=== PATIENT | female | born 1960 | race Caucasian/White ===

== ENCOUNTER → 2016-05-19 | Outpatient (CLI) | payer OTHER, BC ==
[~2016-05-19] MED LIST: CALCTAB5 PO; HYDR-3124 PO; LACT10SO61 PO; LEVO75TA5 PO; MCRK20 PO; MULTTAB58 PO; NRT/25 PO; ONDA8TAB7 PO; OXGN; PROP40TA5 PO; TORS5TAB10 PO
[2016-05-19 12:09] LABS: BASO % 0.6 %; BASO ABS # 0.04 K/uL (0-0.2); COMPLETE YES; EOS % 6.1 %; HEMATOCRIT 42.5 % (37-47); IG% 0.2 %; LYMPH % 36.1 %; LYMPH ABS # 2.37 K/uL (1.2-3.4); MEAN CELL VOLUME 89.7 fL (80-100); MEAN CORPUSCULAR HGB CONC 33.4 g/dl (32-36); MEAN PLATELET VOLUME 10.2 fL (7.4-10.4); MONO % 13.9 %; NEUT % 43.1 %; PLATELET COUNT 235 K/uL (130-400); RED BLOOD COUNT 4.74 M/uL (4.2-5.4); WHITE BLOOD COUNT 6.56 K/uL (4.8-10.8)
[2016-05-19 12:16] LABS: ALT/SGPT 41 U/L (12-78); BLOOD UREA NITROGEN 11 mg/dl (7-18); BUN/CREATININE RATIO 11.1 (10-20); CALCIUM 8.8 mg/dl (8.5-10.1); CARBON DIOXIDE 28 mmol/L (21-32); CHLORIDE 104 mmol/L (98-107); CREATININE 0.98 mg/dl (0.60-1.20); GLUCOSE 102 mg/dl (70-99); INR 1.1 (0.9-1.1); POTASSIUM 3.8 mmol/L (3.5-5.1); PROTHROMBIN TIME (PATIENT) 11.4 SECONDS (9.0-12.0); SODIUM 141 mmol/L (136-145)
[2016-05-19 12:19] LABS: ALB/GLOB RATIO 0.8 (0.9-2); ALKALINE PHOSPHATASE 192 U/L (45-117); AST/SGOT 43 U/L (15-37)
[2016-05-22 13:51] LABS: AFP TUMOR MARKER SERUM 6.2 NG/ML (<6.1); HEPATITIS C VIRAL RNA BY PCR <15 NOT DETECTED IU/ML (<15); HEPATITIS C VIRAL RNA(LOG) PCR <1.18 NOT DETECTED LOG IU/ML (<1.18)
== END | disposition home or self-care (01) ==
LOC: C.LAB 11:02
PROVIDERS: ATTEND Internal Medicine
DX: K74.60 Unspecified cirrhosis of liver (principal)

== ENCOUNTER → 2016-06-19 | Outpatient (CLI) | payer OTHER, BC ==
[~2016-06-19] MED LIST changes: +ALEN5SOL; +ALEN70TA2 PO; +CALC-393 PO; +DMD20 PO; +HYDR-3419 PO; +HYDR1CRE TOP; +LEVO50TA6 PO; +ONDA4TAB46 PO; +POTA10CA28 PO; +TIOT1SPR INH; +ZOLP12.5 PO
--- NOTE | 2016-06-19 12:20 | DIAGNOSTIC IMAGING REPORT ---
ABDOMINAL ULTRASOUND COMPLETE HISTORY: Cirrhosis OF LIVER. COMPARISON: Abdominal ultrasound 12/14/2015. FINDINGS: Pancreas: The pancreas demonstrates a normal echotexture. Liver: Heterogeneous liver demonstrating a slightly nodular contour. This is consistent with cirrhosis. This remains unchanged. No hepatic masses. Gallbladder: No gallbladder wall thickening. No gallstones. A 3 mm gallbladder polyp. CBD: 4 mm. Kidneys: No hydronephrosis. Spleen: Normal in size. Aorta: Normal in caliber. IVC: Patent. IMPRESSION: 1. Mild cirrhotic change within the liver. This remains unchanged. 2. A 3 mm gallbladder polyp. Electronically signed by: Cristino Canas M.D. 06/19/2016 12:18 PM Dictated Date/Time: 06/19/2016 12:16 PM
== END | disposition home or self-care (01) ==
LOC: C.ULTRBC 11:15
PROVIDERS: ATTEND Internal Medicine
DX: K74.60 Unspecified cirrhosis of liver (principal); K82.4 Cholesterolosis of gallbladder

== ENCOUNTER → 2016-10-05 | Outpatient (CLI) | payer OTHER, BC ==
[~2016-10-05] MED LIST changes: -ALEN5SOL; -ALEN70TA2 PO; -CALC-393 PO; -DMD20 PO; -HYDR-3419 PO; -HYDR1CRE TOP; -LEVO50TA6 PO; -ONDA4TAB46 PO; -POTA10CA28 PO; -TIOT1SPR INH; -ZOLP12.5 PO
--- NOTE | 2016-10-06 13:21 | MAMMOGRAPHY REPORT ---
BILATERAL DIGITAL SCREENING MAMMOGRAM TOMOSYNTHESIS WITH CAD: 10/05/2016 CLINICAL HISTORY: Routine screening. Patient has no complaints. TECHNIQUE: Breast tomosynthesis in addition to standard 2D mammography was performed. Current study was also evaluated with a Computer Aided Detection (CAD) system. COMPARISON: Comparison is made to exams dated: 02/13/2014 mammogram, 06/02/2015 mammogram, 11/29/2010 mammogram, 08/30/2009 mammogram - [facility], 08/27/2008, and 08/27/2007. BREAST COMPOSITION: The tissue of both breasts is heterogeneously dense, which may obscure small mas ses. FINDINGS: No suspicious masses, calcifications, or areas of architectural distortion are noted in ei ther breast. There has been no significant interval change compared to prior exams. IMPRESSION: ACR BI-RADS CATEGORY 1: NEGATIVE There is no mammographic evidence of malignancy. A 1 year screening mammogram is recommended. The pa tient will receive written notification of the results. Approximately 10% of breast cancers are not detected with mammography. A negative mammographic report should not delay biopsy if a clinically suggestive mass is present. Melody Salmeron M.D. /:10/05/2016 16:09:32 Burnishing Machine Operator: Antonio Mirza M, [facility] letter sent: Normal 1/2 BI-RADS Code: ACR BI-RADS Category 1: Negative
== END | disposition home or self-care (01) ==
LOC: C.MAMM 14:23
PROVIDERS: ATTEND Obstetrics & Gynecology
DX: Z12.31 Encounter for screening mammogram for malignant neoplasm of breast (principal)

== ENCOUNTER → 2016-10-16 | Outpatient (CLI) | payer OTHER, BC | END | disposition home or self-care (01) | LOC: C.PAPS 15:57 | PROVIDERS: ATTEND Obstetrics & Gynecology | DX: Z01.419 Encounter for gynecological examination (general) (routine) without abnormal findings (principal) ==

== ENCOUNTER → 2016-12-15 | Outpatient (CLI) | payer OTHER, BC ==
[~2016-12-15] MED LIST changes: +ALEN5SOL; +ALEN70TA2 PO; +ZOLP12.5 PO
[2016-12-15 12:12] LABS: BASO % 0.7 %; BASO ABS # 0.07 K/uL (0-0.2); COMPLETE YES; EOS % 5.3 %; HEMATOCRIT 43.3 % (37-47); IG% 0.2 %; LYMPH % 34.3 %; LYMPH ABS # 3.21 K/uL (1.2-3.4); MEAN CELL VOLUME 93.7 fL (80-100); MEAN CORPUSCULAR HGB CONC 34.2 g/dl (32-36); MEAN PLATELET VOLUME 10.6 fL (7.4-10.4); MONO % 11.9 %; NEUT % 47.6 %; PLATELET COUNT 252 K/uL (130-400); RED BLOOD COUNT 4.62 M/uL (4.2-5.4); WHITE BLOOD COUNT 9.36 K/uL (4.8-10.8)
[2016-12-15 12:20] LABS: INR 1.1 (0.9-1.1); PROTHROMBIN TIME (PATIENT) 11.3 SECONDS (9.0-12.0)
[2016-12-15 12:32] LABS: ESTIMATED AVERAGE GLUCOSE 123 mg/dl; HA1C FLAG Normal (Normal)
[2016-12-15 12:48] LABS: ALT/SGPT 63 U/L (12-78); AST/SGOT 64 U/L (15-37); BLOOD UREA NITROGEN 18 mg/dl (7-18); BUN/CREATININE RATIO 14.8 (10-20); CARBON DIOXIDE 27 mmol/L (21-32); CHLORIDE 101 mmol/L (98-107); CHOLESTEROL 217 mg/dl (0-200); GLUCOSE 105 mg/dl (70-99); POTASSIUM 3.9 mmol/L (3.5-5.1); SODIUM 136 mmol/L (136-145); TRIGLYCERIDES 133 mg/dl (0-150); VERY LOW DENSITY LIPOPROT CALC 27 mg/dl
[2016-12-15 12:59] LABS: ALB/GLOB RATIO 0.8 (0.9-2); ALKALINE PHOSPHATASE 182 U/L (45-117); CHOLESTEROL/HDL RATIO 4.5; HDL CHOLESTEROL 48 mg/dl; LDL CHOLESTEROL CALCULATED 142 mg/dl
[2016-12-18 09:59] LABS: AFP TUMOR MARKER SERUM 5.9 NG/ML (<6.1)
== END | disposition home or self-care (01) ==
LOC: C.LAB1850 10:33
PROVIDERS: ATTEND Nurse Practitioner Adult Health
DX: Z00.00 Encounter for general adult medical examination without abnormal findings (principal); R73.9 Hyperglycemia, unspecified; E03.9 Hypothyroidism, unspecified; B19.20 Unspecified viral hepatitis C without hepatic coma

== ENCOUNTER → 2017-01-23 | Day surgery (SDC) | payer OTHER, BC ==
--- NOTE | 2017-01-17 12:58 | History and Physical ---
History & Physical Date of Service Jan 17, 2017. History & Physical Plan of care discussed with Dr. 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 HISTORY OF PRESENT ILLNESS: Mrs. 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 Patient was undergoing a C5-6 discectomy and there was a vascular event that compromised the spinal cord. Patient does have residual chronic neuropathic pain and dysfunction of the right lower extremity. Pain does remain in the cervical region, upper extremities, and right lower extremity. Patient has had an intrathecal pump implanted in 2004 which has been adequately controlling her symptoms. She is pleased with her results. No extremity weakness, constitutional complaints, falls. PAST MEDICAL HISTORY: 1. COPD 2. Oxygen dependent at night 3. Hypothyroidism 4. Hepatitis C 5. Chronic arthralgias 6. Cirrhosis PAST SURGICAL HISTORY: 1. Cervical surgeries 3 2. Carpal tunnel release 3. Intrathecal pump and catheter delivery system implant 2004 SOCIAL HISTORY: Patient is single and has no children. No alcohol use. Previous smoker, quit in 2003 ALLERGIES: Hyper Lowry, tazobactam MEDICATIONS: 1. Fosamax 70 mg 1 tab weekly 2. Calcium 600 mg twice daily 3. Hydroxyzine 25 mg every 4 hours as needed 4. Lactulose 15 mL daily 5. Levothyroxine sodium 75 mg daily 6. Multivitamin one tablet daily 7. Nortriptyline 25 mg at bedtime 8. Zofran 8 mg every 6 hours as needed 9. Oxygen 2 L via nasal cannula at bedtime. 10. Potassium chloride 80 mEq daily 11. Propranolol 40 mg daily 12. Torsemide 20 mg twice daily 13. Ambien 12.5 mg at bedtime as needed REVIEW OF SYSTEMS: Denies any constitutional, cardiac, pulmonary, neurological, GI, , extremity, endocrine, neuro, ENT, dermatological, or musculoskeletal complaints other than stated in HPI PHYSICAL EXAMINATION: VITAL SIGNS: Per admission GENERAL: Mrs. Mason is a 49 year old white female that appears her stated age. Well nourished; well appearing; in no acute distress. Cognition intact. Speech is appropriate. HEAD: Normocephalic; atraumatic. EYES: Pupils are round, equal, and reactive to light; EOM intact. ENT: No external ear discharge or lesions. No rhinorrhea or epistaxis. No mucosal lesions. NECK: Decreased ROM in all planes; anterior incision is well healed. Mild generalized tenderness of the cervical region. Mild bilateral trapezius muscle spasm. PULM: Clear to auscultation. No wheezes, rales, or rhonchi. CHEST: Regular chest respiration and excursion. ABDOMEN: Intrathecal pump is located in the LLQ. Pump is not mobile or tender. EXTREMTIES: 5/5 strength of the bilateral upper and lower extremities. No spasm noted. NEURO: CN II-XII grossly intact with no focal deficits noted. SKIN: No rashes, erythema, or lesions noted. ASSESSMENT: Chronic intractable pain secondary to spinal cord injury TREATMENT: Mrs. Mason is a 56-year-old white female that is well-known to the [facility] with chronic neuropathic pain of the right lower extremity secondary to spinal cord injury that occurred in 1998. Patient did have an intrathecal opioid pump implanted in 2004 which has been providing adequate pain relief for the patient. She is able to perform more of her daily activities without limitation. There is currently 6 months battery life on the current pump and it is recommended that it be replaced. Risks and benefits were reviewed with the patient. Procedure was explained to the patient and she understands. Patient would like to proceed with the operation.
[2017-01-18 10:01] VITALS: BMI 25.0
--- NOTE | 2017-01-18 10:41 | PAT Medication Instructions ---
Service Date Jan 18, 2017. Current Home Medication List Alendronate Sodium (Fosamax), 1 TAB PO WK Calcium Carbonate (Calcium), 1 TAB PO BID Home O2 Therapy (Oxygen), 2 LITERS NA PRN PRN for Shortness of Breath Hydrocortisone (Rectal) (Hydrocortisone), 1 DOSE TOP UD PRN for PSORASIS Hydroxyzine Hcl (Atarax), 25 MG PO Q4H PRN for Itching Lactulose (Encephalopathy) (Enulose), 15 ML PO BID Levothyroxine Sodium (Levothyroxine Sodium), 1 TAB PO QAM Multiple Vitamin (Multivitamin), 1 TAB PO QAM Nortriptyline Hcl (Pamelor), 25 MG PO HS Ondansetron Hcl (Zofran), 8 MG PO Q6 PRN for Nausea Potassium Chloride (Micro-K Ext Rel), 4 CAP PO BID Propranolol Hcl (Propranolol Hcl), 40 MG PO QAM Tiotropium [place] (Spiriva Respimat), 2 PUFF INH DAILY 1300 Torsemide (Torsemide), 1.5 TAB PO DAILY 1300 Zolpidem Tartrate (Ambien Cr), 1 TAB PO HS PRN for Sleep Medication Instructions For Your Scheduled Surgery - Hold the following medications 24 hours prior to surgery: Hydrocortisone (Rectal) (Hydrocortisone), 1 DOSE TOP UD PRN for PSORASIS - Hold the following medications the morning of surgery: Calcium Carbonate (Calcium), 1 TAB PO BID Alendronate Sodium (Fosamax), 1 TAB PO WK Potassium Chloride (Micro-K Ext Rel), 4 CAP PO BID Lactulose (Encephalopathy) (Enulose), 15 ML PO BID Torsemide (Torsemide), 1.5 TAB PO DAILY 1300 Multiple Vitamin (Multivitamin), 1 TAB PO QAM - Take the following medications the morning of surgery with a sip of water OTHERWISE NOTHING TO EAT OR DRINK AFTER MIDNIGHT: Ondansetron Hcl (Zofran), 8 MG PO Q6 PRN for Nausea Hydroxyzine Hcl (Atarax), 25 MG PO Q4H PRN for Itching Tiotropium [place] (Spiriva Respimat), 2 PUFF INH DAILY 1300 *Propranolol Hcl (Propranolol Hcl), 40 MG PO QAM *Levothyroxine Sodium (Levothyroxine Sodium), 1 TAB PO QAM - Take the following medications as scheduled the night before surgery: Calcium Carbonate (Calcium), 1 TAB PO BID Ondansetron Hcl (Zofran), 8 MG PO Q6 PRN for Nausea Hydroxyzine Hcl (Atarax), 25 MG PO Q4H PRN for Itching Nortriptyline Hcl (Pamelor), 25 MG PO HS Zolpidem Tartrate (Ambien Cr), 1 TAB PO HS PRN for Sleep Potassium Chloride (Micro-K Ext Rel), 4 CAP PO BID Lactulose (Encephalopathy) (Enulose), 15 ML PO BID If you have any questions please call us at [phone] or [phone] or [phone]
[2017-01-18 11:24] LABS: URINE APPEARANCE CLEAR (CLEAR); URINE BILIRUBIN NEG (NEG); URINE COLOR DK YELLOW; URINE EPITHELIAL CELL AUTO 20-30 /lpf (0-5); URINE NITRITE NEG (NEG); URINE PH 6.5 (4.5-7.5); URINE SPECIFIC GRAVITY 1.015 (1.000-1.030); UROBILINOGEN NEG (NEG)
[2017-01-18 11:25] LABS: MANUAL MICROSCOPIC REQUIRED? NO; REVIEW REQ? NO
[~2017-01-23] VITALS: Ht 160 cm; Wt 64.6 kg
[~2017-01-23] MED LIST changes: -ALEN5SOL; +ATROPINE SULFATE 0.1 MG/ML 5ML SYR IV PRN; +BACITRACIN 50000 UNIT VIAL ONE; +BUPIVACAINE/EPINEPHRINE 0.25% 1:200,000 30 ML VIAL ONE; +CALC-393 PO; -CALCTAB5 PO; +CEFAZOLIN 2000 MG/60 ML D5W 50 ML IV SCH; +CEFAZOLIN 2000MG IV PUSH 10 ML IV SCH; +DEXAMETHASONE SOD INJ 4 MG/ML VIAL ONE; +DMD20 PO; +EpHEDrine SULFATE 50MG/5ML SYR ONE; +FENTANYL CITRATE INJ 50 MCG/1 ML 2 ML VIAL ONE; +HYDR-3419 PO; +HYDR1CRE TOP; +HYDROCODONE/ACETAMOPHEN 5/325MG TAB PO PRN; +IOPAMIDOL INJ 61% 15 ML VIAL IV SCH; +LACTATED RINGER'S 1000ML 1,000 ML IV SCH; +LEVO50TA6 PO; -LEVO75TA5 PO; +LIDO 2%/EPINEPHRINE 1:100000 20 ML VIAL INFIL ONE; +LIDOCAINE HCL 2% 2 ML VIAL (20MG/ML) ONE; -MCRK20 PO; +MIDAZOLAM HCL 1 MG/ML 2ML VIAL ONE; +NEOMYCIN/POLYMYX/BACITR OINT 15 GM TUBE ONE; +ONDA4TAB46 PO; -ONDA8TAB7 PO; +ONDANSETRON INJ 2 MG/ML 2 ML VIAL IV PRN; +ONDANSETRON INJ 2 MG/ML 2 ML VIAL ONE; +PHENYLEPHRINE 100MCG/ML 5ML SYR ONE; +POTA10CA28 PO; +PROPOFOL IV EMULSION 10 MG/ML 20 ML VIAL IV ONE; +TIOT1SPR INH; -TORS5TAB10 PO
[2017-01-23 08:43] VITALS: BP 125/66; PULSE 86; TEMP 36.7; O2SAT 97; Ht 160 cm; Wt 64.6 kg
--- NOTE | 2017-01-23 10:02 | History & Physical Bridge Note ---
H&P Re-Evaluation Bridge Note: I have examined the patient, reviewed the History & Physical and in the interval since the performance of the History & Physical I have noted the following changes of clinical significance: No changes noted Patient's history was reviewed, and the physical examination was performed. Laboratory studies were reviewed. No change in her health nor her examination noted today. Laboratory studies acceptable to proceed. Possible risks and complications as well as the need to replace the intrathecal pump were discussed today again. Her questions were answered. She gives full informed consent to proceed.
--- NOTE | 2017-01-23 10:08 | Discharge Instructions ---
Discharge Instructions Date of Service Jan 23, 2017. Visit Reason for Visit: Replacement of intrathecal pump. Discharge Discharge Diagnosis / Problem: replacement of intrathecal pump. Discharge Goals Goal(s): Decrease discomfort, Improve function, Increase independence Medications Stopped Medications Name(s): none Activity Recommendations Activity Recommendations: No Limitations, no repetitive bending, no repetitive twists Exercise/Sports Limitations: none May Resume Sexual Activity: when tolerated Shower/Bathe: may shower/bathe in 3 days Driving or Machine Use: resume 3 days after discharge Anesthesia . Post Anesthesia Instructions: If you have had General Anesthesia or IV Sedation: * Do not drive today. * Resume driving when surgeon permits. * Do not make important decisions or sign legal documents today. * Call surgeon for: * Temperature elevations greater than 101 degrees F. * Uncontrollable pain. * Excessive bleeding. * Persistent nausea and vomiting. * Medication intolerance (nausea, vomiting or rash). * For nausea and vomiting use only clear liquids such as: tea, soda, bouillon until nausea subsides, then gradually increase diet as tolerated. * If you have any concerns or questions, call your surgeon's office. If physician is unavailable and it is an emergency, call 911 or go to the nearest emergency room. . Instructions Instructions / Follow-Up . * Change dressings daily. Apply sterile dry gauze. * Call [facility] [phone] or go to the nearest emergency room if he experience high fevers, new back pain, new neurological symptoms such as numbness or weakness in the lower extremity or new bowel bladder incontinence. Also of call if he experience a headache that is positional. * Wear abdominal binder. * No showers for 3 days. * Resume normal activity. No repetitive bending, twisting or reaching overhead for 2 weeks. Do not lift more than 5 pounds for 2 weeks. . Follow-Up Follow-Up: 1 week in office for wound check Diet Recommendations Home Diet: resume previous diet Procedures Procedures Performed: Replacement of intrathecal pump. Pending Studies Studies pending at discharge: no Medical Emergencies . Who to Call and When: Medical Emergencies: If at any time you feel your situation is an emergency, please call 911 immediately. . Non-Emergent Contact Non-Emergency issues call your: Primary Care Provider Call Non-Emergent contact if: temperature is above 101.5, your pain is not controlled, your pain is worsening, your pain is unusual for you, wound has increased drainage, wound has increased redness . . "Provider Documentation" section prepared by Jose G Mcgrath. . [place] Drug Monitoring Program Search Results: patient reviewed within database
--- NOTE | 2017-01-23 12:19 | [facility] Operative Report ---
Operative Report Operative Date Jan 23, 2017. Pre-Operative Diagnosis Chronic intractable pain secondary to spinal cord injury with depleted pain administration pump battery Post-Operative Diagnosis same as pre-operative Procedure(s) Performed Replacement of intrathecal pump. Surgeon Dr. Mcgrath Ring Maker Surgeon(s) none Estimated Blood Loss 5ml Findings See below Specimens A. explanted pain medication administration pump Drains none Anesthesia General Anesthesia Complication(s) None Disposition Recovery Room / PACU Indications Depleted intrathecal pump battery Description of Procedure INTRATHECAL PUMP REPLACEMENT PROCEDURE PERFORMED: Intrathecal pump replacement PREOPERATIVE DIAGNOSIS: End of life intrathecal pump POSTOPERATIVE DIAGNOSIS: Same. COMPLICATIONS: None. SURGEON: Dr. Evita Mcgrath. ANESTHESIA: General. MATERIAL FORWARDED TO THE LAB: Explanted pump. EBL: 5 ml IMPLANTED PUMP SIZE: 20 mL. MEDICATIONS PLACED IN THE PUMP: Baclofen 250 g, clonidine 250 g, hydromorphone 3 mg per mL concentration INDICATIONS: The patient had an end of life pump with less than 1 month prior to system failure, thus requiring replacement. The patient was explained the risks, benefits, alternatives of the procedure and agreed to proceed as above. Informed consent was obtained and witnessed. A time out was performed after the patient was brought into the Operating Room. Antibiotics were given. The patient was then induced with general anesthesia without complications and was placed in the supine. The skin was prepped with DuraPrep and Betadine and draped in sterile fashion. The existing pump was identified and using a scalpel , electro cautery, and blunt dissection, the existing pump was exposed. The four retaining sutures were removed and the old pump was explanted. The catheter was disconnected from the old pump and free flowing CSF was noted. CSF from the catheter was not attempted. The new pump was opened and prepared according to [employer] standards and was filled with 19.5 mL of new medication of same type and concentration. The pump catheter was secured to the new pump and secured. The catheter access port was accessed and revealed free flowing CSF. Next, the pocket was irrigated with sterile normal saline with bacitracin. Hemostasis was checked. The new pump was placed into the pocket in the 12 O'clock position. The intrathecal pump was anchored in the pocket with 4 -0 Prolene sutures. Both wounds were irrigated with bacitracin-containing normal saline. Both wounds were closed in similar fashion using continuous 0 V lock suture for deeper layer and running 3-0 V lock suture for subcuticular layer. Terrence isaac skin. 4 x 4 gauze and pressure dressing was applied to both sites. Abdominal binder was placed. At the conclusion of the procedure, the pump was re-interrogated and reprogrammed to deliver baclofen 25.25 g, clonidine 25.25 g and hydromorphone 0.3030 mg per day. The patient was allowed to emerge from general anesthesia and transported to the recovery room in stable condition uneventfully. The patient will follow up at [facility] pain clinic within 7 days for a wound check and then plan to have the glenn removed at day 14. Prescription for hydrocodone 5/325, 30 tablets with instructions to take one tablet every 4 hrs as needed for postoperative pain was given. I attest to the content of the Intraoperative Record and any orders documented therein. Any exceptions are noted below.
[2017-01-23] MEDS: FENTANYL CITRATE INJ 50 MCG/1 ML 2 ML VIAL IV PRN ×8 (12:22→13:00)
--- NOTE | 2017-01-23 13:08 | Anesthesiology Progress Note ---
Anesthesia Post Op Note Date & Time Jan 23, 2017 at 13:08 Vital Signs Pain Intensity: 4 Vital Signs Past 12 Hours Date Time Temp Pulse Resp B/P (MAP) Pulse Ox O2 Delivery O2 Flow Rate FiO2 01/23/17 13:00 87 13 125/85 100 Room Air 01/23/17 12:50 88 20 141/89 97 Room Air 01/23/17 12:40 90 14 126/89 97 Room Air 01/23/17 12:30 89 12 134/87 100 Oxymask 10 01/23/17 12:20 94 21 128/87 98 Oxymask 10 01/23/17 12:13 36.2 98 12 132/92 100 Oxymask 10 01/23/17 08:43 36.7 86 20 125/66 (85) 97 Room Air Notes Mental Status: alert / awake / arousable, participated in evaluation Pt Amnestic to Procedure: Yes Nausea / Vomiting: adequately controlled Pain: adequately controlled Airway Patency, RR, SpO2: stable & adequate BP & HR: stable & adequate Hydration State: stable & adequate Anesthetic Complications: no major complications apparent
[2017-01-23 13:25] VITALS: BP 101/65; PULSE 82; TEMP 36.4; O2SAT 95
[2017-01-23 13:55] VITALS: BP 108/82; PULSE 86; TEMP 36.4; O2SAT 98
[2017-01-23 14:25] VITALS: BP 104/80; PULSE 86; TEMP 36.4; O2SAT 98
== END | disposition home or self-care (01) ==
LOC: C.ACU 08:15
PROVIDERS: ATTEND Anesthesiology
DX: Z45.49 Encounter for adjustment and management of other implanted nervous system device (principal); G89.29 Other chronic pain; G57.91 Unspecified mononeuropathy of right lower limb; S14.109S Unspecified injury at unspecified level of cervical spinal cord, sequela; X58.XXXS Exposure to other specified factors, sequela; J44.9 Chronic obstructive pulmonary disease, unspecified; Z99.81 Dependence on supplemental oxygen; E03.9 Hypothyroidism, unspecified; K74.60 Unspecified cirrhosis of liver; B18.2 Chronic viral hepatitis C; Z87.891 Personal history of nicotine dependence; Z79.899 Other long term (current) drug therapy

== ENCOUNTER → 2017-02-14 | Outpatient (CLI) | payer OTHER, BC ==
[~2017-02-14] MED LIST changes: -ATROPINE SULFATE 0.1 MG/ML 5ML SYR IV PRN; -BACITRACIN 50000 UNIT VIAL ONE; -BUPIVACAINE/EPINEPHRINE 0.25% 1:200,000 30 ML VIAL ONE; -CEFAZOLIN 2000 MG/60 ML D5W 50 ML IV SCH; -CEFAZOLIN 2000MG IV PUSH 10 ML IV SCH; -DEXAMETHASONE SOD INJ 4 MG/ML VIAL ONE; -EpHEDrine SULFATE 50MG/5ML SYR ONE; -FENTANYL CITRATE INJ 50 MCG/1 ML 2 ML VIAL ONE; -HYDR-3419 PO; -HYDROCODONE/ACETAMOPHEN 5/325MG TAB PO PRN; -IOPAMIDOL INJ 61% 15 ML VIAL IV SCH; -LACTATED RINGER'S 1000ML 1,000 ML IV SCH; -LIDO 2%/EPINEPHRINE 1:100000 20 ML VIAL INFIL ONE; -LIDOCAINE HCL 2% 2 ML VIAL (20MG/ML) ONE; -MIDAZOLAM HCL 1 MG/ML 2ML VIAL ONE; -NEOMYCIN/POLYMYX/BACITR OINT 15 GM TUBE ONE; -ONDANSETRON INJ 2 MG/ML 2 ML VIAL IV PRN; -ONDANSETRON INJ 2 MG/ML 2 ML VIAL ONE; -PHENYLEPHRINE 100MCG/ML 5ML SYR ONE; -PROPOFOL IV EMULSION 10 MG/ML 20 ML VIAL IV ONE
[2017-02-14 17:49] LABS: THYROID STIMULATING HORMONE 1.45 uIu/ml (0.300-4.500)
== END | disposition home or self-care (01) ==
LOC: C.LABBC 14:59
PROVIDERS: ATTEND Nurse Practitioner Adult Health
DX: E03.9 Hypothyroidism, unspecified (principal)

== ENCOUNTER → 2017-06-25 | Outpatient (CLI) | payer OTHER, BC ==
[2017-06-25 14:35] LABS: BASO % 0.6 %; BASO ABS # 0.05 K/uL (0-0.2); EOS % 5.9 %; EOS ABS # 0.48 K/uL (0-0.5); HEMATOCRIT 40.2 % (37-47); HEMOGLOBIN 13.4 g/dL (12.0-16.0); IG# 0.02 K/uL (0.00-0.02); LYMPH % 42.3 %; LYMPH ABS # 3.43 K/uL (1.2-3.4); MEAN CELL VOLUME 92.8 fL (80-100); MEAN CORPUSCULAR HEMOGLOBIN 30.9 pg (25-34); MEAN CORPUSCULAR HGB CONC 33.3 g/dl (32-36); MEAN PLATELET VOLUME 9.6 fL (7.4-10.4); MONO % 15.7 %; MONO ABS # 1.27 K/uL (0.11-0.59); NEUT % 35.3 %; NEUT ABS # 2.86 K/uL (1.4-6.5); PLATELET COUNT 242 K/uL (130-400); RED CELL DISTRIBUTION WIDTH CV 12.7 % (11.5-14.5); RED CELL DISTRIBUTION WIDTH SD 43.4 fL (36.4-46.3); WHITE BLOOD COUNT 8.11 K/uL (4.8-10.8)
[2017-06-25 15:04] LABS: ALBUMIN 3.3 gm/dl (3.4-5.0); ALT/SGPT 32 U/L (12-78); AST/SGOT 41 U/L (15-37); BLOOD UREA NITROGEN 12 mg/dl (7-18); CALCIUM 8.7 mg/dl (8.5-10.1); CARBON DIOXIDE 27 mmol/L (21-32); CREATININE 1.17 mg/dl (0.60-1.20); GLUCOSE 98 mg/dl (70-99); POTASSIUM 4.3 mmol/L (3.5-5.1); SODIUM 138 mmol/L (136-145)
[2017-06-25 15:07] LABS: ALKALINE PHOSPHATASE 167 U/L (45-117); TOTAL PROTEIN 7.7 gm/dl (6.4-8.2)
== END | disposition home or self-care (01) ==
LOC: C.LAB 13:42
PROVIDERS: ATTEND Internal Medicine
DX: B19.20 Unspecified viral hepatitis C without hepatic coma (principal); K74.60 Unspecified cirrhosis of liver

== ENCOUNTER → 2017-07-24 | Outpatient (CLI) | payer OTHER, BC ==
[~2017-07-24] MED LIST changes: +tumeric
--- NOTE | 2017-07-24 11:08 | DIAGNOSTIC IMAGING REPORT ---
DUPLEX ULTRASOUND OF THE PORTAL AND HEPATIC VEINS CLINICAL HISTORY: CIRRHOSIS OF LIVER W/OUT ASCITES COMPARISON STUDY: Doppler ultrasound of the hepatic and portal veins FINDINGS: The hepatic, portal, and splenic veins are patent and demonstrate normal direction of flow. The IVC is also patent. IMPRESSION: Normal duplex ultrasound of the hepatic and portal veins. Electronically signed by: Cristino Canas M.D. 07/24/2017 11:06 AM Dictated Date/Time: 07/24/2017 11:04 AM
--- NOTE | 2017-07-24 11:14 | DIAGNOSTIC IMAGING REPORT ---
ULTRASOUND ABDOMEN COMPLETE CLINICAL HISTORY: Cirrhosis. COMPARISON STUDY: Abdominal CT dated 05/26/2015. TECHNIQUE: Real-time, grayscale, and color flow sonography of the abdomen was performed. Images are reviewed in the transverse and longitudinal planes. FINDINGS: Liver: The liver is cirrhotic in morphology and heterogeneous in echotexture. There is nodularity of the hepatic surface contour. There is no intrahepatic biliary ductal dilatation. The main portal vein is patent. Gallbladder: Tiny gallbladder polyps are suggested. The gallbladder is otherwise normal in appearance. No gallstones are identified. There is no gallbladder wall thickening or pericholecystic fluid. A sonographic Wilkerson's sign is reportedly absent. The common bile duct measures up to 0.4 cm in diameter. Pancreas: Visualized portions of the pancreatic head and body are normal in appearance. Spleen: The spleen is normal in size and echotexture, measuring 7.8 cm in length. Kidneys: The kidneys demonstrate mild cortical atrophy and are normal in echotexture. There is no hydronephrosis. The right kidney measures 7.8 cm in length and the left kidney measures 9.0 cm in length. No shadowing calculi are identified. Abdominal vasculature: Visualized portions of the abdominal aorta are normal in caliber noting moderate atherosclerotic irregularity. The IVC is normal as visualized. Ascites: None. IMPRESSION: 1. The liver is cirrhotic in morphology and heterogeneous in echotexture. 2. The spleen is normal in size. 3. No gallstones are identified. Electronically signed by: Franco Hutchison M.D. 07/24/2017 11:13 AM Dictated Date/Time: 07/24/2017 11:11 AM
== END | disposition home or self-care (01) ==
LOC: C.ULTRBC 09:42
PROVIDERS: ATTEND Internal Medicine
DX: K74.60 Unspecified cirrhosis of liver (principal); E78.5 Hyperlipidemia, unspecified; E03.9 Hypothyroidism, unspecified

== ENCOUNTER 2018-11-22 18:16 | Inpatient (IN) ==
[2018-11-22 18:59] LABS: Basophils # (auto) 0.02 K/uL (0-0.2); Basophils % (auto) 0.1 %; Eosinophils # (auto) 0.28 K/uL (0-0.5); Eosinophils % (auto) 1.6 %; Hematocrit (blood only) 44.8 % (37-47); Hemoglobin 15.6 g/dL (12.0-16.0); Immature Granulocytes # (auto) 0.11 K/uL (0.00-0.02); Immature Granulocytes % (auto) 0.6 %; Lymphocytes # (auto) 2.97 K/uL (1.2-3.4); Mean Corpuscular Hemoglobin 32.7 pg (25-34); Mean Corpuscular Hgb Conc 34.8 g/dL (32-36); Mean Corpuscular Volume 93.9 fL (80-100); Mean Platelet Volume 10.9 fL (7.4-10.4); Monocytes % (auto) 14.3 %; Neutrophils # (auto) 11.62 K/uL (1.4-6.5); Neutrophils % (auto) 66.4 %; Platelet Count 173 K/uL (130-400); RDW Standard Deviation 44.8 fL (36.4-46.3); Red Blood Count 4.77 M/uL (4.2-5.4)
[2018-11-22 19:05] LABS: Appearance Urine Clear (Clear); Bacteria Urine Automated Negative (Negative); Bilirubin Urine Negative (Negative); Blood Urine Trace (Negative); Color Urine Yellow; Epithelial Cell Urine Auto >30 /lpf (0-5); Glucose Urine UA Negative (Negative); Ketones Urine Negative (Negative); Leukocyte Esterase Urine Trace (Negative); Nitrite Urine Negative (Negative); Protein Urine Negative (Negative); Specific Gravity Urine 1.016 (1.000-1.030); Urobilinogen Urine Positive (Negative); pH Urine 8.5 (4.5-7.5)
[2018-11-22 19:23] LABS: Albumin Level 3.5 gm/dl (3.4-5.0); BUN Creatinine Ratio 19.7 (10-20); Calcium 9.4 mg/dl (8.5-10.1); Creatinine Clr Calc Pharmacy 46.7 ml/min; Est GFR (African American) 66.1; Potassium 2.9 mmol/L (3.5-5.1)
[2018-11-22 19:26] LABS: Albumin Globulin Ratio 0.8 (0.9-2); Globulin 4.5 gm/dl (2.5-4.0)
[2018-11-22] MEDS ORDERED: SODIUM CHLORIDE 0.9% 1000ML 1,000 ML IV ONE (19:29)
[2018-11-22] MEDS ORDERED: ONDANSETRON INJ 2 MG/ML 2 ML VIAL IV STA (19:29)
[2018-11-22] MEDS ORDERED: MoRPHine SULFATE 2 MG/ML CARP IV STA (19:31)
[2018-11-22] MEDS ORDERED: FAMOTIDINE 20MG/5ML IV PUSH IV STA (19:33)
[2018-11-22] MEDS ORDERED: MoRPHine SULFATE 2 MG/ML CARP IV PRN (19:33)
[2018-11-22] MEDS ORDERED: POTASSIUM CHLORIDE / WTR 10 MEQ/100 ML PLCT IV ONE (19:43)
[2018-11-22] MEDS ORDERED: IOVERSOL 100ml IV PRN (20:16)
[2018-11-22 20:20] LABS: Troponin I 2.43 ng/ml (0-0.045)
[2018-11-22] MEDS ORDERED: ASPIRIN CHEW 324 MG PO STA (20:25)
[2018-11-22] MEDS ORDERED: NITROGLYCERIN 2% OINTMENT 30GM TUBE EXT STA (20:25)
--- NOTE | 2018-11-22 20:37 | CT Scan Report ---
CT abd pelvis IV con only CLINICAL HISTORY: 58 years-old Female presenting with upper abd pain, poss obtruc or gb. TECHNIQUE: Multidetector CT of the abdomen and pelvis was performed after the administration of intra venous contrast. IV contrast: 93 mL of Optiray 320. One or more dose lowering techniques were used co nsistent with the principles of ALARA (as low as reasonably achievable), including automatic exposure control, mA or kV adjustment to individual patient size, and/or use of iterative reconstruction. COMPARISON: 05/26/2015. CT DOSE (mGy.cm): The estimated cumulative dose is 272.44 mGy.cm. FINDINGS: [employer] topogram: Medical implanted device projects over the left abdomen with a catheter coursing to t he lumbar spine. Lung bases: Normal heart size. No pericardial or pleural effusion. Minimal dependent changes likely a telectasis. Liver: Nodular morphology of the liver compatible with cirrhosis. No focal lesion allowing for the si ngle phase of contrast. Patent hepatic vasculature. Biliary: No intrahepatic or extrahepatic biliary ductal dilatation, however, there is bile duct wall thickening and enhancement that is suggested. Gallbladder wall thickening and/or pericholecystic flui d is likely secondary to the presence of cirrhosis. Pancreas: Mild parenchymal atrophy. Spleen: Normal. Adrenal glands: Normal. Kidneys and ureters: Normal. No hydronephrosis. Bladder: The configuration of the bladder suggests pelvic ligamentous laxity. Bladder otherwise agustin l. Pelvic organs: Uterus and ovaries normal. Bowel: Moderate stool burden throughout normal caliber colon. Significant wall thickening of the prox imal to mid transverse colon and to a lesser extent the ascending colon and cecum. The appendix is no rmal. No bowel obstruction. Mucosal hyperemia of the stomach. Peritoneal cavity: Small volume free fluid in the pelvis. No free intraperitoneal gas. Lymph nodes: No enlarged lymph nodes in the abdomen or pelvis. Vasculature: Atherosclerosis of the normal caliber abdominal aorta. IVC patent. Abdominal wall: Implanted veterinary medical officer in the subcutaneous tissue of the left anterior abdominal wa ll with a catheter coursing to the lumbar region. The catheter enters the spinal canal at L3-4 and te rminates at L1-2. Musculoskeletal: Degenerative changes of the spine. IMPRESSION: 1. Evidence of colitis in the proximal transverse colon and to a lesser extent the ascending colon a nd cecum. This is likely on an infectious basis. 2. Hyperenhancement of gastric mucosa suggests gastritis, which is likely related. 3. Bile duct enhancement and mild wall thickening could suggest cholangitis. Correlate with clinical symptomatology and lab values. Alternatively, the appearance could be secondary to venolymphatic con gestive changes related to cirrhosis. 4. Cirrhosis. Electronically signed by: Dustin Henao M.D. 11/22/2018 8:35 PM
[2018-11-22] MEDS ORDERED: PIPERACILLIN/TAZOBACTAM 4.5 GM/120 ML BAG IV ONE (20:43)
[2018-11-22] MEDS ORDERED: HYDROmorphone INJ 1 MG/ML SYRINGE IV STA (20:43)
--- NOTE | 2018-11-22 22:03 | History & Physical Report ---
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 Abdominal pain, ?colitis ?cholangitis - Morphine IV 2mg Q1H PRN pain - NPO at this time - Cipro 400 BID w/ renal adjust, Flagyl 500 Q8H - WBC elevated to 17.5. Will repeat AM. - CMP AM. Elevated troponin - Repeat trop now (10PM) and Q4H until last at 10AM - Cardiology aware, consult if trops continue to uptrend. - Home asa now, consider heparin if trops continue uptrend. - TTE ordered for AM. - EKG without ST changes. No active chest pain however abdominal pain. - NOT continuing torsemide as pt is getting fluids and do not want to diurese at the same time. Hypothyroidism - continue home levothyroxine 50mcg daily. GERD - started pantoprazole 40mg BID. DLD - pt not on statin outpatient, will defer to PCP. Cirrhosis - continue lactulose. 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 In ED CTAbdomen showed colitis, possible cholangitis, gastritis. Elevated white count to 17.5 with mild elevation of LFTs from baseline, hypokalemia, UA negative for infection. Elevated troponin to 2.430 noted, cardiology called and likely due to demand ischemia from ongoing gastrointestinal problems. Hgb normal to 15.6. On interview pt reports two days of constant abdominal pain alleviated only by holding in a deep breath and for about thirty minutes following eating. However has had decreased appetite due to nausea and vomiting and pain. Points to epigastric area when asked to show where pain is. No subjective fevers or chills. No SOB, CP, dizziness, presyncope. No changes in bowels or bladder, no bloody stools or emesis. Reports that her pain pump in her abdomen "has not been touching the pain". Allergies Allergy/AdvReac Type Severity Reaction Status Date / Time No Known Drug Allergies Allergy Unknown Verified 11/22/18 20:19 Home Medications Home Medications Medication Instructions Recorded Confirmed Type calcium carbonate 600 mg calcium 600 mg PO BID tab 12/31/17 11/22/18 History (1,500 mg) tablet hydroxyzine HCl 25 mg tablet 25 mg PO Q4H PRN tab 12/31/17 11/22/18 History lactulose 10 gram/15 mL oral 15 ml PO DAILY 12/31/17 11/22/18 History solution multivitamin tablet 1 tab PO DAILY 12/31/17 11/22/18 History potassium chloride ER 10 mEq 40 meq PO BID cap 12/31/17 11/22/18 History capsule,extended release torsemide 20 mg tablet 30 mg PO DAILY tab 12/31/17 11/22/18 History levothyroxine 50 mcg tablet 50 mcg PO DAILY #90 tab 09/02/18 11/22/18 Rx naloxone 4 mg/actuation nasal spray 1 sprays INTNAS Q3M PRN #2 ea 10/02/18 11/22/18 Rx alendronate 70 mg tablet 70 mg PO WK #12 tab 10/15/18 11/22/18 Rx propranolol ER 120 mg capsule,24 120 mg PO DAILY 10/19/18 11/22/18 History hr,extended release umeclidinium 62.5 mcg/actuation 1 puffs INH DAILY 10/19/18 11/22/18 History blister powder for inhalation ondansetron HCl 8 mg tablet 8 mg PO TID PRN #30 tab 10/22/18 11/22/18 Rx zaleplon 5 mg capsule 5 mg PO DAILY #14 cap 10/22/18 11/22/18 Rx nortriptyline 25 mg capsule 25 mg PO HS #90 cap 11/19/18 11/22/18 Rx Pain Pump 0 mg NOT APPLICABLE UD 09/20/19 09/20/19 History albuterol sulfate 2 puff INHALATION Q6H PRN 11/22/18 11/22/18 History tramadol 50 mg PO TID PRN 11/22/18 11/22/18 History Past Med/Surg History Social History Preferred Language: [place] Communication Ability: Effective Visual Impairment: Limited Hearing Ability: Normal Beliefs That Will Affect Care: None marital status: Current Living Situation: Parent current occupational status: disabled Other Information That Helps Us Care for You: No Feels Safe at Home: Yes Safety Concerns: Feels Safe At This Time Smoking Status: Former smoker Do You Dip or Chew Tobacco: No ; Second Hand Exposure: No ; Hx Alcohol Use: No Hx Substance Use: No Review of Systems Constitutional: + malaise; no fever and no chills Respiratory: no cough, no dyspnea and no wheezing Cardiovascular: no chest pain, no palpitations, no syncope and no edema Gastrointestinal: + abdominal pain, + nausea and + vomiting; no hematemesis, no constipation, no diarrhea/loose stools and no blood in stools Genitourinary: no dysuria and no hematuria Musculoskeletal: + back pain (radiated from abdomen) Physical Exam Constitutional: WD/WN, vitals as above Neck: 5cm scar right middle neck where pt reports they "came from the front to repair her disk in her neck". Respiratory: normal respiratory effort, lungs clear to auscultation Cardiovascular: RRR, no murmur, no edema Gastrointestinal (Abdomen): Inspection/Auscultation: abdomen not distended Percussion/Palpation: + abdomen tender (epigastric. No TTP lower quadrants. ) and abdomen soft; no abdominal mass able to palpate pain pump in left middle abdomen. No guarding or rebound. Skin: no rashes, warm and dry Psychiatric: A+Ox3, euthymic affect Results & Data Vital Signs (Past 12 Hours) Vital Signs Temp Pulse Resp BP Pulse Ox 11/22/18 21:00 84 17 165/100 H 97 11/22/18 18:24 36.8 C 80 16 177/98 H 96 Laboratory Results Laboratory Results - last 24 hr 11/22/18 11/22/18 11/22/18 18:43 18:43 18:43 WBC 17.50 H RBC 4.77 Hgb 15.6 Hct 44.8 MCV 93.9 MCH 32.7 MCHC 34.8 RDW Std Deviation 44.8 RDW Coeff of Elin 13.0 Plt Count 173 MPV 10.9 H Immature Gran % (Auto) 0.6 Neut % (Auto) 66.4 Lymph % (Auto) 17.0 Falls % (Auto) 14.3 Eos % (Auto) 1.6 Baso % (Auto) 0.1 Immature Gran # (Auto) 0.11 H Neut # (Auto) 11.62 H Lymph # (Auto) 2.97 Falls # (Auto) 2.50 H Eos # (Auto) 0.28 Baso # (Auto) 0.02 Sodium 135 L Potassium 2.9 L Chloride 92 L Carbon Dioxide 35 H Anion Gap 8.0 BUN 21 H Creatinine 1.06 Est Cr Clr Drug Dosing 46.7 Est GFR ( Amer) 66.1 Est GFR (Non-Af Amer) 57.0 BUN/Creatinine Ratio 19.7 Glucose 95 Calcium 9.4 Total Bilirubin 1.0 AST 105 H ALT 90 H Alkaline Phosphatase 160 H Troponin I 2.430 H* Total Protein 8.0 Albumin 3.5 Globulin 4.5 H Albumin/Globulin Ratio 0.8 L Lipase 205 Urine Color Yellow Urine Appearance Clear Urine pH 8.5 H Ur Specific Harvey 1.016 Urine Protein Negative Urine Glucose (UA) Negative Urine Ketones Negative Urine Blood Trace H Urine Nitrite Negative Urine Bilirubin Negative Urine Urobilinogen Positive H Ur Leukocyte Esterase Trace H Urine WBC (Auto) 1-5 Urine RBC (Auto) 5-10 H U Hyaline Cast (Auto) 1-5 U Epithel Cells (Auto) >30 H Urine Bacteria (Auto) Negative Diagnostic Findings CTAbdomen 11/22/18: IMPRESSION: 1. Evidence of colitis in the proximal transverse colon and to a lesser extent the ascending colon and cecum. This is likely on an infectious basis. 2. Hyperenhancement of gastric mucosa suggests gastritis, which is likely related. 3. Bile duct enhancement and mild wall thickening could suggest cholangitis. Correlate with clinical symptomatology and lab values. Alternatively, the appearance could be secondary to venolymphatic congestive changes related to cirrhosis. 4. Cirrhosis. Code Status & VTE Plan Code Status DNR/DNI VTE Prophylaxis Plan VTE Prophylaxis will be ordered: Yes Supervising Physician Co-Signing Physician Notes Attending addendum: I have supervised the medical residents activities, and agree with the H&P unless as otherwise noted. Assessment and Plan: Abdominal pain- Differential including cholangitis, colitis, anginal equivalent. Cipro 400 mg IV twice daily. Flagyl 500 mg IV every 8 hours. Serial CBC with differential and chemistry profile. N.p.o. status. Elevated troponin- The patient will be admitted to telemetry for serial cardiac enzymes, serial EKG's, cardiac rhythm monitoring and a 2-D echocardiogram with Dopplers. Likely supply demand mismatch, type II. Remainder orders notations as noted. PG Care Time/CCT Total # of Minutes Spent Total Time Spent with Patient: Total time spent is greater than 50% in coordination of care (as documented) at patient's floor/unit and/or counseling patient: Resident Activity Tracking Resident Involvement: Resident Care Provided Care Provided: Adult Hospital Medicine (1) Hypothyroidism Hypothyroidism type: unspecified Qualified Code(s): E03.9 - Hypothyroidism, unspecified (2) Abdominal pain Abdominal location: epigastric Qualified Code(s): R10.13 - Epigastric pain
--- NOTE | 2018-11-22 22:33 | Communication Note ---
Date of Service: November 22, 2018 I personally interviewed and examined the patient. I agree with history of present illness and physical exam mentioned above, I also performed my own history taking and examination. Past medical history and review of system has been obtained by myself I reviewed all pertinent labs and studies Reviewed current medications I discussed and formulated of the assessment and plan mentioned above. Please refer to the Summary mentioned below. 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 Was in her regular state of health until about 10 days ago when she started having generalized abdominal pain associated with nausea and vomiting, she said that she had a little bit of loose stool in the beginning but not anymore, CT scan abdomen showed possible colitis versus cholangitis, her white blood Cell count was 17, troponin was 2.[address] Leonel Turpin who believes that she does have she does have demand ischemia rather than an acute ischemic episode. Patient is completely chest pain-free. Will be admitted for further evaluation and management Review of system as mentioned in HPI abdominal pain/nausea/vomiting/slight loose stool in the beginning rest of the review systems negative Assessment Sepsis present on admission secondary to below Likely gastro enteritis/colitis slight bump in her liver enzymes then Baseline due to cirrhosis, slight thickening and enhancement in her gallbladder and bile duct system, pericholecystic fluid is likely secondary to her moderate cirrhosis. CT scan abdomen also noted Mucosal hyperemia of the stomach. And patient gives history of relief for her abdominal pain when she eats Hence we will start her on a small dose Protonix We will initiate Cipro/Flagyl Consult GI services Pain management. Further recommendation will follow General Appearance: not in acute distress Eyes: normal Sclerae, extraocular muscle intact ENT: hearing grossly normal Neck: supple Respiratory/Chest: normal air entry bilateral ,no respiratory distress, no accessory muscle use Cardiovascular: regular rate, rhythm, no murmur Abdomen: minimal tender, soft, no masses Extremities: no edema musculoskeletal: no significant swelling or inflammation in any joint Neurologic/Psychiatric: Awake alert oriented times place and person moves all extremities sensation intact cranial nerves II-12 appear to be intact Skin: normal color, warm/dry, no rash Jose Miguel Cordero MD, [facility]
[2018-11-22] MEDS ORDERED: MAGNESIUM HYDROXIDE SUSP 30 ML UDC PO PRN (22:39)
[2018-11-22] MEDS ORDERED: ACETAMINOPHEN 325 MG TAB PO PRN (22:39)
[2018-11-22] MEDS ORDERED: DILAUDID PAIN PUMP SCH (22:39)
[2018-11-22] MEDS ORDERED: NITROGLYCERIN SL 0.4 MG/TAB TAB SL PRN (22:39)
[2018-11-22] MEDS ORDERED: ONDANSETRON 8 MG TABLET PO PRN (22:39)
[2018-11-22] MEDS ORDERED: POLYETHYLENE (MIRALAX) 17 GM PACK PO PRN (22:39)
[2018-11-22] MEDS ORDERED: ALUMINUM/MAGNESIUM SUSP 30 ML UDC PO PRN (22:39)
[2018-11-22] MEDS ORDERED: ALBUTEROL HFA 8 GM INHALER INH PRN (22:39)
[2018-11-22] MEDS ORDERED: POTASSIUM CHLORIDE 40 MEQ in SODIUM CHLORIDE 0.9% 1000ML 1,000 ML IV SCH (23:00)
[2018-11-22] MEDS: CIPROFLOXACIN 400 MG/200 ML BAG IV SCH (23:24)
[2018-11-22] MEDS: TRAMADOL HCL 50 MG TABLET PO PRN (23:29)
--- NOTE | 2018-11-22 23:36 | Emergency Department Note ---
Entered by Ally Echevarria acting as a scribe for Franco Herman MD History of Present Illness General Chief complaint: Nausea Stated complaint: NAUSEA, VOMITING Time Seen by Provider: 11/22/18 19:16 Source: patient History of Present Illness Onset (ago): day(s) 3 Location: abdomen (center of abdomen) Radiation: back Pain Consistency: + other (worsening) Maximum Pain Intensity: 8 Current Pain Intensity: 9 Associated symptoms: + denies other symptoms (urinary symptoms), + loss of appetite and + nausea/vomiting The patient is a 58 year old F who presents to the Emergency Room with complaints of worsening abdominal pain that started 3 days ago. The patient states that her pain is located in the center of her abdomen and radiates to her back. She rates her pain as 9 out of 10. She notes that she is currently experiencing a loss of appetite, vomiting, and nausea. She denies experiencing any urinary symptoms. She states that she took Zofran for her nausea and vomiting. She denies taking any pain medications. She notes that she has a history of cirrhosis and fluid buildup. She adds that she had her tooth pulled last week. She denies a history of abdominal surgeries but notes that she does have a pain pump in place. She also denies a history of gallstones. She notes that she does not have any new medication changes. Home Medications Home Medications Medication Instructions Recorded Confirmed Type calcium carbonate 600 mg calcium 600 mg PO BID tab 12/31/17 11/22/18 History (1,500 mg) tablet hydroxyzine HCl 25 mg tablet 25 mg PO Q4H PRN tab 12/31/17 11/22/18 History lactulose 10 gram/15 mL oral 15 ml PO DAILY 12/31/17 11/22/18 History solution multivitamin tablet 1 tab PO DAILY 12/31/17 11/22/18 History potassium chloride ER 10 mEq 40 meq PO BID cap 12/31/17 11/22/18 History capsule,extended release torsemide 20 mg tablet 30 mg PO DAILY tab 12/31/17 11/22/18 History levothyroxine 50 mcg tablet 50 mcg PO DAILY #90 tab 09/02/18 11/22/18 Rx naloxone 4 mg/actuation nasal spray 1 sprays INTNAS Q3M PRN #2 ea 10/02/18 11/22/18 Rx alendronate 70 mg tablet 70 mg PO WK #12 tab 10/15/18 11/22/18 Rx propranolol ER 120 mg capsule,24 120 mg PO DAILY 10/19/18 11/22/18 History hr,extended release umeclidinium 62.5 mcg/actuation 1 puffs INH DAILY 10/19/18 11/22/18 History blister powder for inhalation ondansetron HCl 8 mg tablet 8 mg PO TID PRN #30 tab 10/22/18 11/22/18 Rx zaleplon 5 mg capsule 5 mg PO DAILY #14 cap 10/22/18 11/22/18 Rx nortriptyline 25 mg capsule 25 mg PO HS #90 cap 11/19/18 11/22/18 Rx Pain Pump 0 mg NOT APPLICABLE UD 11/22/18 11/22/18 History albuterol sulfate 2 puff INHALATION Q6H PRN 11/22/18 11/22/18 History tramadol 50 mg PO TID PRN 11/22/18 11/22/18 History Allergies Allergy/AdvReac Type Severity Reaction Status Date / Time No Known Drug Allergies Allergy Unknown Verified 11/22/18 20:19 Past Med/Surg History Social History Preferred Language: Angolan Communication Ability: Effective Visual Impairment: Limited Hearing Ability: Normal Beliefs That Will Affect Care: None marital status: Current Living Situation: Parent current occupational status: disabled Other Information That Helps Us Care for You: No Feels Safe at Home: Yes Safety Concerns: Feels Safe At This Time Smoking Status: Former smoker Do You Dip or Chew Tobacco: No ; Second Hand Exposure: No ; Hx Alcohol Use: No Hx Substance Use: No Review of Systems See HPI for pertinent positives & negatives. and A total of 10 systems reviewed and were otherwise negative Physical Exam Vital Signs Vital Signs - 24 hr 11/22/18 18:24 11/22/18 21:00 11/22/18 21:30 Temperature 36.8 C Temperature Source Oral Sepsis Recent Fever Within 48 Hours No Sepsis Action Taken by Nursing No Action Required Pulse Rate 80 84 90 Pulse Rate from SpO2 Sensor 84 90 Pulse Rhythm Regular Pulse Strength Normal Respiratory Rate 16 17 23 Respiratory Effort / Characteristics Non-Labored Respiratory Depth Normal Blood Pressure 177/98 H 165/100 H 147/88 H Blood Pressure Mean 124 121 107 Blood Pressure Position Sitting Pulse Oximetry 96 97 97 Oxygen Delivery Method Room Air Room Air Room Air GENERAL: Patient is in no acute distress. HEENT: No acute trauma, normocephalic atraumatic, mucous membranes dry, no nasal congestion, no scleral icterus. NECK: No stridor, no adenopathy, no meningismus, trachea is midline. LUNGS: Clear to auscultation bilaterally, no wheeze, no rhonchi, breath sounds equal. HEART: Without murmurs gallops or rubs, regular rate and rhythm. ABDOMEN: Soft, moderate tenderness in epigastrium and upper quadrants, bowel sounds positive, no hernias, no peritonitis. EXTREMITIES: No cyanosis or edema, full range of motion of all the joints without pain or difficulty, no signs for acute trauma. NEUROLOGIC: Oriented x 3, no acute motor or sensory deficits, no focal weakness. SKIN: No rash, no jaundice, no diaphoresis. Course 1927: The patient was evaluated in room C11B. A complete history and physical exam was performed. 2021: I reviewed the patient's case with Dr. Turpin, [facility] [place]. He states that there is no need for an emergent cardiac catheterization. He thinks that the heart might be experiencing stress due to illness. He states that he does not think the heart is the primary cause of the patient's problems. 2042: I updated the patient on her test results and the plan. 2049: I reviewed the patient's case with Dr. Jose Miguel Cordero, [facility] Hospitalist. He will evaluate the patient for further management. Consultations Consultation #1: I reviewed the patient's case with Dr. Turpin, [facility] [place]. He states that there is no need for an emergent cardiac catheterization. He thinks that the heart might be experiencing stress due to illness. He states that he does not think the heart is the primary cause of the patient's problems. Time: 20:22 Consultation #2: I reviewed the patient's case with Dr. Jose Miguel Cordero, [facility] Hospitalist. He will evaluate the patient for further management. Time: 20:50 Administered Medications Ciprofloxacin (Cipro) 400 mg in 200 mls @ 100 mls/hr IV Q12H [facility]; Protocol Stop: 12/02/18 22:59 Last Admin: 11/22/18 23:24 Dose: 100 mls/hr Documented by: [id number] Morphine Sulfate (Morphine Sulfate) 2 mg IV Q1H PRN PRN Reason: Pain Stop: 12/06/18 22:38 Last Admin: 11/22/18 23:52 Dose: 2 mg Documented by: [id number] Tramadol HCl (Ultram) 50 mg PO TID PRN PRN Reason: pain Stop: 12/22/18 22:38 Last Admin: 11/22/18 23:29 Dose: 50 mg Documented by: [id number] Discontinued Medications Aspirin (Aspirin) 324 mg PO NOW STA Stop: 11/22/18 20:26 Last Admin: 11/22/18 20:58 Dose: 324 mg Documented by: [id number] Famotidine (Pepcid 20mg Iv Push) 20 mg IV ONE STA Stop: 11/22/18 19:34 Last Admin: 11/22/18 19:54 Dose: 20 mg Documented by: [id number] Hydromorphone HCl (Dilaudid) 1 mg IV NOW STA Stop: 11/22/18 20:44 Last Admin: 11/22/18 20:58 Dose: 1 mg Documented by: [id number] Sodium Chloride (Nss 1000ml) 1,000 mls @ 999 mls/hr IV .Q1H1M ONE Stop: 11/22/18 20:29 Last Infusion: 11/22/18 21:14 Dose: 0 mls/hr Documented by: [id number] Admin: 11/22/18 19:53 Dose: 999 mls/hr Documented by: [id number] Potassium Chloride (K Faisal / Wtr) 10 meq in 100 mls @ 100 mls/hr IV ONE ONE Stop: 11/22/18 20:42 Last Infusion: 11/22/18 22:04 Dose: 0 mls/hr Documented by: [id number] Admin: 11/22/18 20:59 Dose: 100 mls/hr Documented by: [id number] Piperacillin Sod/Tazobactam Sod (Zosyn) 4.5 gm in 120 mls @ 240 mls/hr IV NOW ONE Stop: 11/22/18 21:12 Last Infusion: 11/22/18 21:29 Dose: 0 mls/hr Documented by: [id number] Admin: 11/22/18 20:58 Dose: 240 mls/hr Documented by: [id number] Ioversol (Optiray 320 100ml) 93 ml IV ONCE PRN PRN Reason: Interaction Checking Stop: 11/26/18 20:15 Last Admin: 11/22/18 20:16 Dose: 93 ml Documented by: [id number] Morphine Sulfate (Morphine Sulfate) 2 mg IV NOW STA Stop: 11/22/18 19:32 Last Admin: 11/22/18 19:54 Dose: 2 mg Documented by: [id number] Nitroglycerin (Nitro-Bid 2%) 1 inch EXT NOW STA Stop: 11/22/18 20:26 Last Admin: 11/22/18 20:58 Dose: 1 inch Documented by: [id number] Ondansetron HCl (Zofran) 4 mg IV NOW STA Stop: 11/22/18 19:30 Last Admin: 11/22/18 19:54 Dose: 4 mg Documented by: [id number] Medical Decision Making Differential Diagnosis Differential diagnosis includes: dehydration, gallbladder obstruction, acute cholecystitis, pancreatitis, ulcer, bowel rupture, diverticulitis, bowel obstruction, AL, renal failure, UTI Medical Records Attestation: I reviewed the patient's medical records. Home Medications Current Medication List: was personally reviewed by me Laboratory Data Attestation: I reviewed the patient's lab results. Result diagrams: 11/22/18 18:43 11/22/18 18:43 Lab Results 11/22/18 11/22/18 11/22/18 Range/Units 18:43 18:43 18:43 WBC 17.50 H (4.8-10.8) K/uL RBC 4.77 (4.2-5.4) M/uL Hgb 15.6 (12.0-16.0) g/dL Hct 44.8 (37-47) % MCV 93.9 (80-100) fL MCH 32.7 (25-34) pg MCHC 34.8 (32-36) g/dL RDW Std Deviation 44.8 (36.4-46.3) fL RDW Coeff of Elin 13.0 (11.5-14.5) % Plt Count 173 (130-400) K/uL MPV 10.9 H (7.4-10.4) fL Immature Gran % (Auto) 0.6 % Neut % (Auto) 66.4 % Lymph % (Auto) 17.0 % [place] % (Auto) 14.3 % Eos % (Auto) 1.6 % Baso % (Auto) 0.1 % Immature Gran # (Auto) 0.11 H (0.00-0.02) K/uL Neut # (Auto) 11.62 H (1.4-6.5) K/uL Lymph # (Auto) 2.97 (1.2-3.4) K/uL [place] # (Auto) 2.50 H (0.11-0.59) K/uL Eos # (Auto) 0.28 (0-0.5) K/uL Baso # (Auto) 0.02 (0-0.2) K/uL Sodium 135 L (136-145) mmol/L Potassium 2.9 L (3.5-5.1) mmol/L Chloride 92 L (98-107) mmol/L Carbon Dioxide 35 H (21-32) mmol/L Anion Gap 8.0 (3-11) BUN 21 H (7-18) mg/dl Creatinine 1.06 (0.6-1.2) mg/dl Est Cr Clr Drug Dosing 46.7 ml/min Est GFR ( Amer) 66.1 Est GFR (Non-Af Amer) 57.0 BUN/Creatinine Ratio 19.7 (10-20) Glucose 95 (70-99) mg/dl Calcium 9.4 (8.5-10.1) mg/dl Total Bilirubin 1.0 (0.2-1) mg/dl AST 105 H (15-37) U/L ALT 90 H (12-78) U/L Alkaline Phosphatase 160 H (45-117) U/L Troponin I 2.430 H* (0-0.045) ng/ml Total Protein 8.0 (6.4-8.2) gm/dl Albumin 3.5 (3.4-5.0) gm/dl Globulin 4.5 H (2.5-4.0) gm/dl Albumin/Globulin Ratio 0.8 L (0.9-2) Lipase 205 (73-393) U/L Urine Color Yellow Urine Appearance Clear (Clear) Urine pH 8.5 H (4.5-7.5) Ur Specific [place] 1.016 (1.000-1.030) Urine Protein Negative (Negative) Urine Glucose (UA) Negative (Negative) Urine Ketones Negative (Negative) Urine Blood Trace H (Negative) Urine Nitrite Negative (Negative) Urine Bilirubin Negative (Negative) Urine Urobilinogen Positive H (Negative) Ur Leukocyte Esterase Trace H (Negative) Urine WBC (Auto) 1-5 (0-5) /hpf Urine RBC (Auto) 5-10 H (0-4) /hpf U Hyaline Cast (Auto) 1-5 (0-5) /lpf U Epithel Cells (Auto) >30 H (0-5) /lpf Urine Bacteria (Auto) Negative (Negative) Imaging Data Radiologist's Impression: Radiology results as stated below per my review and the radiologist's interpretation: CT abd pelvis IV con only CLINICAL HISTORY: 58 years-old Female presenting with upper abd pain, poss obtruc or gb. TECHNIQUE: Multidetector CT of the abdomen and pelvis was performed after the administration of intravenous contrast. IV contrast: 93 mL of Optiray 320. One or more dose lowering techniques were used consistent with the principles of ALARA (as low as reasonably achievable), including automatic exposure control, mA or kV adjustment to individual patient size, and/or use of iterative reconstruction. COMPARISON: 05/26/2015. CT DOSE (mGy.cm): The estimated cumulative dose is 272.44 mGy.cm. FINDINGS: Insurance Consultant topogram: Medical implanted device projects over the left abdomen with a catheter coursing to the lumbar spine. Lung bases: Normal heart size. No pericardial or pleural effusion. Minimal dependent changes likely atelectasis. Liver: Nodular morphology of the liver compatible with cirrhosis. No focal lesion allowing for the single phase of contrast. Patent hepatic vasculature. Biliary: No intrahepatic or extrahepatic biliary ductal dilatation, however, there is bile duct wall thickening and enhancement that is suggested. Gallbl adder wall thickening and/or pericholecystic fluid is likely secondary to the presence of cirrhosis. Pancreas: Mild parenchymal atrophy. Spleen: Normal. Adrenal glands: Normal. Kidneys and ureters: Normal. No hydronephrosis. Bladder: The configuration of the bladder suggests pelvic ligamentous laxity. Bladder otherwise normal. Pelvic organs: Uterus and ovaries normal. Bowel: Moderate stool burden throughout normal caliber colon. Significant wall thickening of the proximal to mid transverse colon and to a lesser extent the ascending colon and cecum. The appendix is normal. No bowel obstruction. Mucosal hyperemia of the stomach. Peritoneal cavity: Small volume free fluid in the pelvis. No free intraperitoneal gas. Lymph nodes: No enlarged lymph nodes in the abdomen or pelvis. Vasculature: Atherosclerosis of the normal caliber abdominal aorta. IVC patent. Abdominal wall: Implanted medical billing and coding specialist in the subcutaneous tissue of the left anterior abdominal wall with a catheter coursing to the lumbar region. The catheter enters the spinal canal at L3-4 and terminates at L1-2. Musculoskeletal: Degenerative changes of the spine. IMPRESSION: 1. Evidence of colitis in the proximal transverse colon and to a lesser extent the ascending colon and cecum. This is likely on an infectious basis. 2. Hyperenhancement of gastric mucosa suggests gastritis, which is likely related. 3. Bile duct enhancement and mild wall thickening could suggest cholangitis. Correlate with clinical symptomatology and lab values. Alternatively, the appearance could be secondary to venolymphatic congestive changes related to cirrhosis. 4. Cirrhosis. Electronically signed by: Dustni Henao M.D. 11/22/2018 8:35 PM ECG Data Attestation: I personally reviewed and interpreted this ECG as follows: Indication: abdominal pain and nausea Rate (beats per minute): 75 Rhythm: normal sinus Findings: + other (diffuse non-specific ST change, QTc 426); no acute ischemic change Comparison ECG Date: from (01/18/17) Change: the following changes noted (Non-specific ST change is now present) Blood Pressure Blood Pressure Findings: Elevated blood pressure Blood Pressure Disposition: further management by hospitalist [facility] Narrative There is a moderate leukocytosis at 17,000, this could be consistent with infection. No concerning anemia. Renal panel testing shows a low potassium, likely from vomiting. There was no renal failure. There were some very subtle liver enzyme elevations. These liver enzyme elevations have been documented before. No evidence for pancreatitis. Urinalysis did not show evidence for infection. EKG showed some nonspecific ST change, no evidence for ST elevation. Cardiac enzyme testing did show an elevation to the troponin, the value was 2.4. Abdominal and pelvis CT showed evidence for a colitis and gastritis. There was no bowel obstruction, no abscess. On exam, the patient was tender in the epigastrium. The patient was given IV morphine for pain and then IV Dilaudid for pain. She received IV Zofran for nausea. Patient was given IV Pepcid. She was given Nitropaste and oral aspirin. Received IV saline and IV potassium. She was given IV Zosyn as antibiotic coverage. The patient presents with epigastric abdominal pain for 3 days. She has had some vomiting. Work-up shows a colitis/gastritis as well as an elevation to the cardiac troponin. I did discuss the case with the physician on-call for heart alert. No emergent coronary intervention was felt warranted. Hospitalization w as felt in order though. Her cardiac enzymes will need trended. She requires IV hydration and symptom control. She may need a GI consult. I did speak to the patient and case management. The on-call hospitalist has been consulted. Patient currently appears to be resting, she seems more comfortable. Impression & Plan Epigastric abdominal pain, Colitis, Leukocytosis, Elevated troponin Critical Care Time Critical Care Time: Yes I have personally spent 38 minutes of critical care time in the direct management of this patient. This includes bedside care, interpretation of diagnostic studies, and testing, discussion with consultants, patient, and family members, and other required patient management activities. This 38 minutes is in excess of all separately billable procedures. Discharge Plan Visit Data *Final* Discharge Date/Time: 11/22/18 22:05 Chief Complaint: Nausea Stated Complaint: NAUSEA, VOMITING ED Provider: Franco Herman Discharge Problem: Epigastric abdominal pain, Colitis, Leukocytosis, Elevated troponin Patient Disposition: Admitted As Inpatient Discharge Instructions Interventions: ED Discharge Assessment Last Done: 11/22/18 22:05 Discharge Problem: Leukocytosis Qualifiers: Leukocytosis type: unspecified Qualified Code(s): D72.829 - Elevated white blood cell count, unspecified The scribe's documentation has been prepared under my direction and personally reviewed by me in its entirety. I confirm that the note above accurately reflects all work, treatment, procedures, and medical decision making performed by me.
[2018-11-22] MEDS: MoRPHine SULFATE 2 MG/ML CARP IV PRN (23:52)
[2018-11-23] MEDS: POTASSIUM CHLORIDE 40 MEQ in SODIUM CHLORIDE 0.9% 1000ML 1,000 ML IV SCH ×3 (00:59→20:59)
[2018-11-23] MEDS: metroNIDAZOLE 500 MG/100 ML BAG IV SCH ×2 (01:34→09:04)
[2018-11-23 02:21] LABS: Albumin Globulin Ratio 0.7 (0.9-2); Albumin Level 2.3 gm/dl (3.4-5.0); BUN Creatinine Ratio 16.6 (10-20); Bilirubin,Total 0.8 mg/dl (0.2-1); Calcium 7.6 mg/dl (8.5-10.1); Est GFR (African American) 70.1; Est GFR (Non-African American) 60.5; Globulin 3.1 gm/dl (2.5-4.0); Total Protein 5.4 gm/dl (6.4-8.2); Troponin I 1.52 ng/ml (0-0.045)
[2018-11-23 02:23] LABS: Basophils # (auto) 0.02 K/uL (0-0.2); Basophils % (auto) 0.2 %; Eosinophils # (auto) 0.27 K/uL (0-0.5); Eosinophils % (auto) 2.2 %; Hematocrit (blood only) 35.7 % (37-47); Hemoglobin 11.9 g/dL (12.0-16.0); Immature Granulocytes # (auto) 0.07 K/uL (0.00-0.02); Immature Granulocytes % (auto) 0.6 %; Lymphocytes # (auto) 2.32 K/uL (1.2-3.4); Lymphocytes % (auto) 18.8 %; Mean Corpuscular Hemoglobin 31.4 pg (25-34); Mean Corpuscular Hgb Conc 33.3 g/dL (32-36); Mean Corpuscular Volume 94.2 fL (80-100); Mean Platelet Volume 10.9 fL (7.4-10.4); Monocytes # (auto) 1.81 K/uL (0.11-0.59); Monocytes % (auto) 14.7 %; Neutrophils # (auto) 7.83 K/uL (1.4-6.5); Neutrophils % (auto) 63.5 %; Platelet Count 121 K/uL (130-400); Red Blood Count 3.79 M/uL (4.2-5.4); White Blood Count 12.32 K/uL (4.8-10.8)
[2018-11-23] MEDS: MoRPHine SULFATE 2 MG/ML CARP IV PRN (05:20)
[2018-11-23] MEDS: LEVOTHYROXINE SODIUM 50 MCG TABLET PO SCH (05:20)
[2018-11-23] MEDS: TRAMADOL HCL 50 MG TABLET PO PRN (06:02)
[2018-11-23] MEDS ORDERED: MoRPHine SULFATE 4 MG/ML 1 ML CARP\\VIAL ONE (08:59)
[2018-11-23] MEDS ORDERED: POTASSIUM CHLORIDE 10 MEQ TABCR PO SCH (09:00)
[2018-11-23] MEDS ORDERED: ASPIRIN 81 MG ECTAB PO SCH (09:00)
[2018-11-23] MEDS ORDERED: LACTULOSE SYRUP 10 GM/15 ML BTL 473 ML PO SCH ×2 (09:00)
[2018-11-23] MEDS: PROPRANOLOL HCL 60 MG LA CAP PO SCH (09:57)
[2018-11-23] MEDS: MULTIVITAMIN TAB PO SCH (09:57)
[2018-11-23] MEDS: PANTOprazole 40 MG TAB PO SCH ×2 (09:58→20:59)
[2018-11-23] MEDS: MoRPHine SULFATE 4 MG/ML 1 ML CARP\\VIAL IV PRN ×4 (10:28→17:17)
[2018-11-23] MEDS: SUCRALFATE 1 GM/10 ML UDC PO SCH ×3 (11:09→20:59)
[2018-11-23] MEDS: CIPROFLOXACIN 400 MG/200 ML BAG IV SCH (11:11)
--- NOTE | 2018-11-23 11:12 | Gastrointestinal Consultation ---
Date of Consultation November 23, 2018 Assessment & Plan (1) Abdominal pain: 58 yo F PMH Hep C : treated, COPD, depression,chronic pain treated with a pain pump now with abdominal pain constant over a few days and constipated. Slightly abnormal Lfts in comparison to baseline and a higher white count. Hemoconcentration noted. CT shows esophageal varices, inflamed gastric antrum and colonic edema in the transverse colon Likely all effects of dehydration with possible low flow ischemia of the colon: Likely cause for increased WBC. Possible gastritis +/_ PUD. History does not suggest infectious etiology. Recc: hydration. discontinue diurectic and reassess need for it later. Iv PPI, stool antigen for H pylori. Plan EGD colon for Sunday. Add miralax for today and prep for colon on Sunday pm. Only liquid diet Sunday and NPO past midnight. Ok to discontinue antibiotics. Monitor LFTs History of Present Illness Reason for Consultation: Abdominal pain Requesting Physician: Dr. Hernandez Attending Physician: Leonid Hernandez MD History of Present Illness Started epigastric pain on Sunday. Handled it for three days and came in on Sunday. Constant pain. Never had pain like this before, not crampy, radiation to back, through and through. No history of stones. Regular USG of liver for screening due to cirrhosis. take care of by doc in [facility]. Has nausea, no BM since Sunday. Usually every 2-3 days on lactulose primarily for laxation. No jaundice, distension Allergies Allergy/AdvReac Type Severity Reaction Status Date / Time No Known Drug Allergies Allergy Unknown Verified 11/22/18 20:19 Home Medications Home Medications Medication Instructions Recorded Confirmed Type calcium carbonate 600 mg calcium 600 mg PO BID tab 12/31/17 11/22/18 History (1,500 mg) tablet hydroxyzine HCl 25 mg tablet 25 mg PO Q4H PRN tab 12/31/17 11/22/18 History lactulose 10 gram/15 mL oral 15 ml PO DAILY 12/31/17 11/22/18 History solution multivitamin tablet 1 tab PO DAILY 12/31/17 11/22/18 History potassium chloride ER 10 mEq 40 meq PO BID cap 12/31/17 11/22/18 History capsule,extended release torsemide 20 mg tablet 30 mg PO DAILY tab 12/31/17 11/22/18 History levothyroxine 50 mcg tablet 50 mcg PO DAILY #90 tab 09/02/18 11/22/18 Rx naloxone 4 mg/actuation nasal spray 1 sprays INTNAS Q3M PRN #2 ea 10/02/18 11/22/18 Rx alendronate 70 mg tablet 70 mg PO WK #12 tab 10/15/18 11/22/18 Rx propranolol ER 120 mg capsule,24 120 mg PO DAILY 10/19/18 11/22/18 History hr,extended release umeclidinium 62.5 mcg/actuation 1 puffs INH DAILY 10/19/18 11/22/18 History blister powder for inhalation ondansetron HCl 8 mg tablet 8 mg PO TID PRN #30 tab 10/22/18 11/22/18 Rx zaleplon 5 mg capsule 5 mg PO DAILY #14 cap 10/22/18 11/22/18 Rx nortriptyline 25 mg capsule 25 mg PO HS #90 cap 11/19/18 11/22/18 Rx Pain Pump 0 mg NOT APPLICABLE UD 11/22/18 11/22/18 History albuterol sulfate 2 puff INHALATION Q6H PRN 11/22/18 11/22/18 History tramadol 50 mg PO TID PRN 11/22/18 11/22/18 History Patient History Social History Preferred Language: Uzbek Communication Ability: Effective Visual Impairment: Limited Hearing Ability: Normal Beliefs That Will Affect Care: None marital status: Current Living Situation: Parent current occupational status: disabled Other Information That Helps Us Care for You: No Feels Safe at Home: Yes Safety Concerns: Feels Safe At This Time Smoking Status: Former smoker Do You Dip or Chew Tobacco: No ; Second Hand Exposure: No ; Hx Alcohol Use: No Hx Substance Use: No Review of Systems Constitutional: + weakness and + anorexia; no fever and no chills Respiratory: no dyspnea Gastrointestinal: + abdominal pain, + heartburn, + nausea and + constipation; no hematemesis, no cramping, no blood in stools and no melena Psychiatric: + depression teary through the discussion Physical Exam Constitutional: WD/WN, vitals as above well nourished and average body habitus; not edematous Eyes: PERRL, conjunctivae normal, anicteric sclerae (moist conjunctiva) Neck: normal visual inspection (scar from surgery) Respiratory: normal respiratory effort Auscultation: lungs clear to auscultation bilaterally Cardiovascular: RRR, no murmur, no edema Gastrointestinal (Abdomen): Inspection/Auscultation: abdomen normal to inspection and + hyperactive bowel sounds; abdomen not distended and caput medusae absent Percussion/Palpation: + abdomen tender (epigastrium, mild <to complained discomfort) and abdomen soft; no splenomegaly, no abdominal mass and no ascites Skin: no rashes, warm and dry (flushed face) Psychiatric: Orientation: alert and cooperative Apperance: appropriately dressed Eye Contact: good eye contact Affect: + depressed affect and + tearful affect Insight: good insight Results & Data Vital Signs (Past 12 Hours) Vital Signs Temp Pulse Pulse Resp BP Pulse Ox 11/23/18 07:49 36.8 C 75 19 135/72 98 11/23/18 04:24 36.8 C 75 17 109/67 93 11/23/18 00:00 65 11/22/18 23:38 36.8 C 69 17 105/58 L 96 (1) Abdominal pain Abdominal location: epigastric Qualified Code(s): R10.13 - Epigastric pain
--- NOTE | 2018-11-23 13:23 | Cardiology Consultation ---
Date of Consultation November 23, 2018 Assessment & Plan (1) Non-ST elevation (NSTEMI) myocardial infarction: She did not present with acute coronary syndrome. She has no angina or heart failure symptoms. She is abdominal complaints and abnormal findings on abdominal imaging. Would not pursue cardiac catheterization at this time. Echo without wall motion abnormalities and no dynamic ST changes on ECG. Supportive care. Likely due to demand ischemia. Cannot exclude the possibility of underlying CAD but has not had anginal symptoms as an outpatient either. Can consider outpatient myocardial perfusion study when she recovers from her acute process. (2) Epigastric abdominal pain: As per GI and primary service. Endoscopy is being planned. (3) Elevated troponin: Plan as above. Disposition: Please call with any other questions or concerns. Patient care discussed with Dr. Hernandez of the primary hospitalist service. Thank you for allowing me to participate in the care of your patient. Please call for any other questions or concerns. Sincerely, Abdulkadir Mix M.D. History of Present Illness Reason for Consultation: NSTEMI Requesting Physician: Dr. Chula Cordero Attending Physician: Leonid Hernandez MD History of Present Illness Ms. Mason is a very pleasant 58-year-old female with a history significant for hepatitis-C, cirrhosis, reported esophageal varices, COPD, chronic neck pain with pain pump in place, and brown sequard syndrome. [facility] with several days of constant abdominal pain. On Sunday she felt exhausted. When she woke up in the morning she had central/epigastric abdominal pain that would radiate straight through to the back. It has been constant since then. It is no worse with exertion or change in position. On Sunday she had a couple episodes of emesis. Initially she thought that eating food improved her symptoms but eventually found no relief. She has not had a bowel movement since Sunday and states that she typically goes every other day or every 2 days but admits that she has not been eating much since then. She believe she had a low-grade fever on Sunday. While here, she was administered nitroglycerin patch without relief. She denies any chest discomfort, shortness of breath, syncope, near-syncope, palpitations, edema, or bleeding such as melena, hematochezia, or hematuria. She has chronic neck pain and has had 3 separate neck surgeries and also with a pain pump in place. She follows at [facility] in [place] for her cirrhosis. She continues to have pain. She has been evaluated by GI who plans to perform endoscopy on Sunday. There is concern for ischemic bowel, possibly from her cirrhosis. On admission, she had elevated troponin levels, which have since trended downward. Review of systems: As above. Review of systems otherwise negative/unremarkable. Family history: Mother had valve replacement. No known premature CAD. Social history: She denies tobacco but smoked occasionally as a young adult. No alcohol or drugs. She lives with her mother. She is . No children. She has 3 brothers. 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 Allergies Allergy/AdvReac Type Severity Reaction Status Date / Time No Known Drug Allergies Allergy Unknown Verified 11/22/18 20:19 Home Medications Home Medications Medication Instructions Recorded Confirmed Type calcium carbonate 600 mg calcium 600 mg PO BID tab 12/31/17 11/22/18 History (1,500 mg) tablet hydroxyzine HCl 25 mg tablet 25 mg PO Q4H PRN tab 12/31/17 11/22/18 History lactulose 10 gram/15 mL oral 15 ml PO DAILY 12/31/17 11/22/18 History solution multivitamin tablet 1 tab PO DAILY 12/31/17 11/22/18 History potassium chloride ER 10 mEq 40 meq PO BID cap 12/31/17 11/22/18 History capsule,extended release torsemide 20 mg tablet 30 mg PO DAILY tab 12/31/17 11/22/18 History levothyroxine 50 mcg tablet 50 mcg PO DAILY #90 tab 09/02/18 11/22/18 Rx naloxone 4 mg/actuation nasal spray 1 sprays INTNAS Q3M PRN #2 ea 10/02/18 11/22/18 Rx alendronate 70 mg tablet 70 mg PO WK #12 tab 10/15/18 11/22/18 Rx propranolol ER 120 mg capsule,24 120 mg PO DAILY 10/19/18 11/22/18 History hr,extended release umeclidinium 62.5 mcg/actuation 1 puffs INH DAILY 10/19/18 11/22/18 History blister powder for inhalation ondansetron HCl 8 mg tablet 8 mg PO TID PRN #30 tab 10/22/18 11/22/18 Rx zaleplon 5 mg capsule 5 mg PO DAILY #14 cap 10/22/18 11/22/18 Rx nortriptyline 25 mg capsule 25 mg PO HS #90 cap 11/19/18 11/22/18 Rx Pain Pump 0 mg NOT APPLICABLE UD 11/22/18 11/22/18 History albuterol sulfate 2 puff INHALATION Q6H PRN 11/22/18 11/22/18 History tramadol 50 mg PO TID PRN 11/22/18 11/22/18 History Patient History Social History Preferred Language: Mohawk Communication Ability: Effective Visual Impairment: Limited Hearing Ability: Normal Beliefs That Will Affect Care: None marital status: Current Living Situation: Parent current occupational status: disabled Other Information That Helps Us Care for You: No Feels Safe at Home: Yes Safety Concerns: Feels Safe At This Time Smoking Status: Former smoker Do You Dip or Chew Tobacco: No ; Second Hand Exposure: No ; Hx Alcohol Use: No Hx Substance Use: No Physical Exam Physical Exam: Gen.: No acute distress. Alert and oriented. HEENT: Anicteric sclera. Neck: No JVD. No bruits. Normal carotid upstrokes bilaterally. Cardiac: PMI was nondisplaced. No ventricular heave. Regular. Normal S1-S2. No murmurs, rubs, or gallops. Pulmonary: Clear to auscultation bilaterally without wheezes, rales, or rhonchi. Abdomen: Soft, nontender, nondistended, with normoactive bowel sounds. No bruits noted. Extremities: 2+ radial pulses bilaterally. 2+ posterior tibialis pulses bilaterally. No edema or cyanosis. Psychiatric: Affect appears appropriate. Results & Data Vital Signs (Past 12 Hours) Vital Signs Temp Pulse Resp BP Pulse Ox 11/23/18 11:34 36.6 C 73 19 135/89 95 11/23/18 07:49 36.8 C 75 19 135/72 98 11/23/18 04:24 36.8 C 75 17 109/67 93 Laboratory Results Laboratory Results - last 24 hr 11/22/18 11/22/18 11/22/18 18:43 18:43 18:43 WBC 17.50 H RBC 4.77 Hgb 15.6 Hct 44.8 MCV 93.9 MCH 32.7 MCHC 34.8 RDW Std Deviation 44.8 RDW Coeff of Elin 13.0 Plt Count 173 MPV 10.9 H Immature Gran % (Auto) 0.6 Neut % (Auto) 66.4 Lymph % (Auto) 17.0 [place] % (Auto) 14.3 Eos % (Auto) 1.6 Baso % (Auto) 0.1 Immature Gran # (Auto) 0.11 H Neut # (Auto) 11.62 H Lymph # (Auto) 2.97 [place] # (Auto) 2.50 H Eos # (Auto) 0.28 Baso # (Auto) 0.02 Sodium 135 L Potassium 2.9 L Chloride 92 L Carbon Dioxide 35 H Anion Gap 8.0 BUN 21 H Creatinine 1.06 Est Cr Clr Drug Dosing 46.7 Est GFR ( Amer) 66.1 Est GFR (Non-Af Amer) 57.0 BUN/Creatinine Ratio 19.7 Glucose 95 Calcium 9.4 Magnesium Total Bilirubin 1.0 AST 105 H ALT 90 H Alkaline Phosphatase 160 H Troponin I 2.430 H* Total Protein 8.0 Albumin 3.5 Globulin 4.5 H Albumin/Globulin Ratio 0.8 L Lipase 205 Urine Color Yellow Urine Appearance Clear Urine pH 8.5 H Ur Specific [place] 1.016 Urine Protein Negative Urine Glucose (UA) Negative Urine Ketones Negative Urine Blood Trace H Urine Nitrite Negative Urine Bilirubin Negative Urine Urobilinogen Positive H Ur Leukocyte Esterase Trace H Urine WBC (Auto) 1-5 Urine RBC (Auto) 5-10 H U Hyaline Cast (Auto) 1-5 U Epithel Cells (Auto) >30 H Urine Bacteria (Auto) Negative 11/22/18 11/23/18 11/23/18 22:53 01:31 01:31 WBC 12.32 H RBC 3.79 L Hgb 11.9 L D Hct 35.7 L MCV 94.2 MCH 31.4 MCHC 33.3 RDW Std Deviation 45.0 RDW Coeff of Elin 13.0 Plt Count 121 L MPV 10.9 H Immature Gran % (Auto) 0.6 Neut % (Auto) 63.5 Lymph % (Auto) 18.8 [place] % (Auto) 14.7 Eos % (Auto) 2.2 Baso % (Auto) 0.2 Immature Gran # (Auto) 0.07 H Neut # (Auto) 7.83 H Lymph # (Auto) 2.32 [place] # (Auto) 1.81 H Eos # (Auto) 0.27 Baso # (Auto) 0.02 Sodium 137 Potassium 3.0 L Chloride 98 Carbon Dioxide 35 H Anion Gap 4.0 BUN 17 Creatinine 1.01 Est Cr Clr Drug Dosing 49.0 Est GFR ( Amer) 70.1 Est GFR (Non-Af Amer) 60.5 BUN/Creatinine Ratio 16.6 Glucose 109 H Calcium 7.6 L D Magnesium 2.0 Total Bilirubin 0.8 AST 53 H ALT 56 Alkaline Phosphatase 101 Troponin I 1.850 H* 1.520 H* Total Protein 5.4 L D Albumin 2.3 L Globulin 3.1 Albumin/Globulin Ratio 0.7 L Lipase Urine Color Urine Appearance Urine pH Ur Specific [place] Urine Protein Urine Glucose (UA) Urine Ketones Urine Blood Urine Nitrite Urine Bilirubin Urine Urobilinogen Ur Leukocyte Esterase Urine WBC (Auto) Urine RBC (Auto) U Hyaline Cast (Auto) U Epithel Cells (Auto) Urine Bacteria (Auto) 11/23/18 11/23/18 06:07 10:09 WBC RBC Hgb Hct MCV MCH MCHC RDW Std Deviation RDW Coeff of Elin Plt Count MPV Immature Gran % (Auto) Neut % (Auto) Lymph % (Auto) [place] % (Auto) Eos % (Auto) Baso % (Auto) Immature Gran # (Auto) Neut # (Auto) Lymph # (Auto) [place] # (Auto) Eos # (Auto) Baso # (Auto) Sodium Potassium Chloride Carbon Dioxide Anion Gap BUN Creatinine Est Cr Clr Drug Dosing Est GFR ( Amer) Est GFR (Non-Af Amer) BUN/Creatinine Ratio Glucose Calcium Magnesium Total Bilirubin AST ALT Alkaline Phosphatase Troponin I 1.150 H* 1.230 H* Total Protein Albumin Globulin Albumin/Globulin Ratio Lipase Urine Color Urine Appearance Urine pH Ur Specific [place] Urine Protein Urine Glucose (UA) Urine Ketones Urine Blood Urine Nitrite Urine Bilirubin Urine Urobilinogen Ur Leukocyte Esterase Urine WBC (Auto) Urine RBC (Auto) U Hyaline Cast (Auto) U Epithel Cells (Auto) Urine Bacteria (Auto) Diagnostic Findings Telemetry personally reviewed: Sinus rhythm. No arrhythmia. Personally reviewed: ECG 11/22/2018: Sinus rhythm [address] abnormality. Echo 11/23/2018: Normal LV size, wall motion, systolic function. EF 60-65%. Sclerotic aortic valve. Mild MR. RVSP 33. CT abdomen/pelvis 11/22/2018: Evidence of colitis in the proximal transverse colon and to a lesser extent the ascending colon and cecum. Hyper enhancement of gastric mucosa suggests gastritis. Bile duct enhancement and mild wall thickening could suggest cholangitis. Alternatively, the appearance could be secondary to be no lymphatic congestion of changes related to cirrhosis. Interpretation as per Radiology. Medications Administered Current Inpatient Medications Acetaminophen (Tylenol) 650 mg PO Q4H PRN PRN Reason: Pain or Fever Stop: 12/22/18 22:38 Al Hydrox/Mg Hydrox/Simethicone (Maalox) 15 ml PO Q4H PRN PRN Reason: Dyspepsia Stop: 12/22/18 22:38 Albuterol (Ventolin Hfa) 2 puffs INH Q6H PRN PRN Reason: Shortness Of Breath Or Wheezin Stop: 12/22/18 22:38 Aspirin (Ecotrin Ectab) 81 mg PO QAM [facility] Stop: 12/23/18 08:59 Last Admin: 11/23/18 09:56 Dose: 81 mg Documented by: Hydroxyzine HCl (Vistaril) 25 mg PO Q4H PRN PRN Reason: Anxiety Stop: 12/22/18 22:38 Potassium Chloride 40 meq/ (Sodium Chloride) 1,020 mls @ 100 mls/hr IV .[id number] [facility] Stop: 12/23/18 00:44 Last Admin: 11/23/18 12:18 Dose: 100 mls/hr Documented by: Lactulose (Chronulac) 20 gm PO BID [facility] Stop: 12/23/18 20:59 Levothyroxine Sodium (Synthroid) 50 mcg PO DAILYBB [facility] Stop: 12/23/18 06:29 Last Admin: 11/23/18 05:20 Dose: 50 mcg Documented by: Magnesium Hydroxide (Milk Of Magnesia) 30 ml PO Q12H PRN PRN Reason: Constipation Stop: 12/22/18 22:38 Morphine Sulfate (Morphine Sulfate) 4 mg IV Q2H PRN PRN Reason: Pain Stop: 12/06/18 22:38 Last Admin: 11/23/18 12:22 Dose: 4 mg Documented by: Multivitamins (Multivitamin Tab) 1 tab PO DAILY [facility] Stop: 12/23/18 08:59 Last Admin: 11/23/18 09:57 Dose: 1 tab Documented by: Nitroglycerin (Nitrostat) 0.4 mg SL UD PRN PRN Reason: Chest Pain Stop: 12/22/18 22:38 Dilaudid Pain Pump~ Non-Formulary Patient's Own Med 0 ea N/A UD [facility] Stop: 12/22/18 22:38 Nortriptyline HCl (Pamelor) 25 mg PO HS [facility] Stop: 12/23/18 20:59 Ondansetron HCl (Zofran Tab) 8 mg PO TID PRN PRN Reason: Nausea Stop: 12/22/18 22:38 Pantoprazole Sodium (Protonix) 40 mg PO BID [facility] Stop: 12/23/18 08:59 Last Admin: 11/23/18 09:58 Dose: 40 mg Documented by: Polyethylene Glycol (Miralax Powder Packet) 17 gm PO DAILY PRN PRN Reason: Constipation Stop: 12/22/18 22:38 Propranolol HCl (Inderal La) 120 mg PO DAILY [facility] Stop: 12/23/18 08:59 Last Admin: 11/23/18 09:57 Dose: 120 mg Documented by: Sucralfate (Carafate) 1 gm PO ACHS [facility] Stop: 12/23/18 11:29 Last Admin: 11/23/18 11:09 Dose: 1 gm Documented by: Tramadol HCl (Ultram) 50 mg PO TID PRN PRN Reason: pain Stop: 12/22/18 22:38 Last Admin: 11/23/18 06:02 Dose: 50 mg Documented by: Zaleplon (Sonata) 5 mg PO HS NIGEL Stop: 12/23/18 20:59 PG Care Time/CCT Total # of Minutes Spent Total Time Spent with Patient: Total time spent is greater than 50% in coordination of care (as documented) at patient's floor/unit and/or counseling patient:
--- NOTE | 2018-11-23 14:45 | Hospitalist Progress Note ---
Date of Service November 23, 2018 Assessment & Plan (1) Epigastric abdominal pain: Seen by GI on 11/23 with thought this could be portal gastropathy vs. PUD vs. pill esophagitis (takes both alendronate and potassium pills). CT a/p on hyperenhancement of gastric mucosa suggests gastritis. Also shows evidence of colitis, in watershed areas, likely again to due portal hypertension. Did show portal veins patent - Discussed with radiologist; the view is clear. No portal vein thrombosis. Cholangitis also determined to be clinically unlikely despite equivocal read on CT. - Was on Cipro/Flagyl for approx. 24 hours. Stopped on 11/23 per GI for low concern for infection. - Continue PPI PO BID (cannot do IV due to shortage) - Pain control - Clear liquids on 11/24 with bowel prep on 11/25 for EGD/colo (2) Non-ST elevation (NSTEMI) myocardial infarction: Troponin was 2.4 on admission and is trending down. EKGs non-ischemic. No chest pain or atypical anginal symptoms. - No further inpatient work-up per cardiology - Hold ASA until EGD/colo - Consider outpatient nuclear perfusion study (3) Compensated HCV cirrhosis: Treated for her HCV; however, has cirrhosis. 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 - Holding torsemide as she appears volume contracted. - Continue beta-bharati - At presently we do not think it is a variceal bleed, so will not treat with prophylactic abx (4) Hypothyroidism: TSH was 0.6 in 2018. - Repeat TSH - Continue levothyroxine 50 mcg. (5) Chronic obstructive pulmonary disease: No shortness of breath at present. - Tiotropium instead of home inhaler - Continue DuoNebs PRN (6) Depression: Normal affect. No SI/HI concerns. - Continue home meds. (7) Insomnia: - Continue zaleplon (8) DVT prophylaxis: SCDs - No chemoprophylaxis given our GI concerns Subjective Still with significant abdominal pain. No emesis recently, but definitely with nausea throughout the day. Review of Systems 2 Review of Systems: All systems reviewed & are unremarkable except as noted in HPI & below Physical Exam Constitutional: WD/WN, vitals as above Eyes: EOM intact bilaterally; no conjunctival abnormality ENMT: external ear and nose normal, oropharynx normal Neck: trachea midline, no thyromegaly normal visual inspection Respiratory: normal respiratory effort, lungs clear to auscultation no respiratory distress Cardiovascular: RRR, no murmur, no edema Gastrointestinal (Abdomen): Inspection/Auscultation: abdomen normal to inspection; abdomen not distended Musculoskeletal: no cyanosis or clubbing, extremities motor strength 5/5 Skin: no rashes, warm and dry Neurologic: moves all extremities and awake Psychiatric: Orientation: alert, oriented to person and cooperative Results & Data Vital Signs (Past 12 Hours) Vital Signs Temp Pulse Pulse Resp BP Pulse Ox 11/23/18 13:51 85 11/23/18 11:34 36.6 C 73 19 135/89 95 11/23/18 07:49 36.8 C 75 19 135/72 98 11/23/18 04:24 36.8 C 75 17 109/67 93 PG Care Time/CCT Total # of Minutes Spent Total Time Spent with Patient: Total time spent is greater than 50% in coordination of care (as documented) at patient's floor/unit and/or counseling patient: (1) Hypothyroidism Hypothyroidism type: unspecified Qualified Code(s): E03.9 - Hypothyroidism, unspecified
[2018-11-23] MEDS ORDERED: ALBUT/IPRATROP 3MG/0.5MG NEB 3 ML VIAL NEB PRN (14:57)
[2018-11-23] MEDS: HYDROmorphone INJ 0.5 MG/0.5 ML SYR IV PRN ×2 (18:37→21:00)
[2018-11-23] MEDS: NORTRIPTYLINE HCL 25 MG CAP PO SCH (20:59)
[2018-11-23] MEDS: LACTULOSE SYRUP 10 GM/15 ML BTL 473 ML PO SCH (20:59)
[2018-11-23] MEDS: ZALEPLON 5 MG CAPSULE PO SCH (21:00)
[2018-11-23] MEDS ORDERED: LACTULOSE SYRUP 20 GM/30 ML UDC PO SCH (21:00)
[2018-11-24] MEDS: HYDROmorphone INJ 0.5 MG/0.5 ML SYR IV PRN ×2 (02:48→05:49)
[2018-11-24] MEDS: LEVOTHYROXINE SODIUM 50 MCG TABLET PO SCH (05:49)
[2018-11-24 06:04] LABS: Hematocrit (blood only) 39.6 % (37-47); Mean Corpuscular Hemoglobin 31.5 pg (25-34); Mean Corpuscular Hgb Conc 32.8 g/dL (32-36); Mean Corpuscular Volume 95.9 fL (80-100); Mean Platelet Volume 10.9 fL (7.4-10.4); Platelet Count 177 K/uL (130-400); RDW Coefficient of Variation 13.5 % (11.5-14.5); RDW Standard Deviation 47.1 fL (36.4-46.3); Red Blood Count 4.13 M/uL (4.2-5.4); White Blood Count 14.38 K/uL (4.8-10.8)
[2018-11-24 06:52] LABS: BUN Creatinine Ratio 14.4 (10-20); Calcium 8.2 mg/dl (8.5-10.1); Creatinine Clr Calc Pharmacy 61.3 ml/min; Est GFR (African American) 82.8; Est GFR (Non-African American) 71.4; Potassium 5.1 mmol/L (3.5-5.1)
[2018-11-24] MEDS ORDERED: POTASSIUM CHLORIDE 40 MEQ in SODIUM CHLORIDE 0.9% 1000ML 1,000 ML IV SCH (07:00)
[2018-11-24 07:04] LABS: Albumin Globulin Ratio 0.7 (0.9-2); Bilirubin,Total 1.1 mg/dl (0.2-1); Globulin 4.1 gm/dl (2.5-4.0); Thyroid Stimulating Hormone 3.93 uIu/ml (0.300-4.500); Total Protein 7.1 gm/dl (6.4-8.2)
[2018-11-24] MEDS: SUCRALFATE 1 GM/10 ML UDC PO SCH ×4 (07:20→20:26)
--- NOTE | 2018-11-24 07:26 | Hospitalist Progress Note ---
Date of Service November 24, 2018 Assessment & Plan (1) Epigastric abdominal pain: Seen by GI on 11/23 with thought this could be portal gastropathy vs. PUD vs. pill esophagitis (takes both alendronate and potassium pills). CT a/p on hyperenhancement of gastric mucosa suggests gastritis. Also shows evidence of colitis, in watershed areas, likely again to due portal hypertension. Did show portal veins patent - Discussed with radiologist; the view is clear. No portal vein thrombosis. Cholangitis also determined to be clinically unlikely despite equivocal read on CT. - Was on Cipro/Flagyl for approx. 24 hours. Stopped on 11/23 per GI for low concern for infection. - Leukocytosis up to 14 on 11/24; unclear source. SBP unlikely given no ascites on CT a/p on 11/22. Possibly general inflammation from PUD/gastropathy? Monitor closely. - Continue PPI PO BID (cannot do IV due to shortage) - Pain control - Clear liquids on 11/24 with bowel prep on 11/25 for EGD/colo (2) Non-ST elevation (NSTEMI) myocardial infarction: Troponin was 2.4 on admission and is trending down. EKGs non-ischemic. No chest pain or atypical anginal symptoms today. - No further inpatient work-up per cardiology - Hold ASA until EGD/colo - Consider outpatient nuclear perfusion study (3) Compensated HCV cirrhosis: Treated for her HCV; however, has cirrhosis. 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 - Holding torsemide as she appears volume contracted. - Continue beta-bharati - At presently we do not think it is a variceal bleed, so will not treat with prophylactic abx (4) Hypothyroidism: TSH was 3.9 this admission. - Continue levothyroxine 50 mcg. (5) Chronic obstructive pulmonary disease: No shortness of breath at present. - Continue home inhaler (family brought it) - Continue DuoNebs PRN (6) Depression: Normal affect. No SI/HI concerns. - Continue home meds. (7) Insomnia: - Continue zaleplon (8) DVT prophylaxis: SCDs - No chemoprophylaxis given our GI concerns Subjective Still with abdominal pain. Still reports that it is like a stake stabbing through her. No nausea or vomiting or melena overnight. Review of Systems Review of Systems: All systems reviewed & are unremarkable except as noted in HPI & below Physical Exam Constitutional: WD/WN, vitals as above Eyes: EOM intact bilaterally; no conjunctival abnormality ENMT: external ear and nose normal, oropharynx normal Neck: trachea midline, no thyromegaly normal visual inspection Respiratory: normal respiratory effort, lungs clear to auscultation no respiratory distress Cardiovascular: RRR, no murmur, no edema Gastrointestinal (Abdomen): Inspection/Auscultation: abdomen normal to inspection; abdomen not distended Musculoskeletal: no cyanosis or clubbing, extremities motor strength 5/5 Skin: no rashes, warm and dry Neurologic: moves all extremities and awake Psychiatric: Orientation: alert, oriented to person and cooperative Results & Data Vital Signs (Past 12 Hours) Vital Signs Temp Pulse Pulse Resp BP Pulse Ox 11/24/18 07:17 36.8 C 71 18 166/92 H 93 11/24/18 04:13 36.9 C 79 18 111/94 92 11/23/18 23:34 70 11/23/18 23:05 36.7 C 86 18 143/65 H 92 11/23/18 19:46 37.0 C 67 18 156/95 H 93 PG Care Time/CCT Total # of Minutes Spent Total Time Spent with Patient: Total time spent is greater than 50% in coordination of care (as documented) at patient's floor/unit and/or counseling patient: (1) Hypothyroidism Hypothyroidism type: unspecified Qualified Code(s): E03.9 - Hypothyroidism, unspecified
[2018-11-24] MEDS: LACTULOSE SYRUP 10 GM/15 ML BTL 473 ML PO SCH ×2 (08:12→20:26)
[2018-11-24] MEDS: PROPRANOLOL HCL 60 MG LA CAP PO SCH (08:13)
[2018-11-24] MEDS: MULTIVITAMIN TAB PO SCH (08:13)
[2018-11-24] MEDS: PANTOprazole 40 MG TAB PO SCH ×2 (08:14→20:26)
[2018-11-24] MEDS ORDERED: TIOTROPIUM BROMIDE 5 PUFF/90 MCG INH INH SCH (09:00)
--- NOTE | 2018-11-24 09:38 | Gastroenterology Progress Note ---
Date of Service November 24, 2018 Assessment & Plan (1) Abdominal pain: Stable. Keep plan to do EGD and colonoscopy. Ok to give liquids today, Start Prep in PM and keep NPO after. Suspect ischemic colitis. Discontinue the diuretics for now. Subjective Still with pain. else doing ok. Better appetite, BM this morning dark without blood Physical Exam Gastrointestinal (Abdomen): Percussion/Palpation: + abdomen tender and abdomen soft Results & Data Vital Signs (Past 12 Hours) Vital Signs Temp Pulse Pulse Resp BP Pulse Ox 11/24/18 07:17 36.8 C 71 18 166/92 H 93 11/24/18 04:13 36.9 C 79 18 111/94 92 11/23/18 23:34 70 11/23/18 23:05 36.7 C 86 18 143/65 H 92 (1) Abdominal pain Abdominal location: epigastric Qualified Code(s): R10.13 - Epigastric pain
[2018-11-24] MEDS: HYDROmorphone INJ 1 MG/ML SYRINGE IV PRN ×4 (09:47→22:31)
[2018-11-24] MEDS ORDERED: INCRUSE ELLIPTA: ORDER AWAITING ACTION SCH (16:00)
[2018-11-24] MEDS: LAVAGE SOLUTION 4000ML PO SCH (17:49)
[2018-11-24] MEDS: ZALEPLON 5 MG CAPSULE PO SCH (20:26)
[2018-11-24] MEDS: NORTRIPTYLINE HCL 25 MG CAP PO SCH (20:26)
[2018-11-25] MEDS: LAVAGE SOLUTION 4000ML PO SCH (05:56)
[2018-11-25] MEDS: HYDROmorphone INJ 1 MG/ML SYRINGE IV PRN ×6 (05:59→20:47)
[2018-11-25 06:06] LABS: Hematocrit (blood only) 35.5 % (37-47); Hemoglobin 11.9 g/dL (12.0-16.0); Mean Corpuscular Hemoglobin 32.1 pg (25-34); Mean Corpuscular Hgb Conc 33.5 g/dL (32-36); Mean Corpuscular Volume 95.7 fL (80-100); Mean Platelet Volume 11.3 fL (7.4-10.4); Platelet Count 159 K/uL (130-400); RDW Coefficient of Variation 13.3 % (11.5-14.5); Red Blood Count 3.71 M/uL (4.2-5.4); White Blood Count 14.42 K/uL (4.8-10.8)
[2018-11-25 06:37] LABS: Albumin Level 2.6 gm/dl (3.4-5.0); BUN Creatinine Ratio 10.3 (10-20); Calcium 8.6 mg/dl (8.5-10.1); Creatinine Clr Calc Pharmacy 62.6 ml/min; Est GFR (African American) 85.1; Est GFR (Non-African American) 73.4; Potassium 4.5 mmol/L (3.5-5.1)
[2018-11-25 06:46] LABS: Albumin Globulin Ratio 0.7 (0.9-2); Globulin 3.6 gm/dl (2.5-4.0); Total Protein 6.2 gm/dl (6.4-8.2); Troponin I 0.369 ng/ml (0-0.045)
--- NOTE | 2018-11-25 08:48 | Hospitalist Progress Note ---
Date of Service November 25, 2018 Assessment & Plan (1) Epigastric abdominal pain: Seen by GI on 11/23 with thought this could be portal gastropathy vs. PUD vs. pill esophagitis (takes both alendronate and potassium pills). CT a/p on hyperenhancement of gastric mucosa suggests gastritis. Also shows evidence of colitis, in watershed areas, likely again to due portal hypertension. Did show portal veins patent - Discussed with radiologist; the view is clear. No portal vein thrombosis. Cholangitis also determined to be clinically unlikely despite equivocal read on CT. - Was on Cipro/Flagyl for approx. 24 hours. Stopped on 11/23 per GI for low concern for infection. - Leukocytosis up to 14 on 11/24; unclear source. SBP unlikely given no ascites on CT a/p on 11/22. Possibly general inflammation from PUD/gastropathy? Monitor closely. - Continue PPI PO BID (cannot do IV due to shortage) - Pain control - Clear liquids on 11/24 with bowel prep on 11/25 for EGD/colo (2) Non-ST elevation (NSTEMI) myocardial infarction: Type 2 VT due to demand ischemia. Troponin was 2.4 on admission and is trending down. EKGs non-ischemic. No chest pain or atypical anginal symptoms today. - No further inpatient work-up per cardiology - Hold ASA until EGD/colo - Consider outpatient nuclear perfusion study (3) Compensated HCV cirrhosis: Treated for her HCV; however, has cirrhosis. 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 - Holding torsemide as she appears volume contracted. - Continue beta-bharati - At presently we do not think it is a variceal bleed, so will not treat with prophylactic abx (4) Hypothyroidism: TSH was 3.9 this admission. - Continue levothyroxine 50 mcg. (5) Chronic obstructive pulmonary disease: No shortness of breath at present. - Continue home inhaler (family brought it) - Continue DuoNebs PRN (6) Depression: Normal affect. No SI/HI concerns. - Continue home meds. (7) Insomnia: - Continue zaleplon (8) DVT prophylaxis: SCDs - No chemoprophylaxis given our GI concerns Physical Exam Constitutional: WD/WN, vitals as above Eyes: EOM intact bilaterally; no conjunctival abnormality ENMT: external ear and nose normal, oropharynx normal Neck: trachea midline, no thyromegaly normal visual inspection Respiratory: normal respiratory effort, lungs clear to auscultation no respiratory distress Cardiovascular: RRR, no murmur, no edema Gastrointestinal (Abdomen): Inspection/Auscultation: abdomen normal to inspection; abdomen not distended Musculoskeletal: no cyanosis or clubbing, extremities motor strength 5/5 Skin: no rashes, warm and dry Neurologic: moves all extremities and awake Psychiatric: Orientation: alert, oriented to person and cooperative Results & Data Vital Signs (Past 12 Hours) Vital Signs Temp Pulse Pulse Resp BP Pulse Ox 11/25/18 07:55 36.7 C 86 16 150/90 H 96 11/25/18 03:21 36.7 C 83 17 105/64 92 11/25/18 00:00 70 11/24/18 23:20 36.6 C 86 17 105/65 92 PG Care Time/CCT Total # of Minutes Spent Total Time Spent with Patient: Total time spent is greater than 50% in coordination of care (as documented) at patient's floor/unit and/or counseling patient: (1) Hypothyroidism Hypothyroidism type: unspecified Qualified Code(s): E03.9 - Hypothyroidism, unspecified
[2018-11-25] MEDS ORDERED: OR MISCELLANEOUS MED SCH (09:00)
[2018-11-25] MEDS ORDERED: UMECLIDINIUM BROMIDE INH SCH (09:00)
--- NOTE | 2018-11-25 09:15 | Pain Management Consultation ---
Date of Consultation November 25, 2018 Assessment & Plan (1) Abdominal pain: 1. Her intrathecal pump dosing has been stable currently running hydromorphone 0.4673 mg/day, baclofen 33.38 mcg/day, clonidine 53.41 mcg/day. I do not see any evidence of malfunction of her intrathecal pump as the etiology of her symptoms. No dose changes were made today 2. Recommend continuation of GI and hospitalist work-up for other etiologies as the source of her current pain. 3. We will see her back in the office for her next intrathecal pump refill. Her alarm date is 02/05/2019. 4. Please call with any questions thank you. Abdominal location: epigastric Qualified Code(s): R10.13 - Epigastric pain (2) Leukocytosis: Leukocytosis type: unspecified Qualified Code(s): D72.829 - Elevated white blood cell count, unspecified (3) History of hepatitis C: (4) Intractable neuropathic pain of lower extremity: (5) Presence of intrathecal pump: (6) Compensated HCV cirrhosis: History of Present Illness Attending Physician: Leonid Hernandez MD History of Present Illness 58-year-old white female who is well-known to the pain service with history of chronic lower extremity neuropathic pain and lumbar radicular pain which is required an plantation of intrathecal pump and catheter delivery system. She has been on fairly stable dosing of her intrathecal pump. She was admitted 11/22/2018 with abdominal pain and is currently being evaluated by both hospitalist and gastroenterology and has an EGD and colonoscopy planned for today. She characterizes her pain is midepigastric and stabbing. She has prior history of cervical spine surgery with revision. She denies any recent falls or injuries, foot drop, or bowel/bladder incontinence. Her pain today is rated a 7 out of 10. Pain goal 4 out of 10. Pain Assessment Full Body Front + Back: 1. Allergies Allergy/AdvReac Type Severity Reaction Status Date / Time No Known Drug Allergies Allergy Unknown Verified 11/22/18 20:19 Home Medications Home Medications Medication Instructions Recorded Confirmed Type calcium carbonate 600 mg calcium 600 mg PO BID tab 12/31/17 11/22/18 History (1,500 mg) tablet hydroxyzine HCl 25 mg tablet 25 mg PO Q4H PRN tab 12/31/17 11/22/18 History lactulose 10 gram/15 mL oral 15 ml PO DAILY 12/31/17 11/22/18 History solution multivitamin tablet 1 tab PO DAILY 12/31/17 11/22/18 History potassium chloride ER 10 mEq 40 meq PO BID cap 12/31/17 11/22/18 History capsule,extended release torsemide 20 mg tablet 30 mg PO DAILY tab 12/31/17 11/22/18 History levothyroxine 50 mcg tablet 50 mcg PO DAILY #90 tab 09/02/18 11/22/18 Rx naloxone 4 mg/actuation nasal spray 1 sprays INTNAS Q3M PRN #2 ea 10/02/18 11/22/18 Rx alendronate 70 mg tablet 70 mg PO WK #12 tab 10/15/18 11/22/18 Rx propranolol ER 120 mg capsule,24 120 mg PO DAILY 10/19/18 11/22/18 History hr,extended release umeclidinium 62.5 mcg/actuation 1 puffs INH DAILY 10/19/18 11/22/18 History blister powder for inhalation ondansetron HCl 8 mg tablet 8 mg PO TID PRN #30 tab 10/22/18 11/22/18 Rx zaleplon 5 mg capsule 5 mg PO DAILY #14 cap 10/22/18 11/22/18 Rx nortriptyline 25 mg capsule 25 mg PO HS #90 cap 11/19/18 11/22/18 Rx Pain Pump 0 mg NOT APPLICABLE UD 11/22/18 11/22/18 History albuterol sulfate 2 puff INHALATION Q6H PRN 11/22/18 11/22/18 History tramadol 50 mg PO TID PRN 11/22/18 11/22/18 History Patient History Medical History Psoriasis (Acute) Peripheral neuropathy (Acute) Osteoporosis (Acute) Memory loss (Acute) Insomnia (Acute) Hypothyroidism (Acute) Hyperglycemia (Acute) History of fall (Acute) History of actinic keratosis (Acute) GERD without esophagitis (Acute) Encounter for routine gynecological examination (Acute) Dyslipidemia (Acute) Dermatitis (Acute) Depression (Acute) Compensated HCV cirrhosis (Acute) Chronic obstructive pulmonary disease (Acute) Chronic fatigue syndrome (Acute) 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) Cirrhosis of liver (Chronic) History of hepatitis C (Chronic) 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) Lumbago (Chronic) Osteoarthritis (Chronic) Surgical History Presence of intrathecal pump (Chronic) H/O hand surgery Family History Aunt Breast cancer Mother Valvular heart disease Father H/O malignant neoplasm of duodenum Social History Preferred Language: Uzbek Communication Ability: Effective Visual Impairment: Limited Hearing Ability: Normal Beliefs That Will Affect Care: None marital status: Current Living Situation: Parent current occupational status: disabled Other Information That Helps Us Care for You: No Feels Safe at Home: Yes Safety Concerns: Feels Safe At This Time Smoking Status: Former smoker Do You Dip or Chew Tobacco: No ; Second Hand Exposure: No ; Hx Alcohol Use: No Hx Substance Use: No Physical Exam Physical Exam: Constitutional: Well-developed, well-nourished, normal weight Psych: Awake, alert, and oriented 3 with normal affect and mood. Recent memory appears grossly intact Eyes: Pupils are equally round and reactive to light with normal size pupils, eyelids appear normal Ear, nose, mouth, and throat: Moist nasal and oral membranes, lips and tongues appear normal, no external ear abnormalities are noted Neck: The trachea is midline without deviation and no thyromegaly is noted Respiratory: Normal respiratory effort without distress, no audible wheezes or rhonchi CV: Normal S1 and S2 Chest: Deferred GI/abdomen: Intrathecal pump noted. Patient with midepigastric tenderness Musculoskeletal: Head is normocephalic and atraumatic, gait not observed Cervical: Strength: Strength is grossly equal bilaterally with 5 out of 5 strength in all planes Lumbar: Strength: Strength is grossly equal bilaterally with 5 out of 5 strength in all planes Skin: No rashes, lesions, ulcers, or induration noted. Pump and catheter sites are unremarkable Neuro: No nystagmus noted, the tongue is midline, the patient is able to rotate their head bilaterally : Deferred Results Laboratory Review Laboratory results: personally reviewed by me and pertinent findings noted below Additional Comments: Laboratory Tests 11/24/18 11/25/18 11/25/18 08:42 05:33 05:33 WBC 14.42 H Hgb 11.9 L Hct 35.5 L AST 40 H ALT 47 [address]: reports reviewed CT Findings: [place], [place] [phone] CT Scan Report Patient: DAVID BAHENA Date: 11/22/18 MR#: [id number]: Omaira ASHTON Acct ID:[id number]: [facility] 1960[facility] Zip[facility] [place] [address] Age: 58Location: ED Sex: F Room/Bed: Att Phy:Diagnosis: NAUSEA, VOMITING Slime Phy: Sage Moon, III, CRNPService Date: 11/22/18 Fam Phy:Interpreting Phy: Dustin Henao MD Admit Phy: Ordering Phy: Franco Herman M.D. cc: ~ CT abd pelvis IV con only CLINICAL HISTORY: 58 years-old Female presenting with upper abd pain, poss obtruc or gb. TECHNIQUE: Multidetector CT of the abdomen and pelvis was performed after the administration of intravenous contrast. IV contrast: 93 mL of Optiray 320. One or more dose lowering techniques were used consistent with the principles of ALARA (as low as reasonably achievable), including automatic exposure control, mA or kV adjustment to individual patient size, and/or use of iterative reconstruction. COMPARISON: 05/26/2015. CT DOSE (mGy.cm): The estimated cumulative dose is 272.44 mGy.cm. FINDINGS: Band Tumbler topogram: Medical implanted device projects over the left abdomen with a catheter coursing to the lumbar spine. Lung bases: Normal heart size. No pericardial or pleural effusion. Minimal dependent changes likely atelectasis. Liver: Nodular morphology of the liver compatible with cirrhosis. No focal lesion allowing for the single phase of contrast. Patent hepatic vasculature. Biliary: No intrahepatic or extrahepatic biliary ductal dilatation, however, there is bile duct wall thickening and enhancement that is suggested. Gallbladder wall thickening and/or pericholecystic fluid is likely secondary to the presence of cirrhosis. Pancreas: Mild parenchymal atrophy. Spleen: Normal. Adrenal glands: Normal. Kidneys and ureters: Normal. No hydronephrosis. Bladder: The configuration of the bladder suggests pelvic ligamentous laxity. Bladder otherwise normal. Pelvic organs: Uterus and ovaries normal. Bowel: Moderate stool burden throughout normal caliber colon. Significant wall thickening of the proximal to mid transverse colon and to a lesser extent the ascending colon and cecum. The appendix is normal. No bowel obstruction. Mucosal hyperemia of the stomach. Peritoneal cavity: Small volume free fluid in the pelvis. No free intraperitoneal gas. Lymph nodes: No enlarged lymph nodes in the abdomen or pelvis. Vasculature: Atherosclerosis of the normal caliber abdominal aorta. IVC patent. Abdominal wall: Implanted medical radiation therapist in the subcutaneous tissue of the left anterior abdominal wall with a catheter coursing to the lumbar region. The catheter enters the spinal canal at L3-4 and terminates at L1-2. Musculoskeletal: Degenerative changes of the spine. IMPRESSION: 1. Evidence of colitis in the proximal transverse colon and to a lesser extent the ascending colon and cecum. This is likely on an infectious basis. 2. Hyperenhancement of gastric mucosa suggests gastritis, which is likely related. 3. Bile duct enhancement and mild wall thickening could suggest cholangitis. Correlate with clinical symptomatology and lab values. Alternatively, the appearance could be secondary to venolymphatic congestive changes related to cirrhosis. 4. Cirrhosis. Previous Records Review Previous Records: personally reviewed by me
[2018-11-25] MEDS ORDERED: HYDROmorphone INJ 0.5 MG/0.5 ML SYR IV STA (13:36)
[2018-11-25] MEDS ORDERED: HYDROmorphone INJ 0.5 MG/0.5 ML SYR ONE (13:44)
[2018-11-25] MEDS ORDERED: LIDOCAINE HCL 2% 2 ML VIAL/AMP(20MG/ML) INFIL ONE (15:29)
[2018-11-25] MEDS ORDERED: PROPOFOL IV EMULSION 10 MG/ML 20 ML VIAL IV ONE (15:29)
[2018-11-25] MEDS ORDERED: SODIUM CHLORIDE 0.9% 1000ML 1,000 ML IV SCH (15:30)
--- NOTE | 2018-11-25 15:30 | Anesthesiology Consultation ---
Date of Service November 25, 2018 Assessment & Plan Chart Review Chart Review: Acceptable Risk for Surgery Consults Requested none History Surgery Operation Date: 11/25/18 09:30 Proposed Procedures p Colonoscopy EGD Dr Yessica Juan Height/Weight Height: 5 ft 3 in Weight: 64 kg Allergies Allergy/AdvReac Type Severity Reaction Status Date / Time No Known Drug Allergies Allergy Unknown Verified 11/22/18 20:19 Medications Home Medications Medication Instructions Recorded Confirmed Last Taken calcium carbonate 600 mg calcium 600 mg PO BID tab 12/31/17 11/22/18 06/27/18 (1,500 mg) tablet hydroxyzine HCl 25 mg tablet 25 mg PO Q4H PRN tab 12/31/17 11/22/18 06/27/18 lactulose 10 gram/15 mL oral 15 ml PO DAILY 12/31/17 11/22/18 06/27/18 solution multivitamin tablet 1 tab PO DAILY 12/31/17 11/22/18 06/27/18 potassium chloride ER 10 mEq 40 meq PO BID cap 12/31/17 11/22/18 06/27/18 capsule,extended release torsemide 20 mg tablet 30 mg PO DAILY tab 12/31/17 11/22/18 06/27/18 levothyroxine 50 mcg tablet 50 mcg PO DAILY #90 tab 09/02/18 11/22/18 Unknown naloxone 4 mg/actuation nasal spray 1 sprays INTNAS Q3M PRN #2 ea 10/02/18 11/22/18 Unknown alendronate 70 mg tablet 70 mg PO WK #12 tab 10/15/18 11/22/18 Unknown propranolol ER 120 mg capsule,24 120 mg PO DAILY 10/19/18 11/22/18 Unknown hr,extended release umeclidinium 62.5 mcg/actuation 1 puffs INH DAILY 10/19/18 11/22/18 Unknown blister powder for inhalation ondansetron HCl 8 mg tablet 8 mg PO TID PRN #30 tab 10/22/18 11/22/18 Unknown zaleplon 5 mg capsule 5 mg PO DAILY #14 cap 10/22/18 11/22/18 Unknown nortriptyline 25 mg capsule 25 mg PO HS #90 cap 11/19/18 11/22/18 Unknown Pain Pump 0 mg NOT APPLICABLE UD 11/22/18 11/22/18 Unknown albuterol sulfate 2 puff INHALATION Q6H PRN 11/22/18 11/22/18 Unknown tramadol 50 mg PO TID PRN 11/22/18 11/22/18 Unknown hydromorphone 1 mg IV Q3H PRN #1 ml 11/25/18 Unknown Active Medications Generic Name Dose Route Start Last Admin Trade Name Freq PRN Reason Stop Dose Admin Aspirin 81 mg 11/23/18 09:00 11/23/18 09:56 Ecotrin Ectab PO 12/23/18 08:59 81 mg QAM NIGEL Administration Hydromorphone HCl 1 mg 11/24/18 08:36 11/25/18 15:05 Dilaudid IV 12/07/18 18:11 1 mg Q3H PRN Administration Pain Lactulose 20 gm 11/23/18 21:00 11/24/18 20:26 Chronulac PO 12/23/18 20:59 20 gm BID NIGEL Administration Levothyroxine Sodium 50 mcg 11/23/18 06:30 11/24/18 05:49 Synthroid PO 12/23/18 06:29 50 mcg DAILYBB NIGEL Administration Multivitamins 1 tab 11/23/18 09:00 11/24/18 08:13 Multivitamin Tab PO 12/23/18 08:59 1 tab DAILY NIGEL Administration Nortriptyline HCl 25 mg 11/23/18 21:00 11/24/18 20:26 Pamelor PO 12/23/18 20:59 25 mg HS NIGEL Administration Pantoprazole Sodium 40 mg 11/23/18 09:00 11/24/18 20:26 Protonix PO 12/23/18 08:59 40 mg BID NIGEL Administration Propranolol HCl 120 mg 11/23/18 09:00 11/24/18 08:13 Inderal La PO 12/23/18 08:59 120 mg DAILY NIGEL Administration Sucralfate 1 gm 11/23/18 11:30 11/24/18 20:26 Carafate PO 12/23/18 11:29 1 gm ACHS NIGEL Administration Tramadol HCl 50 mg 11/22/18 22:39 11/23/18 06:02 Ultram PO 12/22/18 22:38 50 mg TID PRN Administration pain Zaleplon 5 mg 11/23/18 21:00 09/22/19 20:26 Sonata PO 12/23/18 20:59 5 mg HS NIGEL Administration NPO Date Last Intake of Fluids: 11/24/18 Time Last Intake of Fluids: 22:30 Date Last Intake of Solids: 11/23/18 Time Last Intake of Solids: 18:00 Past Medical History Medical History Psoriasis (Acute) Peripheral neuropathy (Acute) Osteoporosis (Acute) Memory loss (Acute) Insomnia (Acute) Hypothyroidism (Acute) Hyperglycemia (Acute) History of fall (Acute) History of actinic keratosis (Acute) GERD without esophagitis (Acute) Encounter for routine gynecological examination (Acute) Dyslipidemia (Acute) Dermatitis (Acute) Depression (Acute) Compensated HCV cirrhosis (Acute) Chronic obstructive pulmonary disease (Acute) Chronic fatigue syndrome (Acute) 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) Cirrhosis of liver (Chronic) History of hepatitis C (Chronic) 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) Lumbago (Chronic) Osteoarthritis (Chronic) Past Family History Family History Aunt Breast cancer Mother Valvular heart disease Father H/O malignant neoplasm of duodenum Past Surgical History Surgical History Presence of intrathecal pump (Chronic) H/O hand surgery Social History Smoking Status: Former smoker Do You Dip or Chew Tobacco: No Hx Alcohol Use: No Hx Substance Use: No Physical Exam Vital Signs Last Vital Signs Temp 37.2 C 11/25/18 15:19 Pulse 88 11/25/18 15:19 Resp 20 11/25/18 15:19 BP 153/95 H 11/25/18 15:19 Pulse Ox 96 11/25/18 15:19 Testing Laboratory Results 11/25/18 05:33 11/25/18 05:33 Urine Color Yellow 11/22/18 18:43 Urine Appearance Clear (Clear) 11/22/18 18:43 Urine pH 8.5 (4.5-7.5) H 11/22/18 18:43 Ur Specific [place] 1.016 (1.000-1.030) 11/22/18 18:43 Urine Protein Negative (Negative) 11/22/18 18:43 Urine Glucose (UA) Negative (Negative) 11/22/18 18:43 Urine Ketones Negative (Negative) 11/22/18 18:43 Urine Nitrite Negative (Negative) 11/22/18 18:43 Ur Leukocyte Esterase Trace (Negative) H 11/22/18 18:43 Urine WBC (Auto) 1-5 /hpf (0-5) 11/22/18 18:43 Urine RBC (Auto) 5-10 /hpf (0-4) H 11/22/18 18:43 U Hyaline Cast (Auto) 1-5 /lpf (0-5) 11/22/18 18:43 U Epithel Cells (Auto) >30 /lpf (0-5) H 11/22/18 18:43 Urine Bacteria (Auto) Negative (Negative) 11/22/18 18:43
--- NOTE | 2018-11-25 15:31 | Discharge Summary ---
Date of Service November 25, 2018 Admission HPI Per Admitting Provider 58 yo F PMHx cirrhosis due to Hep C (since treated), COPD, depression, DLD, GERD, Hypothyroidism, osteoporosis, chronic pain presented initially to the E Dfor abdominal pain 9/10 on pain scale that radiates to the back with associated nausea and vomiting x2 days. In ED CTAbdomen showed colitis, possible cholangitis, gastritis. Elevated white count to 17.5 with mild elevation of LFTs from baseline, hypokalemia, UA negative for infection. Elevated troponin to 2.430 noted, cardiology called and likely due to demand ischemia from ongoing gastrointestinal problems. Hgb normal to 15.6. On interview pt reports two days of constant abdominal pain alleviated only by holding in a deep breath and for about thirty minutes following eating. However has had decreased appetite due to nausea and vomiting and pain. Points to epigastric area when asked to show where pain is. No subjective fevers or chills. No SOB, CP, dizziness, presyncope. No changes in bowels or bladder, no bloody stools or emesis. Reports that her pain pump in her abdomen "has not been touching the pain". Principal Diagnosis Epigastric pain, possibly from federico gastropathy or PUD and/or ischemic colitis Discharge Exam Constitutional WD/WN, vitals as above Eyes EOM intact bilaterally; no conjunctival abnormality ENMT external ear and nose normal, oropharynx normal Neck trachea midline, no thyromegaly normal visual inspection Respiratory normal respiratory effort, lungs clear to auscultation no respiratory distress Cardiovascular RRR, no murmur, no edema Gastrointestinal (Abdomen) Inspection/Auscultation: abdomen normal to inspection and normal bowel sounds; abdomen not distended and no abdominal edema Percussion/Palpation: abdomen soft; abdomen nontender, no guarding, abdomen not rigid and no ascites Musculoskeletal no cyanosis or clubbing, extremities motor strength 5/5 Skin no rashes, warm and dry Neurologic moves all extremities and awake Psychiatric Orientation: alert, oriented to person and cooperative Discharge Data Allergies Allergy/AdvReac Type Severity Reaction Status Date / Time No Known Drug Allergies Allergy Unknown Verified 11/22/18 20:19 Consultations 11/22/18 20:50 ED Decision to Admit Stat 11/22/18 22:35 Consult Physician Routine 11/22/18 22:36 Consult Cardiology Routine 11/24/18 08:35 Consult Pain Management Routine Procedures Performed Operation Date: 11/25/18 09:30 <No data on this case meets the specified criteria> Ordered Studies 11/22/18 19:33 CT abd pelvis IV con only Stat Hospital Course (1) Epigastric abdominal pain: Seen by GI on 11/23 with thought this could be portal gastropathy vs. PUD vs. pill esophagitis (takes both alendronate and potassium pills). CT a/p on hyperenhancement of gastric mucosa suggests gastritis. Also shows evidence of colitis, in watershed areas, likely again to due portal hypertension. Did show portal veins patent - Discussed with radiologist; the view is clear. No portal vein thrombosis. Cholangitis also determined to be clinically unlikely despite equivocal read on CT. - Was on Cipro/Flagyl for approx. 24 hours. Stopped on 11/23 per GI for low concern for infection. - Leukocytosis up to 14 on 11/24; unclear source. SBP unlikely given no ascites on CT a/p on 11/22. Possibly general inflammation from PUD/gastropathy? No diarrhea to suggest infectious etiology. - Continue PPI PO BID (cannot do IV due to shortage) - Hemoglobin has been stable at 12-13 which is her baseline, so active GI bleed considered unlikely. H. pylori antigen sent on 11/24, though results not back yet. - Lactate checked and was normal at 1.4. - Lipase checked x 2 and was <300 both times. No pancreatic inflammation seen on CT scan. - Pain control has been surprisingly hard. Continued to report pain with morphine 4 mg and 6 mg. Reports Dilaudid 0.5 mg did not help. Reports relief with Dilaudid 1mg, but needs it every 3-4 hours before reporting pain is back. - Clear liquids on 11/24 with bowel prep on 11/25 for EGD/colo - On 11/25, brother and her home entertainment usher both requested transfer to tertiary care center. Plan to transfer to [facility]. (2) Non-ST elevation (NSTEMI) myocardial infarction: Type 2 OH due to demand ischemia. Troponin was 2.4 on admission and trended down to 0.3. EKGs were non-ischemic. No chest pain or atypical anginal symptoms at any point. - No further inpatient work-up per cardiology - Hold ASA until EGD/colo - Consider outpatient nuclear perfusion study (3) Compensated HCV cirrhosis: Treated for her HCV; however, has cirrhosis. Follows with [facility] entertainment usher, Dr. Graciela Ott. - Holding torsemide as she appears volume contracted. - Continue beta-bharati - At presently we do not think it is a variceal bleed, so will not treat with prophylactic abx or albumin (4) Hypothyroidism: TSH was 3.9 this admission. - Continue levothyroxine 50 mcg. (5) Chronic obstructive pulmonary disease: No shortness of breath at present. - Continue home inhaler (family brought it) - Continue DuoNebs PRN (6) Depression: Normal affect. No SI/HI concerns. - Continue home meds. (7) Insomnia: - Continue zaleplon (8) DVT prophylaxis: SCDs - No chemoprophylaxis given our GI concerns Total Time Total Time Spent Total Time Spent (In Minutes): 35 Discharge Plan Discharge Items Patient Disposition: Transfer Acute Care Hospital Reason For Visit: ABDOMINAL PAIN Discharge Diagnosis: Abdominal pain, possibly portal gastropathy and/or mild ischemic colitis Activity: Resume your previous activity Non-emergency contact: Primary Care Provider and Foundry Worker Follow-up/Referrals: Sage Moon III, CRNP [Primary Care Provider] - 11/28/18 9:20 am (Please, follow up with Sage LORENZ on November 28 at 9:20 am. *If you need to change this appointment, call the office at [phone].) Diet: Low Sodium (2gm) Addtl Attending Provider Instructions: Ms. Mason is a 58-year-old female with compensated HCV cirrhosis status post treatment who was admitted on 11/24 with reports of epigastric pain radiating into the back. She had a CT scan that showed gastric wall thickening and thickening of the ascending and transverse colon. No indication of pancreatic inflammation. Lipase was normal. She was initially on Cipro/Flagyl for approximately 48 hours, but all cultures were negative. She was seen by GI who felt this might represent portal gastropathy and mild venous congestion ischemic colitis from her cirrhosis. The plan was for EGD/colonoscopy on 11/25. Somehow EGD fell through, and patient's brother requested transfer to [facility]. Her [facility] entertainment usher, Dr. Alesia Ott, requested to tertiary care. Her pain has only been controlled with Dilaudid, though she remains only mildly tender to palpation. Pending Studies at Discharge: No Stand-Alone Forms: My [facility] Skilled Items Patient informed of condition?: Yes DNR: Yes Discharge Level of Care: Other Communicable Disease: No Discharge Prognosis: Stable Lines: None Urinary Catheter: No Medications and DC Order Prescriptions: New hydromorphone 1 mg/mL Syringe 1 mg IV Q3H PRN (Reason: pain) Qty: 1 RF: 0 pantoprazole 40 mg Tablet,Delayed Release (Dr/Ec) 40 mg PO BID Qty: 2 RF: 0 sucralfate 100 mg/mL Suspension 10 ml PO ACHS Qty: 1 RF: 0 Continued multivitamin tablet 1 tab PO DAILY RF: 0 calcium carbonate 600 mg calcium (1,500 mg) tablet 600 mg PO BID RF: 0 hydroxyzine HCl 25 mg tablet 25 mg PO Q4H PRN (Reason: Anxiety) RF: 0 naloxone 4 mg/actuation spray,non-aerosol 1 sprays INTNAS Q3M PRN (Reason: opioid overdose) Qty: 2 RF: 0 levothyroxine 50 mcg tablet 50 mcg PO DAILY Qty: 90 RF: 1 nortriptyline 25 mg capsule 25 mg PO HS Qty: 90 RF: 1 propranolol 120 mg capsule,extended release 24 hr 120 mg PO DAILY RF: 0 Incruse Ellipta 62.5 mcg/actuation blister with device 1 puffs INH DAILY RF: 0 zaleplon 5 mg capsule 5 mg PO DAILY Qty: 14 RF: 1 ondansetron HCl [Zofran] 8 mg tablet 8 mg PO TID PRN (Reason: Nausea) Qty: 30 RF: 1 albuterol sulfate 90 mcg/actuation Hfa Aerosol Inhaler 2 puff INHALATION Q6H PRN (Reason: Shortness Of Breath Or Wheezing) RF: 0 Pain Pump Not Applicable UD RF: 0 tramadol 50 mg tablet 50 mg PO TID PRN (Reason: pain) RF: 0 Changed lactulose 10 gram/15 mL solution 15 ml PO BID Qty: 0 RF: 0 Discontinued potassium chloride 10 mEq capsule, extended release 40 meq PO BID RF: 0 torsemide 20 mg tablet 30 mg PO DAILY RF: 0 alendronate [Fosamax] 70 mg tablet 70 mg PO WK Qty: 12 RF: 1 Discharge Orders: Discharge Order (Routine); Ordered 11/25/18 Ordered By: Leonid Hernandez Admission Data Admit Date/Time: 11/24/18 07:18 Attending Provider: Leonid Hernandez Admit Provider: Shayna Laws Primary Care Provider: Sage Moon III Other Providers: Hamilton Willams ; Dewayne Mix ; Leonid Hernandez ; Jose G Mcgrath
--- NOTE | 2018-11-25 15:32 | History & Physical Report ---
Date of Service November 25, 2018 History of Present Illness Chief Complaint: abd pain, abnl CT Primary Care Provider: Sage Moon, III, SITE PHYSICIAN For EGD and colonoscopy Allergies Allergy/AdvReac Type Severity Reaction Status Date / Time No Known Drug Allergies Allergy Unknown Verified 11/22/18 20:19 Home Medications Home Medications Medication Instructions Recorded Confirmed Type calcium carbonate 600 mg calcium 600 mg PO BID tab 12/31/17 11/22/18 History (1,500 mg) tablet hydroxyzine HCl 25 mg tablet 25 mg PO Q4H PRN tab 12/31/17 11/22/18 History lactulose 10 gram/15 mL oral 15 ml PO DAILY 12/31/17 11/22/18 History solution multivitamin tablet 1 tab PO DAILY 12/31/17 11/22/18 History potassium chloride ER 10 mEq 40 meq PO BID cap 12/31/17 11/22/18 History capsule,extended release torsemide 20 mg tablet 30 mg PO DAILY tab 12/31/17 11/22/18 History levothyroxine 50 mcg tablet 50 mcg PO DAILY #90 tab 09/02/18 11/22/18 Rx naloxone 4 mg/actuation nasal spray 1 sprays INTNAS Q3M PRN #2 ea 10/02/18 11/22/18 Rx alendronate 70 mg tablet 70 mg PO WK #12 tab 10/15/18 11/22/18 Rx propranolol ER 120 mg capsule,24 120 mg PO DAILY 10/19/18 11/22/18 History hr,extended release umeclidinium 62.5 mcg/actuation 1 puffs INH DAILY 10/19/18 11/22/18 History blister powder for inhalation ondansetron HCl 8 mg tablet 8 mg PO TID PRN #30 tab 10/22/18 11/22/18 Rx zaleplon 5 mg capsule 5 mg PO DAILY #14 cap 10/22/18 11/22/18 Rx nortriptyline 25 mg capsule 25 mg PO HS #90 cap 11/19/18 11/22/18 Rx Pain Pump 0 mg NOT APPLICABLE UD 11/22/18 11/22/18 History albuterol sulfate 2 puff INHALATION Q6H PRN 11/22/18 11/22/18 History tramadol 50 mg PO TID PRN 11/22/18 11/22/18 History hydromorphone 1 mg IV Q3H PRN #1 ml 11/25/18 Rx Past Med/Surg History Medical History Psoriasis (Acute) Peripheral neuropathy (Acute) Osteoporosis (Acute) Memory loss (Acute) Insomnia (Acute) Hypothyroidism (Acute) Hyperglycemia (Acute) History of fall (Acute) History of actinic keratosis (Acute) GERD without esophagitis (Acute) Encounter for routine gynecological examination (Acute) Dyslipidemia (Acute) Dermatitis (Acute) Depression (Acute) Compensated HCV cirrhosis (Acute) Chronic obstructive pulmonary disease (Acute) Chronic fatigue syndrome (Acute) 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) Cirrhosis of liver (Chronic) History of hepatitis C (Chronic) 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) Lumbago (Chronic) Osteoarthritis (Chronic) Surgical History Presence of intrathecal pump (Chronic) H/O hand surgery Family History Aunt Breast cancer Mother Valvular heart disease Father H/O malignant neoplasm of duodenum Social History Preferred Language: Albanian Communication Ability: Effective Visual Impairment: Limited Hearing Ability: Normal Beliefs That Will Affect Care: None marital status: Current Living Situation: Parent current occupational status: disabled Feels Safe at Home: Yes Smoking Status: Former smoker Second Hand Exposure: No ; Hx Alcohol Use: No Hx Substance Use: No Physical Exam Constitutional: + thin Respiratory: normal respiratory effort Cardiovascular: Rate/Rhythm: regular rate and regular rhythm Gastrointestinal (Abdomen): Percussion/Palpation: abdomen soft Skin: telangiectasisa Results & Data Vital Signs (Past 12 Hours) Vital Signs Temp Pulse Resp BP Pulse Ox 11/25/18 15:19 37.2 C 88 20 153/95 H 96 11/25/18 11:05 37.4 C 80 16 120/83 95 11/25/18 07:55 36.7 C 86 16 150/90 H 96 Code Status & VTE Plan VTE Prophylaxis Plan VTE Prophylaxis will be ordered: Yes
--- NOTE | 2018-11-25 16:13 | GI REPORT ---
Patient Name: Melody Mason Procedure Date: 11/25/2018 3:42 PM Date of : 1960 Admit Type: Inpatient Age: 58 Gender: Female Attending MD: Art Juan MD Procedure: Upper GI endoscopy Providers: Art Juan MD Referring MD: Sage Moon Indications: Epigastric abdominal pain, Abnormal CT of the GI tract Medicines: Propofol total dose 220 mg IV, Lidocaine 80 mg IV Complications: No immediate complications. Estimated Blood Loss: Estimated blood loss was minimal. Procedure: Pre-Anesthesia Assessment: - Prior to the procedure, a History and Physical was performed, and patient medications, allergies and sensitivities were reviewed. The patient's tolerance of previous anesthesia was reviewed. - The risks and benefits of the procedure and the sedation options and risks were discussed with the patient. All questions were answered and informed consent was obtained. - Patient identification and proposed procedure were verified prior to the procedure by the physician. - Prior to the procedure, a History and Physical was performed, and patient medications, allergies and sensitivities were reviewed. The patient's tolerance of previous anesthesia was reviewed. - The risks and benefits of the procedure and the sedation options and risks were discussed with the patient. All questions were answered and informed consent was obtained. After obtaining informed consent, the endoscope was passed under direct vision. Throughout the procedure, the patient's blood pressure, pulse, and oxygen saturations were monitored continuously. The Endoscope was introduced through the mouth, and advanced to the second part of duodenum. The upper GI endoscopy was accomplished without difficulty. The patient tolerated the procedure well. Findings: The Z-line was regular and was found 40 cm from the incisors. No varices. The entire examined stomach was normal. The second portion of the duodenum was normal. Biopsies were taken with a cold forceps for histology. Estimated blood loss was minimal. Impression: - Z-line regular, 40 cm from the incisors. - Normal stomach. - Normal second portion of the duodenum. Biopsied. Recommendation: - Return patient to [facility] for ongoing care. Art Juan M.D. Art Juan MD 11/25/2018 4:12:39 PM This report has been signed electronically. Note Initiated On: 11/25/2018 3:42 PM Number of Addenda: 0 I attest to the content of the Intraoperative Record and orders documented therein, exceptions below {[id number]}
--- NOTE | 2018-11-25 16:15 | GI REPORT ---
Patient Name: Melody Mason Procedure Date: 11/25/2018 3:39 PM Date of : 1960 Admit Type: Inpatient Age: 58 Gender: Female Attending MD: Art Juan MD Procedure: Colonoscopy Providers: Art Juan MD Referring MD: Sage Moon Indications: Generalized abdominal pain, Abnormal CT of the GI tract Medicines: Propofol total dose 220 mg IV, Lidocaine 80 mg IV Complications: No immediate complications. Estimated Blood Loss: Estimated blood loss: none. Procedure: Pre-Anesthesia Assessment: - Prior to the procedure, a History and Physical was performed, and patient medications, allergies and sensitivities were reviewed. The patient's tolerance of previous anesthesia was reviewed. - The risks and benefits of the procedure and the sedation options and risks were discussed with the patient. All questions were answered and informed consent was obtained. - The risks and benefits of the procedure and the sedation options and risks were discussed with the patient. All questions were answered and informed consent was obtained. After I obtained informed consent, the scope was passed under direct vision. Throughout the procedure, the patient's blood pressure, pulse, and oxygen saturations were monitored continuously. The scope was introduced through the anus and advanced to the terminal ileum. The colonoscopy was performed without difficulty. The patient tolerated the procedure well. The quality of the bowel preparation was excellent. Findings: The terminal ileum appeared normal. Normal mucosa was found in the entire colon. Internal hemorrhoids were found during endoscopy. The hemorrhoids were mild. Impression: - The examined portion of the ileum was normal. - Normal mucosa in the entire examined colon. - Internal hemorrhoids. - No specimens collected. Recommendation: - Return patient to [facility] for ongoing care. Art Juan M.D. Art Juan MD 11/25/2018 4:14:52 PM This report has been signed electronically. Note Initiated On: 11/25/2018 3:39 PM Number of Addenda: 0 I attest to the content of the Intraoperative Record and orders documented therein, exceptions below {[id number]}
--- NOTE | 2018-11-25 16:17 | Anesthesiology Progress Note ---
Date of Service November 25, 2018 Anesthesia Post Procedure Vital Signs Vital Signs: Temp Pulse Pulse Resp BP Pulse Ox 11/25/18 15:19 37.2 C 88 20 153/95 H 96 11/25/18 11:05 37.4 C 80 16 120/83 95 11/25/18 07:55 36.7 C 86 16 150/90 H 96 11/25/18 03:21 36.7 C 83 17 105/64 92 11/25/18 00:00 70 11/24/18 23:20 36.6 C 86 17 105/65 92 11/24/18 19:36 37.0 C 78 16 159/85 H 96 Pain Intensity Abdomen: Pain Intensity: 8 Transfer of Care Handoff Completed per policy Notes Mental Status: alert / awake / arousable and participated in evaluation Patient Amnestic to Procedure: Yes Nausea / Vomiting: adequately controlled Pain: adequately controlled Airway Patency, RR, SpO2: stable & adequate BP & HR: stable & adequate Hydration State: stable & adequate Anesthetic Complications: no major complications apparent
--- NOTE | 2018-11-25 16:50 | Progress Note ---
DATE: 11/25/2018 The patient came to the endoscopy unit to have an upper and lower endoscopy today because of abdominal pain and abnormal CT scan suggesting gastritis, colitis and/or ischemia of the colon. The upper endoscopy was normal with no evidence of esophageal varices or gastritis. Duodenal biopsies were done to rule out a malabsorptive disease. The colonoscopy was performed through the colon and into the terminal ileum, which was normal. The colonic mucosa was normal throughout without any evidence of colitis or ischemia. She did have internal hemorrhoids, which were [id number] in severity but nonbleeding. IMPRESSION: The patient's upper and lower endoscopies were essentially negative except for hemorrhoids. Her diet can be advanced at this point as tolerated.
[2018-11-25] MEDS: SUCRALFATE 1 GM/10 ML UDC PO SCH ×3 (17:26→20:47)
[2018-11-25] MEDS: LEVOTHYROXINE SODIUM 50 MCG TABLET PO SCH (17:26)
[2018-11-25] MEDS: PANTOprazole 40 MG TAB PO SCH ×2 (17:27→20:47)
[2018-11-25] MEDS: PROPRANOLOL HCL 60 MG LA CAP PO SCH (17:27)
[2018-11-25] MEDS: MULTIVITAMIN TAB PO SCH (17:27)
[2018-11-25] MEDS: LACTULOSE SYRUP 10 GM/15 ML BTL 473 ML PO SCH ×2 (17:27→20:47)
[2018-11-25] MEDS: NORTRIPTYLINE HCL 25 MG CAP PO SCH (20:47)
[2018-11-29] MEDS ORDERED: ALENDRONATE SODIUM 70 MG TAB PO SCH (06:00)
== END 2018-11-25 20:55 | disposition short-term general hospital (02) | DRG 393 ==
LOC: ED 18:16 → 2E 18:16 → SUATTDRO 21:45 → 2E 22:05

== ENCOUNTER 2021-08-29 11:57 | Inpatient (IN) ==
--- NOTE | 2021-08-29 12:05 | Emergency Department Note ---
Impression & Plan Dehydration, Hypokalemia, Cirrhosis of liver, Nausea & vomiting ED Provider Note NAME: DAVID BAHENA AGE: 60 SEX: F : 1960 ARRIVES VIA: Walk-In INFORMANT: Patient, ED PROVIDER(S): Saleem Bethea MD Chief Complaint: Vomiting HPI: Patient presents due to concern for nausea and vomiting which is been ongoi ng since this past and patient believes that she has vomited 2-3 times per day over the last several days. Patient states that the inciting event was likely from eating a moldy Sikh pie but only had realizes after she had started eating it. Patient has tried water and Gatorade but feels as though she is unable to keep things down. Patient does have a history of hep C and cirrhosis status post treatments which was curative. Patient denies any chest pains or shortness of breath. The patient does complain of epigastric upper abdominal pain. No right upper quadrant or lower abdominal pain. The patient does not complain of any diarrhea. No blood in the vomit or stool. ROS: See HPI for pertinent positives and negatives. A total of 10 systems were reviewed and otherwise negative. Past medical history: See below Surgical history: See below Social history: See below Physical Exam: GENERAL: NAD, wearing a mask, non-toxic. EYE EXAM: Normal conjunctiva. PERRL, no anisocoria and EOM's grossly intact w/o pain. OROPHARYNX: Dry mucus membranes. Grossly normal dentition. NECK: Supple, no nuchal rigidity, no adenopathy, non-tender. No signs of meningismus. LUNGS: Clear to auscultation. Normal chest wall mechanics. HEART: NSR, no MRG. ABDOMEN: Abdomen soft, epigastric without right upper quadrant pain no lower abdominal pain, normo-active bowel sounds, no masses, no rebound or guarding. BACK: No CVA TTP. SKIN: No rashes and no bruising. UPPER EXTREMITIES: Upper extremities are grossly normal. LOWER EXTREMITIES: Grossly normal, no edema. NEURO EXAM: A&O x3, cranial nerves II-XII grossly intact, normal speech, moves all 4 extremities on command w/o issue. Differential diagnoses: Gastroenteritis, food borne illness, infections, appendicitis, diverticulitis, inflammatory bowel disease, obstruction, GI bleed, biliary pathology, volvulus, as well as other pathologies. Course: Patient was seen and evaluated the bedside. Full history physical exam was performed. EKG interpreted by me Sinus rhythm, rate of 79, normal DE and QRS, no obvious ST elevations Imaging Studies: See Below Cardiac monitoring: An order was placed for continuous cardiac monitoring. The monitor shows a rate of 82 with sinus rhythm. MDM: Patient was seen due to concern for nausea vomiting. Blood work is obtained along with a CT abdomen pelvis. Patient did have IV fluids and antiemetics ordered along with pain medication Patient did have a white count of 17. Patient has a normal hemoglobin and platelet count. Kidney function is unremarkable. Hypokalemia noted. Patient d oes have mildly elevated bilirubin AST and alk phos. The patient has been somewhat elevated in the past. Urinalysis is negative for blood or infection. CT abdomen pelvis shows patchy bibasilar groundglass opacities suspicious for infectious or inflammatory pneumonitis. Did reevaluate the patient patient states that she has no cough shortness of breath upper respiratory symptoms. The patient does have cirrhotic liver disease with small amount of ascites. Believe SBP to be less likely as the patient has not peritonitic. Per the report the patient does have mild gallbladder distention with unchanged gallbladder wall thickening. Upon reassessment the patient has no right upper quadrant pain but only epigastric pain. I did speak with the on-call hospitalist after retrying the patient with additional antiemetics and IV fluids with the patient was not feeling improved. I did speak with KELECHI Ford and the patient was admitted by Dr. Ellis. Past Med/Surg History Medical History Benign familial tremor Brown-Sequard syndrome Chronic fatigue syndrome Chronic obstructive pulmonary disease Cirrhosis of liver Closed fracture of right proximal humerus Colitis Compensated HCV cirrhosis Depression Dermatitis Diffuse myofascial pain syndrome Dyslipidemia Encounter for routine gynecological examination GERD without esophagitis History of actinic keratosis History of fall History of hepatitis C History of hepatitis C History of tobacco use Hyperglycemia Hypernatremia Hypothyroidism Insomnia Intractable neuropathic pain of lower extremity Lumbago Medical marijuana use Memory loss Non-ST elevation (NSTEMI) myocardial infarction Osteoarthritis Osteoporosis Peripheral neuropathy Presence of intrathecal pump Psoriasis Respiratory failure Surgical History H/O hand surgery History of carpal tunnel surgery History of spinal surgery Presence of intrathecal pump S/P colonoscopy Family History Aunt Breast cancer Mother Valvular heart disease Father H/O malignant neoplasm of duodenum Denies family history of Ovarian cancer Prostate cancer Crohn's disease Myocardial infarction Colorectal cancer Ulcerative colitis Uterine cancer Social History Smoking Status: Never smoker Tobacco Type: Cigarettes Second Hand Exposure: No; Hx Alcohol Use: No Hx Substance Use: No Preferred Language: Nigerian Communication Ability: Effective Visual Impairment: Limited Hearing Ability: Normal Retirement Assistant Required: No Beliefs That Will Affect Care: None marital status: Current Living Situation: Family current occupational status: disabled Feels Safe at Home: Yes Childhood Exposure to Second-Hand Smoke: No Dental Care, Regularly: Yes Physical Activity Frequency: Does not Exercise Seatbelt Use: always Sunscreen Use: Yes Assistive Devices: Cane and Glasses Allergies Allergies Allergy/AdvReac Type Severity Reaction Status Date / Time azithromycin Allergy Intermediate Hives Verified 08/29/21 16:29 cefuroxime Allergy Intermediate Hives Verified 08/29/21 16:29 Home Meds Home Medications Medication Instructions Recorded Confirmed calcium carbonate 600 mg calcium 600 mg PO BID tab 12/31/17 08/29/21 (1,500 mg) tablet multivitamin 1 tab PO DAILY 12/31/17 08/29/21 Pain Pump 0 mg NOT APPLICABLE UD 11/22/18 08/29/21 Previous Rx's Medication Instructions Recorded fluocinonide 0.1 % topical cream 1 appln TOP BID #60 gm 07/01/19 albuterol sulfate 90 mcg/actuation 2 puff INHALATION Q6H PRN #3 06/03/20 aerosol inhaler inhaler ammonium lactate 12 % topical cream 1 applic TOP DAILY #385 gm 06/03/20 ondansetron HCl 8 mg tablet 8 mg PO TID PRN #30 tab 10/04/20 alendronate 70 mg tablet 70 mg PO WEEKLY #12 tab 10/13/20 zaleplon 5 mg capsule 5 mg PO DAILY #90 cap 11/17/20 lactulose 10 gram/15 mL oral 15 ml PO BID #1422 ml 11/18/20 solution potassium chloride 10 mEq 40 meq PO DAILY #720 cap 01/12/21 capsule,extended release levothyroxine 50 mcg tablet 50 mcg PO DAILY #90 tab 02/24/21 torsemide 20 mg tablet 30 mg PO DAILY #135 tab 02/24/21 pregabalin 100 mg capsule 100 mg PO BID #180 cap 03/07/21 naloxone 4 mg/actuation nasal 4 mg INTRANASAL Q2M PRN #2 ea 03/31/21 spray (Narcan) nortriptyline 25 mg capsule 25 mg PO HS #90 cap 05/31/21 propranolol 160 mg capsule,24 160 mg PO BID 90 Days #180 cap 06/03/21 hr,extended release tretinoin 0.1 % topical cream 1 applic TOP HS #45 gm 07/18/21 hydrocortisone 2.5 % topical cream 1 applic TOPICAL BID PRN #30 g 07/22/21 ipratropium bromide 21 mcg (0.03 2 spray INTRANASAL BID #30 ml 08/12/21 %) nasal spray hydroxyzine HCl 50 mg tablet 50 mg PO TID PRN #90 tab 08/15/21 umeclidinium 62.5 mcg/actuation 1 inh INH DAILY #90 ea 08/15/21 blister powder for inhalation (Incruse Ellipta) Results & Data (ED) Vital Signs Vital Signs - 24 hr 08/29/21 11:57 08/29/21 11:58 08/29/21 12:11 Temperature 36.7 C Temperature Source Oral Pulse Rate 100 H 87 Pulse Rate [Apical] 87 Pulse Rhythm Regular Pulse Rhythm [Apical] Regular Pulse Strength [Apical] Normal Respiratory Rate 18 18 Respiratory Effort / Characteristics Non-Labored Spontaneous Respiratory Depth Normal Respiratory Pattern Regular Blood Pressure 156/97 H Blood Pressure [Left Arm] 140/96 Blood Pressure Mean 116 Blood Pressure Mean [Left Arm] 110 Blood Pressure Position [Left Arm] Lying Pulse Oximetry 97 96 97 Oxygen Delivery Method Room Air Room Air Sepsis Recent Fever Within 48 Hours No Sepsis New/Unexplained Change in Mental Status No Sepsis Action Taken by Nursing No Action Required 08/29/21 12:39 08/29/21 14:00 08/29/21 14:39 Temperature Temperature Source Pulse Rate Pulse Rate [Apical] 88 88 88 Pulse Rhythm Pulse Rhythm [Apical] Pulse Strength [Apical] Respiratory Rate 18 20 20 Respiratory Effort / Characteristics Non-Labored Non-Labored Non-Labored Respiratory Depth Normal Normal Normal Respiratory Pattern Blood Pressure Blood Pressure [Left Arm] 140/96 167/90 H 165/86 H Blood Pressure Mean Blood Pressure Mean [Left Arm] 110 115 112 Blood Pressure Position [Left Arm] Pulse Oximetry 98 98 98 Oxygen Delivery Method Room Air Room Air Room Air Sepsis Recent Fever Within 48 Hours Sepsis New/Unexplained Change in Mental Status Sepsis Action Taken by [facility] Medications Current Medication List: was personally reviewed by me Laboratory Data Attestation: I reviewed the patient's lab results. Result diagrams: 08/30/21 06:26 08/30/21 06:26 Lab Results 08/29/21 08/29/21 08/29/21 Range/Units 12:13 12:13 12:25 WBC 17.06 H (4.8-10.8) K/uL RBC 5.22 (4.2-5.4) M/uL Hgb 15.8 (12.0-16.0) g/dL POC Hgb 16.7 H (12.0-16.0) g/dl Hct 45.4 (37-47) % POC Hct 49 H (37-47) % MCV 87.0 (80-100) fL MCH 30.3 (25-34) pg MCHC 34.8 (32-36) g/dL RDW Std Deviation 40.7 (36.4-46.3) fL RDW Coeff of Elin 12.8 (11.5-14.5) % Plt Count 249 (130-400) K/uL MPV 10.9 H (7.4-10.4) fL Immature Gran % (Auto) 0.4 % Neut % (Auto) 74.7 % Lymph % (Auto) 14.3 % Boone % (Auto) 10.4 % Eos % (Auto) 0.1 % Baso % (Auto) 0.1 % Neut # (Auto) 12.74 H (1.4-6.5) K/uL Lymph # (Auto) 2.44 (1.2-3.4) K/uL Boone # (Auto) 1.78 H (0.11-0.59) K/uL Eos # (Auto) 0.02 (0-0.5) K/uL Baso # (Auto) 0.02 (0-0.2) K/uL Immature Gran # (Auto) 0.06 H (0.00-0.02) K/uL POC Sodium 141 (135-144) mmol/L Sodium 139 (136-145) mmol/L POC Potassium 3.1 L (3.3-5.0) mmol/L Potassium 3.1 L (3.5-5.1) mmol/L POC Chloride 102 (101-112) mmol/L Chloride 103 (98-107) mmol/L Carbon Dioxide 26 (21-32) mmol/L POC Total CO2 25 (24-31) mmol/L Anion Gap 10 (3-11) POC Anion Gap 18.0 (16-25) mmol/L POC BUN 10 (7-18) mg/dl BUN 11 (6-23) mg/dl Creatinine 1.20 (0.6-1.2) mg/dl POC Creatinine 1.0 (0.6-1.3) mg/dl Est Cr Clr Drug Dosing 40.2 ml/min Est GFR ( Amer) 56.1 ml/min Est GFR (Non-Af Amer) 48.4 ml/min BUN/Creatinine Ratio 9.2 L (10-20) Glucose 118 H (70-99(Fasting)) mg/dl POC Glucose (other) 123 H (70-99) mg/dl Calcium 9.2 (8.5-10.1) mg/dl POC Ioniz Calcium Wisam 1.08 L (1.12-1.32) mmol/l Total Bilirubin 1.3 H (0.2-1.0) mg/dl AST 62 H (13-39) U/L ALT 40 (7-52) U/L Alkaline Phosphatase 118 H (34-104) U/L Total Protein 7.6 (6.0-8.3) gm/dl Albumin 3.9 (3.4-5.0) gm/dl Globulin 3.7 (2.5-4.0) gm/dl Albumin/Globulin Ratio 1.1 (0.9-2) Lipase 17 (11-82) U/L Urine Color Urine Appearance (Clear) Urine pH (4.5-7.5) Ur Specific Hulbert (1.000-1.030) Urine Protein (Negative) Urine Glucose (UA) (Negative) Urine Ketones (Negative) Urine Blood (Negative) Urine Nitrite (Negative) Urine Bilirubin (Negative) Urine Urobilinogen (Negative) Ur Leukocyte Esterase (Negative) SARS-CoV-2 (PCR) (Negative) Influenza Type A (PCR) (Neg) Influenza Type B (PCR) (Neg) RSV (RT-PCR) (Neg) 08/29/21 08/29/21 Range/Units 14:51 15:55 WBC (4.8-10.8) K/uL RBC (4.2-5.4) M/uL Hgb (12.0-16.0) g/dL POC Hgb (12.0-16.0) g/dl Hct (37-47) % POC Hct (37-47) % MCV (80-100) fL MCH (25-34) pg MCHC (32-36) g/dL RDW Std Deviation (36.4-46.3) fL RDW Coeff of Elin (11.5-14.5) % Plt Count (130-400) K/uL MPV (7.4-10.4) fL Immature Gran % (Auto) % Neut % (Auto) % Lymph % (Auto) % Boone % (Auto) % Eos % (Auto) % Baso % (Auto) % Neut # (Auto) (1.4-6.5) K/uL Lymph # (Auto) (1.2-3.4) K/uL Boone # (Auto) (0.11-0.59) K/uL Eos # (Auto) (0-0.5) K/uL Baso # (Auto) (0-0.2) K/uL Immature Gran # (Auto) (0.00-0.02) K/uL POC Sodium (135-144) mmol/L Sodium (136-145) mmol/L POC Potassium (3.3-5.0) mmol/L Potassium (3.5-5.1) mmol/L POC Chloride (101-112) mmol/L Chloride (98-107) mmol/L Carbon Dioxide (21-32) mmol/L POC Total CO2 (24-31) mmol/L Anion Gap (3-11) POC Anion Gap (16-25) mmol/L POC BUN (7-18) mg/dl BUN (6-23) mg/dl Creatinine (0.6-1.2) mg/dl POC Creatinine (0.6-1.3) mg/dl Est Cr Clr Drug Dosing ml/min Est GFR ( Amer) ml/min Est GFR (Non-Af Amer) ml/min BUN/Creatinine Ratio (10-20) Glucose (70-99(Fasting)) mg/dl POC Glucose (other) (70-99) mg/dl Calcium (8.5-10.1) mg/dl POC Ioniz Calcium Wisam (1.12-1.32) mmol/l Total Bilirubin (0.2-1.0) mg/dl AST (13-39) U/L ALT (7-52) U/L Alkaline Phosphatase (34-104) U/L Total Protein (6.0-8.3) gm/dl Albumin (3.4-5.0) gm/dl Globulin (2.5-4.0) gm/dl Albumin/Globulin Ratio (0.9-2) Lipase (11-82) U/L Urine Color Yellow Urine Appearance Clear (Clear) Urine pH 6.5 (4.5-7.5) Ur Specific Hulbert 1.012 (1.000-1.030) Urine Protein Negative (Negative) Urine Glucose (UA) Negative (Negative) Urine Ketones Negative (Negative) Urine Blood Negative (Negative) Urine Nitrite Negative (Negative) Urine Bilirubin Negative (Negative) Urine Urobilinogen Negative (Negative) Ur Leukocyte Esterase Negative (Negative) SARS-CoV-2 (PCR) NEGATIVE (Negative) Influenza Type A (PCR) Negative (Neg) Influenza Type B (PCR) Negative (Neg) RSV (RT-PCR) Negative (Neg) Administered Medications Calcium Carbonate (Calcium Carbonate 1250mg Tab) 1,250 mg PO BID [facility]; Protocol Stop: 09/28/21 20:59 Last Admin: 08/29/21 21:44 Dose: 1,250 mg Documented by: [id number] Heparin Sodium (Porcine) (Heparin Sod 5,000 Unit/0.5 Ml Vial) 5,000 units SQ Q12 NIGEL Stop: 09/28/21 20:59 Last Admin: 08/29/21 21:54 Dose: 5,000 units Documented by: [id number] Pantoprazole Sodium 40 mg/ (Syringe) 10 mls @ 5 mls/min IV BID NIGEL Stop: 09/28/21 20:59 Last Admin: 08/29/21 21:55 Dose: 5 mls/min Documented by: [id number] Lactulose (Lactulose Syrup 20 Gm/30 Ml Udc) 20 gm PO BID NIGEL Stop: 09/28/21 20:59 Last Admin: 08/29/21 21:44 Dose: 20 gm Documented by: [id number] Levothyroxine Sodium (Levothyroxine Sodium 50 Mcg Tablet) 50 mcg PO DAILYBB NIGEL Stop: 09/29/21 06:29 Last Admin: 08/30/21 06:11 Dose: 50 mcg Documented by: [id number] Melatonin (Melatonin 3 Mg Tab) 3 mg PO HS PRN PRN Reason: Sleep Stop: 09/28/21 21:50 Last Admin: 08/29/21 22:55 Dose: 3 mg Documented by: [id number] Nortriptyline HCl (Nortriptyline Hcl 25 Mg Cap) 25 mg PO HS NIGEL Stop: 09/28/21 20:59 Last Admin: 08/29/21 21:44 Dose: 25 mg Documented by: [id number] Pregabalin (Pregabalin 100 Mg Cap) 100 mg PO BID NIGEL Stop: 09/28/21 20:59 Last Admin: 08/29/21 22:02 Dose: 100 mg Documented by: [id number] Propranolol HCl (Propranolol Hcl La 80 Mg Capcr) 160 mg PO BID NIGEL Stop: 09/28/21 20:59 Last Admin: 08/29/21 21:44 Dose: 160 mg Documented by: [id number] Discontinued Medications Al Hydrox/Mg Hydrox/Simethicone (Gi Cocktail Ed Use) 1 dose PO ONE ONE Stop: 08/29/21 15:52 Last Admin: 08/29/21 16:05 Dose: 1 dose Documented by: [id number] Diphenhydramine HCl (Diphenhydramine 50 Mg/Ml Vial) 12.5 mg IV NOW STA Stop: 08/29/21 13:59 Last Admin: 08/29/21 14:42 Dose: 12.5 mg Documented by: [id number] Sodium Chloride (Nss 1000ml) 1,000 mls @ 999 mls/hr IV .Q1H1M STA Stop: 08/29/21 13:11 Last Infusion: 08/29/21 13:28 Dose: 0 mls/hr Documented by: [id number] Admin: 08/29/21 12:17 Dose: 999 mls/hr Documented by: [id number] Sodium Chloride (Nss 1000ml) 1,000 mls @ 999 mls/hr IV .Q1H1M ONE Stop: 08/29/21 14:58 Last Infusion: 08/29/21 15:43 Dose: 0 mls/hr Documented by: [id number] Admin: 08/29/21 14:43 Dose: 999 mls/hr Documented by: [id number] Prochlorperazine (Compazine) 2 mls @ 1 mls/min IV ONE ONE Stop: 08/29/21 13:59 Last Admin: 08/29/21 14:42 Dose: 1 mls/min Documented by: [id number] Pantoprazole Sodium 40 mg/ (Syringe) 10 mls @ 5 mls/min IV 1545 ONE Stop: 08/29/21 15:46 Last Admin: 08/29/21 15:53 Dose: 5 mls/min Documented by: [id number] Lactated Ringer's (Lr) 1,000 mls @ 110 mls/hr IV .Q9H6M ONE Stop: 08/30/21 01:01 Last Infusion: 08/30/21 01:20 Dose: 0 mls/hr Documented by: [id number] Admin: 08/29/21 16:07 Dose: 110 mls/hr Documented by: [id number] Ioversol (Optiray 320 100ml) 93 ml IV ONCE ONE Stop: 08/29/21 13:40 Last Admin: 08/29/21 13:45 Dose: 93 ml Documented by: [id number] Morphine Sulfate (Morphine Sulfate 4 Mg/Ml 1 Ml Carp\Vial) 4 mg IV NOW STA Stop: 08/29/21 12:12 Last Admin: 08/29/21 12:34 Dose: 4 mg Documented by: [id number] Ondansetron HCl (Ondansetron Inj 2 Mg/Ml 2 Ml Vial) 4 mg IV NOW STA Stop: 08/29/21 12:12 Last Admin: 08/29/21 12:34 Dose: 4 mg Documented by: [id number] Imaging Data Radiologist's Impression: Abdomen/Pelvis CT 08/29/21 12:[address] WITH IV CONTRAST CT DOSE: 282.78 mGy.cm HISTORY: Acute upper abdominal pain with nausea and vomiting. upper ab pain; h/o cirrhosis, n/v TECHNIQUE: Multiaxial CT images of the abdomen and pelvis were performed follo wing the IV administration of 93 cc of Optiray, A dose lowering technique was utilized adhering to the principles of ALARA. COMPARISON STUDY: CT abdomen and pelvis 11/22/2018 FINDINGS: The imaged inferior cardiac chambers are unremarkable. Linear subsegmental atelectasis/scarring of the posterior basal segment left lower lobe. Patchy bibasilar groundglass opacities. No pneumatosis or pneumoper itoneum. The spleen, pancreas and adrenal glands are unremarkable. Mild gallbladder distention with unchanged gallbladder wall thickening. Mild thickening of the extrahepatic biliary trees limits the prior study and also likely chronic. Cirrhotic morphology of the liver. No hepatic mass is identifie d. There is patency of the hepatic and portal veins. Recanalization of the umbilical vein. Unremarkable kidneys. There is no hydronephrosis. Mild nonspecific urinary bladder wall thickening. The uterus and adnexa are unremarkable. Atherosclerosis of the aorta and branch vessels. There is a least moderate stenosis at the origin of the superior mesenteric artery. No lymphadenopathy identified. Wall thickening of the distal esophagus with moderate diffuse gastric wall thickening and mucosal hyperemia, similar to the prior study. Mesenteric edema with small volume of abdominal pelvic ascites. Wall thickening of the colon, most pronounced in the ascending and transverse segments. Normal appendix. Mild generalized body wall edema. Battery pack present within the subcutaneous tissues of the left anterior abdominal wall. There is a single stimulator lead within the central canal terminating at the level of L1. This appears to be intact. IMPRESSION: 1. Patchy bibasilar groundglass opacities are suspicious for an infectious or inflammatory pneumonitis such as viral pneumonia. 2. Cirrhotic liver disease with small volume of abdominal pelvic ascites. 3. Colonic wall thickening is likely secondary to portal colopathy. A nonspecific infectious or inflammatory colitis is considered less likely. 4. Diffuse wall thickening of the stomach is similar to the 2019 comparison suspicious for chronic gastritis. 5. Additional findings as above. ACT 112: Negative or not required by law. The above report was generated using voice recognition software. It may contain grammatical, syntax or spelling errors. Electronically signed by: Aren James M.D. 08/29/2021 2:14 PM Chest X-Ray 08/29/21 15:24 XR chest 1V portable CLINICAL HISTORY: ?pneumonitis on CT TECHNIQUE: Single frontal radiograph of the chest was obtained. Comparison: Comparison is made to chest radiograph 09/30/2013, CT chest 01/27/[address] abdomen pelvis 08/29/2021 FINDINGS: No lines and tubes are seen. The cardiomediastinal silhouette is normal. Faint b ibasilar airspace opacities are seen. No evidence of pleural effusion or pneumothorax. Deformity of the right humeral head is chronic. IMPRESSION: Faint bibasilar airspace opacities which may represent atelectasis, pneumonia, and/or aspiration. ACT 112: Negative or not required by law. Electronically signed by: Terrence Caldwell M.D. 08/29/2021 4:08 PM Discharge Plan Visit Data Chief Complaint: Vomiting Stated Complaint: FOOD ILLNESS ED Provider: Saleem Bethea Discharge Problem: Dehydration, Hypokalemia, Cirrhosis of liver, Nausea & vomiting Patient Disposition: Admitted As Inpatient Discharge Instructions Interventions: ED Discharge Assessment Last Done: 08/29/21 17:38
[2021-08-29] MEDS ORDERED: MoRPHine SULFATE 4 MG/ML 1 ML CARP\\VIAL IV STA (12:11)
[2021-08-29] MEDS ORDERED: SODIUM CHLORIDE 0.9% 1000ML 1,000 ML IV STA (12:11)
[2021-08-29] MEDS ORDERED: ONDANSETRON INJ 2 MG/ML 2 ML VIAL IV STA (12:11)
[2021-08-29 12:37] LABS: Basophils # (auto) 0.02 K/uL (0-0.2); Basophils % (auto) 0.1 %; Eosinophils # (auto) 0.02 K/uL (0-0.5); Eosinophils % (auto) 0.1 %; Hematocrit (blood only) 45.4 % (37-47); Hemoglobin 15.8 g/dL (12.0-16.0); Immature Granulocytes # (auto) 0.06 K/uL (0.00-0.02); Immature Granulocytes % (auto) 0.4 %; Lymphocytes # (auto) 2.44 K/uL (1.2-3.4); Lymphocytes % (auto) 14.3 %; Mean Corpuscular Hemoglobin 30.3 pg (25-34); Mean Corpuscular Hgb Conc 34.8 g/dL (32-36); Mean Platelet Volume 10.9 fL (7.4-10.4); Monocytes # (auto) 1.78 K/uL (0.11-0.59); Monocytes % (auto) 10.4 %; Neutrophils # (auto) 12.74 K/uL (1.4-6.5); Neutrophils % (auto) 74.7 %; Platelet Count 249 K/uL (130-400); RDW Coefficient of Variation 12.8 % (11.5-14.5); RDW Standard Deviation 40.7 fL (36.4-46.3); Red Blood Count 5.22 M/uL (4.2-5.4); White Blood Count 17.06 K/uL (4.8-10.8)
[2021-08-29 12:48] LABS: Albumin Globulin Ratio 1.1 (0.9-2); Albumin Level 3.9 gm/dl (3.4-5.0); BUN Creatinine Ratio 9.2 (10-20); Bilirubin,Total 1.3 mg/dl (0.2-1.0); Calcium 9.2 mg/dl (8.5-10.1); Creatinine Clr Calc Pharmacy 40.2 ml/min; Est GFR (African American) 56.1 ml/min; Est GFR (Non-African American) 48.4 ml/min; Globulin 3.7 gm/dl (2.5-4.0); Potassium 3.1 mmol/L (3.5-5.1); Total Protein 7.6 gm/dl (6.0-8.3)
[2021-08-29] MEDS ORDERED: OPTIRAY 320 100ml IV ONE (13:39)
[2021-08-29] MEDS ORDERED: SODIUM CHLORIDE 0.9% 1000ML 1,000 ML IV ONE (13:58)
[2021-08-29] MEDS ORDERED: diphenhydrAMINE 50 MG/ML VIAL IV STA (13:58)
[2021-08-29] MEDS ORDERED: PROCHLORPERAZINE 2 ML IV ONE (13:58)
--- NOTE | 2021-08-29 14:17 | CT Scan Report ---
ABDOMEN AND PELVIS CT WITH IV CONTRAST CT DOSE: 282.78 mGy.cm HISTORY: Acute upper abdominal pain with nausea and vomiting. upper ab pain; h/o cirrhosis, n/v TECHNIQUE: Multiaxial CT images of the abdomen and pelvis were performed following the IV administrat ion of 93 cc of Optiray, A dose lowering technique was utilized adhering to the principles of ALARA. COMPARISON STUDY: CT abdomen and pelvis 11/22/2018 FINDINGS: The imaged inferior cardiac chambers are unremarkable. Linear subsegmental atelectasis/scar ring of the posterior basal segment left lower lobe. Patchy bibasilar groundglass opacities. No pneum atosis or pneumoperitoneum. The spleen, pancreas and adrenal glands are unremarkable. Mild gallbladde r distention with unchanged gallbladder wall thickening. Mild thickening of the extrahepatic biliary trees limits the prior study and also likely chronic. Cirrhotic morphology of the liver. No hepatic m ass is identified. There is patency of the hepatic and portal veins. Recanalization of the umbilical vein. Unremarkable kidneys. There is no hydronephrosis. Mild nonspecific urinary bladder wall thickening. T he uterus and adnexa are unremarkable. Atherosclerosis of the aorta and branch vessels. There is a le ast moderate stenosis at the origin of the superior mesenteric artery. No lymphadenopathy identified. Wall thickening of the distal esophagus with moderate diffuse gastric wall thickening and mucosal hyp eremia, similar to the prior study. Mesenteric edema with small volume of abdominal pelvic ascites. W all thickening of the colon, most pronounced in the ascending and transverse segments. Normal appendi x. Mild generalized body wall edema. Battery pack present within the subcutaneous tissues of the left anterior abdominal wall. There is a single stimulator lead within the central canal terminating at t he level of L1. This appears to be intact. IMPRESSION: 1. Patchy bibasilar groundglass opacities are suspicious for an infectious or inflammatory pneumoniti s such as viral pneumonia. 2. Cirrhotic liver disease with small volume of abdominal pelvic ascites. 3. Colonic wall thickening is likely secondary to portal colopathy. A nonspecific infectious or infla mmatory colitis is considered less likely. 4. Diffuse wall thickening of the stomach is similar to the 2019 comparison suspicious for chronic ga stritis. 5. Additional findings as above. ACT 112: Negative or not required by law. The above report was generated using voice recognition software. It may contain grammatical, syntax o r spelling errors. Electronically signed by: Aren James M.D. 08/29/2021 2:14 PM
[2021-08-29 15:02] LABS: Appearance Urine Clear (Clear); Bilirubin Urine Negative (Negative); Blood Urine Negative (Negative); Color Urine Yellow; Glucose Urine UA Negative (Negative); Ketones Urine Negative (Negative); Leukocyte Esterase Urine Negative (Negative); Nitrite Urine Negative (Negative); Protein Urine Negative (Negative); Specific Gravity Urine 1.012 (1.000-1.030); Urobilinogen Urine Negative (Negative); pH Urine 6.5 (4.5-7.5)
[2021-08-29] MEDS ORDERED: PANTOprazole 40 MG in SYRINGE 0 ML IV ONE (15:45)
[2021-08-29] MEDS ORDERED: GI COCKTAIL ED USE PO ONE (15:51)
[2021-08-29] MEDS ORDERED: LACTATED RINGER'S 1,000 ML IV ONE (15:56)
--- NOTE | 2021-08-29 16:09 | XRay Report ---
XR chest 1V portable CLINICAL HISTORY: ?pneumonitis on CT TECHNIQUE: Single frontal radiograph of the chest was obtained. Comparison: Comparison is made to chest radiograph 09/30/2013, CT chest 01/27/[address] abdomen pelv is 08/29/2021 FINDINGS: No lines and tubes are seen. The cardiomediastinal silhouette is normal. Faint bibasilar airspace opa cities are seen. No evidence of pleural effusion or pneumothorax. Deformity of the right humeral head is chronic. IMPRESSION: Faint bibasilar airspace opacities which may represent atelectasis, pneumonia, and/or aspiration. ACT 112: Negative or not required by law. Electronically signed by: Terrence Caldwell M.D. 08/29/2021 4:08 PM
--- NOTE | 2021-08-29 16:37 | History & Physical Report ---
Date of Service August 29, 2021 Assessment & Plan (1) Epigastric pain: Plan: Epigastric pain with vomiting DDX: PUD vs. Gastritis vs GBD vs. bacterial/viral gastritis - Protonix 40mg IV now and then BID - GI cocktail now - Zofran for nausea/vomitting - Hydromorphone for pain - AST 62, Tbili 1.3, AlKpo4 118 - Lipase 17 - Ultrasound of GB- if not diagnostic get MRCP - GI consulted- appreciate assistance - NPO after midnight - Pending ultrasound of gallbladder - +/- Gen surg consultation (2) Total bilirubin, elevated: Plan: As above- eval for GBD- no stones noted on CT scan (3) Leukocytosis: Plan: WBC 17 with NLR elevated- reactionary to vomitting with likely some hemoconcentration - afebrile, not on oxygen, UA clear - Ultrasound of abdomen as above - Blood culture/PCT pending - ground glass opacitiy finding on CXR and likely pneumonitis from vomiting - this appears to be present in the past with lung biopsy - Hold on ABX at this time (4) Cirrhosis of liver: Plan: Chronic no acute change (5) Chronic obstructive pulmonary disease: Plan: Previous smoker- PFTS last completed- 2019 with normal spirometry - remains on Albuterol PRN and daily umeclidinium (6) Compensated HCV cirrhosis: Plan: Follow no acute needs currnetly (7) GERD without esophagitis: Plan: Chronic - will place on PPI as above (8) Multiple pulmonary nodules: Plan: Follows with pulmonary- no acute needs (9) Presence of intrathecal pump: Plan: For chronic neuropathic pain - continue with gabapentin (10) Hypothyroidism: Plan: Continue with synthroid (11) Tremor: Plan: Benign essential tremor- follows with neurology - continue propranolol - continue primidone History of Present Illness Primary Care Provider: Sage Moon, III, [employer]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 Patient comes to the EMD today for complaints of persistent N/V and epigastric/LUQ abdominal discomfort. Patient states that this started on early morning. She originally thought she had food poisoning after she ate a beef pie that she noticed had mold on it when she was almost done with it. She ate that at 1900 and woke up early in morning with vomiting and epigastric pain. The patient states that she has mostly thrown up clear mucous stuff with no blood, no food particles and no bile. She had loss of appetite up until Sunday night. Sunday she was able to keep down a boost drink and Gatorade. She remains however with a "dull throbbing pain" to her epigastrium/right upper quad. She states that this is improved and was a sharp nagging constant pain over the weekend. In the EMD the patient was given anti- emetics, Benadryl, and 1liter of crystalloid. She had CT scan of her abdomen and pelvis with IV contrast performed. This revealed patchy bibasilar opacities, chronic liver disease, colonic wall thickening, diffuse wall thickening of the stomach that is suspicious for gastritis. She appears to have had a similar episode in 2019- where she had a colonoscopy and EGD performed at that time- with no pathology- the duodenum was biopsied at that time- that was negative. Overall the patient's nausea is better and will give start her on Protonix IV, then BID, will obtain ultrasound of her gallbladder. Keep NPO after midnight. Continue with IVF hydration. Will obtain blood culture and PCT with her elevated WBC, however this may be reactionary. COVID test: NEGATIVE Allergies Allergy/AdvReac Type Severity Reaction Status Date / Time azithromycin Allergy Intermediate Hives Verified 08/29/21 16:29 cefuroxime Allergy Intermediate Hives Verified 08/29/21 16:29 Home Medications Medication Instructions Recorded Confirmed Type calcium carbonate 600 mg calcium 600 mg PO BID tab 12/31/17 08/29/21 History (1,500 mg) tablet multivitamin 1 tab PO DAILY 12/31/17 08/29/21 History Pain Pump 0 mg NOT APPLICABLE UD 11/22/18 08/29/21 History fluocinonide 0.1 % topical cream 1 appln TOP BID #60 gm 07/01/19 08/29/21 Rx albuterol sulfate 90 mcg/actuation 2 puff INHALATION Q6H PRN #3 06/03/20 08/29/21 Rx aerosol inhaler inhaler ammonium lactate 12 % topical cream 1 applic TOP DAILY #385 gm 06/03/20 08/29/21 Rx ondansetron HCl 8 mg tablet 8 mg PO TID PRN #30 tab 10/04/20 08/29/21 Rx alendronate 70 mg tablet 70 mg PO WEEKLY #12 tab 10/13/20 08/29/21 Rx zaleplon 5 mg capsule 5 mg PO DAILY #90 cap 11/17/20 08/29/21 Rx lactulose 10 gram/15 mL oral 15 ml PO BID #1422 ml 11/18/20 08/29/21 Rx solution potassium chloride 10 mEq 40 meq PO DAILY #720 cap 01/12/21 08/29/21 Rx capsule,extended release levothyroxine 50 mcg tablet 50 mcg PO DAILY #90 tab 02/24/21 08/29/21 Rx torsemide 20 mg tablet 30 mg PO DAILY #135 tab 02/24/21 08/29/21 Rx pregabalin 100 mg capsule 100 mg PO BID #180 cap 03/07/21 08/29/21 Rx naloxone 4 mg/actuation nasal 4 mg INTRANASAL Q2M PRN #2 ea 03/31/21 08/29/21 Rx spray (Narcan) nortriptyline 25 mg capsule 25 mg PO HS #90 cap 05/31/21 08/29/21 Rx propranolol 160 mg capsule,24 160 mg PO BID 90 Days #180 cap 06/03/21 08/29/21 Rx hr,extended release tretinoin 0.1 % topical cream 1 applic TOP HS #45 gm 07/18/21 08/29/21 Rx hydrocortisone 2.5 % topical cream 1 applic TOPICAL BID PRN #30 g 07/22/21 08/29/21 Rx ipratropium bromide 21 mcg (0.03 2 spray INTRANASAL BID #30 ml 08/12/21 08/29/21 Rx %) nasal spray hydroxyzine HCl 50 mg tablet 50 mg PO TID PRN #90 tab 08/15/21 08/29/21 Rx umeclidinium 62.5 mcg/actuation 1 inh INH DAILY #90 ea 08/15/21 08/29/21 Rx blister powder for inhalation (Incruse Ellipta) Past Med/Surg History Medical History Benign familial tremor Brown-Sequard syndrome Chronic fatigue syndrome Chronic obstructive pulmonary disease Cirrhosis of liver Closed fracture of right proximal humerus Colitis Compensated HCV cirrhosis Depression Dermatitis Diffuse myofascial pain syndrome Dyslipidemia Encounter for routine gynecological examination GERD without esophagitis History of actinic keratosis History of fall History of hepatitis C History of hepatitis C History of tobacco use Hyperglycemia Hypernatremia Hypothyroidism Insomnia Intractable neuropathic pain of lower extremity Lumbago Medical marijuana use Memory loss Non-ST elevation (NSTEMI) myocardial infarction Osteoarthritis Osteoporosis Peripheral neuropathy Presence of intrathecal pump Psoriasis Respiratory failure Surgical History H/O hand surgery History of carpal tunnel surgery History of spinal surgery Presence of intrathecal pump S/P colonoscopy Family History Aunt Breast cancer Mother Valvular heart disease Father H/O malignant neoplasm of duodenum Denies family history of Ovarian cancer Prostate cancer Crohn's disease Myocardial infarction Colorectal cancer Ulcerative colitis Uterine cancer Social History Smoking Status: Never smoker Tobacco Type: Cigarettes Second Hand Exposure: No; Hx Alcohol Use: No Hx Substance Use: No Preferred Language: [place] Communication Ability: Effective Visual Impairment: Limited Hearing Ability: Normal Land Checker Required: No Beliefs That Will Affect Care: None marital status: Current Living Situation: Family current occupational status: disabled Feels Safe at Home: Yes Childhood Exposure to Second-Hand Smoke: No Dental Care, Regularly: Yes Physical Activity Frequency: Does not Exercise Seatbelt Use: always Sunscreen Use: Yes Assistive Devices: Cane Review of Systems Review of Systems: REVIEW OF SYSTEMS: Constitutional: No fever, sweats or chills Eyes: No diplopia, no worsening or blurred vision ENT: normal hearing, no trouble swallowing Respiratory: No cough, sputum, dyspnea at rest or on exertion Cardiovascular: No chest pain, tightness or palpitations Abdomen: (+) epigastric pain, nausea, vomiting, NO diarrhea or constipation Musculoskeletal: (+) chronic nephropathy, No joint pain, calf pain, swelling Neurologic: No weakness, numbness/tingling, or balance problems Psychiatric: No anxiety or depression Skin: No rash or itch Physical Exam Physical Exam: PHYSICAL EXAM: General: awake, alert, no apparent distress Head: Normocephalic, atraumatic ENT: PERRL, EOMI, no pharyngeal exudate, mucous membranes moist Neuro: AAO x 3, speech clear and appropriate, strength intact bilaterally 5/5, sensation intact and equal all extremities and dermatomes, no pronator drift Chest: equal rise and fall of the chest, no accessory muscle use, no heaves or thrills, Clear to auscultation, on room air, Cardiac: Regular rate and rhythm, telemetry reviewed, skin warm dry, cap refill <3 seconds, peripheral pulses +2 no JVD, no murmur, no edema GI: NABS x 4 quadrants, epigastric pain and ruq abdomen pain with palpation, no pain lower quadrant, soft, no rebound : Spontaneously voiding, no pain, no CVA tenderness, Extremities: Normal inspection, no peripheral edema or erythema, calfs nontender to palpation Psych: Normal mood and affect Skin: no rash or erythema Results & Data Results & Data ([facility]) Vital Signs (Past 12 Hours) Vital Signs Temp Pulse Pulse Resp BP BP Pulse Ox 08/29/21 16:09 89 16 167/92 H 98 08/29/21 14:39 88 20 165/86 H 98 08/29/21 14:00 88 20 167/90 H 98 08/29/21 12:39 88 18 140/96 98 08/29/21 12:11 87 18 97 08/29/21 11:58 36.7 C 100 H 156/97 H 96 08/29/21 11:57 87 18 140/96 97 Laboratory Results Laboratory Results - last 24 hr 08/29/21 08/29/21 08/29/21 12:13 12:13 14:51 WBC 17.06 H RBC 5.22 Hgb 15.8 Hct 45.4 MCV 87.0 MCH 30.3 MCHC 34.8 RDW Std Deviation 40.7 RDW Coeff of Elin 12.8 Plt Count 249 MPV 10.9 H Immature Gran % (Auto) 0.4 Neut % (Auto) 74.7 Lymph % (Auto) 14.3 Ramsey % (Auto) 10.4 Eos % (Auto) 0.1 Baso % (Auto) 0.1 Neut # (Auto) 12.74 H Lymph # (Auto) 2.44 Ramsey # (Auto) 1.78 H Eos # (Auto) 0.02 Baso # (Auto) 0.02 Immature Gran # (Auto) 0.06 H Sodium 139 Potassium 3.1 L Chloride 103 Carbon Dioxide 26 Anion Gap 10 BUN 11 Creatinine 1.20 Est Cr Clr Drug Dosing 40.2 Est GFR ( Amer) 56.1 Est GFR (Non-Af Amer) 48.4 BUN/Creatinine Ratio 9.2 L Glucose 118 H Calcium 9.2 Total Bilirubin 1.3 H AST 62 H ALT 40 Alkaline Phosphatase 118 H Total Protein 7.6 Albumin 3.9 Globulin 3.7 Albumin/Globulin Ratio 1.1 Lipase 17 Urine Color Yellow Urine Appearance Clear Urine pH 6.5 Ur Specific [place] 1.012 Urine Protein Negative Urine Glucose (UA) Negative Urine Ketones Negative Urine Blood Negative Urine Nitrite Negative Urine Bilirubin Negative Urine Urobilinogen Negative Ur Leukocyte Esterase Negative SARS-CoV-2 (PCR) Influenza Type A (PCR) Influenza Type B (PCR) RSV (RT-PCR) 08/29/21 15:55 WBC RBC Hgb Hct MCV MCH MCHC RDW Std Deviation RDW Coeff of Elin Plt Count MPV Immature Gran % (Auto) Neut % (Auto) Lymph % (Auto) Ramsey % (Auto) Eos % (Auto) Baso % (Auto) Neut # (Auto) Lymph # (Auto) Ramsey # (Auto) Eos # (Auto) Baso # (Auto) Immature Gran # (Auto) Sodium Potassium Chloride Carbon Dioxide Anion Gap BUN Creatinine Est Cr Clr Drug Dosing Est GFR ( Amer) Est GFR (Non-Af Amer) BUN/Creatinine Ratio Glucose Calcium Total Bilirubin AST ALT Alkaline Phosphatase Total Protein Albumin Globulin Albumin/Globulin Ratio Lipase Urine Color Urine Appearance Urine pH Ur Specific [place] Urine Protein Urine Glucose (UA) Urine Ketones Urine Blood Urine Nitrite Urine Bilirubin Urine Urobilinogen Ur Leukocyte Esterase SARS-CoV-2 (PCR) Pending Influenza Type A (PCR) Pending Influenza Type B (PCR) Pending RSV (RT-PCR) Pending Diagnostic Findings Abdomen/Pelvis CT 08/29/21 12:[address] WITH IV CONTRAST CT DOSE: 282.78 mGy.cm HISTORY: Acute upper abdominal pain with nausea and vomiting. upper ab pain; h/o cirrhosis, n/v TECHNIQUE: Multiaxial CT images of the abdomen and pelvis were performed following the IV administration of 93 cc of Optiray, A dose lowering technique was utilized adhering to the principles of ALARA. COMPARISON STUDY: CT abdomen and pelvis 11/22/2018 FINDINGS: The imaged inferior cardiac chambers are unremarkable. Linear subsegmental atelectasis/scarring of the posterior basal segment left lower lobe. Patchy bibasilar groundglass opacities. No pneumatosis or pneumoperitoneum. The spleen, pancreas and adrenal glands are unremarkable. Mild gallbladder distention with unchanged gallbladder wall thickening. Mild thickening of the extrahepatic biliary trees limits the prior study and also likely chronic. Cirrhotic morphology of the liver. No hepatic mass is identified. There is patency of the hepatic and portal veins. Recanalization of the umbilical vein. Unremarkable kidneys. There is no hydronephrosis. Mild nonspecific urinary bladder wall thickening. The uterus and adnexa are unremarkable. Atherosclerosis of the aorta and branch vessels. There is a least moderate stenosis at the origin of the superior mesenteric artery. No lymphadenopathy identified. Wall thickening of the distal esophagus with moderate diffuse gastric wall thickening and mucosal hyperemia, similar to the prior study. Mesenteric edema with small volume of abdominal pelvic ascites. Wall thickening of the colon, most pronounced in the ascending and transverse segments. Normal appendix. Mild generalized body wall edema. Battery pack present within the subcutaneous tissues of the left anterior abdominal wall. There is a single stimulator lead within the central canal terminating at the level of L1. This appears to be intact. IMPRESSION: 1. Patchy bibasilar groundglass opacities are suspicious for an infectious or inflammatory pneumonitis such as viral pneumonia. 2. Cirrhotic liver disease with small volume of abdominal pelvic ascites. 3. Colonic wall thickening is likely secondary to portal colopathy. A nonspecific infectious or inflammatory colitis is considered less likely. 4. Diffuse wall thickening of the stomach is similar to the 2019 comparison suspicious for chronic gastritis. 5. Additional findings as above. ACT 112: Negative or not required by law. The above report was generated using voice recognition software. It may contain grammatical, syntax or spelling errors. Electronically signed by: Aren James M.D. 08/29/2021 2:14 PM Chest X-Ray 08/29/21 15:24 XR chest 1V portable CLINICAL HISTORY: ?pneumonitis on CT TECHNIQUE: Single frontal radiograph of the chest was obtained. Comparison: Comparison is made to chest radiograph 09/30/2013, CT chest 01/27/[address] abdomen pelvis 08/29/2021 FINDINGS: No lines and tubes are seen. The cardiomediastinal silhouette is normal. Faint bibasilar airspace opacities are seen. No evidence of pleural effusion or pneumothorax. Deformity of the right humeral head is chronic. IMPRESSION: Faint bibasilar airspace opacities which may represent atelectasis, pneumonia, and/or aspiration. ACT 112: Negative or not required by law. Electronically signed by: Terrence Caldwell M.D. 08/29/2021 4:08 PM Medications Administered Lactated Ringer's (Lr) 1,000 mls @ 110 mls/hr IV .Q9H6M ONE Stop: 08/30/21 01:01 Last Admin: 08/29/21 16:07 Dose: 110 mls/hr Documented by: [id number] Discontinued Medications Al Hydrox/Mg Hydrox/Simethicone (Gi Cocktail Ed Use) 1 dose PO ONE ONE Stop: 08/29/21 15:52 Last Admin: 08/29/21 16:05 Dose: 1 dose Documented by: [id number] Diphenhydramine HCl (Diphenhydramine 50 Mg/Ml Vial) 12.5 mg IV NOW STA Stop: 08/29/21 13:59 Last Admin: 08/29/21 14:42 Dose: 12.5 mg Documented by: [id number] Sodium Chloride (Nss 1000ml) 1,000 mls @ 999 mls/hr IV .Q1H1M STA Stop: 08/29/21 13:11 Last Infusion: 08/29/21 13:28 Dose: 0 mls/hr Documented by: [id number] Admin: 08/29/21 12:17 Dose: 999 mls/hr Documented by: [id number] Sodium Chloride (Nss 1000ml) 1,000 mls @ 999 mls/hr IV .Q1H1M ONE Stop: 08/29/21 14:58 Last Infusion: 08/29/21 15:43 Dose: 0 mls/hr Documented by: [id number] Admin: 08/29/21 14:43 Dose: 999 mls/hr Documented by: [id number] Prochlorperazine (Compazine) 2 mls @ 1 mls/min IV ONE ONE Stop: 08/29/21 13:59 Last Admin: 08/29/21 14:42 Dose: 1 mls/min Documented by: [id number] Pantoprazole Sodium 40 mg/ (Syringe) 10 mls @ 5 mls/min IV 1545 ONE Stop: 08/29/21 15:46 Last Admin: 08/29/21 15:53 Dose: 5 mls/min Documented by: [id number] Ioversol (Optiray 320 100ml) 93 ml IV ONCE ONE Stop: 08/29/21 13:40 Last Admin: 08/29/21 13:45 Dose: 93 ml Documented by: [id number] Morphine Sulfate (Morphine Sulfate 4 Mg/Ml 1 Ml Carp\\Vial) 4 mg IV NOW STA Stop: 08/29/21 12:12 Last Admin: 08/29/21 12:34 Dose: 4 mg Documented by: [id number] Ondansetron HCl (Ondansetron Inj 2 Mg/Ml 2 Ml Vial) 4 mg IV NOW STA Stop: 08/29/21 12:12 Last Admin: 08/29/21 12:34 Dose: 4 mg Documented by: [id number] Home Medications calcium carbonate 600 mg calcium (1,500 mg) tablet 600 mg PO BID tab 12/31/17 [History Confirmed 08/12/21] multivitamin 1 tab PO DAILY 12/31/17 [History Confirmed 08/12/21] Pain Pump 0 mg NOT APPLICABLE UD 11/22/18 [History Confirmed 08/12/21] fluocinonide 0.1 % topical cream 1 appln TOP BID #60 gm 07/01/19 [Rx Confirmed 08/12/21] albuterol sulfate 90 mcg/actuation aerosol inhaler 2 puff INHALATION Q6H PRN #3 inhaler 06/03/20 [Rx Confirmed 08/12/21] ammonium lactate 12 % topical cream 1 applic TOP DAILY #385 gm 06/03/20 [Rx Confirmed 08/12/21] ondansetron HCl 8 mg tablet 8 mg PO TID PRN #30 tab 10/04/20 [Rx Confirmed 08/12/21] alendronate 70 mg tablet 70 mg PO WEEKLY #12 tab 10/13/20 [Rx Confirmed 08/12/21] zaleplon 5 mg capsule 5 mg PO DAILY #90 cap 11/17/20 [Rx Confirmed 08/12/21] lactulose 10 gram/15 mL oral solution 15 ml PO BID #1422 ml 11/18/20 [Rx Confirmed 08/12/21] potassium chloride 10 mEq capsule,extended release 40 meq PO DAILY #720 cap 01/12/21 [Rx Confirmed 08/12/21] levothyroxine 50 mcg tablet 50 mcg PO DAILY #90 tab 02/24/21 [Rx Confirmed 08/12/21] torsemide 20 mg tablet 30 mg PO DAILY #135 tab 02/24/21 [Rx Confirmed 08/12/21] pregabalin 100 mg capsule 100 mg PO BID #180 cap 03/07/21 [Rx Confirmed 08/12/21] naloxone 4 mg/actuation nasal spray (Narcan) 4 mg INTRANASAL Q2M PRN #2 ea 03/31/21 [Rx Confirmed 08/12/21] nortriptyline 25 mg capsule 25 mg PO HS #90 cap 05/31/21 [Rx Confirmed 08/12/21] propranolol 160 mg capsule,24 hr,extended release 160 mg PO BID 90 Days #180 cap 06/03/21 [Rx Confirmed 08/12/21] tretinoin 0.1 % topical cream 1 applic TOP HS #45 gm 07/18/21 [Rx Confirmed 08/12/21] hydrocortisone 2.5 % topical cream 1 applic TOPICAL BID PRN #30 g 07/22/21 [Rx Confirmed 08/12/21] ipratropium bromide 21 mcg (0.03 %) nasal spray 2 spray INTRANASAL BID #30 ml 08/12/21 [Rx Confirmed 08/12/21] hydroxyzine HCl 50 mg tablet 50 mg PO TID PRN #90 tab 08/15/21 [Rx] umeclidinium 62.5 mcg/actuation blister powder for inhalation (Incruse Ellipta) 1 inh INH DAILY #90 ea 08/15/21 [Rx] Active Medications Lactated Ringer's (Lr) 1,000 mls @ 110 mls/hr IV .Q9H6M ONE Stop: 08/30/21 01:01 Last Admin: 08/29/21 16:07 Dose: 110 mls/hr Documented by: [id number] Additional Comments: Pending on admission Code Status & VTE Plan Code Status CODE: FULL VTE: SCDs, Heparin 5000 units sub q q12 VTE Prophylaxis Plan VTE Prophylaxis will be ordered: Yes Supervising Physician Co-Signing Physician Notes I personally saw and examined the patient. I verified all grey points and agree with KELECHI Rowley with the following exceptions and/or additions: 60 year old female with known liver cirrhosis s/p treatment for hep C presents with worsening epigastric/umbilical pain over the last 4 days. She also reports chronic but milder RUQ/epigastric pain which she previously put down to her liver cirrhosis. She does not regularly take a PPI although was on omeprazole in the past. O/E HS1+2, RRR, no murmurs, Chest CTAB, epigastric pain on palpation without guarding or rebound tenderness A/P Suspected gastritis - agree with IV pantoprazole 40mg BID, already feeling better with this and GI cocktail. Consult GI to consider EGD. Otherwise plan as above PG Care Time/CCT Total # of Minutes Spent Total Time Spent with Patient: Total time spent is greater than 50% in coordination of care (as documented) at patient's floor/unit and/or counseling patient: Coding Level of Care Code 16568 Initial Inpt Care Lvl 3 Diagnoses Epigastric pain R10.13 Total bilirubin, elevated R17 Cirrhosis of liver K74.60 Chronic obstructive pulmonary disease J44.9 Compensated HCV cirrhosis K74.69; B19.20 GERD without esophagitis K21.9 Multiple pulmonary nodules R91.8 Presence of intrathecal pump Z96.89 Leukocytosis D72.829 Hypothyroidism E03.9 Tremor R25.1
[2021-08-29 16:40] LABS: Influenza A virus by PCR Negative (Neg); Influenza B virus by PCR Negative (Neg); RSV by PCR Negative (Neg); SARS CoV2 RNA(COVID-19) InHosp NEGATIVE (Negative)
[2021-08-29 17:30] LABS: iSTAT Hemoglobin 16.7 g/dl (12.0-16.0); iSTAT Ionized Calcium 1.08 mmol/l (1.12-1.32); iSTAT Potassium 3.1 mmol/L (3.3-5.0)
[2021-08-29] MEDS ORDERED: HYDROmorphone INJ 0.5 MG/0.5 ML SYR IV PRN (18:29)
[2021-08-29] MEDS ORDERED: ONDANSETRON INJ 2 MG/ML 2 ML VIAL IV PRN (18:29)
[2021-08-29] MEDS ORDERED: ALBUTEROL HFA 8 GM INHALER INH PRN (20:40)
[2021-08-29] MEDS ORDERED: hydrOXYzine HCl 25 MG TAB PO PRN (20:40)
[2021-08-29] MEDS ORDERED: NALOXONE HCL 0.4 MG/1 ML VIAL/CARP IV PRN (20:57)
[2021-08-29] MEDS: PROPRANOLOL HCL LA 80 MG CAPCR PO SCH (21:44)
[2021-08-29] MEDS: LACTULOSE SYRUP 20 GM/30 ML UDC PO SCH (21:44)
[2021-08-29] MEDS: NORTRIPTYLINE HCL 25 MG CAP PO SCH (21:44)
[2021-08-29] MEDS: CALCIUM CARBONATE 1250MG TAB PO SCH (21:44)
[2021-08-29] MEDS ORDERED: diphenhydrAMINE Capsule 25 MG CAP PO PRN (21:51)
[2021-08-29] MEDS: HEPARIN SOD 5,000 UNIT/0.5 ML VIAL SQ SCH (21:54)
[2021-08-29] MEDS: PANTOprazole 40 MG in SYRINGE 0 ML IV SCH (21:55)
[2021-08-29] MEDS: PREGABALIN 100 MG CAP PO SCH (22:02)
[2021-08-29] MEDS: MELATONIN 3 MG TAB PO PRN (22:55)
[2021-08-30] MEDS: LEVOTHYROXINE SODIUM 50 MCG TABLET PO SCH (06:11)
[2021-08-30 07:04] LABS: Basophils # (auto) 0.01 K/uL (0-0.2); Basophils % (auto) 0.1 %; Eosinophils # (auto) 0.04 K/uL (0-0.5); Eosinophils % (auto) 0.3 %; Hematocrit (blood only) 42.6 % (37-47); Hemoglobin 14.4 g/dL (12.0-16.0); Immature Granulocytes # (auto) 0.05 K/uL (0.00-0.02); Immature Granulocytes % (auto) 0.3 %; Lymphocytes # (auto) 2.55 K/uL (1.2-3.4); Lymphocytes % (auto) 16.1 %; Mean Corpuscular Hemoglobin 29.5 pg (25-34); Mean Corpuscular Hgb Conc 33.8 g/dL (32-36); Mean Corpuscular Volume 87.3 fL (80-100); Monocytes # (auto) 1.72 K/uL (0.11-0.59); Monocytes % (auto) 10.9 %; Neutrophils # (auto) 11.46 K/uL (1.4-6.5); Neutrophils % (auto) 72.3 %; Platelet Count 216 K/uL (130-400); RDW Coefficient of Variation 13.2 % (11.5-14.5); Red Blood Count 4.88 M/uL (4.2-5.4); White Blood Count 15.83 K/uL (4.8-10.8)
[2021-08-30 07:24] LABS: Albumin Globulin Ratio 1.1 (0.9-2); Albumin Level 3.5 gm/dl (3.4-5.0); BUN Creatinine Ratio 7.7 (10-20); Bilirubin,Total 1.2 mg/dl (0.2-1.0); Calcium 8.4 mg/dl (8.5-10.1); Chol HDL Ratio 3.5 (0-5); Est GFR (African American) 78.4 ml/min; Est GFR (Non-African American) 67.6 ml/min; Globulin 3.2 gm/dl (2.5-4.0); Potassium 3.9 mmol/L (3.5-5.1); Total Protein 6.7 gm/dl (6.0-8.3)
--- NOTE | 2021-08-30 08:21 | Electrocardiogram Report ---
Test Reason : Blood Pressure : / mmHG Vent. Rate : 079 BPM Atrial Rate : 079 BPM P-R Int : 134 ms QRS Dur : 074 ms QT Int : 422 ms P-R-T Axes : 065 085 074 degrees QTc Int : 483 ms Poor data quality, interpretation may be adversely affected Normal sinus rhythm Left atrial enlargement Borderline ECG When compared with ECG of 25-NOV-2018 06:38, No significant change was found Confirmed by Uriel Gee ([id number]) on 08/30/2021 8:21:08 AM Referred By: REFERRED SELF Confirmed By:Uriel Gee
--- NOTE | 2021-08-30 08:23 | Gastrointestinal Consultation ---
Date of Consultation August 30, 2021 Assessment & Plan (1) Total bilirubin, elevated: Abdominal pain: Patient with epigastric and left upper quadrant abdominal pain. CT of the abdomen pelvis without acute findings to explain symptoms. Continue supportive care measures as outlined by hospitalist. Maintain NPO. Plan is EGD this afternoon. Elevated LFTs: LFTs elevated from baseline. Total bilirubin 1.2, AST 59, alk phos 115. Right upper quadrant ultrasound ordered for this morning. Will obtain HIDA with EF. Black stools: Hemoccult ordered. Patient with history of cirrhosis. EGD 2019 negative for esophageal varices. Denies NSAID or anticoagulant use. EGD today Cirrhosis of the liver: Stable. Follows with hepatology at [facility] in [place]. Continue current medications. Case reviewed with Dr. Ruiz. Please refer to supervising physician addendum for further recommendations. I have spent 40 minutes of discrete time performing the activities of this visit which include but are not limited to review of the medical record, obtaining a history, physical exam, and entering information in the electronic record. (2) Epigastric pain: (3) Cirrhosis of liver: Supervising Physician Co-Signing Physician Notes I interviewed and examined the patient and reviewed the medical record, with the following observations: Subjective: Patient complains of persistent epigastric and LUQ pain, with recent nausea, vomiting, and black stools Physical Examination: Epigastric tenderness, no palpable masses, organomegaly, ascites Chart Review: Negative EGD in 2019, no varices, no mention or portal gastropathy I agree with the assessment as outlined in this consultation, with the following observations: No additional observations I agree with the plan of care as outlined in this consultation, with the following changes and/or additions: Plan to proceed with EGD to evaluate epigastric pain syndrome and evaluate for varices As the supervising physician, I have spent 15 minutes of discrete time performing the activities of this consultation which include, but are not limited to, review of the medical record, obtaining a history, physical examination, and entering information into the electronic record. KELECHI Sawyer, has reported spending 40 minutes of discrete time with the activities of the consultation. History of Present Illness Attending Physician: Dustin Patricio MD History of Present Illness The patient is a pleasant 60-year-old female with past medical history to include nocturnal hypoxia, pneumonia, hepatitis-C with cirrhosis of the liver, chronic fatigue syndrome, GERD, hyperthyroid, IBS, Hepatitis C (treated Harvoni (2014), Benign tremor, cognitive memory decline, COPD, pulmonary nodules (former smoker), intractable neuropathic pain (intrathecal pain pump), Venous insufficiency with GSV presented to the emergency department after persistent nausea, vomiting, epigastric abdominal pain. She was subsequently admitted for further evaluation and the GI service consulted due to history. Prior records reviewed: 02/07/2021: Hepatology clinic notes from [facility] Dr. Ott are reviewed. Patient with history of hepatitis C with cirrhosis (biopsy 2012 with 5/6 fibrosis) and was treated successfully with Harvoni in 2014. Has had fluid overload and ascites (not recent) and takes torsemide. No decompensation of cirrhosis. She does have some occasional dependent lower extremity edema that waxes and wanes. No encephalopathy or GI bleeding. 11/25/2018: Colonoscopy notes reviewed performed due to history of abnormal CT of the GI tract in general abdominal pain demonstrated normal-appearing terminal ileum. Normal mucosa in the entire stomach. Mild internal hemorrhoids found during endoscopy without specimens collected. 11/25/2018: EGD notes are reviewed performed due to history of epigastric abdominal pain demonstrated regular Z-line found 40 cm from the incisors. There were no varices noted. The entire examined stomach was normal. The second portion of the duodenum was normal with biopsies obtained. Pathology results demonstrated negative duodenal biopsy for pathologic change, dysplasia, malignancy. On exam/interview today, the patient reports that she thought she had food poisoning after eating an Anirudh pie with mold on it Sunday. She began experiencing increased nausea and vomiting with small amounts that look like mucus. Decreased appetite and tolerance of p.o. liquids. States that she had no fever but did have sweating and chills. Epigastric and left upper quadrant abdominal pain and some mid lower abdominal pain as well. Also had some black stools that developed on Sunday. States symptoms were persistent because concerned and for her to present to the emergency department for further evaluation. Denies routine use of aspirin or NSAIDs. States she uses up to 2 g of Tylenol as needed. Patient is a former smoker with approximately a 90-[id number] history. She is on disability due to history of cirrhosis and spinal cord injury. She is with no children. She lives with her mother. Denies alcohol intake. Denies recreational drug use including marijuana. Allergies Allergy/AdvReac Type Severity Reaction Status Date / Time azithromycin Allergy Intermediate Hives Verified 08/29/21 16:29 cefuroxime Allergy Intermediate Hives Verified 08/29/21 16:29 Home Medications Medication Instructions Recorded Confirmed Type calcium carbonate 600 mg calcium 600 mg PO BID tab 12/31/17 08/29/21 History (1,500 mg) tablet multivitamin 1 tab PO DAILY 12/31/17 08/29/21 History Pain Pump 0 mg NOT APPLICABLE UD 11/22/18 08/29/21 History fluocinonide 0.1 % topical cream 1 appln TOP BID #60 gm 07/01/19 08/29/21 Rx albuterol sulfate 90 mcg/actuation 2 puff INHALATION Q6H PRN #3 06/03/20 08/29/21 Rx aerosol inhaler inhaler ammonium lactate 12 % topical cream 1 applic TOP DAILY #385 gm 06/03/20 08/29/21 Rx ondansetron HCl 8 mg tablet 8 mg PO TID PRN #30 tab 10/04/20 08/29/21 Rx alendronate 70 mg tablet 70 mg PO WEEKLY #12 tab 10/13/20 08/29/21 Rx zaleplon 5 mg capsule 5 mg PO DAILY #90 cap 11/17/20 08/29/21 Rx lactulose 10 gram/15 mL oral 15 ml PO BID #1422 ml 11/18/20 08/29/21 Rx solution potassium chloride 10 mEq 40 meq PO DAILY #720 cap 01/12/21 08/29/21 Rx capsule,extended release levothyroxine 50 mcg tablet 50 mcg PO DAILY #90 tab 02/24/21 08/29/21 Rx torsemide 20 mg tablet 30 mg PO DAILY #135 tab 02/24/21 08/29/21 Rx pregabalin 100 mg capsule 100 mg PO BID #180 cap 03/07/21 08/29/21 Rx naloxone 4 mg/actuation nasal 4 mg INTRANASAL Q2M PRN #2 ea 03/31/21 08/29/21 Rx spray (Narcan) nortriptyline 25 mg capsule 25 mg PO HS #90 cap 05/31/21 08/29/21 Rx propranolol 160 mg capsule,24 160 mg PO BID 90 Days #180 cap 06/03/21 08/29/21 Rx hr,extended release tretinoin 0.1 % topical cream 1 applic TOP HS #45 gm 07/18/21 08/29/21 Rx hydrocortisone 2.5 % topical cream 1 applic TOPICAL BID PRN #30 g 07/22/21 08/29/21 Rx ipratropium bromide 21 mcg (0.03 2 spray INTRANASAL BID #30 ml 08/12/21 08/29/21 Rx %) nasal spray hydroxyzine HCl 50 mg tablet 50 mg PO TID PRN #90 tab 08/15/21 08/29/21 Rx umeclidinium 62.5 mcg/actuation 1 inh INH DAILY #90 ea 08/15/21 08/29/21 Rx blister powder for inhalation (Incruse Ellipta) Patient History Medical History Benign familial tremor Brown-Sequard syndrome Chronic fatigue syndrome Chronic obstructive pulmonary disease Cirrhosis of liver Closed fracture of right proximal humerus Colitis Compensated HCV cirrhosis Depression Dermatitis Diffuse myofascial pain syndrome Dyslipidemia Encounter for routine gynecological examination GERD without esophagitis History of actinic keratosis History of fall History of hepatitis C History of hepatitis C History of tobacco use Hyperglycemia Hypernatremia Hypothyroidism Insomnia Intractable neuropathic pain of lower extremity Lumbago Medical marijuana use Memory loss Non-ST elevation (NSTEMI) myocardial infarction Osteoarthritis Osteoporosis Peripheral neuropathy Presence of intrathecal pump Psoriasis Respiratory failure Surgical History H/O hand surgery History of carpal tunnel surgery History of spinal surgery Presence of intrathecal pump S/P colonoscopy Family History Aunt Breast cancer Mother Valvular heart disease Father H/O malignant neoplasm of duodenum Denies family history of Ovarian cancer Prostate cancer Crohn's disease Myocardial infarction Colorectal cancer Ulcerative colitis Uterine cancer Social History Smoking Status: Never smoker Tobacco Type: Cigarettes Second Hand Exposure: No; Hx Alcohol Use: No Hx Substance Use: No Preferred Language: Mongolian Communication Ability: Effective Visual Impairment: Limited Hearing Ability: Normal Machine Puller Required: No Beliefs That Will Affect Care: None marital status: Current Living Situation: Family current occupational status: disabled Feels Safe at Home: Yes Childhood Exposure to Second-Hand Smoke: No Dental Care, Regularly: Yes Physical Activity Frequency: Does not Exercise Seatbelt Use: always Sunscreen Use: Yes Assistive Devices: Cane Review of Systems Review of Systems: All systems reviewed & are unremarkable except as noted in Subjective Physical Exam Constitutional: WD/WN, vitals as above Eyes: PERRL, conjunctivae normal, anicteric sclerae Respiratory: normal respiratory effort, lungs clear to auscultation Cardiovascular: RRR, no murmur, no edema Gastrointestinal (Abdomen): Inspection/Auscultation: abdomen normal to inspection and normal bowel sounds; abdomen not distended Percussion/Palpation: + abdomen tender (epigastric) and abdomen soft; no guarding and abdomen not rigid intrathecal pain pump left mid to lower abdomen Musculoskeletal: no cyanosis or clubbing, extremities motor strength 5/5 Skin: no rashes, warm and dry Neurologic: PERRL, EOMI, accommodation nl, no face palsy, no dysarthria Psychiatric: A+Ox3, euthymic affect Results & Data ([facility]) Vital Signs (Past 12 Hours) Vital Signs Temp Pulse Pulse Resp BP BP Pulse Ox 08/30/21 07:48 36.7 C 60 18 164/89 H 94 08/30/21 06:09 60 08/30/21 04:32 36.7 C 68 18 131/83 95 08/29/21 23:59 37.0 C 85 18 165/89 H 96 08/29/21 22:20 81 Laboratory Results Laboratory Results - last 24 hr 08/29/21 08/29/21 08/29/21 12:13 12:13 12:25 WBC 17.06 H RBC 5.22 Hgb 15.8 POC Hgb 16.7 H Hct 45.4 POC Hct 49 H MCV 87.0 MCH 30.3 MCHC 34.8 RDW Std Deviation 40.7 RDW Coeff of Elin 12.8 Plt Count 249 MPV 10.9 H Immature Gran % (Auto) 0.4 Neut % (Auto) 74.7 Lymph % (Auto) 14.3 Alfalfa % (Auto) 10.4 Eos % (Auto) 0.1 Baso % (Auto) 0.1 Neut # (Auto) 12.74 H Lymph # (Auto) 2.44 Alfalfa # (Auto) 1.78 H Eos # (Auto) 0.02 Baso # (Auto) 0.02 Immature Gran # (Auto) 0.06 H POC Sodium 141 Sodium 139 POC Potassium 3.1 L Potassium 3.1 L POC Chloride 102 Chloride 103 Carbon Dioxide 26 POC Total CO2 25 Anion Gap 10 POC Anion Gap 18.0 POC BUN 10 BUN 11 Creatinine 1.20 POC Creatinine 1.0 Est Cr Clr Drug Dosing 40.2 Est GFR ( Amer) 56.1 Est GFR (Non-Af Amer) 48.4 BUN/Creatinine Ratio 9.2 L Glucose 118 H POC Glucose (other) 123 H Calcium 9.2 POC Ioniz Calcium Wisam 1.08 L Magnesium Total Bilirubin 1.3 H AST 62 H ALT 40 Alkaline Phosphatase 118 H Total Protein 7.6 Albumin 3.9 Globulin 3.7 Albumin/Globulin Ratio 1.1 Triglycerides Cholesterol LDL Cholesterol, Calc VLDL Cholesterol, Calc HDL Cholesterol Cholesterol/HDL Ratio Lipase 17 Procalcitonin Urine Color Urine Appearance Urine pH Ur Specific Lowell Urine Protein Urine Glucose (UA) Urine Ketones Urine Blood Urine Nitrite Urine Bilirubin Urine Urobilinogen Ur Leukocyte Esterase SARS-CoV-2 (PCR) Influenza Type A (PCR) Influenza Type B (PCR) RSV (RT-PCR) 08/29/21 08/29/21 08/29/21 14:51 15:55 16:31 WBC RBC Hgb POC Hgb Hct POC Hct MCV MCH MCHC RDW Std Deviation RDW Coeff of Elin Plt Count MPV Immature Gran % (Auto) Neut % (Auto) Lymph % (Auto) Alfalfa % (Auto) Eos % (Auto) Baso % (Auto) Neut # (Auto) Lymph # (Auto) Alfalfa # (Auto) Eos # (Auto) Baso # (Auto) Immature Gran # (Auto) POC Sodium Sodium POC Potassium Potassium POC Chloride Chloride Carbon Dioxide POC Total CO2 Anion Gap POC Anion Gap POC BUN BUN Creatinine POC Creatinine Est Cr Clr Drug Dosing Est GFR ( Amer) Est GFR (Non-Af Amer) BUN/Creatinine Ratio Glucose POC Glucose (other) Calcium POC Ioniz Calcium Wisam Magnesium Total Bilirubin AST ALT Alkaline Phosphatase Total Protein Albumin Globulin Albumin/Globulin Ratio Triglycerides Cholesterol LDL Cholesterol, Calc VLDL Cholesterol, Calc HDL Cholesterol Cholesterol/HDL Ratio Lipase Procalcitonin 0.13 Urine Color Yellow Urine Appearance Clear Urine pH 6.5 Ur Specific Lowell 1.012 Urine Protein Negative Urine Glucose (UA) Negative Urine Ketones Negative Urine Blood Negative Urine Nitrite Negative Urine Bilirubin Negative Urine Urobilinogen Negative Ur Leukocyte Esterase Negative SARS-CoV-2 (PCR) NEGATIVE Influenza Type A (PCR) Negative Influenza Type B (PCR) Negative RSV (RT-PCR) Negative 08/30/21 08/30/21 06:26 06:26 WBC 15.83 H RBC 4.88 Hgb 14.4 POC Hgb Hct 42.6 POC Hct MCV 87.3 MCH 29.5 MCHC 33.8 RDW Std Deviation 42.0 RDW Coeff of Elin 13.2 Plt Count 216 MPV 11.0 H Immature Gran % (Auto) 0.3 Neut % (Auto) 72.3 Lymph % (Auto) 16.1 Alfalfa % (Auto) 10.9 Eos % (Auto) 0.3 Baso % (Auto) 0.1 Neut # (Auto) 11.46 H Lymph # (Auto) 2.55 Alfalfa # (Auto) 1.72 H Eos # (Auto) 0.04 Baso # (Auto) 0.01 Immature Gran # (Auto) 0.05 H POC Sodium Sodium 138 POC Potassium Potassium 3.9 D POC Chloride Chloride 105 Carbon Dioxide 28 POC Total CO2 Anion Gap 5 POC Anion Gap POC BUN BUN 7 Creatinine 0.91 POC Creatinine Est Cr Clr Drug Dosing 53.0 Est GFR ( Amer) 78.4 Est GFR (Non-Af Amer) 67.6 BUN/Creatinine Ratio 7.7 L Glucose 101 H POC Glucose (other) Calcium 8.4 L POC Ioniz Calcium Wisam Magnesium 2.0 Total Bilirubin 1.2 H AST 59 H ALT 45 Alkaline Phosphatase 115 H Total Protein 6.7 Albumin 3.5 Globulin 3.2 Albumin/Globulin Ratio 1.1 Triglycerides 76 Cholesterol 152 LDL Cholesterol, Calc 94 VLDL Cholesterol, Calc 15 HDL Cholesterol 43 Cholesterol/HDL Ratio 3.5 Lipase Procalcitonin Urine Color Urine Appearance Urine pH Ur Specific Lowell Urine Protein Urine Glucose (UA) Urine Ketones Urine Blood Urine Nitrite Urine Bilirubin Urine Urobilinogen Ur Leukocyte Esterase SARS-CoV-2 (PCR) Influenza Type A (PCR) Influenza Type B (PCR) RSV (RT-PCR) Diagnostic Findings Abdomen/Pelvis CT 08/29/21 12:[address] WITH IV CONTRAST CT DOSE: 282.78 mGy.cm HISTORY: Acute upper abdominal pain with nausea and vomiting. upper ab pain; h/o cirrhosis, n/v TECHNIQUE: Multiaxial CT images of the abdomen and pelvis were performed following the IV administration of 93 cc of Optiray, A dose lowering technique was utilized adhering to the principles of ALARA. COMPARISON STUDY: CT abdomen and pelvis 11/22/2018 FINDINGS: The imaged inferior cardiac chambers are unremarkable. Linear subsegmental atelectasis/scarring of the posterior basal segment left lower lobe. Patchy bibasilar groundglass opacities. No pneumatosis or pneumoperitoneum. The spleen, pancreas and adrenal glands are unremarkable. Mild gallbladder distention with unchanged gallbladder wall thickening. Mild thickening of the extrahepatic biliary trees limits the prior study and also likely chronic. Cirrhotic morphology of the liver. No hepatic mass is identified. There is patency of the hepatic and portal veins. Recanalization of the umbilical vein. Unremarkable kidneys. There is no hydronephrosis. Mild nonspecific urinary bladder wall thickening. The uterus and adnexa are unremarkable. Atherosclerosis of the aorta and branch vessels. There is a least moderate stenosis at the origin of the superior mesenteric artery. No lymphadenopathy identified. Wall thickening of the distal esophagus with moderate diffuse gastric wall thickening and mucosal hyperemia, similar to the prior study. Mesenteric edema with small volume of abdominal pelvic ascites. Wall thickening of the colon, most pronounced in the ascending and transverse segments. Normal appendix. Mild generalized body wall edema. Battery pack present within the subcutaneous tissues of the left anterior abdominal wall. There is a single stimulator lead within the central canal terminating at the level of L1. This appears to be intact. IMPRESSION: 1. Patchy bibasilar groundglass opacities are suspicious for an infectious or inflammatory pneumonitis such as viral pneumonia. 2. Cirrhotic liver disease with small volume of abdominal pelvic ascites. 3. Colonic wall thickening is likely secondary to portal colopathy. A nonspecific infectious or inflammatory colitis is considered less likely. 4. Diffuse wall thickening of the stomach is similar to the 2019 comparison suspicious for chronic gastritis. 5. Additional findings as above. ACT 112: Negative or not required by law. The above report was generated using voice recognition software. It may contain grammatical, syntax or spelling errors. Electronically signed by: Aren James M.D. 08/29/2021 2:14 PM Chest X-Ray 08/29/21 15:24 XR chest 1V portable CLINICAL HISTORY: ?pneumonitis on CT TECHNIQUE: Single frontal radiograph of the chest was obtained. Comparison: Comparison is made to chest radiograph 09/30/2013, CT chest 01/27/[address] abdomen pelvis 08/29/2021 FINDINGS: No lines and tubes are seen. The cardiomediastinal silhouette is normal. Faint bibasilar airspace opacities are seen. No evidence of pleural effusion or pneumothorax. Deformity of the right humeral head is chronic. IMPRESSION: Faint bibasilar airspace opacities which may represent atelectasis, pneumonia, and/or aspiration. ACT 112: Negative or not required by law. Electronically signed by: Terrence Caldwell M.D. 08/29/2021 4:08 PM
--- NOTE | 2021-08-30 08:55 | Ultrasound Report ---
US gallbladder HISTORY: 60 years-old Female epigastric pain, elevated bili/alk po4 and AST acute right upper quadra nt abdominal pain COMPARISON: CT 08/29/2021 TECHNIQUE: Multiple real-time sonographic images of the abdominal right upper quadrant were obtained assessing grayscale appearance and color flow FINDINGS: The visualized pancreas is unremarkable. Cirrhotic morphology of the liver. Trace ascites. No hepatic mass identified. Pericholecystic fluid is noted with associated identified meniscal bladder wall thi ckening which measures up to approximately 1 cm. No cholelithiasis. Negative sonographic Wilkerson's sig n. Normal common bile duct, 5 mm. The imaged right kidney is unremarkable without hydronephrosis. IMPRESSION: 1. Cirrhosis without hepatic mass identified. 2. Trace ascites. 3. Nonspecific edematous gallbladder wall thickening may be secondary to the chronic liver disease. N o cholelithiasis. 4. No biliary ductal dilation. ACT 112: Negative or not required by law. The above report was generated using voice recognition software. It may contain grammatical, syntax o r spelling errors. Electronically signed by: Aren James M.D. 08/30/2021 8:54 AM
[2021-08-30] MEDS: CALCIUM CARBONATE 1250MG TAB PO SCH ×2 (09:07→21:04)
[2021-08-30] MEDS: PROPRANOLOL HCL LA 80 MG CAPCR PO SCH ×2 (09:08→21:04)
[2021-08-30] MEDS: TORSEMIDE 10 MG TAB PO SCH (09:08)
[2021-08-30] MEDS: TORSEMIDE 20 MG TAB PO SCH (09:08)
[2021-08-30] MEDS: PANTOprazole 40 MG in SYRINGE 0 ML IV SCH ×2 (09:09→21:04)
[2021-08-30] MEDS: UMECLIDINIUM BROMIDE 62.5MCG/BLISTER 7 PUFFS/INHALER INH SCH (09:10)
[2021-08-30] MEDS: LACTULOSE SYRUP 20 GM/30 ML UDC PO SCH ×2 (09:10→21:05)
[2021-08-30] MEDS: PREGABALIN 100 MG CAP PO SCH ×2 (09:15→21:10)
[2021-08-30] MEDS: HEPARIN SOD 5,000 UNIT/0.5 ML VIAL SQ SCH ×2 (09:43→21:05)
--- NOTE | 2021-08-30 11:58 | Hospitalist Progress Note ---
Date of Service August 30, 2021 Assessment & Plan (1) Epigastric pain: Plan: Epigastric pain with vomiting -5 days of pain, patient with possible food poisoning exposure prior to onset of symptoms DDx includes gallbladder dysfunction EGD: Grade 1 esophageal varices without bleeding or stigmata, portal hypertensive gastropathy and duodenopathy without bleeding. 2 cm hiatal hernia. No endoscopic evidence of bleeding/ulceration/erosion in stomach. Diffuse mildly erythematous mucosa without bleeding in duodenum. No obvious source of discomfort. Continue Protonix twice daily - Protonix 40mg IV twice daily - Zofran as needed HIDA pending, Not able to be performed 08/30. Pending 08/31. Clears until midnight, n.p.o. at midnight. (2) Total bilirubin, elevated: Plan: Hyperbilirubinemia HIDA pending AST elevated, ALT normal, alk phos 115 Patient with history of hep C cirrhosis, hep C treated (3) Leukocytosis: Plan: WBC 17 with NLR elevated,? Demargination - afebrile, not on oxygen, UA clear -Gallbladder/epigastric work-up as above Leukocytosis downtrending Procalcitonin normal Blood cultures pending -GGO on CXR, similar to on prior imaging - No ABX at this time (4) Cirrhosis of liver: Plan: History of hep C virus treated with Harvoni, subsequent liver cirrhosis EGD as noted Continue outpatient [facility] follow-up, currently compensated (5) Chronic obstructive pulmonary disease: Plan: Previous smoker- PFTS last completed- 2018 with normal spirometry - remains on Albuterol PRN and daily umeclidinium (6) Compensated HCV cirrhosis: Plan: Follow no acute needs currnetly (7) GERD without esophagitis: Plan: Chronic -EGD as above, PPI as noted (8) Multiple pulmonary nodules: Plan: Follows with pulmonary- no acute needs (9) Presence of intrathecal pump: Plan: For chronic neuropathic pain - continue with gabapentin (10) Hypothyroidism: Plan: Continue with synthroid (11) Tremor: Plan: Benign essential tremor- follows with neurology - continue propranolol - continue primidone Admission and Anticipated Discharge Date Admission Date: August 29, 2021 Subjective Patient is seen at bedside. Reports she continues to feel intermittently nauseous today. Does continue to have epigastric abdominal pain, slightly improved from prior but not resolved. Denies chest pain, chest pressure, shortness of breath, difficulty breathing. Endorses history of black stools. Denies right upper quadrant tenderness on exam, no she does have a history of hepatitis C treated successfully but with subsequent cirrhosis. Review of Systems Review of Systems: All systems reviewed & are unremarkable except as noted in Subjective Physical Exam Physical Exam: General: A&Ox3. NAD. Cooperative. HEENT: Atraumatic, normocephalic. PERLAA. Pulm: CTAB A&P. -wheezes, -rales, -rhonchi. Symmetrical chest rise. No increase in work of breathing. No respiratory distress. Cardiac: RRR, -mrg. Radial pulses intact and symmetrical. Abdominal: Trace epigastric tenderness, no rebound, no guarding. No right upper quadrant tenderness, Wilkerson's negative. Intrathecal pump sq @LLQ. extremities: Warm, dry Results & Data Results & Data ([facility]) Vital Signs (Past 12 Hours) Vital Signs Temp Pulse Pulse Resp BP BP Pulse Ox 08/30/21 11:47 37 C 57 L 18 153/79 H 95 08/30/21 07:48 36.7 C 60 18 164/89 H 94 08/30/21 06:09 60 08/30/21 04:32 36.7 C 68 18 131/83 95 08/29/21 23:59 37.0 C 85 18 165/89 H 96 PG Care Time/CCT Total # of Minutes Spent Total Time Spent with Patient: Total time spent is greater than 50% in coordination of care (as documented) at patient's floor/unit and/or counseling patient: Coding Level of Care Code 79294 Subseq Hosp Care Lvl 2 Diagnoses Epigastric pain R10.13 Total bilirubin, elevated R17 Leukocytosis D72.829 Cirrhosis of liver K74.60 Chronic obstructive pulmonary disease J44.9 Compensated HCV cirrhosis K74.69; B19.20 GERD without esophagitis K21.9 Multiple pulmonary nodules R91.8 Presence of intrathecal pump Z96.89 Hypothyroidism E03.9 Tremor R25.1
--- NOTE | 2021-08-30 14:00 | Anesthesiology Consultation ---
Date of Service August 30, 2021 Assessment & Plan (1) Encounter for pre-operative examination: Chart Review Chart Review: Acceptable Risk for Surgery, Patient NOT seen in Pre Admission Testing and order entry clerk initiated Consults Requested none History Surgery Operation Date: 08/30/21 16:50 Proposed Procedures p Esophagogastroduodenoscopy Dr Sara Ruiz MD Height/Weight Height: 5 ft 3 in Weight: 60.6 kg Allergies Allergy/AdvReac Type Severity Reaction Status Date / Time azithromycin Allergy Intermediate Hives Verified 08/29/21 16:29 cefuroxime Allergy Intermediate Hives Verified 08/29/21 16:29 Medications Home Medications Medication Instructions Recorded Confirmed Last Taken calcium carbonate 600 mg calcium 600 mg PO BID tab 12/31/17 08/29/21 06/27/18 (1,500 mg) tablet multivitamin 1 tab PO DAILY 12/31/17 08/29/21 06/27/18 Pain Pump 0 mg NOT APPLICABLE UD 11/22/18 08/29/21 Unknown fluocinonide 0.1 % topical cream 1 appln TOP BID #60 gm 07/01/19 08/29/21 Unknown albuterol sulfate 90 mcg/actuation 2 puff INHALATION Q6H PRN #3 06/03/20 08/29/21 Unknown aerosol inhaler inhaler ammonium lactate 12 % topical cream 1 applic TOP DAILY #385 gm 06/03/20 08/29/21 Unknown ondansetron HCl 8 mg tablet 8 mg PO TID PRN #30 tab 10/04/20 08/29/21 Unknown alendronate 70 mg tablet 70 mg PO WEEKLY #12 tab 10/13/20 08/29/21 Unknown zaleplon 5 mg capsule 5 mg PO DAILY #90 cap 11/17/20 08/29/21 Unknown lactulose 10 gram/15 mL oral 15 ml PO BID #1422 ml 11/18/20 08/29/21 Unknown solution potassium chloride 10 mEq 40 meq PO DAILY #720 cap 01/12/21 08/29/21 Unknown capsule,extended release levothyroxine 50 mcg tablet 50 mcg PO DAILY #90 tab 02/24/21 08/29/21 Unknown torsemide 20 mg tablet 30 mg PO DAILY #135 tab 02/24/21 08/29/21 Unknown pregabalin 100 mg capsule 100 mg PO BID #180 cap 03/07/21 08/29/21 Unknown naloxone 4 mg/actuation nasal 4 mg INTRANASAL Q2M PRN #2 ea 03/31/21 08/29/21 Unknown spray (Narcan) nortriptyline 25 mg capsule 25 mg PO HS #90 cap 05/31/21 08/29/21 Unknown propranolol 160 mg capsule,24 160 mg PO BID 90 Days #180 cap 06/03/21 08/29/21 Unknown hr,extended release tretinoin 0.1 % topical cream 1 applic TOP HS #45 gm 07/18/21 08/29/21 Unknown hydrocortisone 2.5 % topical cream 1 applic TOPICAL BID PRN #30 g 07/22/21 08/29/21 Unknown ipratropium bromide 21 mcg (0.03 2 spray INTRANASAL BID #30 ml 08/12/21 08/29/21 Unknown %) nasal spray hydroxyzine HCl 50 mg tablet 50 mg PO TID PRN #90 tab 08/15/21 08/29/21 Unknown umeclidinium 62.5 mcg/actuation 1 inh INH DAILY #90 ea 08/15/21 08/29/21 Unknown blister powder for inhalation (Incruse Ellipta) Active Medications Generic Name Dose Route Start Last Admin Trade Name Freq PRN Reason Stop Dose Admin Calcium Carbonate 1,250 mg 08/29/21 21:00 08/30/21 09:07 Calcium Carbonate 1250mg Tab PO 09/28/21 20:59 1,250 mg BID NIGEL Administration Protocol Heparin Sodium (Porcine) 5,000 units 08/29/21 21:00 08/30/21 09:43 Heparin Sod 5,000 Unit/0.5 Ml Vial SQ 09/28/21 20:59 Not Given Q12 NIGEL Pantoprazole Sodium 40 mg/ 10 mls @ 5 mls/min 08/29/21 21:00 08/30/21 09:09 Syringe IV 09/28/21 20:59 5 mls/min BID NIGEL Administration Lactulose 20 gm 08/29/21 21:00 08/30/21 09:10 Lactulose Syrup 20 Gm/30 Ml Udc PO 09/28/21 20:59 20 gm BID NIGEL Administration Levothyroxine Sodium 50 mcg 08/30/21 06:30 08/30/21 06:11 Levothyroxine Sodium 50 Mcg Tablet PO 07/28/22 06:29 50 mcg DAILYBB NIGEL Administration Melatonin 3 mg 08/29/21 21:51 08/29/21 22:55 Melatonin 3 Mg Tab PO 09/28/21 21:50 3 mg HS PRN Administration Sleep Nortriptyline HCl 25 mg 08/29/21 21:00 08/29/21 21:44 Nortriptyline Hcl 25 Mg Cap PO 09/28/21 20:59 25 mg HS NIGEL Administration Pregabalin 100 mg 08/29/21 21:00 08/30/21 09:15 Pregabalin 100 Mg Cap PO 09/28/21 20:59 100 mg BID NIGEL Administration Propranolol HCl 160 mg 08/29/21 21:00 08/30/21 09:08 Propranolol Hcl La 80 Mg Capcr PO 09/28/21 20:59 160 mg BID NIGEL Administration Torsemide 20 mg 08/30/21 09:00 08/30/21 09:08 Torsemide 20 Mg Tab PO 09/29/21 08:59 20 mg DAILY NIGEL Administration Torsemide 10 mg 08/30/21 09:00 08/30/21 09:08 Torsemide 10 Mg Tab PO 09/29/21 08:59 10 mg DAILY NIGEL Administration Umeclidinium [place] 1 puffs 08/30/21 09:00 08/30/21 09:10 Umeclidinium [place] 62.5mcg/Blister 7 Puffs/Inhaler INH 09/29/21 08:59 1 puffs DAILY NIGEL Administration Past Medical History Medical History (Updated 08/30/21 @ 14:04 by Diogo Ferrera MD) Benign familial tremor Brown-Sequard syndrome Chronic fatigue syndrome Chronic obstructive pulmonary disease Cirrhosis of liver Closed fracture of right proximal humerus Colitis Compensated HCV cirrhosis Depression Dermatitis Diffuse myofascial pain syndrome Dyslipidemia Encounter for pre-operative examination Encounter for routine gynecological examination GERD without esophagitis History of actinic keratosis History of fall History of hepatitis C History of hepatitis C History of tobacco use Hyperglycemia Hypernatremia Hypothyroidism Insomnia Intractable neuropathic pain of lower extremity Lumbago Medical marijuana use Memory loss Non-ST elevation (NSTEMI) myocardial infarction Osteoarthritis Osteoporosis Peripheral neuropathy Presence of intrathecal pump Psoriasis Respiratory failure Past Family History Family History Aunt Breast cancer Mother Valvular heart disease Father H/O malignant neoplasm of duodenum Denies family history of Ovarian cancer Prostate cancer Crohn's disease Myocardial infarction Colorectal cancer Ulcerative colitis Uterine cancer Past Surgical History Surgical History H/O hand surgery History of carpal tunnel surgery History of spinal surgery Presence of intrathecal pump S/P colonoscopy Social History Smoking Status: Never smoker Hx Alcohol Use: No Hx Substance Use: No Physical Exam Vital Signs Last Vital Signs Temp 37 C 08/30/21 11:47 Pulse 57 L 08/30/21 11:47 Resp 18 08/30/21 11:47 BP 153/79 H 08/30/21 11:47 Pulse Ox 95 08/30/21 11:47 Testing Laboratory Results 08/30/21 06:26 08/30/21 06:26 Urine Color Yellow 08/29/21 14:51 Urine Appearance Clear (Clear) 08/29/21 14:51 Urine pH 6.5 (4.5-7.5) 08/29/21 14:51 Ur Specific [place] 1.012 (1.000-1.030) 08/29/21 14:51 Urine Protein Negative (Negative) 08/29/21 14:51 Urine Glucose (UA) Negative (Negative) 08/29/21 14:51 Urine Ketones Negative (Negative) 08/29/21 14:51 Urine Nitrite Negative (Negative) 08/29/21 14:51 Ur Leukocyte Esterase Negative (Negative) 08/29/21 14:51 Electrocardiogram Date: 08/29/21 Poor data quality, interpretation may be adversely affected Normal sinus rhythm Left atrial enlargement Borderline ECG When compared with ECG of 25-NOV-2018 06:38, No significant change was found Confirmed by Uriel Gee ([id number]) on 08/30/2021 8:21:08 AM Chest X-Ray Date: 08/29/21 CLINICAL HISTORY: ?pneumonitis on CT TECHNIQUE: Single frontal radiograph of the chest was obtained. Comparison: Comparison is made to chest radiograph 09/30/2013, CT chest 01/27/[address] abdomen pelvis 08/29/2021 FINDINGS: No lines and tubes are seen. The cardiomediastinal silhouette is normal. Faint bibasilar airspace opacities are seen. No evidence of pleural effusion or pneumothorax. Deformity of the right humeral head is chronic. IMPRESSION: Faint bibasilar airspace opacities which may represent atelectasis, pneumonia, and/or aspiration. Other Testing US gallbladder 08/30/21 IMPRESSION: 1. Cirrhosis without hepatic mass identified. 2. Trace ascites. 3. Nonspecific edematous gallbladder wall thickening may be secondary to the chronic liver disease. No cholelithiasis. 4. No biliary ductal dilation.. CT abdomen and pelvis 08/29/21 IMPRESSION: 1. Patchy bibasilar groundglass opacities are suspicious for an infectious or inflammatory pneumonitis such as viral pneumonia. 2. Cirrhotic liver disease with small volume of abdominal pelvic ascites. 3. Colonic wall thickening is likely secondary to portal colopathy. A nonspecific infectious or inflammatory colitis is considered less likely. 4. Diffuse wall thickening of the stomach is similar to the 2019 comparison suspicious for chronic gastritis. 5. Additional findings as above.
[2021-08-30] MEDS ORDERED: PROPOFOL IV EMULSION 10 MG/ML 20 ML VIAL IV ONE (14:06)
[2021-08-30] MEDS ORDERED: LIDOCAINE 2% 2 ML VIAL/AMP(20MG/ML) INFIL ONE (14:06)
--- NOTE | 2021-08-30 14:35 | GI REPORT ---
Patient Name: Melody Mason Procedure Date: 08/30/2021 1:50 PM Date of : 1960 Admit Type: Inpatient Age: 60 Gender: Female Attending MD: Ryan Ruiz MD Procedure: Upper GI endoscopy Providers: Ryan Ruiz MD Referring MD: Dustin Patricio Md Indications: Epigastric abdominal pain, Abdominal pain in the left upper quadrant, Melena, Suspected upper gastrointestinal bleeding Medicines: Monitored Anesthesia Care Complications: No immediate complications. Estimated Blood Loss: Estimated blood loss: none. Procedure: Pre-Anesthesia Assessment: - Prior to the procedure, a History and Physical was performed, and patient medications and allergies were reviewed. The patient is competent. The risks and benefits of the procedure and the sedation options and risks were discussed with the patient. All questions were answered and informed consent was obtained. Patient identification and proposed procedure were verified by the physician and the nurse in the pre-procedure area. Mental Status Examination: alert and oriented. Airway Examination: normal oropharyngeal airway and neck mobility. Respiratory Examination: clear to auscultation. CV Examination: normal. Prophylactic Antibiotics: The patient does not require prophylactic antibiotics. Prior Anticoagulants: The patient has taken no previous anticoagulant or antiplatelet agents. ASA Grade Assessment: III - A patient with severe systemic disease. After reviewing the risks and benefits, the patient was deemed in satisfactory condition to undergo the procedure. The anesthesia plan was to use monitored anesthesia care (MAC). Immediately prior to administration of medications, the patient was re-assessed for adequacy to receive sedatives. The heart rate, respiratory rate, oxygen saturations, blood pressure, adequacy of pulmonary ventilation, and response to care were monitored throughout the procedure. The physical status of the patient was re-assessed after the procedure. After obtaining informed consent, the endoscope was passed under direct vision. Throughout the procedure, the patient's blood pressure, pulse, and oxygen saturations were monitored continuously. The Endoscope was introduced through the mouth, and advanced to the second part of duodenum. The upper GI endoscopy was accomplished without difficulty. The patient tolerated the procedure well. Findings: Grade I varices were found at the gastroesophageal junction. There is no endoscopic evidence of bleeding, esophagitis or mucosal abnormalities in the entire esophagus. The Z-line was regular and was found 38 cm from the incisors. A 2 cm hiatal hernia was present. Mild portal hypertensive gastropathy was found in the entire examined stomach. There is no endoscopic evidence of bleeding, ulceration or erosion in the entire examined stomach. Diffuse mildly erythematous mucosa without active bleeding and with no stigmata of bleeding was found in the entire duodenum. There is no endoscopic evidence of bleeding, ulceration or erosion in the entire examined duodenum. Impression: - Grade I esophageal varices. - Z-line regular, 38 cm from the incisors. - 2 cm hiatal hernia. - Portal hypertensive gastropathy. - Erythematous duodenopathy. - No specimens collected. Recommendation: - Return patient to [facility] for ongoing care. - Resume previous diet. - Continue present medications. MD Ryan Jim MD 08/30/2021 2:34:53 PM This report has been signed electronically. Note Initiated On: 08/30/2021 1:50 PM Number of Addenda: 0 I attest to the content of the Intraoperative Record and orders documented therein, exceptions below {[id number]}
--- NOTE | 2021-08-30 14:37 | Post Operative Brief Note ---
Immediate Post Op Note v1 Date of Surgery August 30, 2021 Pre & Post Diagnosis Operation Date: 08/30/21 16:50 Pre-Op Diagnosis: FOOD ILLNESS, epigastric pain Post-Op Diagnosis: hiatal hernia, esophageal varicies, gastritis, duodenitis I identified the patient and participated in the time-out.: Yes Procedure Operation Date: 08/30/21 16:50 Actual Procedures p Esophagogastroduodenoscopy - Ryan Ruiz MD Surgeon Ryan Ruiz MD Net Front End Developer none Estimated Blood Loss 0 Findings See Below Grade 1 esophageal varices without bleeding or stigmata, diffuse portal hypertensive gastropathy and duodenopathy without bleeding. No explanation for epigastric pain detected on this examination. Continue current plan of care
--- NOTE | 2021-08-30 15:45 | Anesthesiology Progress Note ---
Date of Service August 30, 2021 Anesthesia Post Procedure Vital Signs Vital Signs: Temp Pulse Pulse Pulse Resp BP BP 08/30/21 15:18 36.9 C 63 18 130/77 08/30/21 15:00 66 20 121/72 08/30/21 14:45 60 18 134/73 08/30/21 14:28 76 18 85/57 L 08/30/21 13:53 36.6 C 62 16 141/86 H 08/30/21 11:47 37 C 57 L 18 153/79 H 08/30/21 07:48 36.7 C 60 18 164/89 H 08/30/21 06:09 60 08/30/21 04:32 36.7 C 68 18 131/83 08/29/21 23:59 37.0 C 85 18 165/89 H 08/29/21 22:20 81 08/29/21 19:57 36.7 C 82 18 161/96 H 08/29/21 18:30 36.7 C 85 52 L 16 180/92 H 08/29/21 16:09 89 16 167/92 H Pulse Ox 08/30/21 15:18 97 08/30/21 15:00 99 08/30/21 14:45 99 08/30/21 14:28 99 08/30/21 13:53 95 08/30/21 11:47 95 08/30/21 07:48 94 08/30/21 06:09 08/30/21 04:32 95 08/29/21 23:59 96 08/29/21 22:20 08/29/21 19:57 98 08/29/21 18:30 95 08/29/21 16:09 98 Pain Intensity Abdomen: Pain Intensity: 6 Transfer of Care Handoff Completed per policy Notes Mental Status: alert / awake / arousable and participated in evaluation Patient Amnestic to Procedure: Yes Nausea / Vomiting: adequately controlled Pain: adequately controlled Airway Patency, RR, SpO2: stable & adequate BP & HR: stable & adequate Hydration State: stable & adequate Anesthetic Complications: no major complications apparent and Pt Satisfied with anesthetic care
[2021-08-30] MEDS: MELATONIN 3 MG TAB PO PRN (21:03)
[2021-08-30] MEDS: NORTRIPTYLINE HCL 25 MG CAP PO SCH (21:04)
[2021-08-31] MEDS: LEVOTHYROXINE SODIUM 50 MCG TABLET PO SCH (05:53)
[2021-08-31 07:36] LABS: Basophils # (auto) 0.04 K/uL (0-0.2); Basophils % (auto) 0.4 %; Eosinophils # (auto) 0.12 K/uL (0-0.5); Eosinophils % (auto) 1.3 %; Hematocrit (blood only) 38.6 % (37-47); Hemoglobin 13.6 g/dL (12.0-16.0); Immature Granulocytes # (auto) 0.04 K/uL (0.00-0.02); Immature Granulocytes % (auto) 0.4 %; Lymphocytes # (auto) 2.68 K/uL (1.2-3.4); Lymphocytes % (auto) 28.5 %; Mean Corpuscular Hemoglobin 31.2 pg (25-34); Mean Corpuscular Hgb Conc 35.2 g/dL (32-36); Mean Corpuscular Volume 88.5 fL (80-100); Mean Platelet Volume 11.2 fL (7.4-10.4); Monocytes # (auto) 1.32 K/uL (0.11-0.59); Neutrophils % (auto) 55.4 %; Platelet Count 167 K/uL (130-400); RDW Coefficient of Variation 13.1 % (11.5-14.5); RDW Standard Deviation 42.7 fL (36.4-46.3); Red Blood Count 4.36 M/uL (4.2-5.4)
[2021-08-31 08:05] LABS: Est GFR (African American) 75.4 ml/min; Potassium 2.7 mmol/L (3.5-5.1)
[2021-08-31 08:06] LABS: Albumin Globulin Ratio 1.1 (0.9-2); BUN Creatinine Ratio 9.6 (10-20); Bilirubin,Total 0.9 mg/dl (0.2-1.0); Calcium 7.8 mg/dl (8.5-10.1); Creatinine Clr Calc Pharmacy 51.3 ml/min; Globulin 2.8 gm/dl (2.5-4.0); Magnesium 1.8 mg/dl (1.7-2.4); Total Protein 5.8 gm/dl (6.0-8.3)
--- NOTE | 2021-08-31 08:24 | Gastroenterology Progress Note ---
Date of Service August 31, 2021 Assessment & Plan (1) Total bilirubin, elevated: Plan: Abdominal pain: Admitted with epigastric and left upper quadrant abdominal pain. This is significantly improved this morning. She only has mild pain with exam. CT of the abdomen pelvis without acute findings to explain symptoms. Continue supportive care measures as outlined by hospitalist. EGD demonstrated grade 1 esophageal varices and mild portal hypertensive gastropathy in the stomach with some diffuse mildly erythematous mucosa without active bleeding in the entire duodenum. Plan is to obtain HIDA with EF this morning. Elevated LFTs: LFTs elevated from baseline at admission LFTs have normalized today. Right upper quadrant ultrasound demonstrated cirrhosis without hepatic mass and trace ascites with some nonspecific edematous gallbladder wall thickening and no biliary ductal dilatation. Plan is to obtain HIDA with EF. Black stools: Hemoccult ordered. Patient reports brown stools yesterday evening. Patient with history of cirrhosis. EGD 2019 negative for esophageal varices, non-bleeding esophageal varices noted on 08/22/2021 EGD. Denies NSAID or anticoagulant use. Cirrhosis of the liver: Stable. Follows with hepatology at [facility] in [place]. Continue current medications. Will facilitate outpatient follow-up. Case reviewed with Dr. Ruiz. Please refer to supervising physician addendum for further recommendations. I have spent 15 minutes of discrete time performing the activities of this visit which include but are not limited to review of the medical record, obtaining a history, physical exam, and entering information in the electronic record. (2) Epigastric pain: (3) Cirrhosis of liver: Admission and Anticipated Discharge Date Admission Date: August 29, 2021 Supervising Physician Co-Signing Physician Notes Ms. Mason was not interviewed and examined due to hospital discharge prior to my rounds this afternoon. Medical record reviewed and case discussed with KELECHI Sawyer. Chart Review: HIDA scan is normal, no cystic duct obstruction or reduced EF. WBC count has dropped to normal Agree with discharge and outpatient plan of care as outlined by Julia Hartman. Time spent on this consultation: 10 minutes. Subjective Patient is awake alert and oriented this morning. Denies any abdominal or epigastric pain at rest. Denies nausea or vomiting. Reports a bowel movement yesterday that was brown in color. Denies any melena or hematochezia. States she is tolerating clear liquids without difficulty. Waiting for HIDA scan this morning. No voice complaints. 08/30/2021: EGD notes reviewed performed due to history of epigastric abdominal pain and melena demonstrated grade 1 varices found at the gastroesophageal junction. No endoscopic evidence of bleeding, esophagitis, or mucosal abnormalities in the entire esophagus. Z-line was regular from 38 cm from the incisors. A 2 cm hiatal hernia was present. There was mild portal hypertensive gastropathy found in the entire stomach. There is no endoscopic evidence of bleeding, ulceration, or erosion in the entire examined stomach. There was diffuse mildly erythematous mucosa without active bleeding and with no stigmata of bleeding found in the entire duodenum. No endoscopic evidence of bleeding, ulceration, erosion in the entire examined duodenum. No specimens were collected. Review of Systems Review of Systems: All systems reviewed & are unremarkable except as noted in Subjective Physical Exam Gastrointestinal (Abdomen): Inspection/Auscultation: abdomen normal to inspection and normal bowel sounds; abdomen not distended Percussion/Palpation: + abdomen tender (mild tenderness with epigastric area palpation) and abdomen soft; no guarding and abdomen not rigid Results & Data ([facility]) Vital Signs (Past 12 Hours) Vital Signs Temp Pulse Pulse Resp BP Pulse Ox 08/31/21 06: 36.6 C 60 18 100/64 91 08/31/21 02:47 36.7 C 56 L 18 124/72 97 08/30/21 22:54 36.8 C 61 18 123/70 95 08/30/21 22:20 66 Laboratory Results Laboratory Results - last 24 hr 08/31/21 08/31/21 06:54 06:54 WBC 9.40 RBC 4.36 Hgb 13.6 Hct 38.6 MCV 88.5 MCH 31.2 MCHC 35.2 RDW Std Deviation 42.7 RDW Coeff of Elin 13.1 Plt Count 167 MPV 11.2 H Immature Gran % (Auto) 0.4 Neut % (Auto) 55.4 Lymph % (Auto) 28.5 [place] % (Auto) 14.0 Eos % (Auto) 1.3 Baso % (Auto) 0.4 Neut # (Auto) 5.20 Lymph # (Auto) 2.68 [place] # (Auto) 1.32 H Eos # (Auto) 0.12 Baso # (Auto) 0.04 Immature Gran # (Auto) 0.04 H Sodium 141 Potassium 2.7 L D Chloride 105 Carbon Dioxide 30 Anion Gap 6 BUN 9 Creatinine 0.94 Est Cr Clr Drug Dosing 51.3 Est GFR ( Amer) 75.4 Est GFR (Non-Af Amer) 65.0 BUN/Creatinine Ratio 9.6 L Glucose 96 Calcium 7.8 L Magnesium 1.8 Total Bilirubin 0.9 AST 29 ALT 28 Alkaline Phosphatase 95 Total Protein 5.8 L Albumin 3.0 L Globulin 2.8 Albumin/Globulin Ratio 1.1 Diagnostic Findings Gallbladder Ultrasound 08/30/21 00:00 US gallbladder HISTORY: 60 years-old Female epigastric pain, elevated bili/alk po4 and AST acute right upper quadrant abdominal pain COMPARISON: CT 08/29/2021 TECHNIQUE: Multiple real-time sonographic images of the abdominal right upper quadrant were obtained assessing grayscale appearance and color flow FINDINGS: The visualized pancreas is unremarkable. Cirrhotic morphology of the liver. Trace ascites. No hepatic mass identified. Pericholecystic fluid is noted with associated identified meniscal bladder wall thickening which measures up to approximately 1 cm. No cholelithiasis. Negative sonographic Wilkerson's sign. Normal common bile duct, 5 mm. The imaged right kidney is unremarkable without hydronephrosis. IMPRESSION: 1. Cirrhosis without hepatic mass identified. 2. Trace ascites. 3. Nonspecific edematous gallbladder wall thickening may be secondary to the chronic liver disease. No cholelithiasis. 4. No biliary ductal dilation. ACT 112: Negative or not required by law. The above report was generated using voice recognition software. It may contain grammatical, syntax or spelling errors. Electronically signed by: Aren James M.D. 08/30/2021 8:54 AM
[2021-08-31] MEDS: PANTOprazole 40 MG in SYRINGE 0 ML IV SCH (09:15)
[2021-08-31] MEDS: CALCIUM CARBONATE 1250MG TAB PO SCH (10:40)
[2021-08-31] MEDS: HEPARIN SOD 5,000 UNIT/0.5 ML VIAL SQ SCH (10:40)
[2021-08-31] MEDS: TORSEMIDE 10 MG TAB PO SCH (10:41)
[2021-08-31] MEDS: PREGABALIN 100 MG CAP PO SCH (10:41)
[2021-08-31] MEDS: TORSEMIDE 20 MG TAB PO SCH (10:41)
[2021-08-31] MEDS: LACTULOSE SYRUP 20 GM/30 ML UDC PO SCH (10:41)
[2021-08-31] MEDS: PROPRANOLOL HCL LA 80 MG CAPCR PO SCH (10:41)
[2021-08-31] MEDS: UMECLIDINIUM BROMIDE 62.5MCG/BLISTER 7 PUFFS/INHALER INH SCH (10:42)
--- NOTE | 2021-08-31 11:58 | Nuclear Medicine Report ---
NM hepatobiliary EF CLINICAL HISTORY: rule out biliary obstruction TECHNIQUE: Following the intravenous injection of 5.5 mCi of Tc-99m labeled Technetium 99m mebrofeni n, multiple images of the upper abdomen were obtained in the anterior projection with uptake measurem ents of the gallbladder obtained. Once the gallbladder and small bowel were visualized, the patient w as intravenously infused over 30 minutes with 0.02 mcg/kg of Sincalide (CCK), and imaging and uptakes were again obtained. Comparison: Comparison is made to gallbladder ultrasound 08/30/2021 FINDINGS: Sequential images demonstrate normal uptake in the liver, common bile duct, gallbladder, an d small bowel. No defects in uptake are identified. Subsequent imaging after the administration of si ncalide demonstrates prompt elimination of the radiotracer from the gallbladder. The calculated gallbladder ejection fraction based on uptake measurements is 81%. IMPRESSION: Normal uptake and excretion of contrast by the gallbladder. Reference: Normal gallbladder ejection fraction is greater than 33%. ACT 112: Negative or not required by law. Electronically signed by: Terrence Caldwell M.D. 08/31/2021 11:57 AM
[2021-08-31] MEDS: POTASSIUM CHLORIDE / WTR 10 MEQ/100 ML PLCT IV SCH ×2 (12:18→12:41)
[2021-08-31] MEDS ORDERED: POTASSIUM CHLORIDE CRTAB 20 MEQ TABCR PO STA (12:23)
--- NOTE | 2021-08-31 12:28 | Hospitalist Progress Note ---
Date of Service August 31, 2021 Assessment & Plan (1) Epigastric pain: Plan: Epigastric pain with vomiting -5 days of pain, patient with possible food poisoning exposure prior to onset of symptoms DDx includes gallbladder dysfunction EGD: Grade 1 esophageal varices without bleeding or stigmata, portal hypertensive gastropathy and duodenopathy without bleeding. 2 cm hiatal hernia. No endoscopic evidence of bleeding/ulceration/erosion in stomach. Diffuse mildly erythematous mucosa without bleeding in duodenum. No obvious source of discomfort. Continue Protonix twice daily - Protonix 40mg IV twice daily - Zofran as needed HIDA with ejection fraction is normal (2) Total bilirubin, elevated: Plan: Hyperbilirubinemia is mild HIDA with ejection fraction is normal AST elevated, ALT normal, alk phos 115 Patient with history of hep C cirrhosis, hep C treated (3) Leukocytosis: Plan: WBC 17 with NLR elevated,? Demargination - afebrile, not on oxygen, UA clear -Gallbladder/epigastric work-up as above Leukocytosis downtrending Procalcitonin normal Blood cultures negative to date -GGO on CXR, similar to on prior imaging - No ABX at this time (4) Cirrhosis of liver: Plan: History of hep C virus treated with Harvoni, subsequent liver cirrhosis EGD as noted Continue outpatient [facility] follow-up, currently compensated (5) Chronic obstructive pulmonary disease: Plan: Previous smoker- PFTS last completed- 2018 with normal spirometry - remains on Albuterol PRN and daily umeclidinium (6) Compensated HCV cirrhosis: Plan: Follow no acute needs currnetly (7) GERD without esophagitis: Plan: Chronic -EGD as above, PPI as noted (8) Multiple pulmonary nodules: Plan: Follows with pulmonary- no acute needs (9) Presence of intrathecal pump: Plan: For chronic neuropathic pain - continue with gabapentin (10) Hypothyroidism: Plan: Continue with synthroid (11) Tremor: Plan: Benign essential tremor- follows with neurology - continue propranolol - continue primidone (12) Hypokalemia: Plan: Oral and parenteral replacement. Serial labs Plan: Discharge to home today, August 31 Admission and Anticipated Discharge Date Admission Date: August 29, 2021 Subjective Alert and oriented. HIDA scan with ejection fraction was normal this morning. She is asymptomatic. Potassium is low and is being replaced parenterally and orally. She will go home later today Review of Systems Review of Systems: Constitutional-no fever or chills ENT-no blurred vision, no double vision, no epistaxis, no sore throat Respiratory-no cough, no wheezing, no shortness of breath Cardiac-no palpitations, no chest pain, no syncope GI-no nausea, vomiting, diarrhea, melena, hematochezia -no urinary retention, no urinary incontinence, no dysuria, no hematuria Musculoskeletal-no joint pain, no muscle tenderness Skin-no bruising, no rashes, no pruritus Neuro-no isolated weakness, no paresthesia, no weakness Psych-no depression, no anxiety Physical Exam Physical Exam: General-alert and oriented x3, no fevers, no chills HEENT-head atraumatic and normocephalic, TMs intact bilaterally, pupils equal and reactive to light, extraocular muscles intact Neck-no lymphadenopathy or thyromegaly, trachea midline Chest-clear to auscultation percussion. No rales wheezing or rhonchi Cardiac-regular rate and rhythm, normal S1 and S2, no murmurs Abdomen-normal bowel sounds, nontender, no hepatosplenomegaly Extremities-no cyanosis, clubbing, or edema Neuro-cranial nerves II through XII intact, motor and sensory function within normal limits, strength symmetrical , no focal deficits Psych-normal affect, normal mood Results & Data Results & Data ([facility]) Vital Signs (Past 12 Hours) Vital Signs Temp Pulse Pulse Resp BP Pulse Ox 08/31/21 11:59 36.7 C 64 16 134/76 93 08/31/21 06:22 36.6 C 60 18 100/64 91 08/31/21 06:13 55 L 08/31/21 02:47 36.7 C 56 L 18 124/72 97 Laboratory Results 08/31/21 06:54 08/31/21 06:54 PG Care Time/CCT Total # of Minutes Spent Total Time Spent with Patient: Total time spent is greater than 50% in coordination of care (as documented) at patient's floor/unit and/or counseling patient: Coding Level of Care Code 08236 Subseq Hosp Care Lvl 3 Diagnoses Epigastric pain R10.13 Total bilirubin, elevated R17 Leukocytosis D72.829 Cirrhosis of liver K74.60 Chronic obstructive pulmonary disease J44.9 Compensated HCV cirrhosis K74.69; B19.20 GERD without esophagitis K21.9 Multiple pulmonary nodules R91.8 Presence of intrathecal pump Z96.89 Hypothyroidism E03.9 Tremor R25.1 Hypokalemia E87.6
[2021-08-31] MEDS ORDERED: Nursing to Pharmacy Communication SCH (12:30)
--- NOTE | 2021-08-31 12:31 | Discharge Summary ---
Date of Service August 31, 2021 Admission HPI Per Admitting Provider 60 YOF with medical history of: Hepatitis C (treated Harvoni (2015), Benign tremor, cognitive memory decline, COPD, pulmonary nodules (former smoker), intractable neuropathic pain (intrathecal pain pump), Venous insufficiency with GSV. Patient comes to the EMD today for complaints of persistent N/V and epigastric/LUQ abdominal discomfort. Patient states that this started on early morning. She originally thought she had food poisoning after she ate a beef pie that she noticed had mold on it when she was almost done with it. She ate that at 1900 and woke up early in morning with vomiting and epigastric pain. The patient states that she has mostly thrown up clear mucous stuff with no blood, no food particles and no bile. She had loss of appetite up until Sunday night. Sunday she was able to keep down a boost drink and Gatorade. She remains however with a "dull throbbing pain" to her epigastrium/right upper quad. She states that this is improved and was a sharp nagging constant pain over the weekend. In the EMD the patient was given anti- emetics, Benadryl, and 1liter of crystalloid. She had CT scan of her abdomen and pelvis with IV contrast performed. This revealed patchy bibasilar opacities, chronic liver disease, colonic wall thickening, diffuse wall thickening of the stomach that is suspicious for gastritis. She appears to have had a similar episode in 2019- where she had a colonoscopy and EGD performed at that time- with no pathology- the duodenum was biopsied at that time- that was negative. Overall the patient's nausea is better and will give start her on P rotonix IV, then BID, will obtain ultrasound of her gallbladder. Keep NPO after midnight. Continue with IVF hydration. Will obtain blood culture and PCT with her elevated WBC, however this may be reactionary. COVID test: NEGATIVE Principal Diagnosis Diffuse abdominal pain, mild hyperbilirubinemia, hypokalemia Discharge Exam General-alert and oriented x3, no fevers, no chills HEENT-head atraumatic and normocephalic, TMs intact bilaterally, pupils equal and reactive to light, extraocular muscles intact Neck-no lymphadenopathy or thyromegaly, trachea midline Chest-clear to auscultation percussion. No rales wheezing or rhonchi Cardiac-regular rate and rhythm, normal S1 and S2, no murmurs Abdomen-normal bowel sounds, nontender, no hepatosplenomegaly Extremities-no cyanosis, clubbing, or edema Neuro-cranial nerves II through XII intact, motor and sensory function within normal limits, strength symmetrical , no focal deficits Psych-normal affect, normal mood Discharge Data Allergies Allergy/AdvReac Type Severity Reaction Status Date / Time azithromycin Allergy Intermediate Hives Verified 08/29/21 16:29 cefuroxime Allergy Intermediate Hives Verified 08/29/21 16:29 Consultations 08/29/21 15:20 ED Decision to Admit Stat 08/29/21 18:29 Consult Gastroenterology Routine Procedures Performed Operation Date: 08/30/21 16:50 Actual Procedures p Esophagogastroduodenoscopy - Ryan Ruiz MD Ordered Studies 08/29/21 12:11 CT abd pelvis IV con only Stat 08/30/21 US gallbladder Routine Hospital Course (1) Epigastric pain: Epigastric pain with vomiting -5 days of pain, patient with possible food poisoning exposure prior to onset of symptoms DDx includes gallbladder dysfunction EGD: Grade 1 esophageal varices without bleeding or stigmata, portal hypertensive gastropathy and duodenopathy without bleeding. 2 cm hiatal hernia. No endoscopic evidence of bleeding/ulceration/erosion in stomach. Diffuse mildly erythematous mucosa without bleeding in duodenum. No obvious source of discomfort. Treated withProtonix twice daily - Zofran as needed HIDA with ejection fraction is normal (2) Total bilirubin, elevated: Hyperbilirubinemia is mild HIDA with ejection fraction is normal AST elevated, ALT normal, alk phos 115 Patient with history of hep C cirrhosis, hep C treated (3) Leukocytosis: WBC 17 with NLR elevated,? Demargination - afebrile, not on oxygen, UA clear -Gallbladder/epigastric work-up as above Leukocytosis downtrending Procalcitonin normal Blood cultures negative to date -GGO on CXR, similar to on prior imaging - No ABX at this time (4) Cirrhosis of liver: History of hep C virus treated with Harvoni, subsequent liver cirrhosis EGD as noted Continue outpatient [facility] follow-up, currently compensated (5) Chronic obstructive pulmonary disease: Previous smoker- PFTS last completed- 2018 with normal spirometry - remains on Albuterol PRN and daily umeclidinium (6) Compensated HCV cirrhosis: Follow no acute needs currnetly (7) GERD without esophagitis: Chronic -EGD as above, PPI as noted (8) Multiple pulmonary nodules: Follows with pulmonary- no acute needs (9) Presence of intrathecal pump: For chronic neuropathic pain - continue with gabapentin (10) Hypothyroidism: Continue with synthroid (11) Tremor: Benign essential tremor- follows with neurology - continue propranolol - continue primidone (12) Hypokalemia: Oral and parenteral replacement. Serial labs Discharge to home today, August 31 Total Time Total Time Spent Total Time Spent (In Minutes): 35 minutes Discharge Plan Discharge Items Patient Disposition: Home - Self-Care Reason For Visit: FOOD ILLNESS Discharge Diagnosis: Diffuse abdominal pain, mild hyperbilirubinemia, hypokalemia Non-emergency contact: Primary Care Provider Call non-emergency contact if: you have any medication questions and your symptoms worsen Follow-up/Referrals: Sage Moon III, CRNP [Primary Care Provider] - Diet: Regular Addtl Attending Provider Instructions: All medications remain the same Pending Studies at Discharge: No Stand-Alone Forms: My Tubular Labs, Smoking Cessation Medications and DC Order Prescriptions: Continued multivitamin tablet 1 tab PO DAILY RF: 0 calcium carbonate 600 mg calcium (1,500 mg) tablet 600 mg PO BID RF: 0 Narcan 4 mg/actuation spray,non-aerosol 4 mg intranasal Q2M PRN (Reason: opioid overdose) Qty: 2 RF: 1 fluocinonide 0.1 % cream 1 appln TOP BID Qty: 60 RF: 1 ammonium lactate 12 % cream 1 applic TOP DAILY Qty: 385 RF: 3 ondansetron HCl 8 mg tablet 8 mg PO TID PRN (Reason: Nausea) Qty: 30 RF: 1 alendronate 70 mg tablet 70 mg PO WEEKLY Qty: 12 RF: 1 zaleplon 5 mg capsule 5 mg PO DAILY Qty: 90 RF: 1 lactulose 10 gram/15 mL solution 15 ml PO BID Qty: 1422 RF: 3 potassium chloride 10 mEq capsule, extended release 40 meq PO DAILY Qty: 720 RF: 1 levothyroxine 50 mcg tablet 50 mcg PO DAILY Qty: 90 RF: 1 torsemide 20 mg tablet 30 mg PO DAILY Qty: 135 RF: 1 pregabalin 100 mg capsule 100 mg PO BID Qty: 180 RF: 1 nortriptyline 25 mg capsule 25 mg PO HS Qty: 90 RF: 1 propranolol 160 mg capsule,extended release 24 hr 160 mg PO BID 90 Days Qty: 180 RF: 1 tretinoin 0.1 % cream 1 applic TOP HS Qty: 45 RF: 3 hydrocortisone 2.5 % cream 1 applic topical BID PRN (Reason: skin irritation) Qty: 30 RF: 0 hydroxyzine HCl 50 mg tablet 50 mg PO TID PRN (Reason: anxiety) Qty: 90 RF: 3 Incruse Ellipta 62.5 mcg/actuation blister with device 1 inh INH DAILY Qty: 90 RF: 1 albuterol sulfate 90 mcg/actuation HFA aerosol inhaler 2 puff INHALATION Q6H PRN (Reason: Shortness Of Breath Or Wheezing) Qty: 3 RF: 1 ipratropium bromide 21 mcg (0.03 %) spray,non-aerosol 2 spray intranasal BID Qty: 30 RF: 2 Pain Pump 0 mg Not Applicable UD RF: 0 Discharge Orders: Discharge Order (Routine); Ordered 08/31/21 Ordered By: Diego Hernandez Admission Data Admit Date/Time: 08/29/21 16:06 Attending Provider: Diego Hernandez Admit Provider: Sha Ellis Primary Care Provider: Sage Moon III Other Providers: Sha Ellis ; Ryan Ruiz Coding Level of Care Code D/C DAY MANAGEMENT >30 MINS Diagnoses Epigastric pain R10.13 Total bilirubin, elevated R17 Leukocytosis D72.829 Cirrhosis of liver K74.60 Chronic obstructive pulmonary disease J44.9 Compensated HCV cirrhosis K74.69; B19.20 GERD without esophagitis K21.9 Multiple pulmonary nodules R91.8 Presence of intrathecal pump Z96.89 Hypothyroidism E03.9 Tremor R25.1 Hypokalemia E87.6
--- NOTE | 2021-09-05 10:25 | Coding Query ---
CODING QUERY To promote full compliance with coding requirements relating to patient care, provider participation is requested in all cases of rigging loft mechanic uncertainty. Please assist us with the question(s) below: Coding Question(s): Pt admitted with epigastric pain. EGD during this admission. Please document, if known or suspected, the etiology of the epigastric pain. Thanks for your help. 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 [facility] Physician's Response(s): Portal hypertensive gastropathy as seen on 08/30/21 EGD Principal Diagnosis: "that condition established after study, to be chiefly responsible for occasioning the admission of the patient to the hospital for care." Co-Existing Principal Diagnosis: "when two or more diagnoses equally meet the criteria for principal diagnosis as determined by the circumstances of admission, diagnostic work up, and/or therapy provided, and the Alphabetic Index, Tabular List, or another coding guideline does not provide sequencing direction, any one of the diagnoses may be sequenced first." "When the physician has documented what appears to be a current diagnosis in the body of the record, but has not included the diagnosis in the final diagnostic statement, the physician should be asked whether the diagnosis should be added." (Source [facility]oding [facility] 2 QTR90. p3-4) [facility]
== END 2021-08-31 14:49 | disposition home or self-care (01) | DRG 392 ==
LOC: ED 11:57 → SUATTDRO 16:06 → EDINP 16:06 → 2W 17:38

== ENCOUNTER 2024-01-14 12:20 | Inpatient (IN) ==
--- NOTE | 2024-01-14 12:57 | History & Physical Report ---
Date of Service January 14, 2024 Assessment & Plan (1) Intrathecal pump infection: (2) Presence of intrathecal pump: (3) Lumbago: (4) Intractable neuropathic pain of lower extremity: (5) Compensated HCV cirrhosis: Plan 1. Recommend explantation of intrathecal pump and catheter with application of wound VAC today. Patient was consented with the full knowledge of the risks and benefits. Antibiotics will be guided by cultures obtained. 2. Anticipate 23-hour observation for coordination of wound clinic and postsurgical care. 3. Consult wound care for assistance with wound VAC. Appreciate input 4. Will plan to consult hospitalist for assistance with other medical comorbidities. Appreciate input History of Present Illness Primary Care Provider: Sage Moon III, KELECHI 63-year-old female well-known to the [facility] pain management office with a long-term intrathecal pump containing baclofen 64.19 mcg/day, clonidine 106.98 mcg/day and hydromorphone 1.0698 mg/day. She had a intrathecal pump replacement on 09/25/2023. She was healing well and noted to have suture material at the lateral border of the incision which was removed 11/19/2023. Incision was well-healed. She presented for subsequent visits without issue. Most recent intrathecal pump refill was on 12/06/2023. Her pump site appeared unremarkable on 01/08/2024. Unfortunately today she noticed drainage from the site. Cultures were taken and labs were ordered. She is here for explantation of intrathecal pump and catheter system. She denies fevers, change in motor or sensation, or other cognitive deficits. Allergies Allergy/AdvReac Type Severity Reaction Status Date / Time No Known Allergies Allergy Verified 01/14/24 12:38 Home Medications Medication Instructions Recorded Confirmed Type calcium carbonate 600 mg PO BID 12/31/17 01/14/24 History multivitamin 1 tab PO QAM 12/31/17 01/14/24 History Pain Pump 0 mg Not Applicable UD 11/22/18 01/14/24 History albuterol sulfate 90 mcg/actuation 2 puff inhalation Q6H PRN 10/13/21 01/14/24 Rx aerosol inhaler Shortness Of Breath Or Wheezing #3 Inhalers fluocinolone 0.01 % scalp oil and 1 ea topical DAILY PRN Psoriasis 06/19/22 01/14/24 Rx shower cap #118.28 mL cromolyn 4 % eye drops 2 drp ophthalmic (eye) QID PRN 11/20/22 01/14/24 Rx allergy symptoms #30 mL hydroxyzine HCl 50 mg tablet 50 mg PO TID PRN anxiety #90 tabs 12/11/22 01/14/24 Rx alendronate 70 mg tablet 70 mg PO WEEKLY #12 tabs 02/09/23 01/14/24 Rx ondansetron HCl 8 mg tablet 8 mg PO TID PRN Nausea #30 tabs 03/26/23 01/14/24 Rx naloxone 4 mg/actuation nasal 4 mg intranasal Q2M PRN opioid 03/28/23 01/14/24 Rx spray (Narcan) overdose #2 ea tiotropium bromide 1.25 2 puff inhalation DAILY 90 days 04/03/23 01/14/24 Rx mcg/actuation mist for inhalation #12 grams (Spiriva Respimat) propranolol 160 mg capsule,24 160 mg PO BID #180 caps 06/11/23 01/14/24 Rx hr,extended release hydrocortisone 2.5 % topical cream 1 applic topical BID PRN skin 06/25/23 01/14/24 Rx irritation #30 grams ammonium lactate 12 % topical cream 1 applic topical DAILY PRN prn 08/29/23 01/14/24 History lactulose 10 gram/15 mL oral 10 g PO BID 08/29/23 01/14/24 History solution levothyroxine 50 mcg tablet 50 mcg PO QAM 08/29/23 01/14/24 History potassium chloride 10 mEq 40 meq PO QAM 08/29/23 01/14/24 History capsule,extended release propranolol 80 mg capsule,24 80 mg PO QAM 08/29/23 01/14/24 History hr,extended release torsemide 20 mg tablet 30 mg PO QAM 08/29/23 01/14/24 History zaleplon 10 mg capsule 10 mg PO HS 08/29/23 01/14/24 History pregabalin 100 mg capsule 100 mg PO BID #180 caps 09/07/23 01/14/24 Rx tretinoin 0.1 % topical cream 1 applic topical HS #45 grams 09/17/23 01/14/24 Rx baclofen 10 mg tablet 10 mg PO BID PRN muscle spasm #30 11/19/23 01/14/24 Rx tabs nortriptyline 25 mg capsule 25 mg PO HS #90 caps 12/10/23 01/14/24 Rx ipratropium bromide 21 mcg (0.03 See Rx Instructions .Route 12/14/23 01/14/24 Rx %) nasal spray .COMPLEX #30 mL Past Med/Surg History Problem List Intrathecal pump infection Effusion of right knee joint Chondrocalcinosis of right knee Right knee pain Glenohumeral arthritis Ulnar neuropathy at elbow of right upper extremity Numbness and tingling in right hand Thoracic back pain Allergic rhinitis with postnasal drip Multiple pulmonary nodules Alveolar emphysema of lung Total bilirubin, elevated PIPO (generalized anxiety disorder) (Chronic) Diffuse myofascial pain syndrome Chronic venous insufficiency (Chronic) Multiple pulmonary nodules (Chronic) Leukocytosis (Chronic) Psoriasis (Chronic) Peripheral neuropathy (Chronic) Osteoporosis (Chronic) Insomnia (Chronic) Hypothyroidism (Chronic) Hyperglycemia (Chronic) GERD without esophagitis (Chronic) Dyslipidemia (Chronic) Depression (Chronic) Compensated HCV cirrhosis (Chronic) Chronic obstructive pulmonary disease (Chronic) Chronic fatigue syndrome (Chronic) Benign familial tremor (Chronic) Osteoarthritis (Chronic) 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) Lumbago (Chronic) Presence of intrathecal pump (Chronic) Hypokalemia (Chronic) Dehydration (Chronic) Medical History Fracture of proximal end of right humerus Had fracture in proximal right humerus in 2020 as well Ex-smoker Scoliosis Muscle spasm History of Scheuermann disease Ambulatory dysfunction Medical marijuana use 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 unsure of diagnosis, follows with Dr Hooker, per records Brown-Squard syndrome Benign familial tremor Chronic fatigue syndrome Dyslipidemia Osteoporosis Psoriasis Chronic venous insufficiency PIPO (generalized anxiety disorder) Allergic rhinitis Ambulatory dysfunction uses cane, history of falls-denies recent falls Chronic thoracic back pain History of Scheuermann disease Scoliosis Hypothyroidism Depression Pulmonary nodules follows with Dr Hooker COPD (chronic obstructive pulmonary disease) Non-ST elevation (NSTEMI) myocardial infarction patient denies History of actinic keratosis Intractable neuropathic pain of lower extremity Osteoarthritis Cirrhosis of liver Lumbago History of hepatitis C (~2015) s/p treatment Surgical History Status post cervical spinal fusion History of endoscopy S/P colonoscopy History of spinal surgery Cervical fusion History of carpal tunnel surgery right Presence of intrathecal pump Family History Aunt Breast cancer Mother Valvular heart disease Father H/O malignant neoplasm of duodenum Denies family history of Ovarian cancer Prostate cancer Crohn's disease Myocardial infarction Colorectal cancer Ulcerative colitis Uterine cancer Social History Smoking Status: Former smoker Tobacco Type: Cigarettes Age Started Using Tobacco: 15; Age Quit Using Tobacco: 35; packs per day: 0.5; Cigarettes Per Day: quit 20 or more years ago; Second Hand Exposure: Yes (childhood); Do You Dip or Chew Tobacco: No; Hx Alcohol Use: No Hx Substance Use: Yes Last Used Substance: Unknown Substance Use Type Other:: medical marijuana Preferred Language: Khmer Communication Ability: Effective Visual Impairment: No Limitations Hearing Ability: Normal Billiard Table Repairer Required: No Beliefs That Will Affect Care: None marital status: Current Living Situation: Parent current occupational status: disabled Feels Safe at Home: Yes Childhood Exposure to Second-Hand Smoke: No Diet: regular caffeine: Yes during the past year weight has: remained stable Dental Care, Regularly: Yes Physical Activity Frequency: Does not Exercise Seatbelt Use: always Sunscreen Use: Yes Assistive Devices: Cane and Glasses Review of Systems Review of Systems: All systems reviewed & are unremarkable except as noted in HPI & below Physical Exam Constitutional: WD/WN, vitals as above Eyes: PERRL, conjunctivae normal, anicteric sclerae ENMT: external ear and nose normal, oropharynx normal Neck: normal visual inspection and trachea midline Respiratory: normal respiratory effort, lungs clear to auscultation Cardiovascular: RRR, no murmur, no edema Gastrointestinal (Abdomen): normal bowel sounds, soft, nontender, no hepatosplenomegaly Inspection/Auscultation: + abdominal surgical incision (LLQ intrathecal pump site with lateral drainage mild erythema noted.) Musculoskeletal: no cyanosis or clubbing, extremities motor strength 5/5 Neurologic: PERRL, EOMI, accommodation nl, no face palsy, no dysarthria CN's II-XI intact bilaterally no nuchal rigidity Psychiatric: A+Ox3, euthymic affect Results & Data Results & Data Vital Signs (Past 12 Hours) Vital Signs Temp Pulse Resp BP Pulse Ox O2 Del Method 01/14/24 12:47 36.8 C 70 20 123/73 96 Room Air (1) Intrathecal pump infection Encounter type: initial encounter Qualified Code(s): T85.738A - Infection and inflammatory reaction due to other nervous system device, implant or graft, initial encounter
[2024-01-14] MEDS ORDERED: POLYETHYLENE (MIRALAX) 17 GM PACK PO PRN (13:18)
[2024-01-14] MEDS ORDERED: ONDANSETRON INJ 2 MG/ML 2 ML VIAL IV PRN ×2 (13:18→15:45)
[2024-01-14] MEDS ORDERED: ACETAMINOPHEN 325 MG TAB PO PRN (13:18)
[2024-01-14] MEDS ORDERED: VANCOMYCIN CONSULT ACTIVE PRN ×2 (13:22→16:13)
[2024-01-14] MEDS ORDERED: PROPOFOL IV EMULSION 10 MG/ML 20 ML VIAL IV ONE (13:24)
[2024-01-14] MEDS ORDERED: MIDAZOLAM HCL 1 MG/ML 2ML VIAL ONE (13:24)
[2024-01-14] MEDS ORDERED: DEXAMETHASONE SOD INJ 4 MG/ML VIAL ONE (13:24)
[2024-01-14] MEDS ORDERED: fentaNYL citrate PF 100 MCG/2 ML VIAL ONE (13:24)
[2024-01-14] MEDS ORDERED: ONDANSETRON INJ 2 MG/ML 2 ML VIAL ONE (13:24)
[2024-01-14] MEDS ORDERED: LIDOCAINE 2% 2 ML VIAL/AMP(20MG/ML) INFIL ONE ×2 (13:24)
[2024-01-14] MEDS ORDERED: ROCURONIUM BROMIDE 10 MG/ML 5 ML VIAL IV ONE ×4 (13:27)
[2024-01-14] MEDS: LACTATED RINGER'S 1,000 ML IV SCH (13:34)
[2024-01-14] MEDS: VANCOMYCIN HCL 1,000 MG/270 ML BAG IV ONE (14:00)
[2024-01-14] MEDS ORDERED: SUGAMMADEX SODIUM 200 MG/2 ML VIAL IV ONE (14:22)
[2024-01-14] MEDS: LIDOCAINE 2%/EPINEPHRINE 1:100,000 20ML INFIL ONE (14:38)
[2024-01-14] MEDS: ceFAZolin 330 MG/ML 1 GM VIAL ONE ×2 (15:24→15:26)
--- NOTE | 2024-01-14 15:36 | Operative Report ---
Post Operative Report Pre & Post Diagnosis Operation Date: 01/14/24 15:55 Pre-Op Diagnosis: (1) Intrathecal pump infection (2) Presence of intrathecal pump (3) Lumbago (4) Intractable neuropathic pain of lower extremity (5) Compensated HCV cirrhosis Post-Op Diagnosis: (1) Intrathecal pump infection (2) Presence of intrathecal pump (3) Lumbago (4) Intractable neuropathic pain of lower extremity (5) Compensated HCV cirrhosis I identified the patient and participated in the time-out.: Yes Procedure Operation Date: 01/14/24 15:55 Actual Procedures p Explantation Intrathrecal Pump with Application of Wound Vac(Not Applicable) - Sue Singer DO Surgeon Sue Singer DO Military Technology Specialist none Estimated Blood Loss 30 Findings Consistent with Post-Op Diagnosis Fluids per anes record Specimens Cultures back and LLQ pocket Intrathecal portion of catheter Intrathecal pump Drains wound vac Anesthesia Type General Complications none Disposition Accompanied Patient To Recovery: No Disposition: Recovery Room Indications infected intrathecal pump Description of Procedure INTRATHECAL PUMP AND CATHETER EXPLANTATION AND APPLICATION OF WOUND VAC PREOPERATIVE DIAGNOSIS:Infected intrathecal pump pocket POSTOPERATIVE DIAGNOSIS: Same. COMPLICATIONS: None. SURGEON: Dr. Sue Singer. EBL: 30ml ANESTHESIA: General. MATERIAL FORWARDED TO THE LAB: Back and LLQ pocket cultures, intrathecal portion of explanted catheter, explanted intrathecal pump The patient was noted to purulent drainage from her left lower quadrant intrathecal pump pocket necessitating explantation of the entire intrathecal pump and catheter system. The patient was explained the risks, benefits, alternatives of the procedure and agreed to proceed as above. Informed consent was obtained and witnessed. A time out was performed after the patient was brought into the Operating Room. Clindamycin 900 mg IV x 1 had been given in the office at 11:15 AM today after cultures were aspirated from the pocket. The patient was then induced with general anesthesia without complications and was placed in right lateral decubitus position. Fluoroscopy was utilized during the procedure. The axial lumbar spine skin was prepped with duraprep and betadine and draped in sterile fashion. The intrathecal catheter was identified on fluoroscopy and a 1-1/2 inch incision was made with a 15 blade. The catheter anchors and intrathecal portion of the catheter were identified with blunt dissection and electrocautery. A culture was taken of the axilla lumbar incision. The anchors were freed from the tissues. 2-0 silk pursestring sutures were placed around the exit of the intrathecal portion of the catheter. The intrathecal catheter was removed and the sutures were tied. 2 separate lizet tained Valsalva maneuvers failed to show any CSF leak. The abdominal portion of the intrathecal catheter was cut and the entire axial midline section of the intrathecal catheter was removed and placed in a culture container. Next the axial lumbar incision was irrigated with Ancef infused saline and hemostasis was excellent. The incision was closed with 0 strata fix and 3-0 STRATAFIX. Next Prineo and Dermabond was placed. 4 x 4's and Tegaderm dressings were subsequently placed. The drapes were removed and the patient was subsequently moved into a supine position. Next the left lower quadrant pocket was prepped with DuraPrep. Sterile drapes and Ioban dressing were subsequently placed. The incision was made over the pocket with a 15 blade scalpel and the intrathecal pump was identified with a combination of electrocautery and blunt dissection. Deep pocket cultures were taken. The intrathecal pump and a large portion of abdominal portion of the intrathecal catheter was removed and placed in a sterile container for culture. The tissues did not appear swollen and only approximately 2 mL of purulent fluid were noted. There was no foul smell. There did not appear to be any necrotic tissue within the pocket. No [place] mesh was noted. All retaining suture material was removed. Next hemostasis was easily achieved with a small amount of electrocautery. Next 2 L of Ancef infused saline was placed on a pulse charting clerk and the pocket was irrigated. Next, a wound VAC was successfully placed in standard fashion over the left lower quadrant wound. The patient was emerged from general anesthesia and taken to the PACU in stable condition. I attest to the content of the Intraoperative Record and any orders documented therein. Any exceptions are noted below.
[2024-01-14] MEDS ORDERED: ATROPINE SULFATE 0.1 MG/ML 10ML SYR IV PRN (15:45)
[2024-01-14] MEDS ORDERED: PROMETHAZINE HCL 6.25 MG in SODIUM CHLORIDE 0.9% 50 ML IV PRN (15:45)
[2024-01-14] MEDS ORDERED: ePHEDrine sulfate 50 MG/ML AMP IV PRN (15:45)
[2024-01-14] MEDS: fentaNYL citrate PF 100 MCG/2 ML VIAL IV PRN (15:47)
[2024-01-14] MEDS: fentaNYL citrate PF 100 MCG/2 ML VIAL ONE (16:05)
[2024-01-14] MEDS ORDERED: VANCOMYCIN HCL 1,000 MG/270 ML BAG IV SCH (16:15)
[2024-01-14] MEDS: cefTRIAXone SODIUM 2,000 MG/50 ML BAG IV SCH (16:25)
[2024-01-14] MEDS: HYDROmorphone INJ 2 MG/ML SYR/VIAL IV PRN (16:31)
--- NOTE | 2024-01-14 16:44 | Anesthesiology Progress Note ---
Date of Service January 14, 2024 Anesthesia Post Procedure Vital Signs Vital Signs: Temp Pulse Resp BP Pulse Ox O2 Del Method O2 Flow Rate 01/14/24 16:25 61 14 149/80 H 94 Nasal Cannula 3 01/14/24 16:15 66 13 161/76 H 97 Nasal Cannula 3 01/14/24 16:05 68 13 167/95 H 95 Nasal Cannula 3 01/14/24 15:55 66 16 169/95 H 96 Nasal Cannula 3 01/14/24 15:45 70 16 163/88 H 92 Room Air 01/14/24 15:36 36.1 C L 68 16 177/94 H 97 Room Air 01/14/24 12:47 36.8 C 70 20 123/73 96 Room Air Pain Intensity Left Lower Abdomen: Pain Intensity: 7 Left Abdomen: Pain Intensity: 5 Back: Pain Intensity: 5 Transfer of Care Handoff Completed per policy Notes Mental Status: alert / awake / arousable and participated in evaluation Patient Amnestic to Procedure: Yes Nausea / Vomiting: adequately controlled Pain: adequately controlled Airway Patency, RR, SpO2: stable & adequate BP & HR: stable & adequate Hydration State: stable & adequate Anesthetic Complications: no major complications apparent
--- NOTE | 2024-01-14 16:56 | Anesthesiology Consultation ---
Date of Service January 14, 2024 Assessment & Plan Chart Review Chart Review: Acceptable Risk for Surgery Consults Requested none History Surgery Operation Date: 01/14/24 15:55 Proposed Procedures p Explantation Intrathrecal Pump, Application of Wound Vac - Sue Singer DO Height/Weight Height: 5 ft 3 in Weight: 50.6 kg Allergies Allergy/AdvReac Type Severity Reaction Status Date / Time No Known Allergies Allergy Verified 01/14/24 12:38 Medications Home Medications Medication Instructions Recorded Confirmed Last Taken calcium carbonate 600 mg PO BID 12/31/17 01/14/24 01/13/24 20:00 multivitamin 1 tab PO QAM 12/31/17 01/14/24 01/13/24 20:00 Pain Pump 0 mg Not Applicable UD 11/22/18 01/14/24 Unknown albuterol sulfate 90 mcg/actuation 2 puff inhalation Q6H PRN 10/13/21 01/14/24 Unknown aerosol inhaler Shortness Of Breath Or Wheezing #3 Inhalers fluocinolone 0.01 % scalp oil and 1 ea topical DAILY PRN Psoriasis 06/19/22 01/14/24 Unknown shower cap #118.28 mL cromolyn 4 % eye drops 2 drp ophthalmic (eye) QID PRN 11/20/22 01/14/24 01/14/24 08:00 allergy symptoms #30 mL hydroxyzine HCl 50 mg tablet 50 mg PO TID PRN anxiety #90 tabs 12/11/22 01/14/24 Unknown alendronate 70 mg tablet 70 mg PO WEEKLY #12 tabs 02/09/23 01/14/24 09/15/23 08:00 ondansetron HCl 8 mg tablet 8 mg PO TID PRN Nausea #30 tabs 03/26/23 01/14/24 01/13/24 23:59 naloxone 4 mg/actuation nasal 4 mg intranasal Q2M PRN opioid 03/28/23 01/14/24 Unknown spray (Narcan) overdose #2 ea tiotropium bromide 1.25 2 puff inhalation DAILY 90 days 04/03/23 01/14/24 01/14/24 08:00 mcg/actuation mist for inhalation #12 grams (Spiriva Respimat) propranolol 160 mg capsule,24 160 mg PO BID #180 caps 06/11/23 01/14/24 01/14/24 08:00 hr,extended release hydrocortisone 2.5 % topical cream 1 applic topical BID PRN skin 06/25/23 01/14/24 Unknown irritation #30 grams ammonium lactate 12 % topical cream 1 applic topical DAILY PRN prn 08/29/23 01/14/24 01/14/24 07:00 lactulose 10 gram/15 mL oral 10 g PO BID 08/29/23 01/14/24 01/13/24 20:00 solution levothyroxine 50 mcg tablet 50 mcg PO QAM 08/29/23 01/14/24 01/14/24 08:00 potassium chloride 10 mEq 40 meq PO QAM 08/29/23 01/14/24 01/14/24 08:00 capsule,extended release propranolol 80 mg capsule,24 80 mg PO QAM 08/29/23 01/14/24 01/14/24 08:00 hr,extended release torsemide 20 mg tablet 30 mg PO QAM 08/29/23 01/14/24 01/13/24 14:00 zaleplon 10 mg capsule 10 mg PO HS 08/29/23 01/14/24 Unknown pregabalin 100 mg capsule 100 mg PO BID #180 caps 09/07/23 01/14/24 01/14/24 08:00 tretinoin 0.1 % topical cream 1 applic topical HS #45 grams 09/17/23 01/14/24 01/13/24 21:00 baclofen 10 mg tablet 10 mg PO BID PRN muscle spasm #30 11/19/23 01/14/24 01/07/24 tabs nortriptyline 25 mg capsule 25 mg PO HS #90 caps 12/10/23 01/14/24 01/13/24 20:00 ipratropium bromide 21 mcg (0.03 See Rx Instructions .Route 12/14/23 01/14/24 01/14/24 08:00 %) nasal spray .COMPLEX #30 mL Active Medications Generic Name Dose Route Start Last Admin Trade Name Freq PRN Reason Stop Dose Admin Hydromorphone HCl 0.5 mg 01/14/24 15:45 01/14/24 16:40 Hydromorphone Inj 2 Mg/Ml Syr/Vial IV 01/14/24 23:45 0.5 mg Q5M PRN Administration PACU Use Only-Pain Ceftriaxone Sodium 2,000 mg in 50 mls @ 100 mls/hr 01/14/24 17:00 01/14/24 16:25 Rocephin IV 01/15/24 16:59 100 mls/hr Q24H NIGEL Administration Lactated Ringer's 1,000 mls @ 15 mls/hr 01/14/24 13:45 01/14/24 13:51 Lr IV 01/15/24 13:44 Infused .Q24H NIGEL Infusion NPO Date Last Intake of Fluids: 01/13/24 Time Last Intake of Fluids: 21:00 Last Intake of Fluids Comment: sip water today at 1200 Date Last Intake of Solids: 01/13/24 Time Last Intake of Solids: 21:00 Past Medical History Medical History Fracture of proximal end of right humerus Had fracture in proximal right humerus in 2020 as well Ex-smoker Scoliosis Muscle spasm History of Scheuermann disease Ambulatory dysfunction Medical marijuana use 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 unsure of diagnosis, follows with Dr Hooker, per records Brown-Squard syndrome Benign familial tremor Chronic fatigue syndrome Dyslipidemia Osteoporosis Psoriasis Chronic venous insufficiency PIPO (generalized anxiety disorder) Allergic rhinitis Ambulatory dysfunction uses cane, history of falls-denies recent falls Chronic thoracic back pain History of Scheuermann disease Scoliosis Hypothyroidism Depression Pulmonary nodules follows with Dr Hooker COPD (chronic obstructive pulmonary disease) Non-ST elevation (NSTEMI) myocardial infarction patient denies History of actinic keratosis Intractable neuropathic pain of lower extremity Osteoarthritis Cirrhosis of liver Lumbago History of hepatitis C (~2015) s/p treatment Past Family History Family History Aunt Breast cancer Mother Valvular heart disease Father H/O malignant neoplasm of duodenum Denies family history of Ovarian cancer Prostate cancer Crohn's disease Myocardial infarction Colorectal cancer Ulcerative colitis Uterine cancer Past Surgical History Surgical History Status post cervical spinal fusion History of endoscopy S/P colonoscopy History of spinal surgery Cervical fusion History of carpal tunnel surgery right Presence of intrathecal pump Social History Smoking Status: Former smoker Smoking cigarettes per day: quit 20 or more years ago Do You Dip or Chew Tobacco: No Hx Alcohol Use: No Hx Substance Use: Yes substance use type: marijuana Substance Use Type Other:: medical marijuana Last Used Substance: Unknown Physical Exam Vital Signs Last Vital Signs Temp 36.1 C L 01/14/24 15:36 Pulse 59 L 01/14/24 16:45 Resp 12 01/14/24 16:45 BP 138/80 01/14/24 16:45 Pulse Ox 93 01/14/24 16:45 O2 Del Method Nasal Cannula 01/14/24 16:45 O2 Flow Rate 3 01/14/24 16:45
--- NOTE | 2024-01-14 17:20 | Hospitalist Consultation ---
Date of Consultation January 14, 2024 Assessment & Plan (1) Intrathecal pump infection: Infected intrathecal pain pump S/p explantation 01/14/2024 Continue Rocephin/vancomycin Operative cultures pending Normotensive, no tachycardia, no tachypnea or fever on assessment. She had a leukocytosis of 12.52-day of admission. She does not meet sepsis criteria. CRP is elevated 1.3. Suspect from acute infection, trended Patient had been on pain pump with baclofen 64.19 mcg/day, clonidine 106.98 mcg/day, hydromorphone 1.0698 mg/day. Management per primary team. Post explantation will be continued on baclofen 10 mg 4 times daily p.o. as needed, Lyrica twice daily scheduled, nortriptyline 25 mg in the evening scheduled, scheduled [place] with breakthrough Dilaudid every 3 hours as needed in addition to two 0.5 postop doses available Agree with Rocephin/vancomycin. Continue, adjust based on surgical culture speciation/sensitivities Transaminitis, history of compensated hep C cirrhosis With history of curative treatment several years ago Patient with a chronic AST alk phos elevation, slightly increased from prior and new ALT elevation. Patient is due for her 6-month screening ultrasound given history of treated hep C and underlying cirrhosis. Ordered. Last liver ultrasound 06/2023: Cirrhotic liver, no hepatic masses or evidence of HCC noted. Due to history of cirrhosis with mildly elevated transaminitis near but slightly above baseline we will dose reduce Tylenol to 2 g total daily dose Patient is not currently on a statin Renal function is at baseline Torsemide 30 mg daily continued. Last echo 2018 EF 60 to 65% without wall motion abnormalities. Denies hx CHF. COPD Continue Spiriva No acute exacerbation Tremor Continue propranolol to 40 mg a.m., 160 mg p.m. Hypothyroidism: Synthroid continued. Last TSH checked 12/2022 within normal limits. Will defer rechecking TSH as in the setting of acute illness may be artificially elevated. Can continue outpatient follow-up for this. (2) Compensated HCV cirrhosis: (3) GERD without esophagitis: (4) Insomnia: History of Present Illness Attending Physician: Sue Singer, History of Present Illness Melody is a 63-year-old female with a past medical history of hypothyroidism, COPD on Spiriva, chronic fatigue, Brown-Squard syndrome, PIPO, osteoporosis, insomnia who had a intrathecal pain pump with history of Schuermann disease at the end of its life span which was explanted and replaced 09/25/2023. She was seen for reevaluation and suspected to have an infected intrathecal pump at pain management visit today. She presented for operative pump explantation 01/14/2024. We have been consulted for assistance with postoperative management Melody is seen in the PACU postoperatively. She reports her pain was very bad initially but is now down to around a 4 after getting some medicine and tolerable to her. She reports that the pain pump was a miracle for her pain and is somewhat disappointed that it had to be explanted. Pain is tolerable to her at time of assessment. She denies fever chills sweats chest pain chest pressure at time of assessment although notes that she felt a little bit flushed the day prior. She reports her abdomen is diffusely mildly tender. No nausea/vomiting. Reports no history of angina/heart disease. Does have a history of COPD, she feels her breathing is normal and at its baseline. She endorses a history of compensated hep C cirrhosis. She reports she did undergo a curative course of treatment several years ago with no known recurrence. She reports she gets some mild abdominal ascites which responds well to torsemide which she also takes for leg swelling. Denies any history of orthopnea or congestive heart failure. Denies tobacco and alcohol use. Denies recreational drug use. Denies medication allergies. CODE STATUS: Full code. Allergies Allergy/AdvReac Type Severity Reaction Status Date / Time No Known Allergies Allergy Verified 01/14/24 12:38 Home Medications Medication Instructions Recorded Confirmed Type calcium carbonate 600 mg PO BID 12/31/17 01/14/24 History multivitamin 1 tab PO QAM 12/31/17 01/14/24 History Pain Pump 0 mg Not Applicable UD 11/22/18 01/14/24 History albuterol sulfate 90 mcg/actuation 2 puff inhalation Q6H PRN 10/13/21 01/14/24 Rx aerosol inhaler Shortness Of Breath Or Wheezing #3 Inhalers fluocinolone 0.01 % scalp oil and 1 ea topical DAILY PRN Psoriasis 06/19/22 01/14/24 Rx shower cap #118.28 mL cromolyn 4 % eye drops 2 drp ophthalmic (eye) QID PRN 11/20/22 01/14/24 Rx allergy symptoms #30 mL hydroxyzine HCl 50 mg tablet 50 mg PO TID PRN anxiety #90 tabs 12/11/22 01/14/24 Rx alendronate 70 mg tablet 70 mg PO WEEKLY #12 tabs 02/09/23 01/14/24 Rx ondansetron HCl 8 mg tablet 8 mg PO TID PRN Nausea #30 tabs 03/26/23 01/14/24 Rx naloxone 4 mg/actuation nasal 4 mg intranasal Q2M PRN opioid 03/28/23 01/14/24 Rx spray (Narcan) overdose #2 ea tiotropium bromide 1.25 2 puff inhalation DAILY 90 days 04/03/23 01/14/24 Rx mcg/actuation mist for inhalation #12 grams (Spiriva Respimat) propranolol 160 mg capsule,24 160 mg PO BID #180 caps 06/11/23 01/14/24 Rx hr,extended release hydrocortisone 2.5 % topical cream 1 applic topical BID PRN skin 06/25/23 01/14/24 Rx irritation #30 grams ammonium lactate 12 % topical cream 1 applic topical DAILY PRN prn 08/29/23 01/14/24 History lactulose 10 gram/15 mL oral 10 g PO BID 08/29/23 01/14/24 History solution levothyroxine 50 mcg tablet 50 mcg PO QAM 08/29/23 01/14/24 History potassium chloride 10 mEq 40 meq PO QAM 08/29/23 01/14/24 History capsule,extended release propranolol 80 mg capsule,24 80 mg PO QAM 08/29/23 01/14/24 History hr,extended release torsemide 20 mg tablet 30 mg PO QAM 08/29/23 01/14/24 History zaleplon 10 mg capsule 10 mg PO HS 08/29/23 01/14/24 History pregabalin 100 mg capsule 100 mg PO BID #180 caps 09/07/23 01/14/24 Rx tretinoin 0.1 % topical cream 1 applic topical HS #45 grams 09/17/23 01/14/24 Rx baclofen 10 mg tablet 10 mg PO BID PRN muscle spasm #30 11/19/23 01/14/24 Rx tabs nortriptyline 25 mg capsule 25 mg PO HS #90 caps 12/10/23 01/14/24 Rx ipratropium bromide 21 mcg (0.03 See Rx Instructions .Route 12/14/23 01/14/24 Rx %) nasal spray .COMPLEX #30 mL Patient History Medical History Fracture of proximal end of right humerus Had fracture in proximal right humerus in 2020 as well Ex-smoker Scoliosis Muscle spasm History of Scheuermann disease Ambulatory dysfunction Medical marijuana use 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 unsure of diagnosis, follows with Dr Hooker, per records Brown-Squard syndrome Benign familial tremor Chronic fatigue syndrome Dyslipidemia Osteoporosis Psoriasis Chronic venous insufficiency PIPO (generalized anxiety disorder) Allergic rhinitis Ambulatory dysfunction uses cane, history of falls-denies recent falls Chronic thoracic back pain History of Scheuermann disease Scoliosis Hypothyroidism Depression Pulmonary nodules follows with Dr Hooker COPD (chronic obstructive pulmonary disease) Non-ST elevation (NSTEMI) myocardial infarction patient denies History of actinic keratosis Intractable neuropathic pain of lower extremity Osteoarthritis Cirrhosis of liver Lumbago History of hepatitis C (~2015) s/p treatment Surgical History Status post cervical spinal fusion History of endoscopy S/P colonoscopy History of spinal surgery Cervical fusion History of carpal tunnel surgery right Presence of intrathecal pump Family History Aunt Breast cancer Mother Valvular heart disease Father H/O malignant neoplasm of duodenum Denies family history of Ovarian cancer Prostate cancer Crohn's disease Myocardial infarction Colorectal cancer Ulcerative colitis Uterine cancer Social History Smoking Status: Former smoker Tobacco Type: Cigarettes Age Started Using Tobacco: 15; Age Quit Using Tobacco: 35; packs per day: 0.5; Cigarettes Per Day: quit 20 or more years ago; Second Hand Exposure: Yes (childhood); Do You Dip or Chew Tobacco: No; Hx Alcohol Use: No Hx Substance Use: Yes Last Used Substance: Unknown Substance Use Type Other:: medical marijuana Preferred Language: [place] Communication Ability: Effective Visual Impairment: No Limitations Hearing Ability: Normal 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 NAD. Cooperative. HEENT: Atraumatic, normocephalic. Vision and hearing grossly intact Pulm: CTAB A&P. -wheezes, -rales, -rhonchi. Symmetrical chest rise. No increased work of breathing. No respiratory distress. Cardiac: RRR, -mrg. Radial pulses intact and symmetrical. Abdominal: Abdomen is diffusely mildly tender but without rebound/involuntary guarding. Wound VAC is in place at left lower abdomen draining slight serosanguineous material. Back is with postsurgical dressing C/D/I. 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 Results & Data Results & Data Vital Signs (Past 12 Hours) Vital Signs Temp Pulse Resp BP Pulse Ox O2 Del Method O2 Flow Rate 01/14/24 17:15 71 14 120/73 97 Nasal Cannula 3 01/14/24 17:00 61 13 131/80 92 Nasal Cannula 3 01/14/24 16:55 36.5 C 69 19 128/77 97 Nasal Cannula 3 01/14/24 16:45 59 L 12 138/80 93 Nasal Cannula 3 01/14/24 16:35 60 12 144/78 H 92 Nasal Cannula 3 01/14/24 16:25 61 14 149/80 H 94 Nasal Cannula 3 01/14/24 16:15 66 13 161/76 H 97 Nasal Cannula 3 01/14/24 16:05 68 13 167/95 H 95 Nasal Cannula 3 01/14/24 15:55 66 16 169/95 H 96 Nasal Cannula 3 01/14/24 15:45 70 16 163/88 H 92 Room Air 01/14/24 15:36 36.1 C L 68 16 177/94 H 97 Room Air 01/14/24 12:47 36.8 C 70 20 123/73 96 Room Air PG Care Time/CCT Total # of Minutes Spent Total Time Spent with Patient: Total time spent is greater than 50% in coordination of care (as documented) at patient's floor/unit and/or counseling patient: Coding Level of Care Code 11374 IN/OBS CONSULT LVL 5,80M Diagnoses Infection of intrathecal pump, initial encounter T85.738A Encounter type: initial encounter Compensated HCV cirrhosis K74.69; B19.20 GERD without esophagitis K21.9 Insomnia, unspecified type G47.00 Insomnia type: unspecified (1) Intrathecal pump infection Encounter type: initial encounter Qualified Code(s): T85.738A - Infection and inflammatory reaction due to other nervous system device, implant or graft, initial encounter (4) Insomnia Insomnia type: unspecified Qualified Code(s): G47.00 - Insomnia, unspecified
[2024-01-14] MEDS ORDERED: ALBUTEROL HFA 8 GM INHALER INH PRN (18:11)
[2024-01-14] MEDS ORDERED: OIL TOP PRN (18:11)
[2024-01-14] MEDS ORDERED: [UNRECOGNIZED DRUG - OTHER] TOP PRN (18:11)
[2024-01-14] MEDS ORDERED: HYDROCORTISONE 2.5% CR 30 GM TUBE EXT PRN (18:11)
[2024-01-14] MEDS ORDERED: AMMONIUM LACTATE 12% LOTION 225 GM BTL EXT PRN (18:48)
[2024-01-14] MEDS ORDERED: ZOLPIDEM TARTRATE 5 MG TAB PO PRN (19:17)
[2024-01-14] MEDS: HYDROCODONE/ACETAMOPHEN 5/325MG TAB PO PRN (19:50)
[2024-01-14] MEDS ORDERED: ZALEPLON 10 MG PO SCH (21:00)
[2024-01-14] MEDS ORDERED: LACTULOSE SYRUP 10 GM/15 ML BTL 960 ML PO SCH (21:00)
[2024-01-14] MEDS: CALCIUM CARBONATE 1250MG TAB PO SCH (22:42)
[2024-01-14] MEDS: NORTRIPTYLINE HCL 25 MG CAP PO SCH (22:43)
[2024-01-14] MEDS: PROPRANOLOL HCL LA 80 MG CAPCR PO SCH (22:44)
[2024-01-14] MEDS: IPRATROPIUM BROMIDE NASAL SPRAY 0.06% 15ML NAE SCH (22:46)
[2024-01-14] MEDS: PREGABALIN 100 MG CAP PO SCH (22:49)
[2024-01-15] MEDS: LACTULOSE SYRUP 20 GM/30 ML UDC PO SCH (00:52)
[2024-01-15] MEDS: VANCOMYCIN 1,250mg in D5W 250mL (Use w/ NSS Shortage) IV SCH (00:53)
[2024-01-15] MEDS: HYDROCODONE/ACETAMOPHEN 5/325MG TAB PO PRN (01:01)
[2024-01-15] MEDS: LEVOTHYROXINE SODIUM 50 MCG TABLET PO SCH (06:41)
--- NOTE | 2024-01-15 08:30 | Hospitalist Progress Note ---
Date of Service January 15, 2024 Assessment & Plan (1) Intrathecal pump infection: Plan: Infected intrathecal pain pump S/p explantation 01/14/2024 Continue Rocephin/vancomycin Operative cultures pending Normotensive, no tachycardia, no tachypnea or fever on assessment. She had a leukocytosis of 12.52-day of admission. She does not meet sepsis criteria. CRP is elevated 1.3. Suspect from acute infection, trended Patient had been on pain pump with baclofen 64.19 mcg/day, clonidine 106.98 mcg/day, hydromorphone 1.0698 mg/day. Management per primary team. Post explantation will be continued on baclofen 10 mg 4 times daily p.o. as needed, Lyrica twice daily scheduled, nortriptyline 25 mg in the evening scheduled, scheduled Robbins with breakthrough Dilaudid every 3 hours as needed in addition to two 0.5 postop doses available Agree with Rocephin/vancomycin. -Continue. Cx from OR 01/13 pending. Adjustment based on final cx speciation/sensitivities - Initially NOT back this morning, but now are growing pseudomonas species x 2 Discussing w/ pharmacy and switching Ceftriaxone to Cefepime until final speciation and will continue Vanco for now until final Discussed with primary team and planning to wait for final cultures Patient noting her mom inpatient w/ UTI in room 387 (is caregiver) and likely will affect that discharge--> nursing aware/to notify case management of such for disposition planning Hospitalist service will follow along in AM to follow up finalize cultures/available for discussion as needed but if remains w/ pseudomonas alone could consider FLQ therapy PO at dc to complete course. Transaminitis, history of compensated hep C cirrhosis With history of curative treatment several years ago Patient with a chronic AST alk phos elevation, slightly increased from prior and new ALT elevation. Patient is due for her 6-month screening ultrasound given history of treated hep C and underlying cirrhosis. Ordered. Last liver ultrasound 06/2023: Cirrhotic liver, no hepatic masses or evidence of HCC noted. Due to history of cirrhosis with mildly elevated transaminitis near but slightly above baseline we will dose reduce Tylenol to 2 g total daily dose Patient is not currently on a statin Renal function is at baseline Torsemide 30 mg daily continued (15mg BID). Last echo 2018 EF 60 to 65% without wall motion abnormalities. Denies hx CHF. - No abd pain (some nasuea but nontender on exam) Outpt f/u, can repeat LFTs if having abdominal discomfort. Continue decreased tylenol dose and further pain med adjustments per primary service COPD Continue Spiriva No acute exacerbation, 96% on RA Tremor Continue propranolol to 40 mg a.m., 160 mg p.m. Hypothyroidism: Synthroid continued. Last TSH checked 12/2022 within normal limits. Will defer rechecking TSH as in the setting of acute illness may be artificially elevated. Can continue outpatient follow-up for this. (2) Compensated HCV cirrhosis: (3) GERD without esophagitis: (4) Insomnia: Plan Thank you for allowing hospitalist service participate in the care of Ms Mason. Ceftriaxone switched to Cefepime given OR cultures and can de-escalate once OR cx finalized. Patient hopeful for dc in AM once wound vac in place per primary service Will follow up in AM but please call with any questions/concerns. Admission and Anticipated Discharge Date Admission Date: January 14, 2024 Supervising Physician Co-Signing Physician Notes The patient was not seen by me. The chart was reviewed. Case discussed with FERNANDO Pacheco. Agree with assessment and plan Subjective Evaluated this morning, sitting up in bed. Pain controlled, still having some from incision, reports waiting for wound vac/wound care nursing and was hopeful for possible discharge today but reports this was "on the fence". Discussed OR cultures with pseudomonas and switched antibiotics and hopefully will be finalized by tomorrow but likely needing oral coverage for pseudomonas if that is sole agent on final cultures. Denies fever/chills/CP/SOB. Some nausea but no vomiting. Denies abdominal pain. Question/concerns addressed at this time. She does note her mom in 387 w/ UTI, concerns may have given her infection from her back? Physical Exam 2 Physical Exam: General: 63yo female sitting up in bed, NAD, anxious at times HEENT: head atraumatic, normocephalic, mmm, trachea midline Resp: even/unlabored, no tachypnea/cough, on room air CV: RRR, no significant m/r/g, no pitting edema GI: +BS, soft/NT MSK/Neuro: dressing to spine c/d/i, wound vac noted. no shadowing/dressing looks good, some incisional tenderness, NVI moving all extremities Psych: AOx, cooperative with exam Results & Data Results & Data Vital Signs (Past 12 Hours) Vital Signs Temp Pulse Resp BP BP Pulse Ox O2 Del Method 01/15/24 07:01 36.8 C 72 18 141/81 H 96 Room Air 01/15/24 05:20 36.9 C 64 14 142/65 H 95 Room Air 01/14/24 21:15 36.9 C 59 L 17 96/63 L 94 Room Air Laboratory Results 01/15/24 07:59 OR cx- pseudomonas aeruginosa on preliminary x 2 PG Care Time/CCT Total # of Minutes Spent Total Time Spent with Patient: Total time spent is greater than 50% in coordination of care (as documented) at patient's floor/unit and/or counseling patient: Coding Level of Care Code 89057 SUB INP/OBS CARE 3/50MIN Diagnoses Infection of intrathecal pump, initial encounter T85.738A Encounter type: initial encounter Compensated HCV cirrhosis K74.69; B19.20 GERD without esophagitis K21.9 Insomnia, unspecified type G47.00 Insomnia type: unspecified (1) Intrathecal pump infection Encounter type: initial encounter Qualified Code(s): T85.738A - Infection and inflammatory reaction due to other nervous system device, implant or graft, initial encounter (4) Insomnia Insomnia type: unspecified Qualified Code(s): G47.00 - Insomnia, unspecified
[2024-01-15 08:40] LABS: Creatinine Clr Calc Pharmacy 49.2 ml/min
[2024-01-15] MEDS: UMECLIDINIUM BROMIDE 62.5MCG/BLISTER 7 PUFFS/INHALER INH SCH (08:52)
[2024-01-15] MEDS: PROPRANOLOL HCL LA 80 MG CAPCR PO SCH (08:53)
--- NOTE | 2024-01-15 08:54 | Pain Management Progress Note ---
Date of Service January 15, 2024 Assessment & Plan (1) Intrathecal pump infection: Encounter type: initial encounter Qualified Code(s): T85.738A - Infection and inflammatory reaction due to other nervous system device, implant or graft, initial encounter (2) Lumbago: (3) Intractable neuropathic pain of lower extremity: (4) Peripheral neuropathy: (5) Diffuse myofascial pain syndrome: Plan 1. Continue Rocephin and vancomycin for antibiotic coverage - cultures pending. 2. Continue medication regimen of hydrocodone 1 to 2 tablets every 4 hours if needed. IV Dilaudid is ordered if needed for breakthrough pain. 3. Continue baclofen 10 mg 4 times daily if needed, Lyrica 100 mg twice daily, nortriptyline 25 mg at bedtime 4. Request case management to coordinate wound care for wound vac that was placed. 5. Recommend close follow up with pain management as she may require alterations to her medication regimen. Admission and Anticipated Discharge Date Admission Date: January 14, 2024 René Oliver is a 63-year-old female that is well-known to the [facility] pain service with a history of intractable back pain requiring the implantation of an intrathecal pump and catheter delivery system containing hydromorphone, clonidine, baclofen. She was seen in the office yesterday for swelling and discharge from the pump site. The pocket was found to be infected so the intrathecal pump and catheter delivery system was explanted without complication. Wound VAC was placed. Currently receiving Rocephin and vancomycin for antibiotic coverage. Patient is ordered hydrocodone 5/325 1 to 2 tablets every 4 hours if needed. She has used hydrocodone 3 times since surgery and states that the medication is providing adequate pain relief without any side effects. He denies any fevers, chills, nausea, vomiting, diarrhea, constipation, urinary symptoms. Case discussed with Dr. Sue Singer Physical Exam Physical Exam: GENERAL: This is a 63-year-old female that does not appear in any acute distress. HEAD/FACE: Normocephalic and atraumatic. EYES: No drainage or conjunctival injection. ENT: Nose without bleeding or discharge. Oral mucosa moist. NECK: Full ROM without apparent pain. No swelling or masses noted. RESPIRATORY: Patient with unlabored breathing. No signs of respiratory distress. CHEST/AXILLA: Chest movement symmetrical. No deformities noted. ABDOMEN/GI: Wound VAC is present along the left lower abdomen. BACK: Moves without difficulty. Prineo bandage in place without any surrounding erythema, warmth, drainage. SKIN: [place], warm and dry. No rash noted. MS/EXTREMITY: No swelling, no deformities. Moving extremities appropriately. NEURO: Alert and appears oriented. Speech is fluent. Cranial Nerves are grossly intact. PSYCH: Alert, pleasant, affect is calm
[2024-01-15] MEDS: MULTIVITAMIN TAB PO SCH (08:55)
[2024-01-15] MEDS ORDERED: TORSEMIDE 10 MG TAB PO SCH ×2 (09:00→21:00)
[2024-01-15] MEDS ORDERED: Nursing to Pharmacy Communication SCH (09:15)
[2024-01-15] MEDS: POTASSIUM CHLORIDE CRTAB 20 MEQ TABCR PO SCH (09:39)
[2024-01-15] MEDS: TORSEMIDE 10 MG TAB PO SCH (09:39)
[2024-01-15] MEDS: ONDANSETRON 8MG OD TAB PO PRN (10:29)
[2024-01-15] MEDS: HYDROmorphone INJ 0.5 MG/0.5 ML SYR IV PRN (10:29)
[2024-01-15] MEDS: CEFEPIME 2000MG 2,000 MG/20 ML SYR IV SCH (10:31)
--- NOTE | 2024-01-15 11:31 | Pharmacy Report ---
Pharmacy PK ABX Note - Date of Service January 15, 2024 - Assessment and Plan Assessment 63 year old F receiving vancomycin and cefepime for treatment of intrathecal pain pump infection. POD #1 pump explantation with wound vac. 11 surface pump site culture (+) Pseudomonas aeruginosa, deep pocket intra-op culture (+) Pseudomonas, and operative pain pump culture (+) Pseudomonas. Day #2 of antimicrobial therapy. Plan Vancomycin * Loading dose: 1000 mg IV x 1 * Maintenance dose: 1250 mg IV every 24 hours * Regimen is predicted to achieve target AUC/TIA of 400-600 mg/L.hr * Will obtain a level if therapy continues beyond 48h Pharmacy will continue to follow and will adjust dose/frequency as necessary. Thank you. Pharmacy has transitioned to AUC monitoring for vancomycin. AUC/TIA is the preferred PK/PD target and is associated with decreased risk of nephrotoxicity compared to traditional trough targets.
[2024-01-15] MEDS ORDERED: HYDROCODONE/ACETAMINOPHEN 7.5/325MG TAB PO PRN (14:39)
[2024-01-15] MEDS: HYDROCODONE/ACETAMINOPHEN 7.5/325MG TAB PO PRN (16:28)
[2024-01-15] MEDS: MELATONIN 3 MG TAB PO PRN (21:28)
[2024-01-16] MEDS: ONDANSETRON 4 MG OD TAB PO PRN (02:24)
[2024-01-16] MEDS: PROCHLORPERAZINE 5 MG in SYRINGE 4 ML IV ONE (04:17)
[2024-01-16] MEDS: FAMOTIDINE 20MG IV PUSH 20 MG/5 ML SYR IV ONE (06:00)
[2024-01-16] MEDS: METOCLOPRAMIDE HCL INJ 5 MG/ML 2 ML VIAL IV ONE (06:21)
[2024-01-16 06:56] LABS: Basophils # (auto) 0.09 K/uL (0.00-0.20); Basophils % (auto) 0.4 %; Eosinophils # (auto) 0.09 K/uL (0.00-0.50); Eosinophils % (auto) 0.4 %; Hematocrit (blood only) 50.4 % (37.0-47.0); Hemoglobin 16.9 g/dl (12.0-16.0); Immature Granulocytes # (auto) 0.39 K/uL (0.01-0.20); Immature Granulocytes % (auto) 1.7 %; Lymphocytes # (auto) 1.66 K/uL (1.20-3.40); Lymphocytes % (auto) 7.4 %; Mean Corpuscular Hemoglobin 31.2 pg (25.0-34.0); Mean Corpuscular Hgb Conc 33.5 g/dL (32.0-36.0); Mean Corpuscular Volume 93.2 fL (80.0-100.0); Mean Platelet Volume 11.4 fL (9.4-12.4); Monocytes # (auto) 1.95 K/uL (0.11-0.59); Monocytes % (auto) 8.7 %; Neutrophils # (auto) 18.23 K/uL (1.40-6.50); Neutrophils % (auto) 81.4 %; Platelet Count 323 K/uL (130-400); RDW Coefficient of Variation 14.7 % (11.5-14.5); RDW Standard Deviation 49.6 fL (36.4-46.3); Red Blood Count 5.41 M/uL (4.20-5.40); White Blood Count 22.41 K/ul (4.8-10.8)
[2024-01-16 07:31] LABS: Albumin Level 3.7 gm/dl (3.4-5.0); BUN Creatinine Ratio 21.4 (10-20); Bilirubin Direct 0.2 mg/dl (0-0.2); Bilirubin,Total 0.8 mg/dl (0.2-1.0); Calcium 10.7 mg/dl (8.6-10.3); Potassium 4.2 mmol/L (3.5-5.1); Total Protein 7.5 gm/dl (6.0-8.3)
--- NOTE | 2024-01-16 08:44 | Pain Management Progress Note ---
Date of Service January 16, 2024 Assessment & Plan (1) Intrathecal pump infection: Encounter type: initial encounter Qualified Code(s): T85.738A - Infection and inflammatory reaction due to other nervous system device, implant or graft, initial encounter (2) Lumbago: (3) Intractable neuropathic pain of lower extremity: (4) Peripheral neuropathy: (5) Diffuse myofascial pain syndrome: Plan 1. Wound culture and sensitivity reviewed. Will plan to discharge on Cipro. 2. Continue medication regimen of hydrocodone 1 to 2 tablets every 4 hours if needed. IV Dilaudid is ordered if needed for breakthrough pain. 3. Continue baclofen 10 mg 4 times daily if needed, Lyrica 100 mg twice daily, nortriptyline 25 mg at bedtime 4. The bandage on the back was changed. Awaiting wound nurse to change wound vac. 5. Once the wound vac has been changed, anticipate discharge to home. Admission and Anticipated Discharge Date Admission Date: January 15, 2024 René Oliver is a 63-year-old female that is well-known to the [facility] pain service with a history of intractable back pain requiring the implantation of an intrathecal pump and catheter delivery system containing hydromorphone, clonidine, baclofen. The pump pocket was found to be infected so the i ntrathecal pump and catheter delivery system was explanted without complication. Wound VAC was placed. Currently receiving cefepime and vancomycin for antibiotic coverage. Patient is ordered hydrocodone 7.5/325 1 to 2 tablets every 4 hours if needed and IV Dilaudid if needed for breakthrough pain. Last evening she developed nausea. She has tried Zofran, Phenergan, and Reglan with little relief. She states that the hospital smell makes her nauseous and antibiotics typically upset her stomach. He denies any fevers, chills, diarrhea, constipation, urinary symptoms. Case discussed with Dr. Sue Singer Physical Exam Physical Exam: GENERAL: This is a 63-year-old female that does not appear in any acute distress. HEAD/FACE: Normocephalic and atraumatic. EYES: No drainage or conjunctival injection. ENT: Nose without bleeding or discharge. Oral mucosa moist. NECK: Full ROM without apparent pain. No swelling or masses noted. RESPIRATORY: Patient with unlabored breathing. No signs of respiratory distress. CHEST/AXILLA: Chest movement symmetrical. No deformities noted. ABDOMEN/GI: Wound VAC is present along the left lower abdomen. BACK: Moves without difficulty. Prineo bandage in place without any surrounding erythema, warmth, drainage, dressing was changed. SKIN: [place], warm and dry. No rash noted. MS/EXTREMITY: No swelling, no deformities. Moving extremities appropriately. NEURO: Alert and appears oriented. Speech is fluent. Cranial Nerves are grossly intact. PSYCH: Alert, pleasant, affect is calm
--- NOTE | 2024-01-16 08:59 | Hospitalist Progress Note ---
Date of Service January 16, 2024 Assessment & Plan (1) Intrathecal pump infection: Plan: S/p explantation 01/14/[address] Singer Patient had been on pain pump with baclofen 64.19 mcg/day, clonidine 106.98 mcg/day, hydromorphone 1.0698 mg/day. Management per primary service Placed on Ceftriaxone/Vancomycin initially, switched Ceftriaxone to Cefepime given pseudomonas on OR cultures, remains same today. WBC elevation to 22k, however afebrile. No prior labs yesterday for comparison however had been nauseated overnight/dry heaving and does appear dehydration on exam with elevated hgb 16.9, BUN/Cr 30/1.4 and had been continued on torsemide 15mg BID which was declined last evening given ongoing urination and not having PO intake and HELD for this morning. Patient reporting allergy w/ hives to PCN, benadryl provided x 1 (phenergan prior for nausea) IVF NS @ 80cc/hr x 500cc , oral hydration encouraged and torsemide to remain on hold Cefepime/Vancomycin DISCONTINUED, switched to CIPROFLOXACIN to complete course Planning to monitor PO intake, repeat labs ordered for this afternoon and if improvement in nausea/PO intake and renal function improved can consider dc once wound vac in place/case management arranged for HH at discharge. NANCY on CKD -- BUN/Cr elevation to 30/1.4 in setting of surgery/decreased PO intake and continued torsemide use. Torsemide on hold as above, renal dose meds/avoid nephrotoxins and dc vancomycin as above and switching to Ciprofloxacin (needs to be renally dosed) IVF NS @ 80cc/hr ordered for half bag, antiemetics as above and planning for repeat labs this afternoon to ensure improvement. Transaminitis, history of compensated hep C cirrhosis With history of curative treatment several years ago Last liver ultrasound 06/2023: Cirrhotic liver, no hepatic masses or evidence of HCC noted. Chronic AST/ALP elevation but slightly worse than prior however suspect 2nd to infection as above. No overt RUQ pain. LFTs improved/stable on repeat. Abx as outlined above and tylenol limited to 2gm daily. Not on statin at baseline TORSEMIDE placed on HOLD as above, dehydration as outlined. No RUQ pain, outpt f/u for 6mo screening US to be arranged w/ PCP COPD Continue Spiriva No acute exacerbation, 96% on RA Tremor Continue propranolol to 40 mg a.m., 160 mg p.m. Hypothyroidism: Synthroid continued. (2) Compensated HCV cirrhosis: (3) GERD without esophagitis: (4) Insomnia: Plan Thank you for allowing hospitalist service participate in the care of Ms Mason. Abx de-escalated to Cipro to complete course and wound RN changing wound vac this morning. IVF ordered and diuretic placed on hold and if stable PO intake/improvement in labs this afternoon and patient wanting to go can have continued f/u outpatient. Please call hospitalist service with any questions/concerns. Admission and Anticipated Discharge Date Admission Date: January 15, 2024 Supervising Physician Co-Signing Physician Notes The patient was not seen by me. The chart was reviewed. Case discussed with FERNANDO Pacheco. Agree with assessment and plan Subjective Evaluated this morning, getting wound vac changed. Had been having nausea/dry heaves last evening, not taking much PO. Got some Phenergan this morning and reporting feeling better. Pain medication provided with wound vac change. She reports she had been peeing like crazy and not taking much oral and declined her torsemide last evening. Thankfully able to hold this morning, IVF provided and planning to repeat labs as patient is hopeful for dc today. She reports allergy to penicillins in the past and was told to take if occurs, will provide. Vanco/Cefepime discontinued and planning for Cipro. Will monitor labs on repeat this afternoon, she is hoping for dc if able to take PO/labs improved. No fever/chills, chest pain/shortness of breath reported. No increased abdominal pain or RUQ pain. For outpt f/u hepatitis screening. Case discussed w/ primary. Questions/concerns addressed at this time. Physical Exam Physical Exam: General: 63yo female sitting up in bed, slightly reddened appearance to face, NAD but reporting slightly nauseated, wound vac being changed HEENT: head atraumatic, normocephalic, mm DRY, trachea midline Resp: even/unlabored, no tachypnea/cough, on room air CV: RRR, no significant m/r/g, no pitting edema GI: +BS, soft/NT MSK/Neuro: dressing to spine c/d/i, wound RN changing wound vac at present time. moves all extremities, nonfocal, no slurred speech/facial droop Psych: AOx3, cooperative with exam Results & Data Results & Data Vital Signs (Past 12 Hours) Vital Signs Temp Pulse Resp BP BP Pulse Ox O2 Del Method 01/16/24 07:30 36.7 C 70 16 183/101 H 195/96 H 98 Room Air 01/16/24 07:03 Room Air Laboratory Results 01/16/24 Range/Units 06:28 WBC 22.41 H (4.8-10.8) K/ul RBC 5.41 H (4.20-5.40) M/uL Hgb 16.9 H (12.0-16.0) g/dl Hct 50.4 H (37.0-47.0) % MCV 93.2 (80.0-100.0) fL MCH 31.2 (25.0-34.0) pg MCHC 33.5 (32.0-36.0) g/dL RDW Std Deviation 49.6 H (36.4-46.3) fL RDW Coeff of Elin 14.7 H (11.5-14.5) % Plt Count 323 (130-400) K/uL MPV 11.4 (9.4-12.4) fL Immature Gran % (Auto) 1.7 % Neut % (Auto) 81.4 % Lymph % (Auto) 7.4 % Mcdonough % (Auto) 8.7 % Eos % (Auto) 0.4 % Baso % (Auto) 0.4 % Neut # (Auto) 18.23 H (1.40-6.50) K/uL Lymph # (Auto) 1.66 (1.20-3.40) K/uL Mcdonough # (Auto) 1.95 H (0.11-0.59) K/uL Eos # (Auto) 0.09 (0.00-0.50) K/uL Baso # (Auto) 0.09 (0.00-0.20) K/uL Immature Gran # (Auto) 0.39 H (0.01-0.20) K/uL Sodium 139 (136-145) mmol/L Potassium 4.2 (3.5-5.1) mmol/L Chloride 101 (98-107) mmol/L Carbon Dioxide 29 (21-32) mmol/L Anion Gap 9 (3-11) BUN 30 H (6-23) mg/dl Creatinine 1.40 H D (0.6-1.2) mg/dl Est Cr Clr Drug Dosing 32.0 ml/min eGFR 41.75 BUN/Creatinine Ratio 21.4 H (10-20) Glucose 176 H (70-99(Fasting)) mg/dl Calcium 10.7 H (8.6-10.3) mg/dl Total Bilirubin 0.8 (0.2-1.0) mg/dl Direct Bilirubin 0.2 (0-0.2) mg/dl AST 147 H (13-39) U/L ALT 153 H (7-52) U/L Alkaline Phosphatase 217 H (34-104) U/L Total Protein 7.5 (6.0-8.3) gm/dl Albumin 3.7 (3.4-5.0) gm/dl PG Care Time/CCT Total # of Minutes Spent Total Time Spent with Patient: Total time spent is greater than 50% in coordination of care (as documented) at patient's floor/unit and/or counseling patient: Coding Level of Care Code 76436 SUB INP/OBS CARE 3/50MIN Diagnoses Infection of intrathecal pump, initial encounter T85.738A Encounter type: initial encounter Compensated HCV cirrhosis K74.69; B19.20 GERD without esophagitis K21.9 Insomnia, unspecified type G47.00 Insomnia type: unspecified (1) Intrathecal pump infection Encounter type: initial encounter Qualified Code(s): T85.738A - Infection and inflammatory reaction due to other nervous system device, implant or graft, initial encounter (4) Insomnia Insomnia type: unspecified Qualified Code(s): G47.00 - Insomnia, unspecified
[2024-01-16] MEDS: PROMETHAZINE 6.25 MG/50.25 ML BAG IV ONE (09:26)
[2024-01-16] MEDS: diphenhydrAMINE Capsule 25 MG CAP PO ONE (10:08)
[2024-01-16] MEDS: SODIUM CHLORIDE 0.9% 500 ML IV SCH ×2 (10:32→16:44)
[2024-01-16] MEDS: CIPROFLOXACIN 500 MG TAB PO SCH (10:58)
[2024-01-16 12:02] LABS: Adenovirus PCR Not Detected (NotDetected); Bordetella parapertussis PCR Not Detected (NotDetected); Bordetella pertussis PCR Not Detected (NotDetected); Chlamydia pneumoniae PCR Not Detected (NotDetected); Coronavirus 229E PCR Not Detected (NotDetected); Coronavirus CoV-2 (COVID19)PCR Not Detected (NotDetected); Coronavirus HKU1 PCR Not Detected (NotDetected); Coronavirus NL63 PCR Not Detected (NotDetected); Coronavirus OC43PCR Not Detected (NotDetected); Human Metapneumovirus PCR Not Detected (NotDetected); Influenza A PCR Not Detected (NotDetected); Influenza B PCR Not Detected (NotDetected); Mycoplasma pneumoniae PCR Not Detected (NotDetected); Parainfluenza Virus 1 PCR Not Detected (NotDetected); Parainfluenza Virus 2 PCR Not Detected (NotDetected); Parainfluenza Virus 3 PCR Not Detected (NotDetected); Parainfluenza Virus 4 PCR Not Detected (NotDetected); Respiratory Syncytial VirusPCR Not Detected (NotDetected); Rhinovirus/Enterovirus PCR Not Detected (NotDetected)
[2024-01-16 13:24] LABS: Hematocrit (blood only) 51.6 % (37.0-47.0); Mean Corpuscular Hgb Conc 34.9 g/dL (32.0-36.0); Mean Corpuscular Volume 91.8 fL (80.0-100.0); Mean Platelet Volume 11.5 fL (9.4-12.4); Platelet Count 342 K/uL (130-400); RDW Coefficient of Variation 14.6 % (11.5-14.5); RDW Standard Deviation 48.9 fL (36.4-46.3); Red Blood Count 5.62 M/uL (4.20-5.40); White Blood Count 22.02 K/ul (4.8-10.8)
[2024-01-16 13:46] LABS: BUN Creatinine Ratio 22.1 (10-20); Calcium 9.9 mg/dl (8.6-10.3); Creatinine Clr Calc Pharmacy 30.9 ml/min; Potassium 4.3 mmol/L (3.5-5.1)
[2024-01-16] MEDS ORDERED: METOCLOPRAMIDE HCL INJ 5 MG/ML 2 ML VIAL IV PRN (19:43)
[2024-01-16] MEDS: PROMETHAZINE 6.25 MG/50.25 ML BAG IV PRN (20:52)
[2024-01-17] MEDS: BACLOFEN 10 MG TAB PO PRN (05:01)
[2024-01-17 07:24] LABS: Basophils # (auto) 0.11 K/uL (0.00-0.20); Basophils % (auto) 0.5 %; Eosinophils # (auto) 0.02 K/uL (0.00-0.50); Eosinophils % (auto) 0.1 %; Hematocrit (blood only) 52.7 % (37.0-47.0); Hemoglobin 17.9 g/dl (12.0-16.0); Immature Granulocytes # (auto) 0.76 K/uL (0.01-0.20); Immature Granulocytes % (auto) 3.5 %; Lymphocytes # (auto) 2.07 K/uL (1.20-3.40); Lymphocytes % (auto) 9.4 %; Mean Corpuscular Hemoglobin 31.3 pg (25.0-34.0); Mean Corpuscular Volume 92.1 fL (80.0-100.0); Mean Platelet Volume 11.2 fL (9.4-12.4); Monocytes # (auto) 2.63 K/uL (0.11-0.59); Monocytes % (auto) 11.9 %; Neutrophils # (auto) 16.42 K/uL (1.40-6.50); Neutrophils % (auto) 74.6 %; Platelet Count 310 K/uL (130-400); RDW Coefficient of Variation 14.6 % (11.5-14.5); RDW Standard Deviation 49.3 fL (36.4-46.3); Red Blood Count 5.72 M/uL (4.20-5.40); White Blood Count 22.01 K/ul (4.8-10.8)
[2024-01-17 07:39] LABS: Albumin Globulin Ratio 0.9 (0.9-2); Albumin Level 3.2 gm/dl (3.4-5.0); BUN Creatinine Ratio 20.6 (10-20); Bilirubin,Total 0.7 mg/dl (0.2-1.0); Creatinine Clr Calc Pharmacy 27.2 ml/min; Globulin 3.4 gm/dl (2.5-4.0); Potassium 4.3 mmol/L (3.5-5.1); Total Protein 6.6 gm/dl (6.0-8.3)
--- NOTE | 2024-01-17 08:34 | Pain Management Progress Note ---
Date of Service January 17, 2024 Assessment & Plan (1) Intrathecal pump infection: Encounter type: initial encounter Qualified Code(s): T85.738A - Infection and inflammatory reaction due to other nervous system device, implant or graft, initial encounter (2) Lumbago: (3) Intractable neuropathic pain of lower extremity: (4) Peripheral neuropathy: (5) Diffuse myofascial pain syndrome: (6) NANCY (acute kidney injury): Plan 1. Continue Cipro PO 500mg twice daily for antibiotic coverage. 2. I will change the Baclofen order from PRN to scheduled for spasms. 3. Continue Lyrica 100 mg twice daily, nortriptyline 25 mg at bedtime 4. The bandage on the back was changed. Wound care appointment will be changed from tomorrow to Sunday as she is to remain inpatient at least one more day 5. To address nausea, we discussed switching the hydrocodone to oxycodone to see if it may be better tolerated. Will keep Zofran and Phenergan ordered. 6. With nausea and low oral intake, her blood work shows acute kidney injury as her creatinine is 1.65 today. Encouraged the patient to increase her fluid intake. Admission and Anticipated Discharge Date Admission Date: January 15, 2024 René Oliver is a 63-year-old female that is well-known to the [facility] with a history of intractable back pain requiring the implantation of an intrathecal pump and catheter delivery system containing hydromorphone, clonidine, baclofen. The pump pocket was found to be infected so the intrathecal pump and catheter delivery system was explanted without complication. Wound VAC was placed. Currently receiving Cipro for antibiotic coverage. Patient is ordered hydrocodone 7.5/325 1 to 2 tablets every 4 hours if needed and IV Dilaudid if needed for breakthrough pain. She states that it is moderately effective for her pain but unsure if the nausea is attributed to the pain medication or the previous antibiotics. She has had little oral intake the last several days due to the nausea. She has taken Zofran and Phenergan. At home she does have intermittent nausea which is typically improved with the use of Zofran. She denies any fevers, chills, diarrhea, constipation, urinary symptoms. Last night she was having spasms in the right leg and required the use of Baclofen. Requests that the Baclofen be changed from a PRN to a scheduled medication. Case discussed with Dr. Sue Singer Physical Exam Physical Exam: GENERAL: This is a 63-year-old female that does not appear in any acute distress. HEAD/FACE: Normocephalic and atraumatic. EYES: No drainage or conjunctival injection. ENT: Nose without bleeding or discharge. Oral mucosa moist. NECK: Full ROM without apparent pain. No swelling or masses noted. RESPIRATORY: Patient with unlabored breathing. No signs of respiratory distress. CHEST/AXILLA: Chest movement symmetrical. No deformities noted. ABDOMEN/GI: Wound VAC is present along the left lower abdomen. BACK: Moves without difficulty. Prineo bandage in place without any surrounding erythema, warmth, drainage, dressing was changed. SKIN: [place], warm and dry. No rash noted. MS/EXTREMITY: No swelling, no deformities. Moving extremities appropriately. NEURO: Alert and appears oriented. Speech is fluent. Cranial Nerves are grossly intact. PSYCH: Alert, pleasant, affect is calm
--- NOTE | 2024-01-17 08:43 | Hospitalist Progress Note ---
Date of Service January 17, 2024 Assessment & Plan (1) Intrathecal pump infection: Plan: S/p explantation 01/14/[address] Singer Patient had been on pain pump with baclofen 64.19 mcg/day, clonidine 106.98 mcg/day, hydromorphone 1.0698 mg/day. Management per primary service Ceftriaxone/Vanco--> Cefepime given pseudomonas on OR cx, --Notable, rxn to PCN w/ hives in past not noted on admission, did have flushing to face and provided benadryl x 1 w/ effectiveness and de-escalated to CIPRO 01/15 given OR sensitivies and pharmacy adjusting for renal function -- Continues on Cipro to complete course, adj if renal function improved in AM Leukocytosis w/ WBC 22k (notable did get dexamethasone on admission w/ surgery). Biofire negative IVF ordered for dehydration on exam/poor PO intake and resumed for today for renal function/NANCY and TORSEMIDE to REMAIN ON HOLD. Hgb elevation suspected 2nd to dehydration. CXR negative for acute process, afebrile. ?reactive from uncontrolled pain/nausea. +BS on exam, NO abdominal pain. LFTs improving and lipase wnl. Suspect elevated LFTs from infection vs medications Regarding pain control-- primary changing baclofen to 10mg QID SCHEDULED, first dose changed to NOW. ?withdrawal from not having Monitor PO intake/hydration encouraged. Hopefully w/ improvement in pain and nausea will improve PO intake and does report able to drink some fluids overnight and appears more comfortable today and will monitor on IVF> EKG stable and will continue to monitor daily labs and avoid diuretics for now. Patient w/ continued inpatient stay, wound vac in place. Possible dc next 24-48 hours pending course. (2) NANCY (acute kidney injury): Plan: NANCY on CKD suspect 2nd to ongoing torsemide use with decreased/no PO intake 2nd to uncontrolled pain and nausea. EKG stable, QTC NOT elevated .No CP/SOB reported IVF as above and AVOIDING torsemide for now. Monitor hydration status. Cipro adjustment for renal function Monitor BMP, renal dose meds/avoid nephrotoxins. (3) Compensated HCV cirrhosis: Plan: Transaminitis, history of compensated hep C cirrhosis With history of curative treatment several years ago Last liver ultrasound 06/2023: Cirrhotic liver, no hepatic masses or evidence of HCC noted. Chronic AST/ALP elevation but slightly worse than prior however suspect 2nd to infection as above. No overt RUQ pain. LFTs improved/stable on repeat. Abx as outlined above and tylenol limited to 2gm daily. Not on statin at baseline TORSEMIDE placed on HOLD as above, dehydration as outlined. Due for outpt f/u for 6mo screening US to be arranged w/ PCP LFTS IMPROVING, Lipase wnl. Suspect 2nd to infection as above and will continue to monitor. NO RUQ pain reported. (4) GERD without esophagitis: Plan: continue PPI, no reflux reported but could consider increasing if needed Other chronic medical issues COPD Continue Spiriva No acute exacerbation, biofire negative 97% on RA Tremor Continue propranolol to 40 mg a.m., 160 mg p.m. (had not received for nausea, encouraged compliance w/ improvement in pain/nausea) Hypothyroidism: Synthroid continued. (5) Insomnia: Plan Thank you for allowing hospitalist service participate in the care of Ms Mason. Plan: continue IVF hydration/hold diuretics. Continue Cipro but renal dosed. Baclofen made QID and SCHEDULED for pain control. Monitor. Likley additional 1-2 days pending repeat labs/hydration status. Hospitalist service will follow along. Please call with any questions/concerns. Admission and Anticipated Discharge Date Admission Date: January 15, 2024 Supervising Physician Co-Signing Physician Notes The patient was not seen by me. The chart was reviewed. Case discussed with FERNANDO Pacheco. Agree with assessment and plan Subjective Evaluated this morning, seen by pain management this morning and working on adjustments to her pain medication as prior baclofen in pain pump and taking extra if needed. No bowel movement but good bowel sounds. No abdominal pain. Getting phenergan, nausea improving. Able to tolerate some juice overnight, will hopefully have improvement in PO intake and discussed continuing to monitor. She denies CP/SOB, CXR negative for acute finding, remains on room air. Holding diuretics, does still appear dehydrated. LFTs improving. No epigastric discomfort. Decreased redness/flushing since switching antibiotics, no itching reported, no hives on exam. Wound vac looks good. Questions/concerns addressed at this time. Physical Exam Physical Exam: General: 63yo female sitting up in bed, brother at bedside, improved compared to yesterday morning but still appearing dehydrated, NAD, just medicated HEENT: head atraumatic, normocephalic, mm DRY, trachea midline, no further redness/flushing to the face, no hives Resp: even/unlabored, no tachypnea/cough, slightly diminished in the bases but remains on room air 97%, no cough/tachypnea CV: RRR, no significant m/r/g, no pitting edema GI: +BS throughout, slight distension but NON tender, wound vac in place to LLQ MSK/Neuro: dressing to spine c/d/i, moves all extremities, not confused Psych: AOx3, cooperative with exam Results & Data Results & Data Vital Signs (Past 12 Hours) Vital Signs Temp Pulse Resp BP Pulse Ox O2 Del Method 01/17/24 07:06 36.6 C 97 H 16 142/92 H 97 Room Air 01/16/24 21:41 36.7 C 84 18 149/82 H 97 Room Air Laboratory Results 01/17/24 01/17/24 01/16/24 Range/Units Unknown 07:01 12:45 WBC 22.01 H 22.02 H (4.8-10.8) K/ul RBC 5.72 H 5.62 H (4.20-5.40) M/uL Hgb 17.9 H 18.0 H (12.0-16.0) g/dl Hct 52.7 H 51.6 H (37.0-47.0) % MCV 92.1 91.8 (80.0-100.0) fL MCH 31.3 32.0 (25.0-34.0) pg MCHC 34.0 34.9 (32.0-36.0) g/dL RDW Std Deviation 49.3 H 48.9 H (36.4-46.3) fL RDW Coeff of Elin 14.6 H 14.6 H (11.5-14.5) % Plt Count 310 342 (130-400) K/uL MPV 11.2 11.5 (9.4-12.4) fL Immature Gran % (Auto) 3.5 % Neut % (Auto) 74.6 % Lymph % (Auto) 9.4 % [place] % (Auto) 11.9 % Eos % (Auto) 0.1 % Baso % (Auto) 0.5 % Neut # (Auto) 16.42 H (1.40-6.50) K/uL Lymph # (Auto) 2.07 (1.20-3.40) K/uL [place] # (Auto) 2.63 H (0.11-0.59) K/uL Eos # (Auto) 0.02 (0.00-0.50) K/uL Baso # (Auto) 0.11 (0.00-0.20) K/uL Immature Gran # (Auto) 0.76 H (0.01-0.20) K/uL Sodium 135 L 137 (136-145) mmol/L Potassium 4.3 4.3 (3.5-5.1) mmol/L Chloride 101 100 (98-107) mmol/L Carbon Dioxide 27 26 (21-32) mmol/L Anion Gap 7 11 (3-11) BUN 34 H 32 H (6-23) mg/dl Creatinine 1.65 H 1.45 H (0.6-1.2) mg/dl Est Cr Clr Drug Dosing 27.2 30.9 ml/min eGFR 34.28 40.03 BUN/Creatinine Ratio 20.6 H 22.1 H (10-20) Glucose 147 H 168 H (70-99(Fasting)) mg/dl Calcium 9.0 9.9 (8.6-10.3) mg/dl Magnesium 2.0 (1.7-2.4) mg/dl Total Bilirubin 0.7 (0.2-1.0) mg/dl AST 61 H (13-39) U/L ALT 87 H (7-52) U/L Alkaline Phosphatase 214 H (34-104) U/L Total Protein 6.6 (6.0-8.3) gm/dl Albumin 3.2 L (3.4-5.0) gm/dl Globulin 3.4 (2.5-4.0) gm/dl Albumin/Globulin Ratio 0.9 (0.9-2) Lipase 36 (11-82) U/L 25-OH Vitamin D Total 50.9 (30-100) ng/ml Urine Color Yellow Urine Appearance Clear (Clear) Urine pH 5.5 (4.5-7.5) Ur Specific [place] 1.019 (1.000-1.030) Urine Protein 1+ H (Negative) Urine Glucose (UA) Negative (Negative) Urine Ketones Negative (Negative) Urine Blood Negative (Negative) Urine Nitrite Negative (Negative) Urine Bilirubin Negative (Negative) Urine Urobilinogen Negative (Negative) Ur Leukocyte Esterase Negative (Negative) Urine WBC (Auto) 0-5 (0-5) /hpf Urine RBC (Auto) 0-2 (0-2) /hpf U Hyaline Cast (Auto) 0-2 (0-2) /lpf U Epithel Cells (Auto) 0-2 (0-2) /hpf Urine Bacteria (Auto) None Seen (None Seen) Diagnostic Findings Chest X-Ray 01/17/24 08:35 XR chest 1V portable CLINICAL HISTORY: leukocytosis, n/v COMPARISON STUDY: Chest CT January 27, 2019. Chest radiograph September 02, 2021. FINDINGS: Lung volumes are normal. Lungs are clear. There is no pneumothorax or pleural effusion. Cardiac size is normal. Mediastinal contours are normal. There is no evidence for pulmonary edema. Postoperative findings within the cervical spine are incidentally noted. IMPRESSION: No acute cardiopulmonary findings. ACT 112: Negative or not required by law. Electronically signed by: Anton Buchanan M.D. 01/17/2024 8:58 AM ECG Additional Comments: NSR 78bpm PG Care Time/CCT Total # of Minutes Spent Total Time Spent with Patient: Total time spent is greater than 50% in coordination of care (as documented) at patient's floor/unit and/or counseling patient: Coding Level of Care Code 63592 SUB INP/OBS CARE 3/50MIN Diagnoses Infection of intrathecal pump, initial encounter T85.738A Encounter type: initial encounter NANCY (acute kidney injury) N17.9 Compensated HCV cirrhosis K74.69; B19.20 GERD without esophagitis K21.9 Insomnia, unspecified type G47.00 Insomnia type: unspecified (1) Intrathecal pump infection Encounter type: initial encounter Qualified Code(s): T85.738A - Infection and inflammatory reaction due to other nervous system device, implant or graft, initial encounter (5) Insomnia Insomnia type: unspecified Qualified Code(s): G47.00 - Insomnia, unspecified
--- NOTE | 2024-01-17 08:59 | XRay Report ---
XR chest 1V portable CLINICAL HISTORY: leukocytosis, n/v COMPARISON STUDY: Chest CT January 27, 2019. Chest radiograph September 02, 2021. FINDINGS: Lung volumes are normal. Lungs are clear. There is no pneumothorax or pleural effusion. Car diac size is normal. Mediastinal contours are normal. There is no evidence for pulmonary edema. Posto perative findings within the cervical spine are incidentally noted. IMPRESSION: No acute cardiopulmonary findings. ACT 112: Negative or not required by law. Electronically signed by: Anton Buchanan M.D. 01/17/2024 8:58 AM
[2024-01-17] MEDS: SODIUM CHLORIDE 0.9% 1,000 ML IV SCH (09:24)
[2024-01-17] MEDS: BACLOFEN 10 MG TAB PO SCH (09:49)
[2024-01-17 10:34] LABS: Appearance Urine Clear (Clear); Bacteria Urine Automated None Seen (None Seen); Bilirubin Urine Negative (Negative); Blood Urine Negative (Negative); Color Urine Yellow; Epithelial Cell Urine Auto 0-2 /hpf (0-2); Glucose Urine UA Negative (Negative); Ketones Urine Negative (Negative); Leukocyte Esterase Urine Negative (Negative); Nitrite Urine Negative (Negative); Protein Urine 1+ (Negative); RBC Urine Automated 0-2 /hpf (0-2); Specific Gravity Urine 1.019 (1.000-1.030); Urobilinogen Urine Negative (Negative); WBC Urine Automated 0-5 /hpf (0-5); pH Urine 5.5 (4.5-7.5)
[2024-01-17 10:35] LABS: Cast Urine Automated 0-2 /lpf (0-2)
[2024-01-17] MEDS ORDERED: BACLOFEN 10 MG TAB PO SCH (13:00)
--- NOTE | 2024-01-17 13:13 | Electrocardiogram Report ---
Test Reason : Blood Pressure : */* mmHG Vent. Rate : 78 BPM Atrial Rate : 78 BPM P-R Int : 118 ms QRS Dur : 72 ms QT Int : 382 ms P-R-T Axes : 74 77 64 degrees QTcB Int : 435 ms Normal sinus rhythm Normal ECG When compared with ECG of 04-Sep-2023 14:00, No significant change Confirmed by Uriel Gee ([id number]) on 01/17/2024 1:13:25 PM Referred By: Sue Singer Confirmed By: Uriel Gee
[2024-01-17] MEDS ORDERED: hydrALAZINE HCL 20 MG/ML VIAL IV PRN (15:15)
[2024-01-17] MEDS: oxyCODONE HCL IR 5 MG TAB (IMMEDIATE RELEASE) PO PRN (15:18)
[2024-01-17] MEDS: PREGABALIN 25 MG CAP PO SCH (20:10)
--- NOTE | 2024-01-18 00:25 | Communication Note ---
Date of Service: January 18, 2024 Alerted by nursing that patient hit her head and left arm on the rail of the bed. Patient woke up and was getting up when this happened. Patient reports feeling a little off/not as with it this evening. Nursing states she's been drowsy/out of it prior to this incident. No CP or SOB. Mild headache. Does have diffuse pain/cramping, but that's at baseline. Patient with a bleeding laceration on the right side of her head. Left arm wound has been dressed. Drowsy but arousable and oriented. No focal neurological deficits. CT Head ordered for completeness. Baclofen was changed from 10 mg PRN to scheduled earlier today. Changed back to PRN and scheduled Tylenol 1000 mg Q8H. Resident Activity Tracking Resident Involvement: Resident Care Provided Care Provided: Adult Hospital Medicine
[2024-01-18] MEDS: ACETAMINOPHEN 500 MG TAB PO SCH ×2 (01:00→10:55)
--- NOTE | 2024-01-18 01:22 | CT Scan Report ---
EXAM: CT head/brain wo con CLINICAL HISTORY: fall TECHNIQUE: Axial non-contrast CT scan of the brain was performed from the skull base to the high parietal region with coronal and sagittal reformats. One of the following dose reduction techniques were utilized for this exam: Automated exposure control, adjustment of the mA and/or kV according to patient size, use of iterative reconstruction. COMPARISON: None. FINDINGS: Brain Parenchyma: Normal attenuation of the cerebral hemispheres, cerebellum, and brainstem. No evidence of acute infarct, hemorrhage, or mass effect. No abnormal areas of hypo- or hyperattenuation. Ventricular System: The prominence of the ventricular system was noted. Subarachnoid Spaces: Widened extra-axial CSF spaces appreciated, consistent with age-related changes. No evidence of subarachnoid hemorrhage or extra-axial fluid collections. Cerebellum and Brainstem: Normal size and signal. No masses, lesions, or areas of abnormal signal. Orbits: Normal appearance of the globes, optic nerves, and extraocular muscles. No evidence of orbital masses or abnormal signals. Sinuses: Clear paranasal sinuses. No evidence of sinusitis or mucosal thickening. Mastoid Air Cells: Clear mastoid air cells. No evidence of mastoiditis. Skull and Meninges: Normal skull morphology. IMPRESSION: 1. No evidence of acute infarct, hemorrhage, or mass effect. 2. Age-related changes in the brain as mentioned above. Electronically signed by Boyd Michelle 01-18-2024 01:22 AM
[2024-01-18 07:32] LABS: Basophils % (auto) 0.4 %; Eosinophils # (auto) 0.04 K/uL (0.00-0.50); Eosinophils % (auto) 0.2 %; Hematocrit (blood only) 49.2 % (37.0-47.0); Hemoglobin 17.5 g/dl (12.0-16.0); Immature Granulocytes # (auto) 0.64 K/uL (0.01-0.20); Immature Granulocytes % (auto) 2.8 %; Lymphocytes # (auto) 1.89 K/uL (1.20-3.40); Lymphocytes % (auto) 8.4 %; Mean Corpuscular Hemoglobin 32.1 pg (25.0-34.0); Mean Corpuscular Hgb Conc 35.6 g/dL (32.0-36.0); Mean Corpuscular Volume 90.3 fL (80.0-100.0); Mean Platelet Volume 12.1 fL (9.4-12.4); Monocytes # (auto) 2.17 K/uL (0.11-0.59); Monocytes % (auto) 9.6 %; Neutrophils # (auto) 17.74 K/uL (1.40-6.50); Neutrophils % (auto) 78.6 %; Platelet Count 250 K/uL (130-400); RDW Coefficient of Variation 14.2 % (11.5-14.5); RDW Standard Deviation 46.5 fL (36.4-46.3); Red Blood Count 5.45 M/uL (4.20-5.40); White Blood Count 22.58 K/ul (4.8-10.8)
[2024-01-18 07:40] LABS: BUN Creatinine Ratio 27.2 (10-20); Calcium 8.5 mg/dl (8.6-10.3); Creatinine Clr Calc Pharmacy 43.5 ml/min; Globulin 3.1 gm/dl (2.5-4.0); Potassium 4.3 mmol/L (3.5-5.1); Total Protein 6.1 gm/dl (6.0-8.3)
--- NOTE | 2024-01-18 08:17 | Hospitalist Progress Note ---
Date of Service January 18, 2024 Assessment & Plan (1) Intrathecal pump infection: Plan: S/p explantation 01/14/[address] Singer Patient had been on pain pump with baclofen 64.19 mcg/day, clonidine 106.98 mcg/day, hydromorphone 1.0698 mg/day. Management per primary service Ceftriaxone/Vanco--> Cefepime given pseudomonas on OR cx, --Notable, rxn to PCN w/ hives in past not noted on admission, did have flushing to face and provided benadryl x 1 w/ effectiveness and de-escalated to CIPRO 01/15 given OR sensitives and pharmacy adjusting for renal function Continues on Cipro to complete course, INCREASED TO BID based on improvement of renal function IVF ordered for dehydration, torsemide on HOLD --> Cr improved to 1.03. PO fluids encouraged WBC still 22k, did fall overnight/hit head (CT head negative), ?2nd to can baclofen QID w/ increase in lyrica/oversedation. --> Mentation stable/not confused this morning No fevers, UA did not appear infected. ?elevation w/ recent fall overnight. Biofire negative. Not hypoxic Pain control per primary -- Lyrica 125mg BID, baclofen changed back to PRN and IMPROVEMENT in pain since addition of requip for RLS (?if paresthesias from FLQ as well) Bowel regimen w/ lactulose BID, additional dose for today/Dulcolax [place] if needed Discussed w/ patient and primary service given ongoing leukocytosis (as could be multifactorial, given steroids w/ surgery, infection to back/abx changed and rxn to PCN prior, now w/ fall/trauma overnight and could have some reactive component) and no infectious symptoms at this time. ?if was bacteremic from pain pump and LFT/Na 2nd to such but no blood cx on admission. LFTs improved/around prior levels. Lipase NOT elevated and TB wnl 1.0. If ongoing leukocytosis tomorrow will consider reaching out to ID but will plan for extended course abx to 14 days if improved but can also consider CTAP for further eval however outside of constipation/not moving her bowels is without significant abdominal pain (only endorsing some nausea) Had prior put in for PT/OT consults last night, consideration for rehab/CM to follow given ongoing inpatient stay/possible needs. Continue fall precautions Monitor labs/exam in AM Please call with any questions/concerns (2) NANCY (acute kidney injury): Plan: NANCY on CKD suspect 2nd to ongoing torsemide use with decreased/lack of PO intake prior UA NOT appearing infected (but has been on abx, however denied symptoms) IVF ordered, continued on 01/16 through today and Cr now 1.03, BUN 28 and appears able to have increased PO intake and will monitor/encouraged PO fluids and to have bowel regimen as above Cipro renal adjustment given improvement Monitor renal function/adj as needed (3) Compensated HCV cirrhosis: Plan: Transaminitis, history of compensated hep C cirrhosis With history of curative treatment several years ago Last liver ultrasound 06/2023: Cirrhotic liver, no hepatic masses or evidence of HCC noted. No longer getting transplant as was to receive in the past as not meeting criteria per primary service LFTs appear improved/stable w/ tx Did have tylenol increased to 1gm q8H scheduled overnight by resident but given cirrhosis, changed to 1g BID max 2gm daily TORSEMIDE ON HOLD, NOT VOLUME OVERLOADED, would DEFER any ongoing diuretics in this patient at this time given dehydration just finally improving w/ ongoing hydration and will avoid further IVF for now. (4) GERD without esophagitis: Plan: continue PPI, will add pepcid 10mg BID Other chronic medical issues COPD Continue Spiriva No acute exacerbation, biofire negative 93% on RA Tremor Continue propranolol to 40 mg a.m., 160 mg p.m. Stable Hypothyroidism: Synthroid continued. (5) Insomnia: Plan Thank you for allowing hospitalist service participate in the care of Ms Mason. Case discussed with primary service. Hospitalist service will continue to follow along while inpatient. Please call with any questions/concerns. Admission and Anticipated Discharge Date Admission Date: January 15, 2024 Supervising Physician Co-Signing Physician Notes The patient was not seen by me. The chart was reviewed. Case discussed with FERNANDO Pacheco. Agree with assessment and plan Subjective Eval this afternoon, brushing teeth. Some nausea but no vomiting. Pain MUCH improved, getting increased lyrica and started on requip for restless legs and reports no further shooting pains. Not moving bowels but passing gas. KUB nonobstruction but noting fecal retention. She would prefer avoiding suppository and taking more lactulose for now and will order/dulcolax [place] if ineffective. Discussed leukocytosis/fall overnight.She reports trying to get comfortable in bed/attempting to get up and hit her head on the right (bandaged) and hit her left arm. Sensation intact. Discussed therapy evals/possible rehab, bad experience in the past and hopeful for home. Will monitor labs in AM/consider ID consult if needed and if moving bowels/labs improved can consider repeat evals and dc home (her mother is home now as well). No fever/chills, denies CP/SOB. Questions/concerns addressed at this time. Physical Exam 2 Physical Exam: General: 63yo female sitting up in bed,brushing her teeth, appears improved, NAD, pain improving HEENT: head atraumatic, normocephalic, mm DRY, trachea midline, no further redness/flushing to the face, no hives Resp: even/unlabored, no tachypnea/cough, slightly diminished in the bases but remains on room air 97%, no cough/tachypnea CV: RRR, no significant m/r/g, no pitting edema GI: +BS throughout but slight distension, no overt tenderness/guarding, wound vac to LLQ, functioning MSK/Neuro: dressing to spine c/d/i, moves all extremities, not confused Psych: AOx3, cooperative with exam Results & Data Results & Data Vital Signs (Past 12 Hours) Vital Signs Temp Pulse Pulse Pulse Resp BP BP 01/18/24 07:43 89 16 166/92 H 01/17/24 23:25 36.3 C L 94 H 16 150/86 H 01/17/24 21:34 76 154/90 H 01/17/24 20:57 36.9 C 82 16 166/99 H Pulse Ox O2 Del Method 01/18/24 07:43 97 Room Air 01/17/24 23:25 96 Room Air 01/17/24 21:34 01/17/24 20:57 97 Room Air Laboratory Results 01/18/24 06:43 01/18/24 06:[address] 01/18/24 00:22 EXAM: CT head/brain wo con CLINICAL HISTORY: fall TECHNIQUE: Axial non-contrast CT scan of the brain was performed from the skull base to the high parietal region with coronal and sagittal reformats. One of the following dose reduction techniques were utilized for this exam: Automated exposure control, adjustment of the mA and/or kV according to patient size, use of iterative reconstruction. COMPARISON: None. FINDINGS: Brain Parenchyma: Normal attenuation of the cerebral hemispheres, cerebellum, and brainstem. No evidence of acute infarct, hemorrhage, or mass effect. No abnormal areas of hypo- or hyperattenuation. Ventricular System: The prominence of the ventricular system was noted. Subarachnoid Spaces: Widened extra-axial CSF spaces appreciated, consistent with age-related changes. No evidence of subarachnoid hemorrhage or extra-axial fluid collections. Cerebellum and Brainstem: Normal size and signal. No masses, lesions, or areas of abnormal signal. Orbits: Normal appearance of the globes, optic nerves, and extraocular muscles. No evidence of orbital masses or abnormal signals. Sinuses: Clear paranasal sinuses. No evidence of sinusitis or mucosal thickening. Mastoid Air Cells: Clear mastoid air cells. No evidence of mastoiditis. Skull and Meninges: Normal skull morphology. IMPRESSION: 1. No evidence of acute infarct, hemorrhage, or mass effect. 2. Age-related changes in the brain as mentioned above. Electronically signed by Boyd Michelle 01-18-2024 01:22 AM KUB X-Ray 01/18/24 08:17 KUB HISTORY: Chronic generalized abdominal pain eval stool burden COMPARISON: KUB 12/13/2022 FINDINGS: Nonobstructive bowel gas pattern. Moderate fecal retention is most pronounced in the ascending colon. There are 2 catheter type structures projected over the mid abdomen. No renal calculi. No ureteral calculi. No pneumoperitoneum or pneumatosis. Chronic bony defect of the left iliac bone. No fracture. IMPRESSION: 1. Nonobstructive bowel gas pattern. 2. Moderate fecal retention within the right hemicolon. ACT 112: Negative or not required by law. The above report was generated using voice recognition software. It may contain grammatical, syntax or spelling errors. Electronically signed by: Aren James M.D. 01/18/2024 10:50 AM PG Care Time/CCT Total # of Minutes Spent Total Time Spent with Patient: Total time spent is greater than 50% in coordination of care (as documented) at patient's floor/unit and/or counseling patient: Coding Level of Care Code 86772 SUB INP/OBS CARE 50MIN Diagnoses Infection of intrathecal pump, initial encounter T85.738A Encounter type: initial encounter NANCY (acute kidney injury) N17.9 Compensated HCV cirrhosis K74.69; B19.20 GERD without esophagitis K21.9 Insomnia, unspecified type G47.00 Insomnia type: unspecified (1) Intrathecal pump infection Encounter type: initial encounter Qualified Code(s): T85.738A - Infection and inflammatory reaction due to other nervous system device, implant or graft, initial encounter (5) Insomnia Insomnia type: unspecified Qualified Code(s): G47.00 - Insomnia, unspecified
[2024-01-18] MEDS ORDERED: CIPROFLOXACIN 500 MG TAB PO SCH (09:00)
[2024-01-18] MEDS: CIPROFLOXACIN 500 MG TAB PO SCH (10:42)
--- NOTE | 2024-01-18 10:52 | XRay Report ---
KUB HISTORY: Chronic generalized abdominal pain eval stool burden COMPARISON: KUB 12/13/2022 FINDINGS: Nonobstructive bowel gas pattern. Moderate fecal retention is most pronounced in the ascend ing colon. There are 2 catheter type structures projected over the mid abdomen. No renal calculi. No ureteral calculi. No pneumoperitoneum or pneumatosis. Chronic bony defect of the left iliac bone. No fracture. IMPRESSION: 1. Nonobstructive bowel gas pattern. 2. Moderate fecal retention within the right hemicolon. ACT 112: Negative or not required by law. The above report was generated using voice recognition software. It may contain grammatical, syntax o r spelling errors. Electronically signed by: Aren James M.D. 01/18/2024 10:50 AM
--- NOTE | 2024-01-18 13:36 | Pain Management Progress Note ---
Date of Service January 18, 2024 Assessment & Plan (1) Intrathecal pump infection: Encounter type: initial encounter Qualified Code(s): T85.738A - Infection and inflammatory reaction due to other nervous system device, implant or graft, initial encounter (2) Lumbago: (3) Intractable neuropathic pain of lower extremity: (4) Peripheral neuropathy: (5) Diffuse myofascial pain syndrome: (6) NANCY (acute kidney injury): Plan 1. Continue Cipro PO 500mg twice daily for antibiotic coverage. 2. Baclofen order switched back to PRN. 3. Continue Lyrica 125 mg twice daily, nortriptyline 25 mg at bedtime 4. Continue Oxycodone 5-10mg q4 hours PRN pain. 5. Creatine function has improved by leukocytosis remains. Dr. Singer discussed with hospitalist team and there is consideration of CT abdomen. 6. To address this foot jumping, I have ordered Ropinerole 0.25 mg TID to see if it may be effective. Brother Ezekiel Mason would like to be updated about Melody's care Admission and Anticipated Discharge Date Admission Date: January 15, 2024 Subjective Melody is a 63-year-old female that is well-known to the [facility] pain service with a history of intractable back pain requiring the implantation of an intrathecal pump and catheter delivery system containing hydromorphone, clonidine, baclofen. The pump pocket was found to be infected so the intrathecal pump and catheter delivery system was explanted without complication. Wound VAC was placed. Currently receiving Cipro for antibiotic coverage. Patient is ordered Oxycodone 5mg 1 to 2 tablets every 4 hours if needed and IV Dilaudid if needed for breakthrough pain. She states that it is moderately effective for her pain but unsure if the nausea is attributed to the pain medication, infection, or antibiotics. She has been drinking liquids but still has little appetite for food. She has Zofran and Phenergan PRN nausea. She denies any fevers, chills, diarrhea, constipation, urinary symptoms. She continues to report spasms in the legs and questions if there is something other than Baclofen to try. Last night she hit her head trying to move around in the hospital bed. There is a laceration on the forehead. Swelling of the left arm - she is unsure what happeneded. Case discussed with Dr. Sue Singer Physical Exam Physical Exam: GENERAL: This is a 63-year-old female that does not appear in any acute distress. Her brother is bedside. HEAD/FACE: Normocephalic and atraumatic. + bandage on forehead. EYES: No drainage or conjunctival injection. ENT: Nose without bleeding or discharge. Oral mucosa moist. NECK: Full ROM without apparent pain. No swelling or masses noted. RESPIRATORY: Patient with unlabored breathing. No signs of respiratory distress. CHEST/AXILLA: Chest movement symmetrical. No deformities noted. ABDOMEN/GI: Wound VAC is present along the left lower abdomen. BACK: Moves without difficulty. Prineo bandage in place without any surrounding erythema, warmth, drainage, dressing was changed. SKIN: Ecchymosis of the left arm. MS/EXTREMITY: No swelling, no deformities. Moving extremities appropriately. + bandage of the left forearm. NEURO: Alert and appears oriented. Speech is fluent. Cranial Nerves are grossly intact. PSYCH: Alert, pleasant, affect is calm
[2024-01-18] MEDS: rOPINIRole HCL 0.25 MG TABLET PO SCH (14:21)
[2024-01-18] MEDS: LACTULOSE SYRUP 20 GM/30 ML UDC PO ONE (14:22)
[2024-01-18 14:45] VITALS: RESP 16
[2024-01-18] MEDS: bisacodyL 10 MG SUPP PR STA ×2 (17:41→17:44)
[2024-01-18] MEDS: FAMOTIDINE 10 MG TABLET PO SCH (22:18)
[2024-01-19] MEDS: hydrOXYzine HCl 25 MG TAB PO PRN (00:42)
[2024-01-19] MEDS: BACLOFEN 10 MG TAB PO PRN (02:26)
[2024-01-19 07:02] LABS: Basophils # (auto) 0.08 K/uL (0.00-0.20); Basophils % (auto) 0.4 %; Eosinophils # (auto) 0.06 K/uL (0.00-0.50); Eosinophils % (auto) 0.3 %; Hematocrit (blood only) 45.1 % (37.0-47.0); Hemoglobin 15.7 g/dl (12.0-16.0); Immature Granulocytes # (auto) 0.35 K/uL (0.01-0.20); Immature Granulocytes % (auto) 1.7 %; Lymphocytes # (auto) 1.53 K/uL (1.20-3.40); Lymphocytes % (auto) 7.3 %; Mean Corpuscular Hemoglobin 31.5 pg (25.0-34.0); Mean Corpuscular Hgb Conc 34.8 g/dL (32.0-36.0); Mean Corpuscular Volume 90.4 fL (80.0-100.0); Mean Platelet Volume 11.8 fL (9.4-12.4); Monocytes # (auto) 2.47 K/uL (0.11-0.59); Monocytes % (auto) 11.8 %; Neutrophils # (auto) 16.43 K/uL (1.40-6.50); Neutrophils % (auto) 78.5 %; Platelet Count 208 K/uL (130-400); RDW Coefficient of Variation 14.1 % (11.5-14.5); RDW Standard Deviation 46.2 fL (36.4-46.3); Red Blood Count 4.99 M/uL (4.20-5.40); White Blood Count 20.92 K/ul (4.8-10.8)
[2024-01-19 07:23] LABS: Albumin Level 2.9 gm/dl (3.4-5.0); BUN Creatinine Ratio 26.1 (10-20); Bilirubin,Total 1.2 mg/dl (0.2-1.0); Calcium 8.8 mg/dl (8.6-10.3); Creatinine Clr Calc Pharmacy 50.9 ml/min; Globulin 2.9 gm/dl (2.5-4.0); Magnesium 1.9 mg/dl (1.7-2.4); Potassium 4.4 mmol/L (3.5-5.1); Total Protein 5.8 gm/dl (6.0-8.3)
--- NOTE | 2024-01-19 08:13 | Pain Management Progress Note ---
Date of Service January 19, 2024 Assessment & Plan (1) Intrathecal pump infection: Encounter type: initial encounter Qualified Code(s): T85.738A - Infection and inflammatory reaction due to other nervous system device, implant or graft, initial encounter (2) Lumbago: (3) Intractable neuropathic pain of lower extremity: (4) Peripheral neuropathy: (5) Diffuse myofascial pain syndrome: (6) NANCY (acute kidney injury): Plan 1. Continue Cipro PO 500mg twice daily for antibiotic coverage. WBC trending down 2. Baclofen order switched back to PRN. 3. Continue Lyrica 125 mg twice daily, nortriptyline 25 mg at bedtime, ropinirole 0.25mg TID 4. Continue Oxycodone 5-10mg q4 hours PRN pain. Encouraged use of 5mg to improve constipation. 5. Creatine function has improved by leukocytosis remains. Dr. Singer discussed with hospitalist team and there is consideration of CT abdomen. 6. Mag citrate today to address constipation as suppository not effective. Encouraged PO intake. Hopeful for dc once PO intake sufficient. Admission and Anticipated Discharge Date Admission Date: January 15, 2024 Subjective Uneventful overnight. Reports feeling much improved today, utilized IV hydromorphone only with VAC change and 2 doses of oxycodone 10 mg yesterday. Reports feeling constipated despite suppository yesterday. Able to take liquids but not substantial solids at this time. Mild improvement with Requip for lower extremity complaints. Pain well-controlled at this time. Brother Ezekiel Mason Physical Exam Physical Exam: GENERAL: No acute distress. HEAD/FACE: Normocephalic and atraumatic. + bandage on forehead. EYES: No drainage or conjunctival injection. ENT: Nose without bleeding or discharge. Oral mucosa moist. NECK: Full ROM without apparent pain. RESPIRATORY: Patient with unlabored breathing. No signs of respiratory distress. CHEST/AXILLA: Chest movement symmetrical. No deformities noted. ABDOMEN/GI: Wound VAC is present along the left lower abdomen with good suction and no drainage. BACK: Moves without difficulty. Dressing dry and intact. SKIN: Ecchymosis of the left arm. MS/EXTREMITY: No swelling, no deformities. Moving extremities appropriately. + bandage of the left forearm. NEURO: Alert and appears oriented. Speech is fluent. Cranial Nerves are grossly intact. PSYCH: Alert, pleasant, affect is calm Results (Pain Clinic) Laboratory Review Laboratory results: personally reviewed by me and pertinent findings noted below Additional Comments: WBC trending down now 20.92 BUN/Creat 23/0.88
--- NOTE | 2024-01-19 08:46 | Hospitalist Progress Note ---
Date of Service January 19, 2024 Assessment & Plan (1) Intrathecal pump infection: Plan: S/p explantation 01/14/[address] Singer Patient had been on pain pump with baclofen 64.19 mcg/day, clonidine 106.98 mcg/day, hydromorphone 1.0698 mg/day. Management per primary service Ceftriaxone/Vanco--> Cefepime given pseudomonas on OR cx, --Notable, rxn to PCN w/ hives in past not noted on admission, did have flushing to face and provided benadryl x 1 w/ effectiveness and de-escalated to CIPRO 01/15 given OR sensitives and pharmacy adjusting for renal function Continues on Cipro to complete course, INCREASED TO BID based on improvement of renal function IVF ordered for dehydration, torsemide on HOLD --> Cr improved to 1.03. PO fluids encouraged WBC still 22k, did fall overnight/hit head (CT head negative), ?2nd to can baclofen QID w/ increase in lyrica/oversedation. --> Mentation stable/not confused this morning No fevers, UA did not appear infected. ?elevation w/ recent fall overnight. Biofire negative. Not hypoxic Pain control per primary -- Lyrica 125mg BID, baclofen changed back to PRN and IMPROVEMENT in pain since addition of requip for RLS (?if paresthesias from FLQ as well) Bowel regimen w/ lactulose BID, additional dose for today/Dulcolax NM if needed Discussed w/ patient and primary service given ongoing leukocytosis (as could be multifactorial, given steroids w/ surgery, infection to back/abx changed and rxn to PCN prior, now w/ fall/trauma overnight and could have some reactive component) and no infectious symptoms at this time. ?if was bacteremic from pain pump and LFT/Na 2nd to such but no blood cx on admission. LFTs improved/around prior levels. Lipase NOT elevated and TB wnl 1.0. If ongoing leukocytosis tomorrow will consider reaching out to ID but will plan for extended course abx to 14 days if improved but can also consider CTAP for further eval however outside of constipation/not moving her bowels is without significant abdominal pain (only endorsing some nausea) Had prior put in for PT/OT consults last night, consideration for rehab/CM to follow given ongoing inpatient stay/possible needs. Continue fall precautions Monitor labs/exam in AM Please call with any questions/concerns 01/18 Cipro increased to BID given improvement in renal function yesterday, continued improvement with BUN/Cr now normal at 23/0.88. WBC trending down, 22k--> 20k and has remained afebrile. Pain control improving, dilaudid w/ wound vac changes yesterday morning but not since. Oxycodone 10mg x 2 doses yesterday, one dose today w/ prn baclofen 10mg has been provided. Requip had been added 0.25mg TID for RLS symptoms w/ much improvement and would continue such. On Lyrica 125mg BID per increase by pain management previously for neuropathic pain w/ good results. Changing tylenol to prn to prevent worsened LFTs w/ underlying cirrhosis/hep C Phenergan more effective for nausea than zofran and rec continuing as needed for now - Working on bowel regimen, was given additional lactulose x 1 w/ suppository last evening and primary service ordering magnesium citrate however patient wanting enema which has been ordered IF dc home (or rehab), would ensure patient not taking torsemide/oral potassium unless needed for weight gain/edema to prevent worsening dehydration/renal function or hyperkalemia from ongoing potassium supplementation (which has been on hold since holding torsemide) Therapy evals rec for rehab but patient hopeful to return home. Can have therapy repeat eval to see if improved to go home w/ HH services as per patient wishes (2) NANCY (acute kidney injury): Plan: NANCY on CKD suspect 2nd to ongoing torsemide use with decreased/lack of PO intake prior and no significant volume overload UA not appearing infected IVF ordered/torsemide held and pushed PO fluids past 48hours with improvement in renal function and NORMALIZED, BUN 23/0.88 on repeat labs Renal adj to meds as needed/avoid nephrotoxins (3) Compensated HCV cirrhosis: Plan: Transaminitis, history of compensated hep C cirrhosis With history of curative treatment several years ago Last liver ultrasound 06/2023: Cirrhotic liver, no hepatic masses or evidence of HCC noted. No longer getting transplant as was to receive in the past as not meeting criteria per primary service LFTs appear improved/stable w/ tx Did have tylenol increased to 1gm q8H scheduled overnight by resident but given cirrhosis, changed to 1g BID max 2gm daily and will change to PRN given improvement in pain control w/ requip/lyrica as above TORSEMIDE ABOVE, would hold OFF at dc unless needed for volume overload but just now appearing much better hydrated (4) GERD without esophagitis: Plan: continue PPI, added pepcid 10mg BID Other chronic medical issues COPD Continue Spiriva No acute exacerbation, biofire negative 95% on RA Tremor Continue propranolol to 40 mg a.m., 160 mg p.m -- able to tolerate PO better/HR much better since able to take. Improvement since pain control as well. Stable Hypothyroidism: Synthroid continued.TSH wnl 2.569 (5) Insomnia: Plan Thank you for allowing hospitalist service participate in the care of Ms Mason. Case discussed with primary service. Hospitalist service will continue to follow along while inpatient. Please call with any questions/concerns. Admission and Anticipated Discharge Date Admission Date: January 15, 2024 Supervising Physician Co-Signing Physician Notes The patient was not seen by me. The chart was reviewed. Case discussed with FERNANDO Pacheco. Agree with assessment and plan Subjective Evaluated this morning, sitting up in bed. Drinking, slight improvement in PO intake w/ food but working on bowel regimen. Passing gas this morning, mag citrate ordered by primary service but she is preferring fleets enema. Feeling good w/ pain control, WBC trending down. . Plans to continue lyrica BID and requip for RLS. Hopefully if moving bowels/continued improvement can get her dc tomorrow w/ HH services as are her wishes No fever/chills, no CP/SOB reported. Remains on RA. Questions/concerns addressed at this time. Physical Exam Physical Exam: General: 63yo female sitting up in bed, appears improved from yesterday, pain stable, NAD, working on bowels HEENT: head w/ bandage to R forehead, normocephalic, mm MUCH IMPROVED, trachea midline, no further redness/flushing to the face, no hives Resp: even/unlabored, no tachypnea/cough, slightly diminished in the bases but remains on room air 95%, no cough/tachypnea CV: RRR, no significant m/r/g, no pitting edema GI: +BS throughout but slight increased distension/RUQ fullness (but not increased discomfort compared to baseline), wound vac in place to LLQ, functioning MSK/Neuro: dressing to spine c/d/i, moves all extremities, not confused dressing to L forearm from skin tear Psych: AOx3, cooperative with exam Results & Data Results & Data Vital Signs (Past 12 Hours) Vital Signs Temp Pulse Resp BP Pulse Ox O2 Del Method 01/19/24 07:07 36.9 C 72 16 156/84 H 95 Room Air Laboratory Results 01/19/24 Range/Units 06:31 WBC 20.92 H (4.8-10.8) K/ul RBC 4.99 (4.20-5.40) M/uL Hgb 15.7 (12.0-16.0) g/dl Hct 45.1 (37.0-47.0) % MCV 90.4 (80.0-100.0) fL MCH 31.5 (25.0-34.0) pg MCHC 34.8 (32.0-36.0) g/dL RDW Std Deviation 46.2 (36.4-46.3) fL RDW Coeff of Elin 14.1 (11.5-14.5) % Plt Count 208 (130-400) K/uL MPV 11.8 (9.4-12.4) fL Immature Gran % (Auto) 1.7 % Neut % (Auto) 78.5 % Lymph % (Auto) 7.3 % [place] % (Auto) 11.8 % Eos % (Auto) 0.3 % Baso % (Auto) 0.4 % Neut # (Auto) 16.43 H (1.40-6.50) K/uL Lymph # (Auto) 1.53 (1.20-3.40) K/uL [place] # (Auto) 2.47 H (0.11-0.59) K/uL Eos # (Auto) 0.06 (0.00-0.50) K/uL Baso # (Auto) 0.08 (0.00-0.20) K/uL Immature Gran # (Auto) 0.35 H (0.01-0.20) K/uL Sodium 135 L (136-145) mmol/L Potassium 4.4 (3.5-5.1) mmol/L Chloride 106 (98-107) mmol/L Carbon Dioxide 23 (21-32) mmol/L Anion Gap 6 (3-11) BUN 23 (6-23) mg/dl Creatinine 0.88 (0.6-1.2) mg/dl Est Cr Clr Drug Dosing 50.9 ml/min eGFR 72.89 BUN/Creatinine Ratio 26.1 H (10-20) Glucose 122 H (70-99(Fasting)) mg/dl Calcium 8.8 (8.6-10.3) mg/dl Magnesium 1.9 (1.7-2.4) mg/dl Total Bilirubin 1.2 H (0.2-1.0) mg/dl AST 88 H (13-39) U/L ALT 90 H (7-52) U/L Alkaline Phosphatase 185 H (34-104) U/L Ammonia 21.0 (18-72) umol/L Total Protein 5.8 L (6.0-8.3) gm/dl Albumin 2.9 L (3.4-5.0) gm/dl Globulin 2.9 (2.5-4.0) gm/dl Albumin/Globulin Ratio 1.0 (0.9-2) TSH 2.569 (0.300-4.500) uIu/ml PG Care Time/CCT Total # of Minutes Spent Total Time Spent with Patient: Total time spent is greater than 50% in coordination of care (as documented) at patient's floor/unit and/or counseling patient: Coding Level of Care Code 05519 SUB INP/OBS CARE 3/50MIN Diagnoses Infection of intrathecal pump, initial encounter T85.738A Encounter type: initial encounter NANCY (acute kidney injury) N17.9 Compensated HCV cirrhosis K74.69; B19.20 GERD without esophagitis K21.9 Insomnia, unspecified type G47.00 Insomnia type: unspecified (1) Intrathecal pump infection Encounter type: initial encounter Qualified Code(s): T85.738A - Infection and inflammatory reaction due to other nervous system device, implant or graft, initial encounter (5) Insomnia Insomnia type: unspecified Qualified Code(s): G47.00 - Insomnia, unspecified
[2024-01-19 09:40] LABS: Thyroid Stimulating Hormone 2.569 uIu/ml (0.300-4.500)
[2024-01-19] MEDS: MAGNESIUM CITRATE 296 ML/BTL PO ONE (10:24)
[2024-01-19] MEDS ORDERED: ACETAMINOPHEN 500 MG TAB PO PRN (11:01)
[2024-01-19] MEDS: SOD PHOSPHATE/SOD BIPHOSPHATE ENEMA 132 ML BTL PR ONE (11:06)
[2024-01-20 06:50] LABS: Basophils # (auto) 0.05 K/uL (0.00-0.20); Basophils % (auto) 0.3 %; Eosinophils # (auto) 0.12 K/uL (0.00-0.50); Eosinophils % (auto) 0.7 %; Hematocrit (blood only) 40.2 % (37.0-47.0); Hemoglobin 14.1 g/dl (12.0-16.0); Immature Granulocytes # (auto) 0.28 K/uL (0.01-0.20); Immature Granulocytes % (auto) 1.6 %; Lymphocytes # (auto) 1.72 K/uL (1.20-3.40); Lymphocytes % (auto) 9.6 %; Mean Corpuscular Hgb Conc 35.1 g/dL (32.0-36.0); Mean Corpuscular Volume 91.2 fL (80.0-100.0); Mean Platelet Volume 12.3 fL (9.4-12.4); Monocytes # (auto) 2.58 K/uL (0.11-0.59); Monocytes % (auto) 14.4 %; Neutrophils # (auto) 13.19 K/uL (1.40-6.50); Neutrophils % (auto) 73.4 %; Platelet Count 167 K/uL (130-400); RDW Coefficient of Variation 14.3 % (11.5-14.5); RDW Standard Deviation 47.6 fL (36.4-46.3); Red Blood Count 4.41 M/uL (4.20-5.40); White Blood Count 17.94 K/ul (4.8-10.8)
[2024-01-20 07:10] LABS: Albumin Globulin Ratio 1.1 (0.9-2); Albumin Level 2.9 gm/dl (3.4-5.0); Bilirubin,Total 1.2 mg/dl (0.2-1.0); Calcium 8.7 mg/dl (8.6-10.3); Creatinine Clr Calc Pharmacy 60.5 ml/min; Globulin 2.7 gm/dl (2.5-4.0); Magnesium 1.9 mg/dl (1.7-2.4); Potassium 3.9 mmol/L (3.5-5.1); Total Protein 5.6 gm/dl (6.0-8.3)
--- NOTE | 2024-01-20 09:13 | Pain Management Progress Note ---
Date of Service January 20, 2024 Assessment & Plan (1) Intrathecal pump infection: Encounter type: initial encounter Qualified Code(s): T85.738A - Infection and inflammatory reaction due to other nervous system device, implant or graft, initial encounter (2) Lumbago: (3) Intractable neuropathic pain of lower extremity: (4) Peripheral neuropathy: (5) Diffuse myofascial pain syndrome: (6) NANCY (acute kidney injury): Plan 1. Continue Cipro PO 500mg twice daily for antibiotic coverage. WBC continues to trend down. Wound VAC working well. 2. Continue Baclofen prn, Lyrica 125 mg twice daily, nortriptyline 25 mg at bedtime, ropinirole 0.25mg TID 3. Continue Oxycodone 5-10mg q4 hours PRN pain. Encouraged use of 5mg to improve constipation. 4. Encouraged PO intake 5. [facility] and [facility] the family is actively caring for the mom who had a recent hospital discharge. Melody reports a short course of inpatient rehab would be best for her overall conditioning and wellbeing. Will speak with case management [facility] Admission and Anticipated Discharge Date Admission Date: January 15, 2024 Subjective Uneventful overnight. Was able to eat a cheese sandwich and drink without nausea or emesis. Reports feeling much improved today used 2 doses of oxycodone 10 mg yesterday. Reports improvement in constipation after Fleet enema. Abdomen much less distended and more comfortable. She reports mild pain over her abdominal wall and axial lumbar spine rating around 5 out of 10. Mild improvement with Requip for lower extremity complaints. Pain well-controlled at this time. Brother Ezekiel Mason Physical Exam Physical Exam: GENERAL: No acute distress. HEAD/FACE: Normocephalic and atraumatic. + bandage on forehead. EYES: No drainage or conjunctival injection. ENT: Nose without bleeding or discharge. Oral mucosa moist. NECK: Full ROM without apparent pain. RESPIRATORY: Patient with unlabored breathing. No signs of respiratory distress. CHEST/AXILLA: Chest movement symmetrical. No deformities noted. ABDOMEN/GI: Wound VAC is present along the left lower abdomen with good suction and no drainage. BACK: Moves without difficulty. Dressing changed Prineo dressing in place wound with good approximation no erythema fluctuance drainage appears to be healing well.. SKIN: Ecchymosis of the left arm. MS/EXTREMITY: No swelling, no deformities. Moving extremities appropriately. + bandage of the left forearm. NEURO: Alert and appears oriented. Speech is fluent. Cranial Nerves are grossly intact. PSYCH: Alert, pleasant, affect is calm Results (Pain Clinic) Laboratory Review Laboratory results: personally reviewed by me and pertinent findings noted below (WBC trending down and BUN and creatinine stable.)
--- NOTE | 2024-01-20 09:54 | Hospitalist Progress Note ---
Date of Service January 20, 2024 Assessment & Plan (1) Intrathecal pump infection: Plan: S/p explantation 01/14/[address] Singer Patient had been on pain pump with baclofen 64.19 mcg/day, clonidine 106.98 mcg/day, hydromorphone 1.0698 mg/day. Management per primary service Ceftriaxone/Vanco--> Cefepime given pseudomonas on OR cx (Notable, rxn to PCN w/ hives in past not noted on admission, did have flushing to face and provided benadryl x 1 w/ effectiveness and de-escalated to CIPRO 01/15 given OR sensitives and pharmacy adjusting for renal function) Cipro PO continued, adjusted to once daily for renal function and provided IVF for NANCY w/ poor PO intake. UA negative for infection and renal function normalized with holding further diuretics WBC continued elevation however had been given multiple medications and did have fall while inpatient (no fractures observed, CT head negative) but has remained afebrile and trending down to 17k and planning for 14 day course. Pain management adjustment to lyrica and added requip w/ improvement. Baclofen prn w/ oxycodone but suspect ongoing constipation from opiates worsening constipation and suppository provided 01/18 and had BM but subsequently told me she only gave herself half. On 01/18, opiates provided decreased and increased PO intake able however again discussed as in subjective to limit to 5mg as needed LFT slight further elevation w/ holding her torsemide and hydration seemed improved however ?related to meds vs cirrhosis vs other. Lipase NOT elevated RUQ obtained which noted SMALL amout of ascites, no cholelithiasis Rec to primary service to avoid Tylenol unless needed for fever/headache but if needed to limit to 2gm/daily as was previously scheduled but overnight team KUB w/ mod-extensive fecal retention, rec to continue suppository/enema as needed. Call to [facility] provider to discuss case/ongoing constipation issues needing ongoing treatment as well as possible resumption in her torsemide for small amt ascites. Planned dc to [facility] this afternoon, please call with any questions/concerns. (2) NANCY (acute kidney injury): Plan: NANCY on CKD suspected 2nd to ongoing torsemide use with poor PO intake with Cr to 1.6 which improved/resolved BUN/Cr 17/0.74 prior to discharge and as above torsemide had been placed on HOLD but hydration much improved despite constipation (from opiate use) and can consider resuming at [facility] as needed for small amt ascites on RUQ US Cipro renally dosed and able to continue BID dosing at dc. Monitor for need for repeat labs. (3) Compensated HCV cirrhosis: Plan: Transaminitis, history of compensated hep C cirrhosis With history of curative treatment several years ago Last liver ultrasound 06/2023: Cirrhotic liver, no hepatic masses or evidence of HCC noted. No longer getting transplant as was to receive in the past as not meeting criteria per primary service LFTs appear improved/stable w/ tx however as above, may need to consider resuming torsemide at [facility] for small amt ascites given LFT elevation. Rec to avoid excess tylenol Monitor w/ requip being provided for RLS as can cause transient lft elevation as well as Cipro. (4) GERD without esophagitis: Plan: continue PPI, pepcid 10mg BID added empiric Other chronic medical issues COPD Continue Spiriva No acute exacerbation, biofire negative 96% on RA Tremor Continue propranolol to 40 mg a.m., 160 mg p.m Hypothyroidism: Synthroid continued.TSH wnl (5) Insomnia: Plan Thank you for allowing hospitalist service participate in the care of Ms Mason. Planning for dc to [facility] with ongoing bowel regimen, possible resumption of torsemide once bowels moving and continued Cipro for abx. Discussed w/ primary service as well as [facility] provider. Please call with any questions/concerns. Admission and Anticipated Discharge Date Admission Date: January 15, 2024 Supervising Physician Co-Signing Physician Notes The patient was not seen by me. The chart was reviewed. Case discussed with FERNANDO Pacheco. Agree with assessment and plan Subjective EVal this morning, resting in bed. Had been increased PO intake/appetite and moved bowels yesterday w/ suppository (Noting she "saved half" from yesterday). Had been doing much better yesterday WITHOUT oxycodone and did receive a dose this morning and subsequent nausea. Discussed using LOWER DOSE and only if needed. Does have some burning from wound vac reported, also maybe a little more RUQ swelling/discomfort today. GIven inpatient stay/planning now for rehab will obtain RUQ/KUB for eval but also encouraged continued ambulation and bowel regimen to address constipation issues. CM to follow for [facility] placement at discharge. Physical Exam Physical Exam: General: 63yo female sitting up in bed, appears improved from yesterday however nauseated this morning following pain medications but NAD HEENT: head w/ bandage to R forehead, normocephalic, mm MUCH IMPROVED, trachea midline Resp: even/unlabored, no tachypnea/cough, slightly diminished in the bases but remains on room air 96%, no cough/tachypnea CV: RRR, no significant m/r/g, no pitting edema GI: +BS throughout but slightly more distended, wound vac in place/functioning, no cellulitis +SMALL amt ascites vs large stool burden on exam MSK/Neuro: dressing to spine c/d/i, moves all extremities, not confused. dressing to L forearm from skin tear Psych: AOx3, cooperative with exam Results & Data Results & Data Vital Signs (Past 12 Hours) Vital Signs Temp Pulse Resp BP Pulse Ox O2 Del Method 01/20/24 08:28 36.7 C 68 16 135/76 96 Room Air Laboratory Results 01/20/24 Range/Units 06:11 WBC 17.94 H (4.8-10.8) K/ul RBC 4.41 (4.20-5.40) M/uL Hgb 14.1 (12.0-16.0) g/dl Hct 40.2 (37.0-47.0) % MCV 91.2 (80.0-100.0) fL MCH 32.0 (25.0-34.0) pg MCHC 35.1 (32.0-36.0) g/dL RDW Std Deviation 47.6 H (36.4-46.3) fL RDW Coeff of Elin 14.3 (11.5-14.5) % Plt Count 167 (130-400) K/uL MPV 12.3 (9.4-12.4) fL Immature Gran % (Auto) 1.6 % Neut % (Auto) 73.4 % Lymph % (Auto) 9.6 % [place] % (Auto) 14.4 % Eos % (Auto) 0.7 % Baso % (Auto) 0.3 % Neut # (Auto) 13.19 H (1.40-6.50) K/uL Lymph # (Auto) 1.72 (1.20-3.40) K/uL [place] # (Auto) 2.58 H (0.11-0.59) K/uL Eos # (Auto) 0.12 (0.00-0.50) K/uL Baso # (Auto) 0.05 (0.00-0.20) K/uL Immature Gran # (Auto) 0.28 H (0.01-0.20) K/uL Sodium 139 (136-145) mmol/L Potassium 3.9 (3.5-5.1) mmol/L Chloride 108 H (98-107) mmol/L Carbon Dioxide 25 (21-32) mmol/L Anion Gap 6 (3-11) BUN 17 (6-23) mg/dl Creatinine 0.74 (0.6-1.2) mg/dl Est Cr Clr Drug Dosing 60.5 ml/min eGFR 89.73 BUN/Creatinine Ratio 23.0 H (10-20) Glucose 103 H (70-99(Fasting)) mg/dl Calcium 8.7 (8.6-10.3) mg/dl Magnesium 1.9 (1.7-2.4) mg/dl Total Bilirubin 1.2 H (0.2-1.0) mg/dl AST 103 H (13-39) U/L ALT 96 H (7-52) U/L Alkaline Phosphatase 188 H (34-104) U/L Total Protein 5.6 L (6.0-8.3) gm/dl Albumin 2.9 L (3.4-5.0) gm/dl Globulin 2.7 (2.5-4.0) gm/dl Albumin/Globulin Ratio 1.1 (0.9-2) Diagnostic Findings Liver Ultrasound 01/20/24 09:50 ABDOMINAL ULTRASOUND, RIGHT UPPER QUADRANT HISTORY: Acutely elevated LFTs elevated LFTs. COMPARISON: 06/13/2023 FINDINGS: Pancreas: The pancreas demonstrates a normal echotexture. Liver: Cirrhotic morphology of the liver redemonstrated. No discrete hepatic mass identified. Small amount of upper abdominal ascites. Gallbladder: No gallbladder wall thickening. No gallstones. CBD: 5 mm. Right kidney: No hydronephrosis. IMPRESSION: 1. Cirrhosis with small amount of abdominal ascites. 2. No hepatic mass identified. 3. No cholelithiasis identified. 4. The previously noted tiny gallbladder polyps are not well-visualized on today's study. ACT 112: Negative or not required by law. Electronically signed by: Aren James M.D. 01/20/2024 11:01 AM KUB X-Ray 01/20/24 09:53 KUB HISTORY: Acute generalized abdominal pain eval ileus, stool burden COMPARISON: KUB 01/18/2024 FINDINGS: Nonobstructive bowel gas pattern. Moderate to extensive fecal retention has progressed. There are 2 catheter type structures projected over the mid abdomen. No renal calculi. No ureteral calculi. No pneumoperitoneum or pneumatosis. Chronic bony defect of the left iliac bone. No fracture. IMPRESSION: 1. Nonobstructive bowel gas pattern. 2. Moderate to extensive fecal retention. ACT 112: Negative or not required by law. The above report was generated using voice recognition software. It may contain grammatical, syntax or spelling errors. Electronically signed by: Aren James M.D. 01/20/2024 10:34 AM PG Care Time/CCT Total # of Minutes Spent Total Time Spent with Patient: Total time spent is greater than 50% in coordination of care (as documented) at patient's floor/unit and/or counseling patient: Coding Level of Care Code 51717 SUB INP/OBS CARE 3/50MIN Diagnoses Infection of intrathecal pump, initial encounter T85.738A Encounter type: initial encounter NANCY (acute kidney injury) N17.9 Compensated HCV cirrhosis K74.69; B19.20 GERD without esophagitis K21.9 Insomnia, unspecified type G47.00 Insomnia type: unspecified (1) Intrathecal pump infection Encounter type: initial encounter Qualified Code(s): T85.738A - Infection and inflammatory reaction due to other nervous system device, implant or graft, initial encounter (5) Insomnia Insomnia type: unspecified Qualified Code(s): G47.00 - Insomnia, unspecified
--- NOTE | 2024-01-20 10:36 | XRay Report ---
KUB HISTORY: Acute generalized abdominal pain eval ileus, stool burden COMPARISON: KUB 01/18/2024 FINDINGS: Nonobstructive bowel gas pattern. Moderate to extensive fecal retention has progressed. The re are 2 catheter type structures projected over the mid abdomen. No renal calculi. No ureteral calcu li. No pneumoperitoneum or pneumatosis. Chronic bony defect of the left iliac bone. No fracture. IMPRESSION: 1. Nonobstructive bowel gas pattern. 2. Moderate to extensive fecal retention. ACT 112: Negative or not required by law. The above report was generated using voice recognition software. It may contain grammatical, syntax o r spelling errors. Electronically signed by: Aren James M.D. 01/20/2024 10:34 AM
--- NOTE | 2024-01-20 10:59 | Discharge Summary ---
Date of Service January 20, 2024 Admission HPI Per Admitting Provider 63-year-old female well-known to the [facility] pain management office with a long-term intrathecal pump containing baclofen 64.19 mcg/day, clonidine 106.98 mcg/day and hydromorphone 1.0698 mg/day. She had a intrathecal pump replacement on 09/25/2023. She was healing well and noted to have suture material at the lateral border of the incision which was removed 11/19/2023. Incision was well-healed. She presented for subsequent visits without issue. Most recent intrathecal pump refill was on 12/06/2023. Her pump site appeared unremarkable on 01/08/2024. Unfortunately today she noticed drain age from the site. Cultures were taken and labs were ordered. She is here for explantation of intrathecal pump and catheter system. She denies fevers, change in motor or sensation, or other cognitive deficits. Admission Exam (Per Admitting) Constitutional WD/WN, vitals as above Eyes PERRL, conjunctivae normal, anicteric sclerae ENMT external ear and nose normal, oropharynx normal Neck normal visual inspection and trachea midline Respiratory normal respiratory effort, lungs clear to auscultation Cardiovascular RRR, no murmur, no edema Gastrointestinal (Abdomen) normal bowel sounds, soft, nontender, no hepatosplenomegaly Inspection/Auscultation: + abdominal surgical incision (LLQ intrathecal pump site with lateral drainage mild erythema noted.) Musculoskeletal no cyanosis or clubbing, extremities motor strength 5/5 Neurologic PERRL, EOMI, accommodation nl, no face palsy, no dysarthria CN's II-XI intact bilaterally Psychiatric A+Ox3, euthymic affect Discharge Data Consultations 01/14/24 16:14 Consult Hospitalist Routine Procedures Performed Operation Date: 01/14/24 15:55 Actual Procedures p Explantation Intrathrecal Pump with Application of Wound Vac(Not Applicable) - Sue Singer DO Hospital Course (1) Intrathecal pump infection: (2) Lumbago: (3) Intractable neuropathic pain of lower extremity: (4) Peripheral neuropathy: (5) Diffuse myofascial pain syndrome: (6) NANCY (acute kidney injury): Plan 1. The intrathecal pump and catheter system in its entirety was explanted and a wound VAC was placed over the intrathecal pump pocket. The axial lumbar catheter wound was primary closed cultures were taken and the catheter and pump were sent for culture. She was placed on empiric vancomycin and Rocephin. Preliminary culture came back as possible Pseudomonas and the Rocephin was changed to cefepime. The final axial lumbar culture and intrathecal section of the catheter culture was negative. The final intrathecal pump and culture of the pocket were positive for Pseudomonas aeruginosa and was sensitive to ciprofloxacin. Vancomycin and cefepime were subsequently discontinued and she was converted to p.o. ciprofloxacin 500mg twice daily for antibiotic coverage. Her WBC continued to trend down. Wound VAC working well. She did not experience any withdrawal symptoms. 2. Continue Baclofen prn, Lyrica 125 mg twice daily, nortriptyline 25 mg at bedtime, ropinirole 0.25mg TID, Oxycodone 5-10mg q4 hours PRN pain, miralax prn constipation. 3. During the hospitalization she utilized Zofran and Phenergan for nausea. Her diuretics were discontinued as she initially had poor intake. She was en couraged to take additional p.o. during the course of the hospitalization and her renal function was at baseline for discharge. 4. The patient and family expressed that short-term rehab with [facility] would be best as the family is actively caring for the mom who had a recent hospital discharge. Melody reports a short course of inpatient rehab would be best for her overall conditioning and wellbeing. Case management was able to facilitate discharge to [facility]. 5. The [facility] wound clinic provided assistance with the wound VAC during her hospitalization and will provide assistance postdischarge. 6. We will see her back at the [facility] pain management office postdischarge from [facility].
--- NOTE | 2024-01-20 11:02 | Ultrasound Report ---
ABDOMINAL ULTRASOUND, RIGHT UPPER QUADRANT HISTORY: Acutely elevated LFTs elevated LFTs. COMPARISON: 06/13/2023 FINDINGS: Pancreas: The pancreas demonstrates a normal echotexture. Liver: Cirrhotic morphology of the liver redemonstrated. No discrete hepatic mass identified. Small a mount of upper abdominal ascites. Gallbladder: No gallbladder wall thickening. No gallstones. CBD: 5 mm. Right kidney: No hydronephrosis. IMPRESSION: 1. Cirrhosis with small amount of abdominal ascites. 2. No hepatic mass identified. 3. No cholelithiasis identified. 4. The previously noted tiny gallbladder polyps are not well-visualized on today's study. ACT 112: Negative or not required by law. Electronically signed by: Aren James M.D. 01/20/2024 11:01 AM
[2024-01-20 15:06] VITALS: BP 138/80; PULSE 63; TEMP 97.9; O2SAT 98
--- NOTE | 2024-01-21 17:32 | Coding Query ---
CODING QUERY To promote full compliance with coding requirements relating to patient care, provider participation is requested in all cases of er tech uncertainty. Please assist us with the question(s) below: HP:today she noticed drainage from the site. Cultures were taken and labs were ordered. She is here for explantation of intrathecal pump and catheter system. 01/15 PN-The pump pocket was found to be infected so the intrathecal pump and catheter delivery system was explanted without complication. Coding Question(s): Can you please further clarify what type of infection, such as? [ ] Abscess [ ] Cellulitis [ x ] Other _LLQ pocket infection [ ] Unable to determine Physician's Response(s): Thank you Shanique Henry Principal Diagnosis: "that condition established after study, to be chiefly responsible for occasioning the admission of the patient to the hospital for care." Co-Existing Principal Diagnosis: "when two or more diagnoses equally meet the criteria for principal diagnosis as determined by the circumstances of admission, diagnostic work up, and/or therapy provided, and the Alphabetic Index, Tabular List, or another coding guideline does not provide sequencing direction, any one of the diagnoses may be sequenced first." "When the physician has documented what appears to be a current diagnosis in the body of the record, but has not included the diagnosis in the final diagnostic statement, the physician should be asked whether the diagnosis should be added." (Source Coding [facility] 2 QTR90. p3-4) DANITA
== END 2024-01-20 18:38 | DRG 29 ==
LOC: ASU 12:20 → 3W 12:20